=== PATIENT | female | born 1955 | race Two or more races ===

== ENCOUNTER 2019-06-19 13:48 | Emergency (ER) | payer OTHER ==
[~2019-06-19] VITALS: Ht 154.9 cm; Wt 68.0 kg
[2019-06-19 14:57] LABS: BASO % 1 % (0-3); EOS # 0.6 x10^3/uL (0.0-0.7); EOS % 11 % (0-3); HEMATOCRIT 42.6 % (36.0-47.0); HEMOGLOBIN 14.3 g/dL (12.0-15.5); LYMPH # 1.4 x10^3/uL (1.0-4.8); LYMPH % 26 % (24-48); MEAN CORPUSCULAR HEMOGLOBIN 29 pg (25-35); MEAN CORPUSCULAR HGB CONC 34 g/dL (31-37); MEAN CORPUSCULAR VOLUME 86 fL (79-100); MONO # 0.4 x10^3/uL (0.0-1.1); MONO % 8 % (0-9); NEUT % 55 % (31-73); PLATELET COUNT 146 x10^3/uL (140-400); RED BLOOD COUNT 4.96 x10^6/uL (3.50-5.40); WHITE BLOOD COUNT 5.4 x10^3/uL (4.0-11.0)
[2019-06-19] MEDS ORDERED: RIVA15TA PO (15:01)
--- NOTE | 2019-06-19 15:01 | PHYS DOC ---
Past Medical History Past Medical History: DVT, Hypertension, Hypothyroid Additional Past Medical Histor: UTERINE TUMOR, LAST CHEMO MAR 2019 Past Surgical History: Hysterectomy, Tubal ligation, Other Smoking Status: Never Smoker Alcohol Use: None Drug Use: None Adult General Chief Complaint Chief Complaint: LOWER EXT PAIN HPI HPI 64-year-old female presenting the emergency department today after being found to have bilateral distal calf DVTs that diagnostic imaging center. She's had some pain and swelling in her calves for months now and after these DVTs were found she was sent here for further treatment and evaluation. She has some throbbing pain in her calves with some swelling. ROS negative for headache. She denies chest pain or shortness of breath. She denies fevers or chills. All other review of systems is negative. ED course: 64-year-old female presenting with bilateral distal calf DVTs. We will start the patient on xerolto. Chemistry panel shows low potassium. Otherwise kidney function within normal limits. I spoke with Dr. Meier the patient's OB gynecology oncology physician. Patient's potassium was replaced in the emergency department orally. We will discharge home with xerolto. Follow up with PCP 1-2 days. EKG shows sinus rhythm with a regular rate. QRS is within normal limits. No changes of EKG related the patient's hypokalemia. Current Medications Current Medications Current Medications Medications (Trade) Dose Ordered Sig/Allison Start Time Stop Time Status Last Admin Dose Admin Potassium Chloride (Klor-Con) 40 meq 1X ONCE 06/19/19 15:30 06/19/19 15:31 DC Allergies Allergies Allergies Coded Allergies Type Severity Reaction Last Updated Verified I S O L A T I O N *CONTACT* Allergy Unknown 09/16/16 Yes Uncoded Allergies Type Severity Reaction Last Updated Verified complex b Allergy Mild 11/08/15 yodo Allergy Unknown 11/08/15 Physical Exam Physical Exam Constitutional: Well developed, well nourished, no acute distress, non-toxic appearance. HEENT: Normocephalic, atraumatic, bilateral external ears normal, oropharynx moist, no oral exudates, nose normal. [] Eyes: PERRLA, EOMI, conjunctiva normal, no discharge. [] Neck: Normal range of motion, no tenderness, supple, no stridor. [] Cardiovascular:Heart rate regular rhythm, no murmur [] Lungs & Thorax: Bilateral breath sounds clear to auscultation [] Abdomen: Bowel sounds normal, soft, no tenderness, no masses, no pulsatile masses. [] Skin: Warm, dry, no erythema, no rash. [] Back: No tenderness, no CVA tenderness. [] Extremities: Patient has bilateral pedal edema with swelling. No erythema. Palpable pulse with 2 sec cap refill. Neurologic: Alert and oriented X 3, normal motor function, normal sensory function, no focal deficits noted. [] Psychologic: Affect normal, judgement normal, mood normal. [] Current Patient Data Vital Signs Vital Signs Date Time Temp Pulse Resp B/P (MAP) Pulse Ox O2 Delivery O2 Flow Rate FiO2 06/19/19 14:15 98.4 79 18 133/64 (87) 94 Room Air 98.4 Lab Values Laboratory Tests Test 06/19/19 14:45 White Blood Count 5.4 x10^3/uL (4.0-11.0) Red Blood Count 4.96 x10^6/uL (3.50-5.40) Hemoglobin 14.3 g/dL (12.0-15.5) Hematocrit 42.6 % (36.0-47.0) Mean Corpuscular Volume 86 fL (79-100) Mean Corpuscular Hemoglobin 29 pg (25-35) Mean Corpuscular Hemoglobin Concent 34 g/dL (31-37) Red Cell Distribution Width 17.0 % (11.5-14.5) H Platelet Count 146 x10^3/uL (140-400) Neutrophils (%) (Auto) 55 % (31-73) Lymphocytes (%) (Auto) 26 % (24-48) Monocytes (%) (Auto) 8 % (0-9) Eosinophils (%) (Auto) 11 % (0-3) H Basophils (%) (Auto) 1 % (0-3) Neutrophils # (Auto) 3.0 x10^3/uL (1.8-7.7) Lymphocytes # (Auto) 1.4 x10^3/uL (1.0-4.8) Monocytes # (Auto) 0.4 x10^3/uL (0.0-1.1) Eosinophils # (Auto) 0.6 x10^3/uL (0.0-0.7) Basophils # (Auto) 0.0 x10^3/uL (0.0-0.2) Sodium Level 140 mmol/L (136-145) Potassium Level 2.9 mmol/L (3.5-5.1) *L Chloride Level 103 mmol/L (98-107) Carbon Dioxide Level 28 mmol/L (21-32) Anion Gap 9 (6-14) Blood Urea Nitrogen 13 mg/dL (7-20) Creatinine 0.5 mg/dL (0.6-1.0) L Estimated GFR (Cockcroft-Gault) 123.8 BUN/Creatinine Ratio 26 (6-20) H Glucose Level 105 mg/dL (70-99) H Calcium Level 9.2 mg/dL (8.5-10.1) Total Bilirubin 0.3 mg/dL (0.2-1.0) Aspartate Amino Transferase (AST) 22 U/L (15-37) Alanine Aminotransferase (ALT) 16 U/L (14-59) Alkaline Phosphatase 61 U/L (46-116) Total Protein 7.1 g/dL (6.4-8.2) Albumin 3.2 g/dL (3.4-5.0) L Albumin/Globulin Ratio 0.8 (1.0-1.7) L Laboratory Tests 06/19/19 14:45 Laboratory Tests 06/19/19 14:45 EKG EKG [] Radiology/Procedures Radiology/Procedures [] Course & Med Decision Making Course & Med Decision Making Pertinent Labs and Imaging studies reviewed. (See chart for details) [] Dragon Disclaimer Dragon Disclaimer This electronic medical record was generated, in whole or in part, using a voice recognition dictation system. Departure Departure Impression: Primary Impression: DVT (deep venous thrombosis) Additional Impressions: Deep venous thrombosis (DVT) of both peroneal veins Deep venous thrombosis (DVT) of left peroneal vein Deep venous thrombosis (DVT) of right peroneal vein Disposition: 01 HOME, SELF-CARE Condition: STABLE Referrals: SIDNEY STEELE APRN (PCP) Patient Instructions: Deep Vein Thrombosis Additional Instructions: Thank you for allowing us to participate in your care today. Return to the emergency department you have any new or worsening symptoms, or if you are concerned for any reason. Return to emergency department if you have any new or concerning symptoms including but not limited to fever, chills, nausea, vomiting, intractable pain, any new rashes, chest pain, shortness of air, uncontrolled bleeding, difficulty breathing, and/or vision loss. Follow up with your primary care physician within 1-2 days. Call your Primary Doctor tomorrow and inform them of your visit today. If you do not have a primary care provider we are happy to provide you with a list of our primary care providers contact information. This condition should be evaluated by your primary care physician and any recommended consulting services for continued management within 2 days after discharge. If at any time, you are having difficulty getting into your primary care doctor or a specialist, return to the emergency department. Scripts Potassium Chloride (POTASSIUM CHLORIDE ) 10 Meq Tab.sr.24h 10 MEQ PO DAILY for 5 Days, #5 TAB.SR Prov: LEOPOLDO RACHEL MD 06/19/19 Rivaroxaban (XARELTO) 15 Mg Tablet 1 TAB PO BID for 21 Days, #42 TAB 0 Refills Prov: LEOPOLDO RACHEL MD 06/19/19 Problem Qualifiers LEOPOLDO RACHEL MD Jun 19, 2019 15:01
[2019-06-19 15:14] LABS: ALBUMIN 3.2 g/dL (3.4-5.0); ALBUMIN/GLOBULIN RATIO 0.8 (1.0-1.7); CALCIUM 9.2 mg/dL (8.5-10.1); CREATININE 0.5 mg/dL (0.6-1.0); GFR 123.8; TOTAL BILIRUBIN 0.3 mg/dL (0.2-1.0); TOTAL PROTEIN 7.1 g/dL (6.4-8.2)
[2019-06-19 15:18] LABS: POTASSIUM 2.9 mmol/L (3.5-5.1)
[2019-06-19] MEDS ORDERED: POTASSIUM CHLORIDE 20 MEQ TABLET.ER. PO ONE (15:30)
[2019-06-19] MEDS ORDERED: POTA10TA12 PO (15:43)
--- NOTE | 2019-06-19 16:04 | EKG ---
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
[2019-06-19 16:05] VITALS: BP 126/60
== END 2019-06-19 16:30 | disposition home or self-care (01) ==
LOC: ER 13:48
DX: I82.453 Acute embolism and thrombosis of peroneal vein, bilateral (principal); I10 Essential (primary) hypertension; E03.9 Hypothyroidism, unspecified; Z90.710 Acquired absence of both cervix and uterus; Z98.51 Tubal ligation status; Z91.041 Radiographic dye allergy status; Z88.8 Allergy status to other drugs, medicaments and biological substances
CPT/HCPCS: 36415; 80053; 85025; 93005; 99284-25

== ENCOUNTER 2020-10-13 20:15 | Inpatient (IN) | payer OTHER ==
[~2020-10-13] VITALS: Ht 160 cm; Wt 65.2 kg
[~2020-10-13 20:15] MED LIST: POTA10TA12 PO; RIVA15TA PO
[2020-10-13] MEDS ORDERED: ASPIRIN 325 MG TABLET PO ONE (20:45)
[2020-10-13] MEDS ORDERED: LABETALOL 20 MG/4 ML DISP.SYRIN. IVP ONE (20:45)
[2020-10-13] MEDS ORDERED: ALPRAZolam 0.5 MG TABLET PO ONE (20:45)
--- NOTE | 2020-10-13 20:48 | EKG ---
[facility] [address] [place] [address] Test Date: 2020-10-13 Test Time: 20:30:00 Pat Name: MOON Mayenpartment: Room: Gender: F Purse Maker: : 1955 Requested By: EVI TALBERT Order Number: [id number] Reading MD: Measurements Intervals [place] Rate: 83 P: -65 NH: 152 QRS: -47 QRSD: 90 T: 57 QT: 334 QTc: 398 Interpretive Statements SINUS RHYTHM ABNORMAL LEFT AXIS DEVIATION LEFT ANTERIOR FASCICULAR BLOCK CONSIDER LEFT VENTRICULAR HYPERTROPHY QRS(T) CONTOUR ABNORMALITY CONSIDER ANTEROSEPTAL MYOCARDIAL DAMAGE ABNORMAL ECG RI6.02 No previous ECG available for comparison
[2020-10-13 21:23] LABS: BASO # 0.1 x10^3/uL (0.0-0.2); BASO % 1 % (0-3); EOS # 0.3 x10^3/uL (0.0-0.7); EOS % 4 % (0-3); HEMATOCRIT 34.2 % (36.0-47.0); HEMOGLOBIN 11.7 g/dL (12.0-15.5); LYMPH # 1.7 x10^3/uL (1.0-4.8); LYMPH % 21 % (24-48); MEAN CORPUSCULAR HEMOGLOBIN 31 pg (25-35); MEAN CORPUSCULAR HGB CONC 34 g/dL (31-37); MEAN CORPUSCULAR VOLUME 89 fL (79-100); MONO # 0.9 x10^3/uL (0.0-1.1); MONO % 12 % (0-9); NEUT # 4.9 x10^3/uL (1.8-7.7); NEUT % 62 % (31-73); PLATELET COUNT 151 x10^3/uL (140-400); RED BLOOD COUNT 3.85 x10^6/uL (3.50-5.40); RED CELL DISTRIBUTION WIDTH 14.8 % (11.5-14.5); WHITE BLOOD COUNT 7.8 x10^3/uL (4.0-11.0)
--- NOTE | 2020-10-13 21:31 | RAD ---
Exam: Chest one view INDICATION: High blood pressure TECHNIQUE: Frontal view of the chest Comparisons: None FINDINGS: The cardiomediastinal silhouette and pulmonary vessels are within normal limits. Lung and pleural spaces are clear. IMPRESSION: No acute cardiopulmonary process. Electronically signed by: Barb Benavidez MD (10/13/2020 9:28 PM) KATHRYN
[2020-10-13 21:32] LABS: CALCIUM 8.8 mg/dL (8.5-10.1); CREATININE 1.6 mg/dL (0.6-1.0); GFR 32.2; POTASSIUM 5.2 mmol/L (3.5-5.1)
[2020-10-13 21:37] LABS: ALBUMIN 3.5 g/dL (3.4-5.0); ALBUMIN/GLOBULIN RATIO 0.9 (1.0-1.7); TOTAL BILIRUBIN 0.3 mg/dL (0.2-1.0); TOTAL PROTEIN 7.3 g/dL (6.4-8.2)
[2020-10-13] MEDS ORDERED: SODIUM POLYSTYRENE SULFON/SORB 15 GM/60 ML ORAL.SUSP. PO ONE (22:00)
--- NOTE | 2020-10-13 22:26 | RAD ---
CT scan of the head without contrast 10/13/2020 Clinical History: Hypertension. Headaches. Technique: Unenhanced, contiguous, 5 mm axial sections were obtained through the head. One or more of the following individualized dose reduction techniques were utilized for this study: 1. Automated exposure control. 2. Adjustment of the mA and/or kV according to patient size. 3. Use of iterative reconstruction technique. Findings: There is mild generalized parenchymal atrophy. Areas of decreased attenuation are seen wit hin the periventricular and subcortical white matter of both cerebral hemispheres consistent with are as of small vessel ischemic disease. No acute parenchymal abnormality is seen. No extra-axial fluid c ollection is noted. No skull fracture is seen. Impression: No acute intracranial abnormality is seen. Electronically signed by: Darien Ceballos MD (10/13/2020 10:24 PM) [id number]
--- NOTE | 2020-10-13 23:45 | NUR ---
The patient, MOON ESTRADA, 65 y/o, F admitted by LAKIA CRISOSTOMO MD, was given written information regarding hospital policies, unit procedures and contact persons. used interperter line to communicate poc, assessment and meds and poc Valuables were checked and documented in the emar lcrn.
--- NOTE | 2020-10-13 23:56 | PHYS DOC ---
Past Medical History Past Medical History: Anxiety, Depression, DVT, Hypertension, Hypothyroid Additional Past Medical Histor: UTERINE TUMOR, LAST CHEMO MAR 2019 ([employer]I TALBERT [employer]) Past Surgical History: Hysterectomy, Tubal ligation, Other ([employer]I TALB[employer]) Smoking Status: Never Smoker Alcohol Use: None Drug Use: None (EVI TALBERT APRN) General Adult EDM: Chief Complaint: ANXIETY/PANIC ATTACK HPI: HPI: Patient is a 65 year old female with a history of hypertension, depression, anxiety, who presents to the ED today complaining of high blood pressure that has been going on for months. Patient states she followed up with her own PCP who referred her to a hub cutter. She states she was seen by the hub cutter who changed her medicines, she states her blood pressure is not coming down. Patient denies any chest pain or shortness of breath. Patient is [place]-speaking and interpretation is provided through the inter preter line. (EVI TALBERT [employer]) Review of Systems: Review of Systems: Constitutional: Denies fever or chills. [] Eyes: Denies change in visual acuity. [] HENT: Denies nasal congestion or sore throat. [] Respiratory: Denies cough or shortness of breath. [] Cardiovascular: Reports high blood pressure. Denies chest pain or edema. [] GI: Denies abdominal pain, nausea, vomiting, bloody stools or diarrhea. [] : Denies dysuria. [] Musculoskeletal: Denies back pain or joint pain. [] Integument: Denies rash. [] Neurologic: Denies headache, focal weakness or sensory changes. [] ] Psychiatric: Denies depression or anxiety. [] ([employer]I TALB[employer]) Heart Score: C/O Chest Pain: No Risk Factors: Risk Factors: DM, Current or recent (<one month) smoker, HTN, HLP, family history of CAD, obesity. Risk Scores: Score 0 - 3: 2.5% MACE over next 6 weeks - Discharge Home Score 4 - 6: 20.3% MACE over next 6 weeks - Admit for Clinical Observation Score 7 - 10: 72.7% MACE over next 6 weeks - Early Invasive Strategies (EVI TALBERT [employer]) Current Medications: Current Medications Medications (Trade) Dose Ordered Sig/Allison Start Time Stop Time Status Last Admin Dose Admin Alprazolam (Xanax) 0.5 mg 1X ONCE 10/13/20 20:45 10/13/20 20:47 DC 10/13/20 21:27 0.5 MG Aspirin (Ana Aspirin) 325 mg 1X ONCE 10/13/20 20:45 10/13/20 20:47 DC 10/13/20 21:27 325 MG Labetalol HCl (Normodyne Iv Push) 10 mg 1X ONCE 10/13/20 20:45 10/13/20 20:47 DC 10/13/20 21:27 10 MG ([employer]I T[employer]BERT [employer]) Allergies: Allergies: Allergies Coded Allergies Type Severity Reaction Last Updated Verified I S O L A T I O N *CONTACT* Allergy Unknown 09/16/16 Yes Uncoded Allergies Type Severity Reaction Last Updated Verified complex b Allergy Mild 11/08/15 ([employer]I TALBERT [employer]) Physical Exam: PE: Constitutional: Well developed, well nourished, no acute distress, non-toxic appearance. [] HENT: Normocephalic, atraumatic, bilateral external ears normal, oropharynx moist, no oral exudates, nose normal. [] Eyes: PERRLA, EOMI, conjunctiva normal, no discharge. [] Neck: Normal range of motion, no tenderness, supple, no stridor. [] Cardiovascular:Heart rate regular rhythm, no murmur [] Lungs & Thorax: Bilateral breath sounds clear to auscultation [] Abdomen: Bowel sounds normal, soft, no tenderness, no masses, no pulsatile masses. [] Skin: Warm, dry, no erythema, no rash. [] Back: No tenderness, no CVA tenderness. [] Extremities: No tenderness, no cyanosis, no clubbing, ROM intact, no edema. [] Neurologic: Alert and oriented X 3, normal motor function, normal sensory function, no focal deficits noted. [] Psychologic: Appears anxious. (EVI TALBERT [employer]) Current Patient Data: Labs: Laboratory Tests Test 10/13/20 21:10 White Blood Count 7.8 x10^3/uL (4.0-11.0) Red Blood Count 3.85 x10^6/uL (3.50-5.40) Hemoglobin 11.7 g/dL (12.0-15.5) L Hematocrit 34.2 % (36.0-47.0) L Mean Corpuscular Volume 89 fL (79-100) Mean Corpuscular Hemoglobin 31 pg (25-35) Mean Corpuscular Hemoglobin Concent 34 g/dL (31-37) Red Cell Distribution Width 14.8 % (11.5-14.5) H Platelet Count 151 x10^3/uL (140-400) Neutrophils (%) (Auto) 62 % (31-73) Lymphocytes (%) (Auto) 21 % (24-48) L Monocytes (%) (Auto) 12 % (0-9) H Eosinophils (%) (Auto) 4 % (0-3) H Basophils (%) (Auto) 1 % (0-3) Neutrophils # (Auto) 4.9 x10^3/uL (1.8-7.7) Lymphocytes # (Auto) 1.7 x10^3/uL (1.0-4.8) Monocytes # (Auto) 0.9 x10^3/uL (0.0-1.1) Eosinophils # (Auto) 0.3 x10^3/uL (0.0-0.7) Basophils # (Auto) 0.1 x10^3/uL (0.0-0.2) Sodium Level 134 mmol/L (136-145) L Potassium Level 5.2 mmol/L (3.5-5.1) H Chloride Level 101 mmol/L (98-107) Carbon Dioxide Level 23 mmol/L (21-32) Anion Gap 10 (6-14) Blood Urea Nitrogen 34 mg/dL (7-20) H Creatinine 1.6 mg/dL (0.6-1.0) H Estimated GFR (Cockcroft-Gault) 32.2 BUN/Creatinine Ratio 21 (6-20) H Glucose Level 86 mg/dL (70-99) Calcium Level 8.8 mg/dL (8.5-10.1) Total Bilirubin 0.3 mg/dL (0.2-1.0) Aspartate Amino Transferase (AST) 21 U/L (15-37) Alanine Aminotransferase (ALT) 13 U/L (14-59) L Alkaline Phosphatase 62 U/L (46-116) Troponin I Quantitative < 0.017 ng/mL (0.000-0.055) DD-Syt-O-Type Natriuretic Peptide 592 pg/mL (0-124) H Total Protein 7.3 g/dL (6.4-8.2) Albumin 3.5 g/dL (3.4-5.0) Albumin/Globulin Ratio 0.9 (1.0-1.7) L Laboratory Tests 10/13/20 21:10 Laboratory Tests 10/13/20 21:10 Vital Signs: Vital Signs Date Time Temp Pulse Resp B/P (MAP) Pulse Ox O2 Delivery O2 Flow Rate FiO2 10/13/20 23:25 78 19 160/67 (98) 96 Room Air 10/13/20 20:30 98.2 98.2 ([facility]I [employer]ERT [employer]) EKG: EK interpreted by Dr. Garcia sinus rhythm, inverted T waves in V2, no STEMI. [] (EVI TALBERT [employer]) Radiology/Procedures: Radiology/Procedures: []PROCEDURE: CT HEAD WO CONTRAST CT scan of the head without contrast 10/13/2020 Clinical History: Hypertension. Headaches. Technique: Unenhanced, contiguous, 5 mm axial sections were obtained through the head. One or more of the following individualized dose reduction techniques were utilized for this study: 1. Automated exposure control. 2. Adjustment of the mA and/or kV according to patient size. 3. Use of iterative reconstruction technique. Findings: There is mild generalized parenchymal atrophy. Areas of decreased attenuation are seen within the periventricular and subcortical white matter of both cerebral hemispheres consistent with areas of small vessel ischemic disease. No acute parenchymal abnormality is seen. No extra-axial fluid collection is noted. No skull fracture is seen. Impression: No acute intracranial abnormality is seen. Electronically signed by: Darien Ceballos MD (10/13/2020 10:24 PM) [id number] DICTATED and SIGNED BY: DARIEN CEBALLOS MD DATE: 10/13/20 [id number] PROCEDURE: PORTABLE CHEST 1V Exam: Chest one view INDICATION: High blood pressure TECHNIQUE: Frontal view of the chest Comparisons: None FINDINGS: The cardiomediastinal silhouette and pulmonary vessels are within normal limits. Lung and pleural spaces are clear. IMPRESSION: No acute cardiopulmonary process. Electronically signed by: Barb Waddell MD (10/13/2020 9:28 PM) [facility] DICTATED and SIGNED BY: BARB WADDELL MD DATE: 10/13/20 [id number] (EVI TALBERT APRN) Course & Med Decision Making: Course & Med Decision Making Pertinent Labs and Imaging studies reviewed. (See chart for details) This is a 65-year-old female patient presenting to the ED today complaining of high blood pressure that is chronic but states the new medicine she was put on is not helping. Blood pressure on arrival to the ED was 201/86 with a heart rate of 74. Labetalol was ordered. EKG with nothing really acute, troponin is normal, potassium 5.2-Kayexalate was given, creatinine 1.6 with BUN of 34, patient denies any history of renal failure. CBC with hemoglobin of 11.7 with hematocrit of 34.2. CT of the head is negative for any acute findings, chest x-ray is negative. Spoke with Dr. Armando who accepted patient for admission Routine consult placed for cardiology and nephrology (EVI TALBERT APRN) Course & Med Decision Making I oversaw on the above date of service of this patient. This patient was evaluated, examined, treated, and dispositioned from the emergency department by the mid-level practitioner. I reviewed note and agree to findings, plan of care, and disposition as stated. Critical Care Time This patient required critical care. Due to the fact that the patient required a significant amount of one on one physician - patient contact time, ordering and review of studies, arranging urgent treatment with development of a management plan, evaluation of patients response to treatment with frequent reassessments, and discussions with other providers this patient required 40 minutes of critical care time. Critical care time was indicated due to the inherent instability and/or potential for instability in this patient. The critical care time that is allocated to this patient is above and beyond any time spent on any other billable procedures performed on this patient. Electronically signed, Arnie Garcia DO (ARNIE GARCIA DO) Rico Disclaimer: Rico Disclaimer: This electronic medical record was generated, in whole or in part, using a voice recognition dictation system. (EVI TALBERT APRN) Departure Departure Impression: Primary Impression: Accelerated hypertension Additional Impressions: ARF (acute renal failure) Qualified Codes: N17.9 - Acute kidney failure, unspecified Hyperkalemia Disposition: ADMITTED INPATIENT Condition: STABLE Referrals: SIDNEY STEELE APRN (PCP) EVI TALBERT APRN Oct 13, 2020 23:56 ARNIE GARCIA DO Oct 19, 2020 15:12
[2020-10-14] VITALS (9 sets, daily range): BP systolic 130–172; BP diastolic 54–87
[2020-10-14] LABS: BILIRUBIN,URINE NEGATIVE (NEG); CLARITY,URINE CLEAR; COLOR,URINE YELLOW; NITRITE,URINE NEGATIVE (NEG); PROTEIN,URINE NEGATIVE (NEG-TRACE); UROBILINOGEN,URINE 0.2 mg/dL (0.2 mg/dL)
[2020-10-14] MEDS ORDERED: ONDANSETRON PF 4 MG/2 ML VIAL. IV PRN
[2020-10-14] MEDS ORDERED: MORPHINE SULFATE 2 MG/ML VIAL. IV PRN
[2020-10-14 00:10] LABS: BACTERIA,URINE MANY /HPF (0-FEW); RBC,URINE OCC /HPF (0-2)
[2020-10-14 04:12] LABS: BASO % 1 % (0-3); EOS # 0.3 x10^3/uL (0.0-0.7); EOS % 5 % (0-3); HEMATOCRIT 34.4 % (36.0-47.0); HEMOGLOBIN 11.6 g/dL (12.0-15.5); LYMPH # 1.6 x10^3/uL (1.0-4.8); LYMPH % 27 % (24-48); MEAN CORPUSCULAR HEMOGLOBIN 30 pg (25-35); MEAN CORPUSCULAR HGB CONC 34 g/dL (31-37); MEAN CORPUSCULAR VOLUME 90 fL (79-100); MONO # 0.7 x10^3/uL (0.0-1.1); MONO % 12 % (0-9); NEUT # 3.1 x10^3/uL (1.8-7.7); NEUT % 54 % (31-73); PLATELET COUNT 142 x10^3/uL (140-400); RED BLOOD COUNT 3.84 x10^6/uL (3.50-5.40); RED CELL DISTRIBUTION WIDTH 15.2 % (11.5-14.5); WHITE BLOOD COUNT 5.7 x10^3/uL (4.0-11.0)
[2020-10-14 04:26] LABS: ALBUMIN 3.3 g/dL (3.4-5.0); CALCIUM 8.9 mg/dL (8.5-10.1); CREATININE 1.5 mg/dL (0.6-1.0); GFR 34.7; POTASSIUM 4.5 mmol/L (3.5-5.1); TOTAL BILIRUBIN 0.3 mg/dL (0.2-1.0); TOTAL PROTEIN 6.6 g/dL (6.4-8.2)
--- NOTE | 2020-10-14 06:14 | NUR ---
IP: Pt's hx of MDRO was an ESBL in urine on 08/2016. No reoccurrence. Flag removed from EMR. No isolation needed at this time.
[2020-10-14] MEDS ORDERED: POTA10TA12 PO (06:33)
[2020-10-14] MEDS ORDERED: ALPR0.25 PO (06:37)
[2020-10-14] MEDS ORDERED: ASPI-886 PO (06:37)
[2020-10-14] MEDS ORDERED: MULT-250 PO (06:37)
[2020-10-14] MEDS ORDERED: LEVO88TA70 PO (06:37)
[2020-10-14] MEDS ORDERED: METO25TA4 PO (06:37)
--- NOTE | 2020-10-14 08:11 | PDOC1 ---
History and Physical Date of Service: DOS: DATE: 10/14/20 TIME: 08:07 Chief Complaint: Chief Complain: High blood pressure History of Present Illness: HPI: 65-year-old female with past medical history of hypertension, depression, anxiety who presents to the ED today due to high blood pressure that has been ongoing for months. 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 Denies any chest pain, shortness of breath, recent NSAIDs or [id number] occasions. She knows that she does have any more abnormal kidney function. Denies any recent UTIs or kidney stones. Her last UTI was more than 20 years ago. Does complain of occasional intermittent lower extremity edema especially when she drinks more water. Baseline Cr unknown to the family. She follows with Nurse practitioner ; Oncology and Cardiology . Past Medical/Surgical History: PMH/PSH: Past Medical History: Anxiety, Depression, DVT, Hypertension, Hypothyroid, UTERINE TUMOR, LAST CHEMO MAR 2019 Past Surgical History: Hysterectomy, Tubal ligation, Other Allergies: Allergies: Coded Allergies: folic acid (Verified Allergy, Mild, 10/14/20) "COMPLEX B" vitamin B complex and C (Verified Allergy, Mild, 10/14/20) "COMPLEX B" iodine (Verified Allergy, Unknown, 10/13/20) Family History: Family History: Reviewed with no relevant findings Social History: Social History: Smoking Status: Never Smoker Alcohol Use: None Drug Use: None Current Medications: Current Medications Current Medications Aspirin (Ana Aspirin) 325 mg 1X ONCE PO Last administered on 10/13/20at 21:27; Start 10/13/20 at 20:45; Stop 10/13/20 at 20:47; Status DC Labetalol HCl (Normodyne Iv Push) 10 mg 1X ONCE IVP Last administered on 10/13/20at 21:27; Start 10/13/20 at 20:45; Stop 10/13/20 at 20:47; Status DC Alprazolam (Xanax) 0.5 mg 1X ONCE PO Last administered on 10/13/20at 21:27; Start 10/13/20 at 20:45; Stop 10/13/20 at 20:47; Status DC Sodium Polystyrene Sulfonate (Kayexalate) 30 gm 1X ONCE PO Last administered on 10/13/20at 22:31; Start 10/13/20 at 22:00; Stop 10/13/20 at 22:01; Status DC Ondansetron HCl (Zofran) 4 mg PRN Q8HRS PRN IV NAUSEA/VOMITING; Start 10/14/20 at 00:00; Stop 10/14/20 at 23:59 Morphine Sulfate (Morphine Sulfate) 2 mg PRN Q2HR PRN IV PAIN; Start 10/14/20 at 00:00; Stop 10/14/20 at 23:59 Acetaminophen (Tylenol) 650 mg PRN Q4HRS PRN PO FEVER > 100.3'F; Start 10/14/20 at 00:00; Stop 10/14/20 at 23:59 Active Scripts Active Xarelto (Rivaroxaban) 15 Mg Tablet 1 Tab PO BID 21 Days Reported Aspirin Ec (Aspirin) 81 Mg Tablet.dr 81 Mg PO DAILY Synthroid (Levothyroxine Sodium) 88 Mcg Tablet 1 Tab PO DAILY Metoprolol Tartrate 25 Mg Tablet 25 Mg PO BID Sentry Senior Tablet (Multivits-Min/Fa/Lycopene/Lut) 1 Each Tablet 1 Each PO DAILY Xanax (Alprazolam) 0.25 Mg Tablet 0.25 Mg PO PRN Q6HRS PRN Klor-Con M10 (Potassium Chloride) 10 Meq Tab.er.prt 10 Meq PO BID ROS: Review of Systems Review of System REVIEW OF SYSTEMS: GENERAL: Denies weakness SKIN: No bruising, hair changes or rashes. EYES: No blurred, double or loss of vision. NOSE AND THROAT: No history of nosebleeds, hoarseness or sore throat. HEART: No history of palpitations, chest pain or shortness of breath on exertion. LUNGS: Denies cough, hemoptysis, wheezing or shortness of breath. GASTROINTESTINAL: Denies changes in appetite, nausea, vomiting, diarrhea or constipation. GENITOURINARY: No history of frequency, urgency, hesitancy or nocturia. NEUROLOGIC: Denies history of numbness, tingling, or tremor. PSYCHIATRIC: No history of panic, anxiety or depression. ENDOCRINE: No history of heat or cold intolerance, polyuria or polydipsia. EXTREMITIES: Denies joint pain, pain on walking or stiffness. Physical Exam: Vital Signs: Vital Signs Date Time Temp Pulse Resp B/P (MAP) Pulse Ox O2 Delivery O2 Flow Rate FiO2 10/14/20 07:18 97.7 76 19 156/64 (94) 96 Room Air 97.7 Physcial Exam: GEN: No apparent distress. Alert and oriented HEENT: Normal cephalic, atraumatic, external auditory canals are patent EYES: Extraocular muscles are intact, pupil are equally round and reactive to light and accommodation MUSCULOSKELETAL: Well developed , well nourished, good range of motion ENDOCRINE: No thyromegaly was palpated LYMPHATICS: No cervical chain or axillary nodes were noted HEMATOPOIETIC: No bruising NECK: Supple, no JVD, no thyromegaly was noted LUNGS: Clear to auscultation in all lung watson without rhonchi or wheezing HEART: RRR, S!, S2 present. Peripheral pulses intact, no obvious murmurs noted ABDOMEN: Soft, nontender. Positive bowel sounds, no organomegaly, normal bowel sounds EXTREMITIES: Without clubbing, cyanosis, or edema. Pedal pulses intact. Negative Homans sign NEUROLOGIC: Normal speech and tone. A&O x 3, moves all extremities, no obvious focal deficits PSYCHIATRIC: Normal affect, normal mood. Stable SKIN: No ulcerations or rashes, good skin turgor, no jaundice VASCULAR: Good capillary refill, neurovascular bundle appears to be intact Labs: Labs: Laboratory Tests Test 10/13/20 21:10 10/13/20 23:45 10/14/20 04:00 White Blood Count 7.8 x10^3/uL (4.0-11.0) 5.7 x10^3/uL (4.0-11.0) Red Blood Count 3.85 x10^6/uL (3.50-5.40) 3.84 x10^6/uL (3.50-5.40) Hemoglobin 11.7 g/dL (12.0-15.5) 11.6 g/dL (12.0-15.5) Hematocrit 34.2 % (36.0-47.0) 34.4 % (36.0-47.0) Mean Corpuscular Volume 89 fL (79-100) 90 fL (79-100) Mean Corpuscular Hemoglobin 31 pg (25-35) 30 pg (25-35) Mean Corpuscular Hemoglobin Concent 34 g/dL (31-37) 34 g/dL (31-37) Red Cell Distribution Width 14.8 % (11.5-14.5) 15.2 % (11.5-14.5) Platelet Count 151 x10^3/uL (140-400) 142 x10^3/uL (140-400) Neutrophils (%) (Auto) 62 % (31-73) 54 % (31-73) Lymphocytes (%) (Auto) 21 % (24-48) 27 % (24-48) Monocytes (%) (Auto) 12 % (0-9) 12 % (0-9) Eosinophils (%) (Auto) 4 % (0-3) 5 % (0-3) Basophils (%) (Auto) 1 % (0-3) 1 % (0-3) Neutrophils # (Auto) 4.9 x10^3/uL (1.8-7.7) 3.1 x10^3/uL (1.8-7.7) Lymphocytes # (Auto) 1.7 x10^3/uL (1.0-4.8) 1.6 x10^3/uL (1.0-4.8) Monocytes # (Auto) 0.9 x10^3/uL (0.0-1.1) 0.7 x10^3/uL (0.0-1.1) Eosinophils # (Auto) 0.3 x10^3/uL (0.0-0.7) 0.3 x10^3/uL (0.0-0.7) Basophils # (Auto) 0.1 x10^3/uL (0.0-0.2) 0.0 x10^3/uL (0.0-0.2) Sodium Level 134 mmol/L (136-145) 140 mmol/L (136-145) Potassium Level 5.2 mmol/L (3.5-5.1) 4.5 mmol/L (3.5-5.1) Chloride Level 101 mmol/L (98-107) 105 mmol/L (98-107) Carbon Dioxide Level 23 mmol/L (21-32) 24 mmol/L (21-32) Anion Gap 10 (6-14) 11 (6-14) Blood Urea Nitrogen 34 mg/dL (7-20) 36 mg/dL (7-20) Creatinine 1.6 mg/dL (0.6-1.0) 1.5 mg/dL (0.6-1.0) Estimated GFR (Cockcroft-Gault) 32.2 34.7 BUN/Creatinine Ratio 21 (6-20) 24 (6-20) Glucose Level 86 mg/dL (70-99) 97 mg/dL (70-99) Calcium Level 8.8 mg/dL (8.5-10.1) 8.9 mg/dL (8.5-10.1) Total Bilirubin 0.3 mg/dL (0.2-1.0) 0.3 mg/dL (0.2-1.0) Aspartate Amino Transf (AST/SGOT) 21 U/L (15-37) 19 U/L (15-37) Alanine Aminotransferase (ALT/SGPT) 13 U/L (14-59) 16 U/L (14-59) Alkaline Phosphatase 62 U/L (46-116) 60 U/L (46-116) Troponin I Quantitative < 0.017 ng/mL (0.000-0.055) < 0.017 ng/mL (0.000-0.055) KP-Wjz-C-Type Natriuretic Peptide 592 pg/mL (0-124) Total Protein 7.3 g/dL (6.4-8.2) 6.6 g/dL (6.4-8.2) Albumin 3.5 g/dL (3.4-5.0) 3.3 g/dL (3.4-5.0) Albumin/Globulin Ratio 0.9 (1.0-1.7) 1.0 (1.0-1.7) Urine Color Yellow Urine Clarity Clear Urine pH 6.0 (<5.0-8.0) Urine Specific [place] <=1.005 (1.000-1.030) Urine Protein Negative mg/dL (NEG-TRACE) Urine Glucose (UA) Negative mg/dL (NEG) Urine Ketones (Stick) Negative mg/dL (NEG) Urine Blood Trace (NEG) Urine Nitrite Negative (NEG) Urine Bilirubin Negative (NEG) Urine Urobilinogen Dipstick 0.2 mg/dL (0.2 mg/dL) Urine Leukocyte Esterase Trace (NEG) Urine RBC Occ /HPF (0-2) Urine WBC 1-4 /HPF (0-4) Urine Squamous Epithelial Cells Few /LPF Urine Bacteria Many /HPF (0-FEW) Laboratory Tests Test 10/13/20 21:10 10/13/20 23:45 10/14/20 04:00 White Blood Count 7.8 x10^3/uL (4.0-11.0) 5.7 x10^3/uL (4.0-11.0) Red Blood Count 3.85 x10^6/uL (3.50-5.40) 3.84 x10^6/uL (3.50-5.40) Hemoglobin 11.7 g/dL (12.0-15.5) 11.6 g/dL (12.0-15.5) Hematocrit 34.2 % (36.0-47.0) 34.4 % (36.0-47.0) Mean Corpuscular Volume 89 fL (79-100) 90 fL (79-100) Mean Corpuscular Hemoglobin 31 pg (25-35) 30 pg (25-35) Mean Corpuscular Hemoglobin Concent 34 g/dL (31-37) 34 g/dL (31-37) Red Cell Distribution Width 14.8 % (11.5-14.5) 15.2 % (11.5-14.5) Platelet Count 151 x10^3/uL (140-400) 142 x10^3/uL (140-400) Neutrophils (%) (Auto) 62 % (31-73) 54 % (31-73) Lymphocytes (%) (Auto) 21 % (24-48) 27 % (24-48) Monocytes (%) (Auto) 12 % (0-9) 12 % (0-9) Eosinophils (%) (Auto) 4 % (0-3) 5 % (0-3) Basophils (%) (Auto) 1 % (0-3) 1 % (0-3) Neutrophils # (Auto) 4.9 x10^3/uL (1.8-7.7) 3.1 x10^3/uL (1.8-7.7) Lymphocytes # (Auto) 1.7 x10^3/uL (1.0-4.8) 1.6 x10^3/uL (1.0-4.8) Monocytes # (Auto) 0.9 x10^3/uL (0.0-1.1) 0.7 x10^3/uL (0.0-1.1) Eosinophils # (Auto) 0.3 x10^3/uL (0.0-0.7) 0.3 x10^3/uL (0.0-0.7) Basophils # (Auto) 0.1 x10^3/uL (0.0-0.2) 0.0 x10^3/uL (0.0-0.2) Sodium Level 134 mmol/L (136-145) 140 mmol/L (136-145) Potassium Level 5.2 mmol/L (3.5-5.1) 4.5 mmol/L (3.5-5.1) Chloride Level 101 mmol/L (98-107) 105 mmol/L (98-107) Carbon Dioxide Level 23 mmol/L (21-32) 24 mmol/L (21-32) Anion Gap 10 (6-14) 11 (6-14) Blood Urea Nitrogen 34 mg/dL (7-20) 36 mg/dL (7-20) Creatinine 1.6 mg/dL (0.6-1.0) 1.5 mg/dL (0.6-1.0) Estimated GFR (Cockcroft-Gault) 32.2 34.7 BUN/Creatinine Ratio 21 (6-20) 24 (6-20) Glucose Level 86 mg/dL (70-99) 97 mg/dL (70-99) Calcium Level 8.8 mg/dL (8.5-10.1) 8.9 mg/dL (8.5-10.1) Total Bilirubin 0.3 mg/dL (0.2-1.0) 0.3 mg/dL (0.2-1.0) Aspartate Amino Transf (AST/SGOT) 21 U/L (15-37) 19 U/L (15-37) Alanine Aminotransferase (ALT/SGPT) 13 U/L (14-59) 16 U/L (14-59) Alkaline Phosphatase 62 U/L (46-116) 60 U/L (46-116) Troponin I Quantitative < 0.017 ng/mL (0.000-0.055) < 0.017 ng/mL (0.000-0.055) SE-Wpj-L-Type Natriuretic Peptide 592 pg/mL (0-124) Total Protein 7.3 g/dL (6.4-8.2) 6.6 g/dL (6.4-8.2) Albumin 3.5 g/dL (3.4-5.0) 3.3 g/dL (3.4-5.0) Albumin/Globulin Ratio 0.9 (1.0-1.7) 1.0 (1.0-1.7) Urine Color Yellow Urine Clarity Clear Urine pH 6.0 (<5.0-8.0) Urine Specific [place] <=1.005 (1.000-1.030) Urine Protein Negative mg/dL (NEG-TRACE) Urine Glucose (UA) Negative mg/dL (NEG) Urine Ketones (Stick) Negative mg/dL (NEG) Urine Blood Trace (NEG) Urine Nitrite Negative (NEG) Urine Bilirubin Negative (NEG) Urine Urobilinogen Dipstick 0.2 mg/dL (0.2 mg/dL) Urine Leukocyte Esterase Trace (NEG) Urine RBC Occ /HPF (0-2) Urine WBC 1-4 /HPF (0-4) Urine Squamous Epithelial Cells Few /LPF Urine Bacteria Many /HPF (0-FEW) Images: Images CXR Impression: 1. No acute cardiopulmonary process. CT headnegative for acute intracranial abnormalities Assessment/Plan Assessment/Plan Hypertensive urgency ELDA due to hypertensive nephropathy History of depression History of anxiety History of hypothyroidism History of uterine tumor status post hysterectomy and chemotherapy in 2018 Admit to medicine for further management Cardiology consult Nephrology consult Labetalol as needed to maintain systolic blood pressure between 1 40-1 70 while admitted Strict I's and O's Avoid nephrotoxic agents Resume home medications Ambulation for DVT prophylaxis Protonix GI prophylaxis ADA/renal diet Full code Discussed with RN and SW Disposition patient management as above Surrogate decision maker is son In addition to my E/M visit, advance care planning done with A total time of 20 minutes was spent from 1030 to 1050 face to face in discussion with the patient and family regarding their goals of care, Justifications for Admission Other Justification MCKENZIE NEGRON MD Oct 14, 2020 08:11
[2020-10-14] MEDS ORDERED: DEXTROSE 50% 25 GM / 50ML DISP.SYRIN. IV PRN (08:15)
[2020-10-14] MEDS ORDERED: DOCUSATE SODIUM 100 MG CAPSULE. PO PRN (08:15)
[2020-10-14] MEDS ORDERED: ACETAMINOPHEN 325 MG TABLET. PO PRN ×2 (08:15)
[2020-10-14] MEDS ORDERED: ONDANSETRON PF 4 MG/2 ML VIAL. IVP PRN (08:15)
[2020-10-14] MEDS ORDERED: SENNOSIDES 8.6 MG TABLET PO PRN (08:15)
--- NOTE | 2020-10-14 09:51 | NUR ---
SS following for discharge planning. SS reviewed pt chart and discussed with pt RN. Pt is from home with family and is currently on room air. Belarusian speaking only. SS will continue to follow for discharge planning.
--- NOTE | 2020-10-14 10:12 | PDOC2 ---
CONSULT Date of Consult Date of Consult DATE: 10/14/20 TIME: 09:55 Reason for Consult Reason for Consult: ELDA Source Source: Chart review, Patient History of Present Illness Reason for Visit: Patient is a 65 year old greek speaking female with a history of hypertension, depression, anxiety, who presents to the ED today complaining of high blood pressure that has been going on for months. Patient denies any chest pain or shortness of breath. No N/V/D. Reports some loose stools yesterday. Denies any abdominal pain. No urinary complaints- no dysuria, hematuria; reports urine is little darker today . Denies use of NSAID's or any other OTC meds . She reports she had abnormal kidney function when she was Dx with uterine tumor status post hysterectomy and chemotherapy in 2019 No Past Hx of Kidney stones. No Hx of UTI's in recent years (Kidney infections 20+ years ago ) . She has intermittent LE edema maite when she drinks more water . She has lost significant weight . She tries to keep hydrated and stays at home . Patient is Filipino-speaking and interpretation is provided by the RN Past Medical History Past Medical History Anxiety, Depression, DVT, Hypertension, Hypothyroid, UTERINE TUMOR, LAST CHEMO MAR 2019 Past Surgical History Past Surgical History Hysterectomy, Tubal ligation, Other Family History Family History Reviewed with no relevant findings Social History Social History Smoking Status: Never Smoker Alcohol Use: None Drug Use: None Current Problem List Problem List Problems Medical Problems: (1) Hyperkalemia Status: Acute Current Medications Current Medications Current Medications Aspirin (Ana Aspirin) 325 mg 1X ONCE PO Last administered on 10/13/20at 21:27; Start 10/13/20 at 20:45; Stop 10/13/20 at 20:47; Status DC Labetalol HCl (Normodyne Iv Push) 10 mg 1X ONCE IVP Last administered on 10/13/20at 21:27; Start 10/13/20 at 20:45; Stop 10/13/20 at 20:47; Status DC Alprazolam (Xanax) 0.5 mg 1X ONCE PO Last administered on 10/13/20at 21:27; Start 10/13/20 at 20:45; Stop 10/13/20 at 20:47; Status DC Sodium Polystyrene Sulfonate (Kayexalate) 30 gm 1X ONCE PO Last administered on 10/13/20at 22:31; Start 10/13/20 at 22:00; Stop 10/13/20 at 22:01; Status DC Ondansetron HCl (Zofran) 4 mg PRN Q8HRS PRN IV NAUSEA/VOMITING; Start 10/14/20 at 00:00; Stop 10/14/20 at 23:59 Morphine Sulfate (Morphine Sulfate) 2 mg PRN Q2HR PRN IV PAIN; Start 10/14/20 at 00:00; Stop 10/14/20 at 23:59 Acetaminophen (Tylenol) 650 mg PRN Q4HRS PRN PO FEVER > 100.3'F; Start 10/14/20 at 00:00; Stop 10/14/20 at 23:59 Sennosides (Senna) 17.2 mg PRN BID PRN PO CONSTIPATION; Start 10/14/20 at 08:15 Docusate Sodium (Colace) 100 mg PRN DAILY PRN PO HARD STOOLS; Start 10/14/20 at 08:15 Ondansetron HCl (Zofran) 4 mg PRN Q6HRS PRN IVP NAUSEA/VOMITING; Start 10/14/20 at 08:15 Dextrose (Dextrose 50%-Water Syringe) 12.5 gm PRN Q15MIN PRN IV SEE COMMENTS; Start 10/14/20 at 08:15 Acetaminophen (Tylenol) 650 mg PRN Q4HRS PRN PO TEMP OVER 100.4F OR MILD PAIN; Start 10/14/20 at 08:15 Active Scripts Active Xarelto (Rivaroxaban) 15 Mg Tablet 1 Tab PO BID 21 Days Reported Aspirin Ec (Aspirin) 81 Mg Tablet.dr 81 Mg PO DAILY Synthroid (Levothyroxine Sodium) 88 Mcg Tablet 1 Tab PO DAILY Metoprolol Tartrate 25 Mg Tablet 25 Mg PO BID Sentry Senior Tablet (Multivits-Min/Fa/Lycopene/Lut) 1 Each Tablet 1 Each PO DAILY Xanax (Alprazolam) 0.25 Mg Tablet 0.25 Mg PO PRN Q6HRS PRN Klor-Con M10 (Potassium Chloride) 10 Meq Tab.er.prt 10 Meq PO BID Allergies Allergies: Coded Allergies: folic acid (Verified Allergy, Mild, 10/14/20) "COMPLEX B" vitamin B complex and C (Verified Allergy, Mild, 10/14/20) "COMPLEX B" iodine (Verified Allergy, Unknown, 10/13/20) ROS Review of System As per HPI, rest of the ROS is negative Physical Exam Physical Exam General NAD HEEN OM mildly dry Neck Supple Lungs CTA CV S1S2 Abd Soft, NT, Ext No LE edmea. No cyanosis Neuro- Grossly Normal, No focal deficit Psych Hx of depression/Anxiety, currently mood stable No Maguire, no cva or SP tenderness Vital Signs Vital Signs Date Time Temp Pulse Resp B/P (MAP) Pulse Ox O2 Delivery O2 Flow Rate FiO2 10/14/20 07:18 97.7 76 19 156/64 (94) 96 Room Air 97.7 Assessment & Plan ELDA - Vasomotor; ; UA unremarkable; Recommend IVF , Supportive care, Strict I/O , avoid nephrotoxins Cr was normal in 2019 per [facility] records Obtain records Onc( including recent imaging) HypeKalemia- Mild at presentation, she is taking KCL at home. Recd Kayexalate as well ; K normal now HTN Urgency -Antihypertensives History of uterine tumor status post hysterectomy and chemotherapy in 2019 Labs Labs Laboratory Tests Test 10/13/20 21:10 10/13/20 23:45 10/14/20 04:00 White Blood Count 7.8 x10^3/uL (4.0-11.0) 5.7 x10^3/uL (4.0-11.0) Red Blood Count 3.85 x10^6/uL (3.50-5.40) 3.84 x10^6/uL (3.50-5.40) Hemoglobin 11.7 g/dL (12.0-15.5) 11.6 g/dL (12.0-15.5) Hematocrit 34.2 % (36.0-47.0) 34.4 % (36.0-47.0) Mean Corpuscular Volume 89 fL (79-100) 90 fL (79-100) Mean Corpuscular Hemoglobin 31 pg (25-35) 30 pg (25-35) Mean Corpuscular Hemoglobin Concent 34 g/dL (31-37) 34 g/dL (31-37) Red Cell Distribution Width 14.8 % (11.5-14.5) 15.2 % (11.5-14.5) Platelet Count 151 x10^3/uL (140-400) 142 x10^3/uL (140-400) Neutrophils (%) (Auto) 62 % (31-73) 54 % (31-73) Lymphocytes (%) (Auto) 21 % (24-48) 27 % (24-48) Monocytes (%) (Auto) 12 % (0-9) 12 % (0-9) Eosinophils (%) (Auto) 4 % (0-3) 5 % (0-3) Basophils (%) (Auto) 1 % (0-3) 1 % (0-3) Neutrophils # (Auto) 4.9 x10^3/uL (1.8-7.7) 3.1 x10^3/uL (1.8-7.7) Lymphocytes # (Auto) 1.7 x10^3/uL (1.0-4.8) 1.6 x10^3/uL (1.0-4.8) Monocytes # (Auto) 0.9 x10^3/uL (0.0-1.1) 0.7 x10^3/uL (0.0-1.1) Eosinophils # (Auto) 0.3 x10^3/uL (0.0-0.7) 0.3 x10^3/uL (0.0-0.7) Basophils # (Auto) 0.1 x10^3/uL (0.0-0.2) 0.0 x10^3/uL (0.0-0.2) Sodium Level 134 mmol/L (136-145) 140 mmol/L (136-145) Potassium Level 5.2 mmol/L (3.5-5.1) 4.5 mmol/L (3.5-5.1) Chloride Level 101 mmol/L (98-107) 105 mmol/L (98-107) Carbon Dioxide Level 23 mmol/L (21-32) 24 mmol/L (21-32) Anion Gap 10 (6-14) 11 (6-14) Blood Urea Nitrogen 34 mg/dL (7-20) 36 mg/dL (7-20) Creatinine 1.6 mg/dL (0.6-1.0) 1.5 mg/dL (0.6-1.0) Estimated GFR (Cockcroft-Gault) 32.2 34.7 BUN/Creatinine Ratio 21 (6-20) 24 (6-20) Glucose Level 86 mg/dL (70-99) 97 mg/dL (70-99) Calcium Level 8.8 mg/dL (8.5-10.1) 8.9 mg/dL (8.5-10.1) Total Bilirubin 0.3 mg/dL (0.2-1.0) 0.3 mg/dL (0.2-1.0) Aspartate Amino Transf (AST/SGOT) 21 U/L (15-37) 19 U/L (15-37) Alanine Aminotransferase (ALT/SGPT) 13 U/L (14-59) 16 U/L (14-59) Alkaline Phosphatase 62 U/L (46-116) 60 U/L (46-116) Troponin I Quantitative < 0.017 ng/mL (0.000-0.055) < 0.017 ng/mL (0.000-0.055) DY-Rpl-U-Type Natriuretic Peptide 592 pg/mL (0-124) Total Protein 7.3 g/dL (6.4-8.2) 6.6 g/dL (6.4-8.2) Albumin 3.5 g/dL (3.4-5.0) 3.3 g/dL (3.4-5.0) Albumin/Globulin Ratio 0.9 (1.0-1.7) 1.0 (1.0-1.7) Urine Color Yellow Urine Clarity Clear Urine pH 6.0 (<5.0-8.0) Urine Specific [place] <=1.005 (1.000-1.030) Urine Protein Negative mg/dL (NEG-TRACE) Urine Glucose (UA) Negative mg/dL (NEG) Urine Ketones (Stick) Negative mg/dL (NEG) Urine Blood Trace (NEG) Urine Nitrite Negative (NEG) Urine Bilirubin Negative (NEG) Urine Urobilinogen Dipstick 0.2 mg/dL (0.2 mg/dL) Urine Leukocyte Esterase Trace (NEG) Urine RBC Occ /HPF (0-2) Urine WBC 1-4 /HPF (0-4) Urine Squamous Epithelial Cells Few /LPF Urine Bacteria Many /HPF (0-FEW) Laboratory Tests Test 10/13/20 21:10 10/13/20 23:45 10/14/20 04:00 White Blood Count 7.8 x10^3/uL (4.0-11.0) 5.7 x10^3/uL (4.0-11.0) Red Blood Count 3.85 x10^6/uL (3.50-5.40) 3.84 x10^6/uL (3.50-5.40) Hemoglobin 11.7 g/dL (12.0-15.5) 11.6 g/dL (12.0-15.5) Hematocrit 34.2 % (36.0-47.0) 34.4 % (36.0-47.0) Mean Corpuscular Volume 89 fL (79-100) 90 fL (79-100) Mean Corpuscular Hemoglobin 31 pg (25-35) 30 pg (25-35) Mean Corpuscular Hemoglobin Concent 34 g/dL (31-37) 34 g/dL (31-37) Red Cell Distribution Width 14.8 % (11.5-14.5) 15.2 % (11.5-14.5) Platelet Count 151 x10^3/uL (140-400) 142 x10^3/uL (140-400) Neutrophils (%) (Auto) 62 % (31-73) 54 % (31-73) Lymphocytes (%) (Auto) 21 % (24-48) 27 % (24-48) Monocytes (%) (Auto) 12 % (0-9) 12 % (0-9) Eosinophils (%) (Auto) 4 % (0-3) 5 % (0-3) Basophils (%) (Auto) 1 % (0-3) 1 % (0-3) Neutrophils # (Auto) 4.9 x10^3/uL (1.8-7.7) 3.1 x10^3/uL (1.8-7.7) Lymphocytes # (Auto) 1.7 x10^3/uL (1.0-4.8) 1.6 x10^3/uL (1.0-4.8) Monocytes # (Auto) 0.9 x10^3/uL (0.0-1.1) 0.7 x10^3/uL (0.0-1.1) Eosinophils # (Auto) 0.3 x10^3/uL (0.0-0.7) 0.3 x10^3/uL (0.0-0.7) Basophils # (Auto) 0.1 x10^3/uL (0.0-0.2) 0.0 x10^3/uL (0.0-0.2) Sodium Level 134 mmol/L (136-145) 140 mmol/L (136-145) Potassium Level 5.2 mmol/L (3.5-5.1) 4.5 mmol/L (3.5-5.1) Chloride Level 101 mmol/L (98-107) 105 mmol/L (98-107) Carbon Dioxide Level 23 mmol/L (21-32) 24 mmol/L (21-32) Anion Gap 10 (6-14) 11 (6-14) Blood Urea Nitrogen 34 mg/dL (7-20) 36 mg/dL (7-20) Creatinine 1.6 mg/dL (0.6-1.0) 1.5 mg/dL (0.6-1.0) Estimated GFR (Cockcroft-Gault) 32.2 34.7 BUN/Creatinine Ratio 21 (6-20) 24 (6-20) Glucose Level 86 mg/dL (70-99) 97 mg/dL (70-99) Calcium Level 8.8 mg/dL (8.5-10.1) 8.9 mg/dL (8.5-10.1) Total Bilirubin 0.3 mg/dL (0.2-1.0) 0.3 mg/dL (0.2-1.0) Aspartate Amino Transf (AST/SGOT) 21 U/L (15-37) 19 U/L (15-37) Alanine Aminotransferase (ALT/SGPT) 13 U/L (14-59) 16 U/L (14-59) Alkaline Phosphatase 62 U/L (46-116) 60 U/L (46-116) Troponin I Quantitative < 0.017 ng/mL (0.000-0.055) < 0.017 ng/mL (0.000-0.055) NS-Pig-G-Type Natriuretic Peptide 592 pg/mL (0-124) Total Protein 7.3 g/dL (6.4-8.2) 6.6 g/dL (6.4-8.2) Albumin 3.5 g/dL (3.4-5.0) 3.3 g/dL (3.4-5.0) Albumin/Globulin Ratio 0.9 (1.0-1.7) 1.0 (1.0-1.7) Urine Color Yellow Urine Clarity Clear Urine pH 6.0 (<5.0-8.0) Urine Specific [place] <=1.005 (1.000-1.030) Urine Protein Negative mg/dL (NEG-TRACE) Urine Glucose (UA) Negative mg/dL (NEG) Urine Ketones (Stick) Negative mg/dL (NEG) Urine Blood Trace (NEG) Urine Nitrite Negative (NEG) Urine Bilirubin Negative (NEG) Urine Urobilinogen Dipstick 0.2 mg/dL (0.2 mg/dL) Urine Leukocyte Esterase Trace (NEG) Urine RBC Occ /HPF (0-2) Urine WBC 1-4 /HPF (0-4) Urine Squamous Epithelial Cells Few /LPF Urine Bacteria Many /HPF (0-FEW) Review All relevant outside records, renal labs, imaging studies, telemetry/EKG's were reviewed. Images Images cXr NDICATION: High blood pressure TECHNIQUE: Frontal view of the chest Comparisons: None FINDINGS: The cardiomediastinal silhouette and pulmonary vessels are within normal limits. Lung and pleural spaces are clear. IMPRESSION: No acute cardiopulmonary process. ESTELLA BRADY MD Oct 14, 2020 10:12
[2020-10-14] MEDS: IV NORMAL SALINE 1000ML BAG 1,000 ML IV SCH (10:46)
[2020-10-14] MEDS ORDERED: LABETALOL 20 MG/4 ML DISP.SYRIN. IVP PRN (11:45)
--- NOTE | 2020-10-14 11:55 | PDOC2 ---
ELVI SALCEDO REFINISH TECHNICIAN 10/14/20 1155: CARDIAC CONSULT DATE OF CONSULT Date of Consult DATE: 10/14/20 TIME: 11:28 REASON FOR CONSULT Reason for Consult: HTN REFERRING PHYSICIAN Referring Physician: Ok SOURCE Source: Chart review, Patient HISTORY OF PRESENT ILLNESS HISTORY OF PRESENT ILLNESS This is a pleasant 65 yo female admitted for complains of high BP. Reports that he has been having like fullness around his eys but no CHAMPION. Also has been feeling weak. She checked her BP and SBP was in the 180s. Sometimes she does feel palpitations. She has been taking vasotec at home and denies any NSAIDs use. She was suppose to start on labetolol in 07/2020 but did not get started and her vasotec was just increased recently. Denies any CAD, arrhythmia and does not take any xarelto anymore which she did for DVT which occurred after her surgery from uterine CA and also had chemo. PAST MEDICAL HISTORY Cardiovascular: HTN Pulmonary: No pertinent hx CENTRAL NERVOUS SYSTEM: Other (No pertinent history) Heme/Onc: Cancer (uterine), Other (DVT) Psych: Anxiety, Depression Musculoskeletal: Osteoarthritis ENT: No pertinent hx Renal/: Chronic renal insuff (?) Endocrine: Hypothyroidism Dermatology: No pertinent hx PAST SURGICAL HISTORY Past Surgical History: Tubal Ligation, Hysterectomy FAMILY HISTORY Family History noncontributory SOCIAL HISTORY Smoke: No ALCOHOL: none Drugs: None Lives: with Family CURRENT MEDICATIONS CURRENT MEDICATIONS Current Medications Medications (Trade) Dose Ordered Sig/Allison Route PRN Reason Start Time Stop Time Status Last Admin Dose Admin Aspirin (Ana Aspirin) 325 mg 1X ONCE PO 10/13/20 20:45 10/13/20 20:47 DC 10/13/20 21:27 Labetalol HCl (Normodyne Iv Push) 10 mg 1X ONCE IVP 10/13/20 20:45 10/13/20 20:47 DC 10/13/20 21:27 Alprazolam (Xanax) 0.5 mg 1X ONCE PO 10/13/20 20:45 10/13/20 20:47 DC 10/13/20 21:27 Sodium Polystyrene Sulfonate (Kayexalate) 30 gm 1X ONCE PO 10/13/20 22:00 10/13/20 22:01 DC 10/13/20 22:31 Sodium Chloride 1,000 ml @ 75 mls/hr [id number] IV 10/14/20 11:00 10/14/20 10:46 ALLERGIES ALLERGIES: Coded Allergies: folic acid (Verified Allergy, Mild, 10/14/20) "COMPLEX B" vitamin B complex and C (Verified Allergy, Mild, 10/14/20) "COMPLEX B" iodine (Verified Allergy, Unknown, 10/13/20) ROS Review of System 14 point ROS evaluated with pertinent positives noted per HPI+ PHYSICAL EXAM General: Alert, Oriented X3, Cooperative, No acute distress HEENT: Atraumatic, Mucous membr. moist/pink Lungs: Clear to auscultation, Normal air movement Heart: Regular rate, Normal S1, Normal S2, Other (apical murmur 2/6) Abdomen: Soft, No tenderness Extremities: No cyanosis, No edema Skin: No breakdown, No significant lesion Neuro: Normal speech, Sensation intact Psych/Mental Status: Mental status NL, Mood NL MUSCULOSKELETAL: Osteoarthritic changes both hands VITALS/I&O VITALS/I&O: Vital Signs Date Time Temp Pulse Resp B/P (MAP) Pulse Ox O2 Delivery O2 Flow Rate FiO2 10/14/20 10:57 85 150/77 (101) 10/14/20 10:56 20 Room Air 10/14/20 10:55 97.6 97 97.6 I & O 10/13/20 10/13/20 10/14/20 15:00 23:00 07:00 Intake Total 0 ml Output Total 825 ml Balance -825 ml LABS Lab: Laboratory Tests Test 10/13/20 21:10 10/13/20 23:45 10/14/20 04:00 White Blood Count 7.8 x10^3/uL (4.0-11.0) 5.7 x10^3/uL (4.0-11.0) Red Blood Count 3.85 x10^6/uL (3.50-5.40) 3.84 x10^6/uL (3.50-5.40) Hemoglobin 11.7 g/dL (12.0-15.5) L 11.6 g/dL (12.0-15.5) L Hematocrit 34.2 % (36.0-47.0) L 34.4 % (36.0-47.0) L Mean Corpuscular Volume 89 fL (79-100) 90 fL (79-100) Mean Corpuscular Hemoglobin 31 pg (25-35) 30 pg (25-35) Mean Corpuscular Hemoglobin Concent 34 g/dL (31-37) 34 g/dL (31-37) Red Cell Distribution Width 14.8 % (11.5-14.5) H 15.2 % (11.5-14.5) H Platelet Count 151 x10^3/uL (140-400) 142 x10^3/uL (140-400) Neutrophils (%) (Auto) 62 % (31-73) 54 % (31-73) Lymphocytes (%) (Auto) 21 % (24-48) L 27 % (24-48) Monocytes (%) (Auto) 12 % (0-9) H 12 % (0-9) H Eosinophils (%) (Auto) 4 % (0-3) H 5 % (0-3) H Basophils (%) (Auto) 1 % (0-3) 1 % (0-3) Neutrophils # (Auto) 4.9 x10^3/uL (1.8-7.7) 3.1 x10^3/uL (1.8-7.7) Lymphocytes # (Auto) 1.7 x10^3/uL (1.0-4.8) 1.6 x10^3/uL (1.0-4.8) Monocytes # (Auto) 0.9 x10^3/uL (0.0-1.1) 0.7 x10^3/uL (0.0-1.1) Eosinophils # (Auto) 0.3 x10^3/uL (0.0-0.7) 0.3 x10^3/uL (0.0-0.7) Basophils # (Auto) 0.1 x10^3/uL (0.0-0.2) 0.0 x10^3/uL (0.0-0.2) Sodium Level 134 mmol/L (136-145) L 140 mmol/L (136-145) Potassium Level 5.2 mmol/L (3.5-5.1) H 4.5 mmol/L (3.5-5.1) Chloride Level 101 mmol/L (98-107) 105 mmol/L (98-107) Carbon Dioxide Level 23 mmol/L (21-32) 24 mmol/L (21-32) Anion Gap 10 (6-14) 11 (6-14) Blood Urea Nitrogen 34 mg/dL (7-20) H 36 mg/dL (7-20) H Creatinine 1.6 mg/dL (0.6-1.0) H 1.5 mg/dL (0.6-1.0) H Estimated GFR (Cockcroft-Gault) 32.2 34.7 BUN/Creatinine Ratio 21 (6-20) H 24 (6-20) H Glucose Level 86 mg/dL (70-99) 97 mg/dL (70-99) Calcium Level 8.8 mg/dL (8.5-10.1) 8.9 mg/dL (8.5-10.1) Total Bilirubin 0.3 mg/dL (0.2-1.0) 0.3 mg/dL (0.2-1.0) Aspartate Amino Transferase (AST) 21 U/L (15-37) 19 U/L (15-37) Alanine Aminotransferase (ALT) 13 U/L (14-59) L 16 U/L (14-59) Alkaline Phosphatase 62 U/L (46-116) 60 U/L (46-116) Troponin I Quantitative < 0.017 ng/mL (0.000-0.055) < 0.017 ng/mL (0.000-0.055) RU-Ahl-X-Type Natriuretic Peptide 592 pg/mL (0-124) H Total Protein 7.3 g/dL (6.4-8.2) 6.6 g/dL (6.4-8.2) Albumin 3.5 g/dL (3.4-5.0) 3.3 g/dL (3.4-5.0) L Albumin/Globulin Ratio 0.9 (1.0-1.7) L 1.0 (1.0-1.7) Urine Color Yellow Urine Clarity Clear Urine pH 6.0 (<5.0-8.0) Urine Specific [place] <=1.005 (1.000-1.030) Urine Protein Negative mg/dL (NEG-TRACE) Urine Glucose (UA) Negative mg/dL (NEG) Urine Ketones (Stick) Negative mg/dL (NEG) Urine Blood Trace (NEG) Urine Nitrite Negative (NEG) Urine Bilirubin Negative (NEG) Urine Urobilinogen Dipstick 0.2 mg/dL (0.2 mg/dL) Urine Leukocyte Esterase Trace (NEG) Urine RBC Occ /HPF (0-2) Urine WBC 1-4 /HPF (0-4) Urine Squamous Epithelial Cells Few /LPF Urine Bacteria Many /HPF (0-FEW) Laboratory Tests 10/13/20 21:10 10/14/20 04:00 Laboratory Tests 10/13/20 21:10 10/14/20 04:00 ASSESSMENT/PLAN ASSESSMENT/PLAN 1. HTN urgency 2. ELDA vs CKD: nephrology following 3. Hypothyroidism: on replacement 4. Presyncope: possibly from arrhythmia Recommendations 1. TTE, TSH 2. Start norvasc. IVF ongoing 3. MCOT BREANNE CRABTREE MD 10/14/20 8288: CARDIAC CONSULT ASSESSMENT/PLAN ASSESSMENT/PLAN Patient seen and evaluated. I agree with our nurse practitioners assessment and plan. Hypertensive urgency. Norvasc has been started. We will continue to monitor. Echocardiogram pending. Acute kidney injury versus chronic kidney disease. Patient on IV fluids. The renal service is following. Hypothyroidism. On baseline replacement. Presyncope. Rhythm is now stable. Echocardiogram pending. Outpatient monitoring. ELVI SALCEDO APRN Oct 14, 2020 11:55 BREANNE CRABTREE MD Oct 14, 2020 15:58
[2020-10-14] MEDS: ASPIRIN ENTERIC COATED 81 MG TABLET.DR. PO SCH (12:25)
[2020-10-14] MEDS: LEVOTHYROXINE 88 MCG TABLET PO SCH (12:26)
--- NOTE | 2020-10-14 14:56 | CARD ---
MR#: [id number] Date of Study: 10/14/2020 Ordering Physician: ELVI SALCEDO, Referring Physician: ELVI SALCEDO, Tech: Cecilia Smith, [facility] APPROVED REPORT EXAM: Two-dimensional and M-mode echocardiogram with Doppler and color Doppler. Other Information Quality : AverageHR: 80bpm INDICATION Presyncope RISK FACTORS Hypertension 2D DIMENSIONS RVDd3.7 (2.9-3.5cm)Left Atrium(2D)3.4 (1.6-4.0cm) IVSd1.0 (0.7-1.1cm)Aortic Root(2D)2.8 (2.0-3.7cm) LVDd5.0 (3.9-5.9cm)LVOT Diameter2.0 (1.8-2.4cm) PWd1.0 (0.7-1.1cm)LVDs2.3 (2.5-4.0cm) FS (%) 53.4 %SV97.5 ml Aortic Valve AoV Peak Alfa.151.7cm/sAoV VTI26.8cm AO Peak GR.9.2mmHgLVOT Peak Alfa.119.2cm/s LVOT VTI 22.66cmAO Mean GR.5mmHg LEONILA (VMAX)1.55dd8USI (VTI)2.67cm2 Mitral Valve MV E Xjonufvi22.7cm/sMV DECEL PZUJ785rd MV A Coksispt484.7cm/sMV PCM54re E/A Ratio0.7MVA (PHT)4.54cm2 TDI E/Lateral E'10.4E/Medial E'12.4 Pulmonary Valve PV Peak Xrpdjgza773.7cm/sPV Peak Grad.4mmHg Tricuspid Valve TR P. Djxafsow500fs/sRAP LDJJZXFX0xgDo TR Peak Gr.49dqOzGVAW50hgOd Pulmonary Vein S1 Wcumpvgr34.5cm/sD2 Gtpkknzc53.1cm/s PVa lxgcjrua920mcpn LEFT VENTRICLE The left ventricle is normal size. There is borderline concentric left ventricular hypertrophy. The l eft ventricular systolic function is normal and the ejection fraction is within normal range. The Eje ction Fraction is 60-65%. There is normal LV segmental wall motion. Transmitral Doppler flow pattern is Grade I-abnormal relaxation pattern. RIGHT VENTRICLE The right ventricle is normal size. There is normal right ventricular wall thickness. The right ventr icular systolic function is normal. ATRIA The left atrium size is normal. The right atrium size is normal. The interatrial septum is intact wit h no evidence for an atrial septal defect or patent foramen ovale as noted on 2-D or Doppler imaging. AORTIC VALVE The aortic valve is normal in structure and function. Doppler and Color Flow revealed trace aortic re gurgitation. There is no significant aortic valvular stenosis. Calculated aortic valve area is 2.48 c m2 with maximum pressure gradient of 11 mmHg and mean pressure gradient of 5 mmHg. MITRAL VALVE The mitral valve is normal in structure and function. There is no evidence of mitral valve prolapse. There is no mitral valve stenosis. Doppler and Color Flow revealed no mitral valve regurgitation note d. TRICUSPID VALVE The tricuspid valve is normal in structure and function. Doppler and Color Flow revealed trace to mil d tricuspid regurgitation with an estimated PAP of 39 mmHg. There is no tricuspid valve stenosis. PULMONIC VALVE The pulmonic valve is not well visualized. Doppler and Color Flow revealed trace pulmonic valvular re gurgitation. GREAT VESSELS The aortic root is normal in size. The ascending aorta is normal in size. The IVC is normal in size a nd collapses >50% with inspiration. PERICARDIAL EFFUSION There is no evidence of significant pericardial effusion. Critical Notification Critical Value: No <Conclusion> The left ventricle is normal size. The left ventricular systolic function is normal and the ejection fraction is within normal range. The Ejection Fraction is 60-65%. There is borderline concentric left ventricular hypertrophy. Doppler and Color Flow revealed trace aortic regurgitation. There is no significant aortic valvular stenosis. Doppler and Color Flow revealed no mitral valve regurgitation noted. Doppler and Color Flow revealed trace to mild tricuspid regurgitation with an estimated PAP of 39 mmH g. Signed by : Chaz Salazar MD Electronically Approved : 10/14/2020 14:55:18
[2020-10-14] MEDS ORDERED: AMOX1TAB61 PO (19:04)
[2020-10-14] MEDS ORDERED: CHLO25TA2 PO (19:04)
[2020-10-14] MEDS ORDERED: ESCITALOPRAM OX10 MG PO (19:04)
[2020-10-14] MEDS ORDERED: LABE100T5 PO (19:04)
[2020-10-14] MEDS ORDERED: ENAL20TA10 PO (19:04)
[2020-10-14] MEDS ORDERED: SPIR25TA5 PO (19:04)
[2020-10-14] MEDS ORDERED: POTA20TA4 PO (19:04)
[2020-10-15] MEDS: IV NORMAL SALINE 1000ML BAG 1,000 ML IV SCH (00:24)
[2020-10-15 02:28] VITALS: BP 149/55
[2020-10-15] MEDS: LEVOTHYROXINE 88 MCG TABLET PO SCH (06:43)
[2020-10-15 07:00] VITALS: BP 176/77
[2020-10-15 07:52] LABS: BASO # 0.1 x10^3/uL (0.0-0.2); BASO % 1 % (0-3); EOS # 0.4 x10^3/uL (0.0-0.7); EOS % 6 % (0-3); HEMOGLOBIN 11.5 g/dL (12.0-15.5); LYMPH # 1.2 x10^3/uL (1.0-4.8); LYMPH % 20 % (24-48); MEAN CORPUSCULAR HEMOGLOBIN 31 pg (25-35); MEAN CORPUSCULAR HGB CONC 34 g/dL (31-37); MEAN CORPUSCULAR VOLUME 90 fL (79-100); MONO # 0.6 x10^3/uL (0.0-1.1); MONO % 10 % (0-9); NEUT # 3.7 x10^3/uL (1.8-7.7); NEUT % 63 % (31-73); PLATELET COUNT 140 x10^3/uL (140-400); RED BLOOD COUNT 3.78 x10^6/uL (3.50-5.40); RED CELL DISTRIBUTION WIDTH 15.3 % (11.5-14.5); WHITE BLOOD COUNT 5.9 x10^3/uL (4.0-11.0)
[2020-10-15] MEDS: ASPIRIN ENTERIC COATED 81 MG TABLET.DR. PO SCH (07:56)
[2020-10-15 08:19] LABS: CALCIUM 8.2 mg/dL (8.5-10.1); CREATININE 1.4 mg/dL (0.6-1.0); GFR 37.6; MAGNESIUM 1.8 mg/dL (1.8-2.4); PHOSPHORUS 3.8 mg/dL (2.6-4.7)
--- NOTE | 2020-10-15 09:39 | PDOC ---
DATE OF SERVICE DATE: 10/15/20 TIME: 09:38 SUBJECTIVE ROS No complaints, feeling better Good appetite, No N/V , No SOB OBJECTIVE Vital Signs Vital Signs Date Time Temp Pulse Resp B/P (MAP) Pulse Ox O2 Delivery O2 Flow Rate FiO2 10/15/20 08:00 Room Air 10/15/20 07:56 81 176/77 10/15/20 07:00 97.5 16 95 97.5 I & 0 Intake and Output 10/15/20 07:00 Intake Total 2430 ml Output Total 900 ml Balance 1530 ml Intake Oral 1530 ml IV Total 900 ml Output Urine Total 900 ml # Voids 3 # Bowel Movements 1 PHYSICAL EXAM Physical Exam General NAD HEEN OM mildly dry Neck Supple Lungs CTA CV S1S2 Abd Soft, NT, Ext No LE edmea. No cyanosis Neuro- Grossly Normal, No focal deficit Psych Hx of depression/Anxiety, currently mood stable No Maguire, no cva or SP tenderness Vital Signs DIAGNOSIS/ASSESSMENT Assessment & Plan ELDA - Vasomotor; ; UA unremarkable;Renal function stable , slow improvement, Supportive care, Renal US, maintain hydration Strict I/O , avoid nephro toxins Cr was normal in 2019 per [facility] records Records pending from [facility] HypeKalemia- Mild at presentation, she is taking KCL at home. Recd Kayexalate as well ; K normal now HTN Urgency -Antihypertensives History of uterine tumor status post hysterectomy and chemotherapy in 2019 COMMENT/RELEVANT DATA Meds Current Medications Medications (Trade) Dose Ordered Sig/Allison Start Time Stop Time Status Last Admin Dose Admin Acetaminophen (Tylenol) 650 mg PRN Q4HRS PRN 10/14/20 08:15 10/15/20 09:20 650 MG Alprazolam (Xanax) 0.5 mg 1X ONCE 10/13/20 20:45 10/13/20 20:47 DC 10/13/20 21:27 0.5 MG Amlodipine Besylate (Norvasc) 5 mg 1X ONCE 10/14/20 15:15 10/14/20 15:16 DC 10/14/20 15:39 5 MG Aspirin (Ana Aspirin) 325 mg 1X ONCE 10/13/20 20:45 10/13/20 20:47 DC 10/13/20 21:27 325 MG Aspirin (Ecotrin) 81 mg DAILY 10/14/20 12:30 10/15/20 07:56 81 MG Dextrose (Dextrose 50%-Water Syringe) 12.5 gm PRN Q15MIN PRN 10/14/20 08:15 Docusate Sodium (Colace) 100 mg PRN DAILY PRN 10/14/20 08:15 Labetalol HCl (Normodyne Iv Push) 20 mg PRN Q2HR PRN 10/14/20 11:45 Levothyroxine Sodium (Synthroid) 88 mcg DAILY07 10/14/20 12:30 10/15/20 06:43 88 MCG Morphine Sulfate (Morphine Sulfate) 2 mg PRN Q2HR PRN 10/14/20 00:00 10/14/20 23:59 DC Ondansetron HCl (Zofran) 4 mg PRN Q6HRS PRN 10/14/20 08:15 Sennosides (Senna) 17.2 mg PRN BID PRN 10/14/20 08:15 Sodium Polystyrene Sulfonate (Kayexalate) 30 gm 1X ONCE 10/13/20 22:00 10/13/20 22:01 DC 10/13/20 22:31 30 GM Sodium Chloride 1,000 ml @ 75 mls/hr [id number] 10/14/20 11:00 10/15/20 00:24 75 MLS/HR Lab Laboratory Tests Test 10/15/20 07:25 White Blood Count 5.9 x10^3/uL (4.0-11.0) Red Blood Count 3.78 x10^6/uL (3.50-5.40) Hemoglobin 11.5 g/dL (12.0-15.5) Hematocrit 34.0 % (36.0-47.0) Mean Corpuscular Volume 90 fL (79-100) Mean Corpuscular Hemoglobin 31 pg (25-35) Mean Corpuscular Hemoglobin Concent 34 g/dL (31-37) Red Cell Distribution Width 15.3 % (11.5-14.5) Platelet Count 140 x10^3/uL (140-400) Neutrophils (%) (Auto) 63 % (31-73) Lymphocytes (%) (Auto) 20 % (24-48) Monocytes (%) (Auto) 10 % (0-9) Eosinophils (%) (Auto) 6 % (0-3) Basophils (%) (Auto) 1 % (0-3) Neutrophils # (Auto) 3.7 x10^3/uL (1.8-7.7) Lymphocytes # (Auto) 1.2 x10^3/uL (1.0-4.8) Monocytes # (Auto) 0.6 x10^3/uL (0.0-1.1) Eosinophils # (Auto) 0.4 x10^3/uL (0.0-0.7) Basophils # (Auto) 0.1 x10^3/uL (0.0-0.2) Sodium Level 141 mmol/L (136-145) Potassium Level 4.0 mmol/L (3.5-5.1) Chloride Level 109 mmol/L (98-107) Carbon Dioxide Level 21 mmol/L (21-32) Anion Gap 11 (6-14) Blood Urea Nitrogen 32 mg/dL (7-20) Creatinine 1.4 mg/dL (0.6-1.0) Estimated GFR (Cockcroft-Gault) 37.6 Glucose Level 97 mg/dL (70-99) Calcium Level 8.2 mg/dL (8.5-10.1) Phosphorus Level 3.8 mg/dL (2.6-4.7) Magnesium Level 1.8 mg/dL (1.8-2.4) Results All relevant outside records, renal labs, imaging studies, telemetry/EKG's were reviewed. Justicifation of Admission Dx: Justifications for Admission: Justification of Admission Dx: N/A ESTELLA BRADY MD Oct 15, 2020 09:39
[2020-10-15] MEDS: LISINOPRIL 20 MG TABLET PO SCH (10:49)
[2020-10-15 11:00] VITALS: BP 157/76
--- NOTE | 2020-10-15 12:05 | PDOC ---
ELVI SALCEDO MACHINE PRECISION ENGRAVER 10/15/20 1205: CARDIO Progress Notes Date and Time Date of Service 10/15/2020 Time of Evaluation 1150 Subjective Subjective: No Chest Pain, No shortness of breath, No Palpitations Vitals Vitals Vital Signs Date Time Temp Pulse Resp B/P (MAP) Pulse Ox O2 Delivery O2 Flow Rate FiO2 10/15/20 10:49 81 176/77 10/15/20 08:00 Room Air 10/15/20 07:00 97.5 16 95 97.5 Weight Weight [ ] Input and Output Intake and Output Intake and Output 10/15/20 07:00 Intake Total 2430 ml Output Total 900 ml Balance 1530 ml Intake Oral 1530 ml IV Total 900 ml Output Urine Total 900 ml # Voids 3 # Bowel Movements 1 Laboratory Labs Laboratory Tests Test 10/15/20 07:25 White Blood Count 5.9 x10^3/uL (4.0-11.0) Red Blood Count 3.78 x10^6/uL (3.50-5.40) Hemoglobin 11.5 g/dL (12.0-15.5) Hematocrit 34.0 % (36.0-47.0) Mean Corpuscular Volume 90 fL (79-100) Mean Corpuscular Hemoglobin 31 pg (25-35) Mean Corpuscular Hemoglobin Concent 34 g/dL (31-37) Red Cell Distribution Width 15.3 % (11.5-14.5) Platelet Count 140 x10^3/uL (140-400) Neutrophils (%) (Auto) 63 % (31-73) Lymphocytes (%) (Auto) 20 % (24-48) Monocytes (%) (Auto) 10 % (0-9) Eosinophils (%) (Auto) 6 % (0-3) Basophils (%) (Auto) 1 % (0-3) Neutrophils # (Auto) 3.7 x10^3/uL (1.8-7.7) Lymphocytes # (Auto) 1.2 x10^3/uL (1.0-4.8) Monocytes # (Auto) 0.6 x10^3/uL (0.0-1.1) Eosinophils # (Auto) 0.4 x10^3/uL (0.0-0.7) Basophils # (Auto) 0.1 x10^3/uL (0.0-0.2) Sodium Level 141 mmol/L (136-145) Potassium Level 4.0 mmol/L (3.5-5.1) Chloride Level 109 mmol/L (98-107) Carbon Dioxide Level 21 mmol/L (21-32) Anion Gap 11 (6-14) Blood Urea Nitrogen 32 mg/dL (7-20) Creatinine 1.4 mg/dL (0.6-1.0) Estimated GFR (Cockcroft-Gault) 37.6 Glucose Level 97 mg/dL (70-99) Calcium Level 8.2 mg/dL (8.5-10.1) Phosphorus Level 3.8 mg/dL (2.6-4.7) Magnesium Level 1.8 mg/dL (1.8-2.4) Physical Exam HEENT: Neck Supple W Full Motion Chest: Symmetric LUNGS: Clear to Auscultation Heart: S1S2, RRR (SR, no ectopies) Abdomen: Soft N/T Extremities: No Calf Tenderness Neurology: alert, oriented, follow commands Assessment Assessment 1. HTN urgency; remains labile. EF and WM nml 2. ELDA vs CKD: nephrology following 3. Hypothyroidism: on replacement 4. Presyncope: possibly from arrhythmia Recommendations 1. Continue norvasc. Will add coreg. Lisinopril is in place awaiting testing per nephrology could uptitrate ACEi 2. Follow up n office. 3. MCOT Justicifation of Admission Dx: Justifications for Admission: Justification of Admission Dx: N/A BREANNE CRABTREE MD 10/15/20 1741: CARDIO Progress Notes Assessment Assessment Patient seen and examined I agree with our nurse practitioners assessment and plan. 1. HTN urgency; improved. Continuing Lasix with the addition of Coreg. 2. ELDA vs CKD: nephrology following 3. Hypothyroidism: on replacement 4. Presyncope: possibly from arrhythmia. Outpatient MCOT and office follow-up. ELVI SALCEDO APRN Oct 15, 2020 12:05 BREANNE CRABTREE MD Oct 15, 2020 17:41
[2020-10-15] MEDS: CARVEDILOL 6.25 MG TABLET. PO SCH ×2 (12:29→16:14)
[2020-10-15 12:55] LABS: CHOLESTEROL/HDL RATIO 4.6
--- NOTE | 2020-10-15 13:01 | RAD ---
US RENAL BILAT History: Reason: ELDA, Hx of Uterine cancer , HTN / Spl. Instructions: / History: Comparison: None. Procedure: Transabdominal ultrasound images are obtained of the kidneys and bladder. Findings: Right kidney: measures 10.8 x 4.8 x 4.1 cm. Normal cortical echotexture. Corticomedullary differenti ation is preserved. No hydronephrosis. Left kidney: measures 10.9 x 4.8 x 4.7 cm. Normal cortical echotexture. Corticomedullary differentia tion is preserved. No hydronephrosis. Urinary bladder: No urinary bladder wall thickening. The IVC is normal caliber. The visualized abdominal aorta is normal caliber. IMPRESSION: 1. Unremarkable renal ultrasound. Electronically signed by: Len Gutierrez DO (10/15/2020 12:59 PM) [id number]
[2020-10-15 15:00] VITALS: BP 144/68
--- NOTE | 2020-10-15 16:02 | NUR ---
SS following up with discharge planning. SS reviewed pt chart and discussed with pt RN. Pt is currently on room air. Cardiology and Nephrology following. PT/OT ordered. SS will continue to follow for discharge planning.
[2020-10-15 18:59] VITALS: BP 144/55
--- NOTE | 2020-10-15 19:40 | NUR ---
Pt in bed assessment completed vss poc explained call light in reach, will resume care.
[2020-10-15 22:23] VITALS: BP 138/63
[2020-10-16] VITALS (7 sets, daily range): BP systolic 117–167; BP diastolic 63–75
[2020-10-16] MEDS: LEVOTHYROXINE 88 MCG TABLET PO SCH (05:38)
[2020-10-16 07:37] LABS: CALCIUM 8.5 mg/dL (8.5-10.1); CREATININE 1.7 mg/dL (0.6-1.0); GFR 30.1; POTASSIUM 4.1 mmol/L (3.5-5.1)
[2020-10-16] MEDS: LISINOPRIL 20 MG TABLET PO SCH (10:10)
[2020-10-16] MEDS: CARVEDILOL 6.25 MG TABLET. PO SCH ×2 (10:12→17:30)
[2020-10-16] MEDS: ASPIRIN ENTERIC COATED 81 MG TABLET.DR. PO SCH (10:12)
--- NOTE | 2020-10-16 10:29 | PDOC ---
DATE OF SERVICE DATE: 10/16/20 TIME: 10:26 SUBJECTIVE ROS C/O some swelling in her thighs bilaterally , , No SOB Good appetite, No N/V . No urinary complaints OBJECTIVE Vital Signs Vital Signs Date Time Temp Pulse Resp B/P (MAP) Pulse Ox O2 Delivery O2 Flow Rate FiO2 10/16/20 10:12 81 148/71 10/16/20 07:00 98.0 14 96 Room Air 98.0 I & 0 Intake and Output 10/16/20 07:00 Intake Total 1810 ml Balance 1810 ml Intake Oral 1810 ml # Voids 3 PHYSICAL EXAM Physical Exam General NAD HEEN OM mildly dry Neck Supple Lungs CTA CV S1S2 Abd Soft, NT, Ext No LE edmea. No cyanosis Neuro- Grossly Normal, No focal deficit Psych Hx of depression/Anxiety, currently mood stable No Maguire, no cva or SP tenderness DIAGNOSIS/ASSESSMENT Assessment & Plan ELDA - ATN ; UA unremarkable;Renal function stable . Renal US unremarkable . Supportive care, maintain hydration Strict I/O , avoid nephrotoxins Cr was normal in 2019 per [facility] records Reviewed records from [facility] ; Cr 1.1 in July; Contrast CT's in june 2020 . Multiple meds recently started on (approx 1 mo) - Aldcatone, Chlorthalidone . Also on JOSEF-I Edema- per patient report . Clinically asymptomatic ,On Amlodipine 10 mg , Recommend daily standing weight . Lasix x 1 HypeKalemia- Mild at presentation, she is taking KCL at home. Recd Kayexalate as well ; Resolved HTN Urgency -Antihypertensives per cardiology History of uterine tumor status post hysterectomy and chemotherapy in 2018 COMMENT/RELEVANT DATA Meds Current Medications Medications (Trade) Dose Ordered Sig/Allison Start Time Stop Time Status Last Admin Dose Admin Acetaminophen (Tylenol) 650 mg PRN Q4HRS PRN 10/14/20 08:15 10/15/20 09:20 650 MG Alprazolam (Xanax) 0.5 mg 1X ONCE 10/13/20 20:45 10/13/20 20:47 DC 10/13/20 21:27 0.5 MG Amlodipine Besylate (Norvasc) 10 mg DAILY 10/16/20 09:00 10/16/20 10:09 10 MG Aspirin (Ana Aspirin) 325 mg 1X ONCE 10/13/20 20:45 10/13/20 20:47 DC 10/13/20 21:27 325 MG Aspirin (Ecotrin) 81 mg DAILY 10/14/20 12:30 10/16/20 10:12 81 MG Carvedilol (Coreg) 6.25 mg BIDWMEALS 10/15/20 12:30 10/16/20 10:12 6.25 MG Dextrose (Dextrose 50%-Water Syringe) 12.5 gm PRN Q15MIN PRN 10/14/20 08:15 Docusate Sodium (Colace) 100 mg PRN DAILY PRN 10/14/20 08:15 Labetalol HCl (Normodyne Iv Push) 20 mg PRN Q2HR PRN 10/14/20 11:45 Levothyroxine Sodium (Synthroid) 88 mcg DAILY07 10/14/20 12:30 10/16/20 05:38 88 MCG Lisinopril (Prinivil) 20 mg DAILY 10/15/20 11:00 10/16/20 10:10 20 MG Morphine Sulfate (Morphine Sulfate) 2 mg PRN Q2HR PRN 10/14/20 00:00 10/14/20 23:59 DC Ondansetron HCl (Zofran) 4 mg PRN Q6HRS PRN 10/14/20 08:15 Sennosides (Senna) 17.2 mg PRN BID PRN 10/14/20 08:15 Sodium Polystyrene Sulfonate (Kayexalate) 30 gm 1X ONCE 10/13/20 22:00 10/13/20 22:01 DC 10/13/20 22:31 30 GM Sodium Chloride 1,000 ml @ 75 mls/hr [id number] 10/14/20 11:00 10/15/20 09:54 DC 10/15/20 00:24 75 MLS/HR Lab Laboratory Tests Test 10/16/20 06:20 Sodium Level 140 mmol/L (136-145) Potassium Level 4.1 mmol/L (3.5-5.1) Chloride Level 108 mmol/L (98-107) Carbon Dioxide Level 22 mmol/L (21-32) Anion Gap 10 (6-14) Blood Urea Nitrogen 37 mg/dL (7-20) Creatinine 1.7 mg/dL (0.6-1.0) Estimated GFR (Cockcroft-Gault) 30.1 Glucose Level 89 mg/dL (70-99) Calcium Level 8.5 mg/dL (8.5-10.1) Results All relevant outside records, renal labs, imaging studies, telemetry/EKG's were reviewed. Justicifation of Admission Dx: Justifications for Admission: Justification of Admission Dx: N/A ESTELLA BRADY MD Oct 16, 2020 10:29
--- NOTE | 2020-10-16 10:33 | PDOC ---
[employer] PROGRESS NOTE Date of Service DOS: DATE: 10/16/20 TIME: 10:31 Chief Complaint Chief Complaint Hypertensive emergency ELDA due to vasomotor nephropathy History of depression History of anxiety History of hypothyroidism History of uterine tumor status post hysterectomy and chemotherapy in 2019 Admit to medicine for further management Cardiology consult Nephrology consult Labetalol as needed to maintain systolic blood pressure between 1 40-1 70 while admitted Strict I's and O's Avoid nephrotoxic agents Resume home medications Ambulation for DVT prophylaxis Protonix GI prophylaxis ADA/renal diet Full code Discussed with RN and SW Disposition patient management as above Surrogate decision maker is son History of Present Illness History of Present Illness 10/16/2020 No acute events overnight. Patient seen and examined bedside. Patient does complain of lower extremity swelling bilaterally. Creatinine increased from 1.4-1.7. We will continue to monitor renal function. Will consider Lasix for possible diuresis and will defer this to nephrology. Blood pressure is better controlled with current BP treatment. Patient's chart, labs, images were reviewed and discussed with RN 65-year-old female with past medical history of hypertension, depression, anxiety who presents to the ED today due to high blood pressure that has been ongoing for months. 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 Denies any chest pain, shortness of breath, recent NSAIDs or [id number] occasions. She knows that she does have any more abnormal kidney function. Denies any recent UTIs or kidney stones. Her last UTI was more than 20 years ago. Does complain of occasional intermittent lower extremity edema especially when she drinks more water. Baseline Cr unknown to the family. She follows with Nurse practitioner ; Oncology and Cardiology . Vitals/I&O Vitals/I&O: Vital Signs Date Time Temp Pulse Resp B/P (MAP) Pulse Ox O2 Delivery O2 Flow Rate FiO2 10/16/20 10:12 81 148/71 10/16/20 07:00 98.0 14 96 Room Air 98.0 I & O 10/15/20 10/15/20 10/16/20 15:00 23:00 07:00 Intake Total 600 ml 510 ml 700 ml Balance 600 ml 510 ml 700 ml Physical Exam General: Alert, Oriented X3, Cooperative, No acute distress Heart: Regular rate, Normal S1, Normal S2, Other (apical murmur 2/6) Abdomen: Soft, No tenderness Extremities: No cyanosis, No edema Skin: No breakdown, No significant lesion Labs Labs: Laboratory Tests Test 10/16/20 06:20 Sodium Level 140 mmol/L (136-145) Potassium Level 4.1 mmol/L (3.5-5.1) Chloride Level 108 mmol/L (98-107) Carbon Dioxide Level 22 mmol/L (21-32) Anion Gap 10 (6-14) Blood Urea Nitrogen 37 mg/dL (7-20) Creatinine 1.7 mg/dL (0.6-1.0) Estimated GFR (Cockcroft-Gault) 30.1 Glucose Level 89 mg/dL (70-99) Calcium Level 8.5 mg/dL (8.5-10.1) Assessment and Plan Assessmemt and Plan Problems Medical Problems: (1) Hyperkalemia Status: Acute Comment Review of Relevant I have reviewed the following items rosie (where applicable) has been applied. Medications: Current Medications Medications (Trade) Dose Ordered Sig/Allison Route PRN Reason Start Time Stop Time Status Last Admin Dose Admin Amlodipine Besylate (Norvasc) 10 mg DAILY PO 10/16/20 09:00 10/16/20 10:09 Lisinopril (Prinivil) 20 mg DAILY PO 10/15/20 11:00 10/16/20 10:10 Carvedilol (Coreg) 6.25 mg BIDWMEALS PO 10/15/20 12:30 10/16/20 10:12 Justifications for Admission Other Justification Hypertensive urgency MCKENZIE NEGRON MD Oct 16, 2020 10:33
[2020-10-16] MEDS ORDERED: FUROSEMIDE 20 MG/2 ML VIAL. IVP ONE (12:00)
[2020-10-16] MEDS ORDERED: FUROSEMIDE 40 MG/4 ML VIAL. IVP ONE (12:00)
--- NOTE | 2020-10-16 12:54 | NUR ---
SS following up with discharge planning. SS reviewed pt chart and discussed with pt RN. Pt is currently on room air. PT/OT ordered. OT recommended prison unit. Pt has [place] [employer] and has no benefits for prison unit. Pt's family requesting to take pt home at discharge. Pt being diuresed today. SS will continue to follow for discharge planning.
[2020-10-16] MEDS: CEFDINIR 300 MG CAPSULE PO SCH ×2 (13:36→20:46)
[2020-10-16] MEDS: LACTOBACILLUS RHAMNOSUS GG 1 CAPSULE. PO SCH (20:46)
[2020-10-17 04:10] VITALS: BP 145/66
[2020-10-17] MEDS: LEVOTHYROXINE 88 MCG TABLET PO SCH (06:09)
[2020-10-17 07:00] VITALS: BP 148/74
[2020-10-17 07:51] LABS: ALBUMIN 3.1 g/dL (3.4-5.0); CALCIUM 8.7 mg/dL (8.5-10.1); CREATININE 1.6 mg/dL (0.6-1.0); GFR 32.2; PHOSPHORUS 3.6 mg/dL (2.6-4.7); POTASSIUM 3.9 mmol/L (3.5-5.1)
[2020-10-17] MEDS: CEFDINIR 300 MG CAPSULE PO SCH ×2 (08:42→20:58)
[2020-10-17] MEDS: ASPIRIN ENTERIC COATED 81 MG TABLET.DR. PO SCH (08:42)
[2020-10-17] MEDS: LACTOBACILLUS RHAMNOSUS GG 1 CAPSULE. PO SCH ×2 (08:42→20:58)
[2020-10-17] MEDS: CARVEDILOL 6.25 MG TABLET. PO SCH ×2 (08:43→18:10)
[2020-10-17] MEDS: LISINOPRIL 20 MG TABLET PO SCH (08:45)
[2020-10-17 11:00] VITALS: BP 143/74
--- NOTE | 2020-10-17 11:31 | PDOC ---
DATE OF SERVICE DATE: 10/17/20 TIME: 11:30 SUBJECTIVE ROS Stable , No concerns overnight per nursing OBJECTIVE Vital Signs Vital Signs Date Time Temp Pulse Resp B/P (MAP) Pulse Ox O2 Delivery O2 Flow Rate FiO2 10/17/20 08:45 86 148/74 10/17/20 08:00 Room Air 10/17/20 07:00 97.4 20 96 97.4 I & 0 Intake and Output 10/17/20 07:00 Intake Total 800 ml Balance 800 ml Intake Oral 800 ml # Voids 7 # Bowel Movements 2 PHYSICAL EXAM Physical Exam General NAD HEEN OM mildly dry Neck Supple Lungs CTA CV S1S2 Abd Soft, NT, Ext No LE edmea. No cyanosis Neuro- Grossly Normal, No focal deficit Psych Hx of depression/Anxiety, currently mood stable No Maguire, no cva or SP tenderness DIAGNOSIS/ASSESSMENT Assessment & Plan ELDA - ATN ; UA unremarkable;Renal function stable . Renal US unremarkable . Supportive care, maintain hydration Strict I/O , avoid nephrotoxins Cr was normal in 2019 per [facility] records Reviewed records from [facility] ; Cr 1.1 in July; Contrast CT's in june 2020 . Multiple meds recently started on (approx 1 mo) - Aldcatone, Chlorthalidone . Also on JOSEF-I Edema- per patient report . Clinically asymptomatic ,On Amlodipine 10 mg , Lasix given x1, Weight stable HypeKalemia- Mild at presentation, she was on KCL at home. Recd Kayexalate as well ; Resolved HTN Urgency -Antihypertensives per cardiology History of uterine tumor status post hysterectomy and chemotherapy in 2019 DC per primary, Recommend fu labs with PCP next week , Follow with NEPHROLOGY as OP (in 4-6 weeks ) . Reza Forrest and RN COMMENT/RELEVANT DATA Meds Current Medications Medications (Trade) Dose Ordered Sig/Allison Start Time Stop Time Status Last Admin Dose Admin Acetaminophen (Tylenol) 650 mg PRN Q4HRS PRN 10/14/20 08:15 10/15/20 09:20 650 MG Alprazolam (Xanax) 0.5 mg 1X ONCE 10/13/20 20:45 10/13/20 20:47 DC 10/13/20 21:27 0.5 MG Amlodipine Besylate (Norvasc) 10 mg DAILY 10/16/20 09:00 10/17/20 08:42 10 MG Aspirin (Ana Aspirin) 325 mg 1X ONCE 10/13/20 20:45 10/13/20 20:47 DC 10/13/20 21:27 325 MG Aspirin (Ecotrin) 81 mg DAILY 10/14/20 12:30 10/17/20 08:42 81 MG Carvedilol (Coreg) 6.25 mg BIDWMEALS 10/15/20 12:30 10/17/20 08:43 6.25 MG Cefdinir (Omnicef) 300 mg BID 10/16/20 12:30 10/17/20 08:42 300 MG Dextrose (Dextrose 50%-Water Syringe) 12.5 gm PRN Q15MIN PRN 10/14/20 08:15 Docusate Sodium (Colace) 100 mg PRN DAILY PRN 10/14/20 08:15 Furosemide (Lasix) 20 mg 1X ONCE 10/16/20 12:00 10/16/20 12:01 UNV Labetalol HCl (Normodyne Iv Push) 20 mg PRN Q2HR PRN 10/14/20 11:45 Lactobacillus Rhamnosus (Culturelle) 1 cap BID 10/16/20 21:00 10/17/20 08:42 1 CAP Levothyroxine Sodium (Synthroid) 88 mcg DAILY07 10/14/20 12:30 10/17/20 06:09 88 MCG Lisinopril (Prinivil) 20 mg DAILY 10/15/20 11:00 10/17/20 08:45 20 MG Morphine Sulfate (Morphine Sulfate) 2 mg PRN Q2HR PRN 10/14/20 00:00 10/14/20 23:59 DC Ondansetron HCl (Zofran) 4 mg PRN Q6HRS PRN 10/14/20 08:15 Sennosides (Senna) 17.2 mg PRN BID PRN 10/14/20 08:15 Sodium Polystyrene Sulfonate (Kayexalate) 30 gm 1X ONCE 10/13/20 22:00 10/13/20 22:01 DC 10/13/20 22:31 30 GM Sodium Chloride 1,000 ml @ 75 mls/hr [id number] 10/14/20 11:00 10/15/20 09:54 DC 10/15/20 00:24 75 MLS/HR Lab Laboratory Tests Test 10/17/20 06:00 Sodium Level 141 mmol/L (136-145) Potassium Level 3.9 mmol/L (3.5-5.1) Chloride Level 107 mmol/L (98-107) Carbon Dioxide Level 23 mmol/L (21-32) Anion Gap 11 (6-14) Blood Urea Nitrogen 38 mg/dL (7-20) Creatinine 1.6 mg/dL (0.6-1.0) Estimated GFR (Cockcroft-Gault) 32.2 Glucose Level 93 mg/dL (70-99) Calcium Level 8.7 mg/dL (8.5-10.1) Phosphorus Level 3.6 mg/dL (2.6-4.7) Albumin 3.1 g/dL (3.4-5.0) Results All relevant outside records, renal labs, imaging studies, telemetry/EKG's were reviewed. Justicifation of Admission Dx: Justifications for Admission: Justification of Admission Dx: N/A ESTELLA BRADY MD Oct 17, 2020 11:31
[2020-10-17 15:00] VITALS: BP 149/74
[2020-10-17 19:10] VITALS: BP 154/63
--- NOTE | 2020-10-17 19:41 | PDOC ---
[employer] PROGRESS NOTE Date of Service DOS: DATE: 10/17/20 TIME: 19:40 Chief Complaint Chief Complaint Hypertensive emergency ELDA due to vasomotor nephropathy History of depression History of anxiety History of hypothyroidism History of uterine tumor status post hysterectomy and chemotherapy in 2019 Admit to medicine for further management Cardiology consult Nephrology consult Labetalol as needed to maintain systolic blood pressure between 1 40-1 70 while admitted Strict I's and O's Avoid nephrotoxic agents Resume home medications Ambulation for DVT prophylaxis Protonix GI prophylaxis ADA/renal diet Full code Discussed with RN and SW Disposition patient management as above Surrogate decision maker is son History of Present Illness History of Present Illness 10/17/2020 No acute events overnight. Patient's blood pressure has been better controlled. Patient is able to participate with PT and is able to walk about 50 feet on walker. Pending discharge once home health has been arranged and walker has been provided. Will await from nursing game farm supervisor or social work to provide this before she goes. Patient will also need patient's chart, labs, images were reviewed and discussed with RN closely with PCP, nephrology and cardiology. 10/16/2020 No acute events overnight. Patient seen and examined bedside. Patient does complain of lower extremity swelling bilaterally. Creatinine increased from 1.4-1.7. We will continue to monitor renal function. Will consider Lasix for possible diuresis and will defer this to nephrology. Blood pressure is better controlled with current BP treatment. Patient's chart, labs, images were reviewed and discussed with RN 65-year-old female with past medical history of hypertension, depression, anxiety who presents to the ED today due to high blood pressure that has been ongoing for months. 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 Denies any chest pain, shortness of breath, recent NSAIDs or tjfc-btf-[id number] occasions. She knows that she does have any more abnormal kidney function. Denies any recent UTIs or kidney stones. Her last UTI was more than 20 years ago. Does complain of occasional intermittent lower extremity edema especially when she drinks more water. Baseline Cr unknown to the family. She follows with Nurse practitioner ; O ncology and Cardiology . Vitals/I&O Vitals/I&O: Vital Signs Date Time Temp Pulse Resp B/P (MAP) Pulse Ox O2 Delivery O2 Flow Rate FiO2 10/17/20 18:10 80 149/74 10/17/20 15:00 97.8 20 97 Room Air 97.8 I & O 10/16/20 10/16/20 10/17/20 15:00 23:00 07:00 Intake Total 800 ml Balance 800 ml Physical Exam General: Alert, Oriented X3, Cooperative, No acute distress Heart: Regular rate, Normal S1, Normal S2, Other (apical murmur 2/6) Abdomen: Soft, No tenderness Extremities: No cyanosis, No edema Skin: No breakdown, No significant lesion Labs Labs: Laboratory Tests Test 10/17/20 06:00 Sodium Level 141 mmol/L (136-145) Potassium Level 3.9 mmol/L (3.5-5.1) Chloride Level 107 mmol/L (98-107) Carbon Dioxide Level 23 mmol/L (21-32) Anion Gap 11 (6-14) Blood Urea Nitrogen 38 mg/dL (7-20) Creatinine 1.6 mg/dL (0.6-1.0) Estimated GFR (Cockcroft-Gault) 32.2 Glucose Level 93 mg/dL (70-99) Calcium Level 8.7 mg/dL (8.5-10.1) Phosphorus Level 3.6 mg/dL (2.6-4.7) Albumin 3.1 g/dL (3.4-5.0) Assessment and Plan Assessmemt and Plan Problems Medical Problems: (1) Hyperkalemia Status: Acute Comment Review of Relevant I have reviewed the following items rosie (where applicable) has been applied. Medications: Current Medications Medications (Trade) Dose Ordered Sig/Allison Route PRN Reason Start Time Stop Time Status Last Admin Dose Admin Lactobacillus Rhamnosus (Culturelle) 1 cap BID PO 10/16/20 21:00 10/17/20 08:42 Justifications for Admission Other Justification Hypertensive urgency MCKENZIE NEGRON MD Oct 17, 2020 19:41
[2020-10-17 23:04] VITALS: BP 147/66
[2020-10-18] VITALS (7 sets, daily range): BP systolic 127–145; BP diastolic 58–76
[2020-10-18 05:17] LABS: CALCIUM 8.8 mg/dL (8.5-10.1); CREATININE 1.5 mg/dL (0.6-1.0); GFR 34.7
[2020-10-18] MEDS: LEVOTHYROXINE 88 MCG TABLET PO SCH (06:34)
[2020-10-18] MEDS ORDERED: FUROSEMIDE 20 MG/2 ML VIAL. IVP ONE (07:00)
[2020-10-18] MEDS: LACTOBACILLUS RHAMNOSUS GG 1 CAPSULE. PO SCH ×2 (08:52→20:50)
[2020-10-18] MEDS: CARVEDILOL 6.25 MG TABLET. PO SCH ×2 (08:53→16:54)
[2020-10-18] MEDS: CEFDINIR 300 MG CAPSULE PO SCH ×2 (08:53→20:50)
[2020-10-18] MEDS: ASPIRIN ENTERIC COATED 81 MG TABLET.DR. PO SCH (08:53)
[2020-10-18] MEDS: LISINOPRIL 20 MG TABLET PO SCH (08:53)
--- NOTE | 2020-10-18 11:09 | PDOC ---
[employer] PROGRESS NOTE Date of Service DOS: DATE: 10/18/20 TIME: 11:05 Chief Complaint Chief Complaint Hypertensive emergency ELDA due to vasomotor nephropathy Acute cystitisunable to complete p.o. antibiotic course from previous admission. Cefdinir started during this hospitalization. Can probably DC upon discharge History of depression History of anxiety History of hypothyroidism History of uterine tumor status post hysterectomy and chemotherapy in 2019 Admit to medicine for further management Cardiology consult Nephrology consult Labetalol as needed to maintain systolic blood pressure between 1 40-1 70 while admitted Strict I's and O's Avoid nephrotoxic agents Resume home medications Ambulation for DVT prophylaxis Protonix GI prophylaxis ADA/renal diet Full code Discussed with RN and SW Disposition patient management as above Surrogate decision maker is son History of Present Illness History of Present Illness 10/18/2020 No acute events overnight. Patient given IV Lasix 20 mg this morning with adequate urine output. Clinically patient feels better after diuresis and is ambulating much better. Minimal assistance with walker needed. Can anticipate discharge within the next 24 to 48 hours. Home health pending insurance authorization. Patient will need a walker before she goes home. Will attempt IV Lasix tomorrow morning again before discharge. Patient's chart, labs, images were reviewed and discussed with RN 10/17/2020 No acute events overnight. Patient's blood pressure has been better controlled. Patient is able to participate with PT and is able to walk about 50 feet on walker. Pending discharge once home health has been arranged and walker has been provided. Will await from nursing first line production supervisor or social work to provide this before she goes. Patient will also need patient's chart, labs, images were reviewed and discussed with RN closely with PCP, nephrology and cardiology. 10/16/2020 No acute events overnight. Patient seen and examined bedside. Patient does complain of lower extremity swelling bilaterally. Creatinine increased from 1.4-1.7. We will continue to monitor renal function. Will consider Lasix for possible diuresis and will defer this to nephrology. Blood pressure is better controlled with current BP treatment. Patient's chart, labs, images were reviewed and discussed with RN 65-year-old female with past medical history of hypertension, depression, anxiety who presents to the ED today due to high blood pressure that has been ongoing for months. 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 Denies any chest pain, shortness of breath, recent NSAIDs or scvi-qih-xcqmglx occasions. She knows that she does have any more abnormal kidney function. Denies any recent UTIs or kidney stones. Her last UTI was more than 20 years ago. Does complain of occasional intermittent lower extremity edema especially when she drinks more water. Baseline Cr unknown to the family. She follows with Nurse practitioner ; Oncology and Cardiology . Vitals/I&O Vitals/I&O: Vital Signs Date Time Temp Pulse Resp B/P (MAP) Pulse Ox O2 Delivery O2 Flow Rate FiO2 10/18/20 08:53 76 145/76 10/18/20 07:37 Room Air 10/18/20 07:00 97.6 18 96 97.6 I & O 10/17/20 10/17/20 10/18/20 15:00 23:00 07:00 Intake Total 550 ml 800 ml Output Total 1 ml 1 ml 0 ml Balance 549 ml 799 ml 0 ml Physical Exam General: Alert, Oriented X3, Cooperative, No acute distress Heart: Regular rate, Normal S1, Normal S2, Other (apical murmur 2/6) Abdomen: Soft, No tenderness Extremities: No cyanosis, No edema Skin: No breakdown, No significant lesion Labs Labs: Laboratory Tests Test 10/18/20 04:45 Sodium Level 138 mmol/L (136-145) Potassium Level 4.0 mmol/L (3.5-5.1) Chloride Level 105 mmol/L (98-107) Carbon Dioxide Level 22 mmol/L (21-32) Anion Gap 11 (6-14) Blood Urea Nitrogen 38 mg/dL (7-20) Creatinine 1.5 mg/dL (0.6-1.0) Estimated GFR (Cockcroft-Gault) 34.7 Glucose Level 105 mg/dL (70-99) Calcium Level 8.8 mg/dL (8.5-10.1) Assessment and Plan Assessmemt and Plan Problems Medical Problems: (1) Hyperkalemia Status: Acute Comment Review of Relevant I have reviewed the following items rosie (where applicable) has been applied. Medications: Current Medications Medications (Trade) Dose Ordered Sig/Allison Route PRN Reason Start Time Stop Time Status Last Admin Dose Admin Furosemide (Lasix) 20 mg 1X ONCE IVP 6/20/21 07:00 10/18/20 07:01 DC 10/18/20 06:35 Justifications for Admission Other Justification Hypertensive urgency MCKENZIE NEGRON MD Oct 18, 2020 11:09
--- NOTE | 2020-10-18 13:49 | PDOC ---
DATE OF SERVICE DATE: 10/18/20 TIME: 13:48 SUBJECTIVE ROS Stable , No concerns overnight per nursing OBJECTIVE Vital Signs Vital Signs Date Time Temp Pulse Resp B/P (MAP) Pulse Ox O2 Delivery O2 Flow Rate FiO2 10/18/20 11:00 97.6 72 18 136/65 (88) 92 Room Air 97.6 I & 0 Intake and Output 10/18/20 07:00 Intake Total 1350 ml Output Total 2 ml Balance 1348 ml Intake Oral 1350 ml Output Urine Total 2 ml # Voids 1 PHYSICAL EXAM Physical Exam General NAD HEEN OM mildly dry Neck Supple Lungs CTA CV S1S2 Abd Soft, NT, Ext No LE edmea. No cyanosis Neuro- Grossly Normal, No focal deficit Psych Hx of depression/Anxiety, currently mood stable No Maguire, no cva or SP tenderness DIAGNOSIS/ASSESSMENT Assessment & Plan ELDA - ATN ; UA unremarkable;Renal function stable . Renal US unremarkable . Supportive care, avoid nephrotoxins Edema- Clinically asymptomatic ,On Amlodipine 10 mg , IV Lasix prn; probably will need to be on diuretic at discharge with monitoring of renal function HypeKalemia- Mild at presentation, she was on KCL at home. Recd Kayexalate as well ; Resolved HTN Urgency -Antihypertensives per cardiology History of uterine tumor status post hysterectomy and chemotherapy in 2019 COMMENT/RELEVANT DATA Meds Current Medications Medications (Trade) Dose Ordered Sig/Allison Start Time Stop Time Status Last Admin Dose Admin Acetaminophen (Tylenol) 650 mg PRN Q4HRS PRN 10/14/20 08:15 10/15/20 09:20 650 MG Alprazolam (Xanax) 0.5 mg 1X ONCE 10/13/20 20:45 10/13/20 20:47 DC 10/13/20 21:27 0.5 MG Amlodipine Besylate (Norvasc) 10 mg DAILY 10/16/20 09:00 10/18/20 08:53 10 MG Aspirin (Ana Aspirin) 325 mg 1X ONCE 10/13/20 20:45 10/13/20 20:47 DC 10/13/20 21:27 325 MG Aspirin (Ecotrin) 81 mg DAILY 10/14/20 12:30 10/18/20 08:53 81 MG Carvedilol (Coreg) 6.25 mg BIDWMEALS 10/15/20 12:30 10/18/20 08:53 6.25 MG Cefdinir (Omnicef) 300 mg BID 10/16/20 12:30 10/18/20 08:53 300 MG Dextrose (Dextrose 50%-Water Syringe) 12.5 gm PRN Q15MIN PRN 10/14/20 08:15 Docusate Sodium (Colace) 100 mg PRN DAILY PRN 10/14/20 08:15 10/17/20 21:13 100 MG Furosemide (Lasix) 20 mg 1X ONCE 10/19/20 06:30 10/19/20 06:31 Labetalol HCl (Normodyne Iv Push) 20 mg PRN Q2HR PRN 10/14/20 11:45 Lactobacillus Rhamnosus (Culturelle) 1 cap BID 10/16/20 21:00 10/18/20 08:52 1 CAP Levothyroxine Sodium (Synthroid) 88 mcg DAILY07 10/14/20 12:30 10/18/20 06:34 88 MCG Lisinopril (Prinivil) 20 mg DAILY 10/15/20 11:00 10/18/20 08:53 20 MG Morphine Sulfate (Morphine Sulfate) 2 mg PRN Q2HR PRN 10/14/20 00:00 10/14/20 23:59 DC Ondansetron HCl (Zofran) 4 mg PRN Q6HRS PRN 10/14/20 08:15 Sennosides (Senna) 17.2 mg PRN BID PRN 10/14/20 08:15 Sodium Polystyrene Sulfonate (Kayexalate) 30 gm 1X ONCE 10/13/20 22:00 10/13/20 22:01 DC 10/13/20 22:31 30 GM Sodium Chloride 1,000 ml @ 75 mls/hr [id number] 10/14/20 11:00 10/15/20 09:54 DC 10/15/20 00:24 75 MLS/HR Lab Laboratory Tests Test 10/18/20 04:45 Sodium Level 138 mmol/L (136-145) Potassium Level 4.0 mmol/L (3.5-5.1) Chloride Level 105 mmol/L (98-107) Carbon Dioxide Level 22 mmol/L (21-32) Anion Gap 11 (6-14) Blood Urea Nitrogen 38 mg/dL (7-20) Creatinine 1.5 mg/dL (0.6-1.0) Estimated GFR (Cockcroft-Gault) 34.7 Glucose Level 105 mg/dL (70-99) Calcium Level 8.8 mg/dL (8.5-10.1) Results All relevant outside records, renal labs, imaging studies, telemetry/EKG's were reviewed. Justicifation of Admission Dx: Justifications for Admission: Justification of Admission Dx: N/A ESTELLA BRADY MD Oct 18, 2020 13:49
[2020-10-19 03:50] VITALS: BP 128/65
[2020-10-19] MEDS: LEVOTHYROXINE 88 MCG TABLET PO SCH (06:02)
[2020-10-19] MEDS ORDERED: FUROSEMIDE 20 MG/2 ML VIAL. IVP ONE (06:30)
[2020-10-19 07:34] LABS: CALCIUM 8.7 mg/dL (8.5-10.1); CREATININE 1.6 mg/dL (0.6-1.0); GFR 32.2; PHOSPHORUS 4.2 mg/dL (2.6-4.7)
[2020-10-19 07:35] VITALS: BP 133/64
--- NOTE | 2020-10-19 09:10 | PDOC ---
[employer] PROGRESS NOTE Date of Service DOS: DATE: 10/19/20 TIME: 09:10 Chief Complaint Chief Complaint A/P: Hypertensive emergency ELDA due to vasomotor nephropathy Acute cystitisunable to complete p.o. antibiotic course from previous admission. Cefdinir started during this hospitalization. Can probably DC upon discharge History of depression History of anxiety History of hypothyroidism History of uterine tumor status post hysterectomy and chemotherapy in 2019 Admit to medicine for further management Cardiology consult Nephrology consult Labetalol as needed to maintain systolic blood pressure between 1 40-1 70 while admitted Strict I's and O's Avoid nephrotoxic agents Resume home medications Ambulation for DVT prophylaxis Protonix GI prophylaxis ADA/renal diet Full code Discussed with RN and SW Disposition patient management as above Surrogate decision maker is son History of Present Illness History of Present Illness Ms Chirinos is a 65-year-old female with past medical history of hypertension, depression, anxiety, DVT, uterine CA who presents to the ED today due to high blood pressure that has been ongoing for months. 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 Denies any chest pain, shortness of breath, recent NSAIDs or ddww-[id number] occasions. She knows that she does have any more abnormal kidney function. Denies any recent UTIs or kidney stones. Her last UTI was more than 20 years ago. Does complain of occasional intermittent lower extremity edema especially when she drinks more water. Baseline Cr unknown to the family. She follows with Nurse practitioner ; Oncology and Cardiology . Consults; Cardiology, Nephrology Echo 10/14/2020: The left ventricle is normal size. The left ventricular systolic function is normal and the ejection fraction is within normal range. The Ejection Fraction is 60-65%. There is borderline concentric left ventricular hypertrophy. Doppler and Color Flow revealed trace aortic regurgitation. There is no significant aortic valvular stenosis. Doppler and Color Flow revealed no mitral valve regurgitation noted. Doppler and Color Flow revealed trace to mild tricuspid regurgitation with an estimated PAP of 39 mmHg. 10/16: No acute events overnight. Patient seen and examined bedside. Patient does complain of lower extremity swelling bilaterally. Creatinine increased from 1.4-1.7. We will continue to monitor renal function. Will consider Lasix for possible diuresis and will defer this to nephrology. 10/17: No acute events overnight. Patient's blood pressure has been better controlled. Patient is able to participate with PT and is able to walk about 50 feet on walker. Pending discharge once home health has been arranged and walker has been provided. 10/18: No acute events overnight. Patient given IV Lasix 20 mg this morning with adequate urine output. Clinically patient feels better after diuresis and is ambulating much better. Minimal assistance with walker needed. Can anticipate discharge within the next 24 to 48 hours. BP better controlled on amlodipine and carvedilol. As she was on chlorthalidone and transition to spironolactone but was admitted with hyperkalemia be safe to hold diuretics and follow-up with nephrology with possible future need for addition of furosemide as needed. Vitals/I&O Vitals/I&O: Vital Signs Date Time Temp Pulse Resp B/P (MAP) Pulse Ox O2 Delivery O2 Flow Rate FiO2 10/19/20 07:35 98.6 75 14 133/64 (87) 96 Room Air 98.6 I & O 10/18/20 10/18/20 10/19/20 15:00 23:00 07:00 Intake Total 680 ml 100 ml 300 ml Balance 680 ml 100 ml 300 ml Physical Exam General: Alert, Oriented X3, Cooperative, No acute distress Heart: Regular rate, Normal S1, Normal S2, Other (apical murmur 2/6) Abdomen: Soft, No tenderness Extremities: No cyanosis, No edema Skin: No breakdown, No significant lesion Labs Labs: Laboratory Tests Test 10/19/20 06:35 Sodium Level 138 mmol/L (136-145) Potassium Level 4.0 mmol/L (3.5-5.1) Chloride Level 104 mmol/L (98-107) Carbon Dioxide Level 23 mmol/L (21-32) Anion Gap 11 (6-14) Blood Urea Nitrogen 36 mg/dL (7-20) Creatinine 1.6 mg/dL (0.6-1.0) Estimated GFR (Cockcroft-Gault) 32.2 Glucose Level 98 mg/dL (70-99) Calcium Level 8.7 mg/dL (8.5-10.1) Phosphorus Level 4.2 mg/dL (2.6-4.7) Magnesium Level 2.0 mg/dL (1.8-2.4) Assessment and Plan Assessmemt and Plan Problems Medical Problems: (1) Hyperkalemia Status: Acute Comment Review of Relevant I have reviewed the following items rosie (where applicable) has been applied. Medications: Current Medications Medications (Trade) Dose Ordered Sig/Allison Route PRN Reason Start Time Stop Time Status Last Admin Dose Admin Furosemide (Lasix) 20 mg 1X ONCE IVP 10/19/20 06:30 10/19/20 06:31 DC 10/19/20 06:05 Justifications for Admission Other Justification Hypertensive urgency NAFISA SCHULZ MD Oct 19, 2020 09:10
[2020-10-19] MEDS ORDERED: AMOXICILLIN/K CLAV 500/125MG TABLET. PO SCH (10:00)
[2020-10-19] MEDS: ASPIRIN ENTERIC COATED 81 MG TABLET.DR. PO SCH (10:05)
[2020-10-19] MEDS: LACTOBACILLUS RHAMNOSUS GG 1 CAPSULE. PO SCH (10:05)
[2020-10-19] MEDS: LISINOPRIL 20 MG TABLET PO SCH (10:06)
[2020-10-19] MEDS: CARVEDILOL 6.25 MG TABLET. PO SCH ×2 (10:07→18:03)
--- NOTE | 2020-10-19 10:55 | PDOC ---
Renal-Progress Notes Subjective Notes Notes NONE History of Present Illness Hx of present illness STABLE Vitals Vitals Vital Signs Date Time Temp Pulse Resp B/P (MAP) Pulse Ox O2 Delivery O2 Flow Rate FiO2 10/19/20 10:07 75 133/64 10/19/20 08:00 Room Air 10/19/20 07:35 98.6 14 96 98.6 Weight Weight [ ] I.O. Intake and Output Intake and Output 10/19/20 07:00 Intake Total 1080 ml Balance 1080 ml Intake Oral 1080 ml # Voids 2 Labs Labs Laboratory Tests Test 10/19/20 06:35 Sodium Level 138 mmol/L (136-145) Potassium Level 4.0 mmol/L (3.5-5.1) Chloride Level 104 mmol/L (98-107) Carbon Dioxide Level 23 mmol/L (21-32) Anion Gap 11 (6-14) Blood Urea Nitrogen 36 mg/dL (7-20) Creatinine 1.6 mg/dL (0.6-1.0) Estimated GFR (Cockcroft-Gault) 32.2 Glucose Level 98 mg/dL (70-99) Calcium Level 8.7 mg/dL (8.5-10.1) Phosphorus Level 4.2 mg/dL (2.6-4.7) Magnesium Level 2.0 mg/dL (1.8-2.4) Micro Micro Microbiology 10/14/20 Urine Culture - Final, Complete 10/14/20 Antimicrobic Susceptibility - Final, Complete Review of Systems Constitutional: yes: weakness, alert Ears/Nose/Throat: Yes: no symptom reported Eyes: Yes: no symptom reported Pulmonary: Yes no symptom reported Cardiovascular: Yes no symptom reported Gastrointestional: Yes: no symptom reported Genitourinary: Yes: no symptom reported Musculoskeletal: Yes: no symptom reported Skin: Yes no symptom reported Psychiatric/Neurological: Yes: no symptom reported Physical Exam General Appearance: no apparent distress Skin: warm Respiratory: bilateral CTA Heart: S1S2 Abdomen: soft Genitourinary: bladder flat Neurology: alert, oriented, follow commands Assessment Assessment IMP HTN URGENCY-IMPROVED NON COMPLIANCE CYSTITIS ELDA-CR OF 1.6 POSSIBLE CK PLAN CR WNL IN 2019 PROB CKD NOW CONT CURRENT MEDS ENC COMPLIANCE WILL FOLLOW MARIA A SUAREZ MD Oct 19, 2020 10:55
[2020-10-19 11:11] VITALS: BP 148/70
--- NOTE | 2020-10-19 11:50 | NUR ---
SS following up with discharge planning. SS reviewed pt chart and discussed with pt RN. Pt is currently on room air. PT/OT recommending home with home healthcare. SS received notification that pt is accepted on services with [facility], ; fax [phone], and insurance gave approval for home healthcare over the weekend. SS contacted [facility] and verified information. SS currently awaiting discharge orders for home healthcare at this time. SS will continue to follow for discharge planning.
[2020-10-19 15:32] VITALS: BP 141/67
[2020-10-19] MEDS ORDERED: CARV6.2511 PO (16:36)
[2020-10-19] MEDS ORDERED: AMOX1TAB10 PO (16:36)
[2020-10-19] MEDS ORDERED: AMLO-187 PO (16:36)
--- NOTE | 2020-10-19 16:45 | SNU/HH DC ---
DISCHARGE WITH HOME HEALTH DISCHARGE INFORMATION: Discharge Date: Oct 19, 2020 Final Diagnosis: Problems Medical Problems: (1) Hyperkalemia Status: Acute Condition on Discharge: Stable CODE STATUS: Code Status: Full HOME HEALTH: Face to Face: I certify this patient is under my care and that I, or a nurse practitioner or physician's support assistant working with me, had a face to face encounter that meets the physician face to face encounter requirements with this patient on 10/19/2020. Medical Complications: HTN Fci For: Assess & Educate Safety, Medication Management RN For Eval/Treatment: Yes Physical Therapy For: Evalulation/Treatment Occupational Therapy For: Evaluation/Treatment Pt Meets Homebound Status: Fatigue w/ amb. POST DISCHARGE ORDERS: Activity Instructions for Disc: Resume previous activity Weight Bearing Status after Di: Full weight bearing DIET AFTER DISCHARGE: Cardiac CHECKS AFTER DISCHARGE: Checks after discharge: Check blood press - daily FOLLOW-UP: Additional Instructions: Nephrology follow-up: Dr Jacobo or Lisa Call to schedule: CERTIFICATION STATEMENT: Certification Statement: Certification Statement: Based on the above finding, I certify that this patient is confined to the home and needs intermittent fdc care, physical therapy and/or speech therapy, or continues to need occupational therapy.~ This patient is under my care, and I have initiated the establishment of the plan of care.~ This patient will be followed by myself or a community physician who will periodically review the plan of care. Home Meds Active Scripts Amlodipine Besylate (AMLODIPINE BESYLATE) 10 Mg Tablet, 10 MG PO DAILY for HTN for 30 Days, #30 TAB 5 Refills Prov:NAFISA SCHULZ MD 10/19/20 Carvedilol (CARVEDILOL ) 6.25 Mg Tablet, 6.25 MG PO BIDWMEALS for HTN for 30 Days, #60 TAB 5 Refills Prov:NAFISA SCHULZ MD 10/19/20 Amoxicillin/Potassium Clav (AMOX TR-K CLV 500-125 MG TAB) 1 Each Tablet, 1 TAB PO BID for UTI for 2 Days, #4 TAB Prov:NAFISA SCHULZ MD 10/19/20 Reported Medications Escitalopram Oxalate (ESCITALOPRAM OXALATE) 10 Mg Tablet, 0.5 TAB PO DAILY for anxiety, #30 TAB 3 Refills 10/14/20 Aspirin (ASPIRIN EC) 81 Mg Tablet.dr, 81 MG PO DAILY for THINNER OF BLOOD, TAB.SR 10/14/20 Levothyroxine Sodium (SYNTHROID) 88 Mcg Tablet, 1 TAB PO DAILY for SUPPLEMENT, #30 TAB 5 Refills 10/14/20 Discontinued Reported Medications Enalapril Maleate (ENALAPRIL MALEATE) 20 Mg Tablet, 1 TAB PO BID for HTN, #180 TAB 1 Refill 10/14/20 Spironolactone (SPIRONOLACTONE) 25 Mg Tablet, 1 TAB PO DAILY for Diuretic, #90 TAB 1 Refill 10/14/20 Potassium Chloride (KLOR-CON M20) 20 Meq Tab.er.prt, 1 TAB PO DAILY for supplement for 30 Days, #30 TAB 0 Refills 10/14/20 Metoprolol Tartrate (METOPROLOL TARTRATE) 25 Mg Tablet, 25 MG PO BID for FOR HYPERTENSION, #60 TAB 0 Refills 10/14/20 Alprazolam (XANAX) 0.25 Mg Tablet, 0.25 MG PO PRN Q6HRS PRN for ANXIETY / AGITA TION, TAB 0 Refills 10/14/20 Potassium Chloride (KLOR-CON M10) 10 Meq Tab.er.prt, 10 MEQ PO BID for SUPPLEM ENTS, TAB.SR 10/14/20 NAFISA SCHULZ MD Oct 19, 2020 16:45
--- NOTE | 2020-10-19 16:52 | PDOC3 ---
Discharge Summary Visit Information Date of Admission: Oct 13, 2020 Date of Discharge: Oct 19, 2020 Admitting Diagnosis: HTN emergency Final Diagnosis Problems Medical Problems: (1) Hyperkalemia Status: Acute Brief Hospital Course Allergies Allergies Coded Allergies Type Severity Reaction Last Updated Verified iodine Allergy Severe 10/15/20 Yes folic acid Allergy Mild 10/14/20 Yes vitamin B complex and C Allergy Mild 10/14/20 Yes Vital Signs Vital Signs Date Time Temp Pulse Resp B/P (MAP) Pulse Ox O2 Delivery O2 Flow Rate FiO2 10/19/20 15:32 98.1 72 12 141/67 (91) 98 Room Air 98.1 Lab Results Laboratory Tests Test 10/18/20 04:45 10/19/20 06:35 Sodium Level 138 mmol/L (136-145) 138 mmol/L (136-145) Potassium Level 4.0 mmol/L (3.5-5.1) 4.0 mmol/L (3.5-5.1) Chloride Level 105 mmol/L (98-107) 104 mmol/L (98-107) Carbon Dioxide Level 22 mmol/L (21-32) 23 mmol/L (21-32) Anion Gap 11 (6-14) 11 (6-14) Blood Urea Nitrogen 38 mg/dL (7-20) 36 mg/dL (7-20) Creatinine 1.5 mg/dL (0.6-1.0) 1.6 mg/dL (0.6-1.0) Estimated GFR (Cockcroft-Gault) 34.7 32.2 Glucose Level 105 mg/dL (70-99) 98 mg/dL (70-99) Calcium Level 8.8 mg/dL (8.5-10.1) 8.7 mg/dL (8.5-10.1) Phosphorus Level 4.2 mg/dL (2.6-4.7) Magnesium Level 2.0 mg/dL (1.8-2.4) Laboratory Tests Test 10/19/20 06:35 Sodium Level 138 mmol/L (136-145) Potassium Level 4.0 mmol/L (3.5-5.1) Chloride Level 104 mmol/L (98-107) Carbon Dioxide Level 23 mmol/L (21-32) Anion Gap 11 (6-14) Blood Urea Nitrogen 36 mg/dL (7-20) Creatinine 1.6 mg/dL (0.6-1.0) Estimated GFR (Cockcroft-Gault) 32.2 Glucose Level 98 mg/dL (70-99) Calcium Level 8.7 mg/dL (8.5-10.1) Phosphorus Level 4.2 mg/dL (2.6-4.7) Magnesium Level 2.0 mg/dL (1.8-2.4) Brief Hospital Course Ms Chirinos is a 65-year-old female with past medical history of hypertension, depression, anxiety, DVT, uterine CA who presents to the ED today due to high blood pressure that has been ongoing for months. 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 Denies any chest pain, shortness of breath, recent NSAIDs or mynw-[id number]-[id number] occasions. She knows that she does have any more abnormal kidney function. Denies any recent UTIs or kidney stones. Her last UTI was more than 20 years ago. Does complain of occasional intermittent lower extremity edema especially when she drinks more water. Baseline Cr unknown to the family. She follows with Nurse practitioner ; On cology and Cardiology . Consults; Cardiology, Nephrology Echo 10/14/2020: The left ventricle is normal size. The left ventricular systolic function is normal and the ejection fraction is within normal range. The Ejection Fraction is 60-65%. There is borderline concentric left ventricular hypertrophy. Doppler and Color Flow revealed trace aortic regurgitation. There is no significant aortic valvular stenosis. Doppler and Color Flow revealed no mitral valve regurgitation noted. Doppler and Color Flow revealed trace to mild tricuspid regurgitation with an estimated PAP of 39 mmHg. 10/16: No acute events overnight. Patient seen and examined bedside. Patient does complain of lower extremity swelling bilaterally. Creatinine increased from 1.4-1.7. We will continue to monitor renal function. Will consider Lasix for possible diuresis and will defer this to nephrology. 10/17: No acute events overnight. Patient's blood pressure has been better controlled. Patient is able to participate with PT and is able to walk about 50 feet on walker. Pending discharge once home health has been arranged and walker has been provided. 10/18: No acute events overnight. Patient given IV Lasix 20 mg this morning with adequate urine output. Clinically patient feels better after diuresis and is ambulating much better. Minimal assistance with walker needed. BP better controlled on amlodipine and carvedilol. As she was on chlorthalidone and transition to spironolactone but was admitted with hyperkalemia be safe to hold diuretics and follow-up with nephrology with possible future need for addition of furosemide as needed. Problem list: Hypertensive emergency ELDA due to vasomotor nephropathy Acute cystitisunable to complete p.o. antibiotic course from previous admission. Cefdinir started during this hospitalization. Can transition to 2 days augmentin on d/c History of depression History of anxiety History of hypothyroidism History of uterine tumor status post hysterectomy and chemotherapy in 2019 Greater than 30 minutes spent on d/c home with home health Discharge Information Condition at Discharge: Improved Follow Up: Weeks (2) Disposition/Orders: D/C to Home w/ HH Scheduled Amlodipine Besylate (Amlodipine Besylate) 10 Mg Tablet, 10 MG PO DAILY for HTN for 30 Days, #30 Ref 5 Prescribed by: NAFISA SCHULZ MD on 10/19/20 1636 Amoxicillin/Potassium Clav (Amox Tr-K Clv 500-125 Mg Tab) 1 Each Tablet, 1 TAB PO BID for UTI for 2 Days, #4 Prescribed by: NAFISA SCHULZ MD on 10/19/20 1636 Aspirin (Aspirin Ec) 81 Mg Tablet.dr, 81 MG PO DAILY for THINNER OF BLOOD, (Reported) Entered as Reported by: Leonor Briseno on 10/14/20 0637 Last Action: Reviewed on 10/19/20 1632 by LI ESCALANTE Carvedilol (Carvedilol ) 6.25 Mg Tablet, 6.25 MG PO BIDWMEALS for HTN for 30 Days, #60 Ref 5 Prescribed by: NAFISA SCHULZ MD on 10/19/20 1636 Escitalopram Oxalate (Escitalopram Oxalate) 10 Mg Tablet, 0.5 TAB PO DAILY for anxiety, #30 Ref 3 (Reported) Entered as Reported by: BILLY BRISCOE on 10/14/20 1904 Last Taken: Unknown Dose on Unknown Date & Time Last Action: Reviewed on 10/19/20 1632 by LI ESCALANTE Levothyroxine Sodium (Synthroid) 88 Mcg Tablet, 1 TAB PO DAILY for SUPPLEMENT, #30 Ref 5 (Reported) Entered as Reported by: Leonor Briseno on 10/14/20636 Last Action: Reviewed on 10/19/201631 by LI ESCALANTE Discontinued Medications Alprazolam (Xanax) 0.25 Mg Tablet, 0.25 MG PO PRN Q6HRS PRN for ANXIETY / AGITATION, Ref 0 (Reported) Entered as Reported by: Leonor Briseno on 10/14/20636 Last Action: Discontinued on 10/14/201903 by BILLY BRISCOE Enalapril Maleate (Enalapril Maleate) 20 Mg Tablet, 1 TAB PO BID for HTN, #180 Ref 1 (Reported) Entered as Reported by: BILLY BRISCOE on 10/14/201903 Last Taken: Unknown Dose on Unknown Date & Time Last Action: Reviewed on 10/19/201631 by LI ESCALANTE Metoprolol Tartrate (Metoprolol Tartrate) 25 Mg Tablet, 25 MG PO BID for FOR HYPERTENSION, #60 Ref 0 (Reported) Entered as Reported by: Leonor Briseno on 10/14/20636 Last Action: Discontinued on 10/14/201903 by BILLY BRISCOE Potassium Chloride (Klor-Con M10) 10 Meq Tab.er.prt, 10 MEQ PO BID for SUPPLEM ENTS, (Reported) Entered as Reported by: Leonor Briseno on 10/14/20632 Last Action: Discontinued on 10/14/201903 by BILLY BRISCOE Potassium Chloride (Klor-Con M20) 20 Meq Tab.er.prt, 1 TAB PO DAILY for supplement for 30 Days, #30 Ref 0 (Reported) Entered as Reported by: BILLY BRISCOE on 10/14/201903 Last Taken: Unknown Dose on Unknown Date & Time Last Action: Reviewed on 10/19/201631 by LI ESCALANTE Spironolactone (Spironolactone) 25 Mg Tablet, 1 TAB PO DAILY for Diuretic, #90 Ref 1 (Reported) Entered as Reported by: BILLY BRISCOE on 10/14/201903 Last Taken: Unknown Dose on Unknown Date & Time Last Action: Reviewed on 10/19/201631 by LI ESCALANTE Justicifation of Admission Dx: Justifications for Admission: Justification of Admission Dx: N/A NAFISA SCHULZ MD Oct 19, 2020 16:52
[2020-10-19 18:03] VITALS: BP 141/67
--- NOTE | 2020-10-19 18:58 | NUR ---
Discharge Note: CHAYA ESTRADA Discharge instructions and discharge home medications reviewed with Patient and a copy given. All questions have been answered and understanding verbalized. Prescriptions sent to pharmacy via physician. Interperter phone utilized. Daughter and at bedside. All new medications and discontinued medicaitons reviewed. Phyisican follow ups reviewed. All questions answered. Pt DC'd via wheelchair in stable condition.
== END 2020-10-19 19:04 | disposition home health service (06) | DRG 304 ==
LOC: ER 20:15 → 2 NORTH 21:14
PROVIDERS: ADMIT Family Medicine; ATTEND Family Medicine
DX: I16.1 Hypertensive emergency (principal); N17.0 Acute kidney failure with tubular necrosis; N30.00 Acute cystitis without hematuria; E03.9 Hypothyroidism, unspecified; E87.5 Hyperkalemia; F41.0 Panic disorder [episodic paroxysmal anxiety]; I12.9 Hypertensive chronic kidney disease with stage 1 through stage 4 chronic kidney disease, or unspecified chronic kidney disease; N18.9 Chronic kidney disease, unspecified; Z85.42 Personal history of malignant neoplasm of other parts of uterus; Z90.710 Acquired absence of both cervix and uterus; Z91.19 Patient's noncompliance with other medical treatment and regimen; Z92.21 Personal history of antineoplastic chemotherapy; F32.9 Major depressive disorder, single episode, unspecified; M19.90 Unspecified osteoarthritis, unspecified site; Z88.8 Allergy status to other drugs, medicaments and biological substances; Z79.899 Other long term (current) drug therapy; Z86.718 Personal history of other venous thrombosis and embolism; Z79.01 Long term (current) use of anticoagulants; Z98.51 Tubal ligation status; I08.2 Rheumatic disorders of both aortic and tricuspid valves
CPT/HCPCS: 36415; 70450; 71045; 76770; 80048; 80053; 80061; 80069; 81001; 83735; 83880; 84100; 84443; 84484; 85025; 87077; 87086; 87186; 93005; 93306; 96374; J1940; J3490; J7030; 97116-GP; 97535-GO; 99285-25; G0378

== ENCOUNTER 2020-10-29 21:47 | Inpatient (IN) | payer OTHER ==
[~2020-10-29] VITALS: Ht 160 cm; Wt 71.4 kg
[~2020-10-29 21:47] MED LIST changes: +ALPR0.25 PO; +AMLO-187 PO; +AMOX1TAB10 PO; +AMOX1TAB61 PO; +ASPI-886 PO; +CARV6.2511 PO; +CHLO25TA2 PO; +ENAL20TA10 PO; +ESCITALOPRAM OX10 MG PO; +LABE100T5 PO; +LEVO88TA70 PO; +METO25TA4 PO; +MULT-250 PO; +POTA-116 PO; +POTA-121 PO; +SPIR25TA5 PO
[2020-10-29 22:46] LABS: BASO # 0.1 x10^3/uL (0.0-0.2); BASO % 1 % (0-3); EOS # 0.3 x10^3/uL (0.0-0.7); EOS % 4 % (0-3); HEMATOCRIT 22.7 % (36.0-47.0); HEMOGLOBIN 7.9 g/dL (12.0-15.5); LYMPH # 1.4 x10^3/uL (1.0-4.8); LYMPH % 16 % (24-48); MEAN CORPUSCULAR HEMOGLOBIN 31 pg (25-35); MEAN CORPUSCULAR HGB CONC 35 g/dL (31-37); MEAN CORPUSCULAR VOLUME 90 fL (79-100); MONO # 0.8 x10^3/uL (0.0-1.1); MONO % 10 % (0-9); NEUT # 5.9 x10^3/uL (1.8-7.7); NEUT % 70 % (31-73); PLATELET COUNT 149 x10^3/uL (140-400); RED BLOOD COUNT 2.53 x10^6/uL (3.50-5.40); RED CELL DISTRIBUTION WIDTH 16.6 % (11.5-14.5); WHITE BLOOD COUNT 8.5 x10^3/uL (4.0-11.0)
[2020-10-29 22:55] LABS: CALCIUM 8.2 mg/dL (8.5-10.1); CREATININE 1.7 mg/dL (0.6-1.0); GFR 30.1; POTASSIUM 4.3 mmol/L (3.5-5.1)
--- NOTE | 2020-10-29 22:56 | RAD ---
Exam: Chest one view INDICATION: Short of air TECHNIQUE: Frontal view of the chest Comparisons: 10/13/2020 FINDINGS: The cardiomediastinal silhouette and pulmonary vessels are within normal limits. Patchy airspace disease at the lung bases bilaterally. No pleural effusion. IMPRESSION: Patchy bibasilar airspace disease greater on the right favored to be infectious or inflammatory in et iology. Electronically signed by: Barb Benavidez MD (10/29/2020 10:53 PM) JULIEN
[2020-10-29 23:01] LABS: ALBUMIN 3.1 g/dL (3.4-5.0); ALBUMIN/GLOBULIN RATIO 1.1 (1.0-1.7); MAGNESIUM 1.9 mg/dL (1.8-2.4); TOTAL BILIRUBIN 0.3 mg/dL (0.2-1.0)
--- NOTE | 2020-10-29 23:51 | PHYS DOC ---
Past Medical History Past Medical History: Anxiety, Depression, DVT, Hypertension, Hypothyroid Additional Past Medical Histor: UTERINE TUMOR, LAST CHEMO MAR 2019 Past Surgical History: Hysterectomy, Tubal ligation, Other Smoking Status: Never Smoker Alcohol Use: None Drug Use: None General Adult EDM: Chief Complaint: LOWER EXTREMITY SWELLING HPI: HPI: Patient is a 65 year old female who was brought here by her family for evaluation of bilateral lower extremity swelling, not feeling well for several days. Patient was admitted here recently for the same problem, she was discharged home with some new medication. Patient complained of some dry cough, having trouble breathing when she exerted herself. Patient denies any chest pain, no abdominal pain, no nausea vomiting. Patient states she is just not feeling well. Review of Systems: Review of Systems: Constitutional: Denies fever or chills. [] Eyes: Denies change in visual acuity. [] HENT: Denies nasal congestion or sore throat. [] Respiratory: Positive cough and trouble breathing. Cardiovascular: Denies chest pain or edema. [] GI: Denies abdominal pain, nausea, vomiting, bloody stools or diarrhea. [] : Denies dysuria. [] Musculoskeletal: Denies back pain , positive for lower extremity pain and swelling. Integument: Denies rash. [] Neurologic: Denies headache, focal weakness or sensory changes. [] Endocrine: Denies polyuria or polydipsia. [] Lymphatic: Denies swollen glands. [] Psychiatric: Denies depression or anxiety. [] Heart Score: C/O Chest Pain: N/A Risk Factors: Risk Factors: DM, Current or recent (<one month) smoker, HTN, HLP, family history of CAD, obesity. Risk Scores: Score 0 - 3: 2.5% MACE over next 6 weeks - Discharge Home Score 4 - 6: 20.3% MACE over next 6 weeks - Admit for Clinical Observation Score 7 - 10: 72.7% MACE over next 6 weeks - Early Invasive Strategies Current Medications: Current Medications Medications (Trade) Dose Ordered Sig/Allison Start Time Stop Time Status Last Admin Dose Admin Levofloxacin/ Dextrose 150 ml @ 100 mls/hr 1X ONCE 10/30/20 00:00 10/30/20 01:29 UNV Piperacillin Sod/ Tazobactam Sod 3.375 gm/Sodium Chloride 50 ml @ 100 mls/hr 1X ONCE 10/30/20 00:00 10/30/20 00:29 UNV Allergies: Allergies: Allergies Coded Allergies Type Severity Reaction Last Updated Verified iodine Allergy Severe 10/15/20 Yes folic acid Allergy Mild 10/14/20 Yes vitamin B complex and C Allergy Mild 10/14/20 Yes Physical Exam: PE: Constitutional: Well developed, well nourished, no acute distress, non-toxic appearance. [] HENT: Normocephalic, atraumatic, bilateral external ears normal, oropharynx moist, no oral exudates, nose normal. [] Eyes: PERRLA, EOMI, conjunctiva normal, no discharge. [] Neck: Normal range of motion, no tenderness, supple, no stridor. [] Cardiovascular:Heart rate regular rhythm, no murmur [] Lungs & Thorax: Bilateral breath sounds clear to auscultation [] Abdomen: Bowel sounds normal, soft, no tenderness, no masses, no pulsatile masses. [] Skin: Warm, dry, no erythema, no rash. [] Back: No tenderness, no CVA tenderness. [] Extremities: No tenderness, no cyanosis, no clubbing, ROM intact, bilateral lower extremity pitting edema 2+ Neurologic: Alert and oriented X 3, normal motor function, normal sensory function, no focal deficits noted. [] Psychologic: Affect normal, judgement normal, mood normal. [] Current Patient Data: Labs: Laboratory Tests Test 10/29/20 22:35 White Blood Count 8.5 x10^3/uL Red Blood Count 2.53 x10^6/uL Hemoglobin 7.9 g/dL Hematocrit 22.7 % Mean Corpuscular Volume 90 fL Mean Corpuscular Hemoglobin 31 pg Mean Corpuscular Hemoglobin Concent 35 g/dL Red Cell Distribution Width 16.6 % Platelet Count 149 x10^3/uL Neutrophils (%) (Auto) 70 % Lymphocytes (%) (Auto) 16 % Monocytes (%) (Auto) 10 % Eosinophils (%) (Auto) 4 % Basophils (%) (Auto) 1 % Neutrophils # (Auto) 5.9 x10^3/uL Lymphocytes # (Auto) 1.4 x10^3/uL Monocytes # (Auto) 0.8 x10^3/uL Eosinophils # (Auto) 0.3 x10^3/uL Basophils # (Auto) 0.1 x10^3/uL Sodium Level 126 mmol/L Potassium Level 4.3 mmol/L Chloride Level 97 mmol/L Carbon Dioxide Level 21 mmol/L Anion Gap 8 Blood Urea Nitrogen 33 mg/dL Creatinine 1.7 mg/dL Estimated GFR (Cockcroft-Gault) 30.1 BUN/Creatinine Ratio 19 Glucose Level 106 mg/dL Calcium Level 8.2 mg/dL Magnesium Level 1.9 mg/dL Total Bilirubin 0.3 mg/dL Aspartate Amino Transf (AST/SGOT) 24 U/L Alanine Aminotransferase (ALT/SGPT) 34 U/L Alkaline Phosphatase 58 U/L Troponin I Quantitative 0.020 ng/mL XT-Iyh-D-Type Natriuretic Peptide 1122 pg/mL Total Protein 6.0 g/dL Albumin 3.1 g/dL Albumin/Globulin Ratio 1.1 Current Medications Medications (Trade) Dose Ordered Sig/Allison Route PRN Reason Start Time Stop Time Status Last Admin Dose Admin Levofloxacin/ Dextrose 150 ml @ 100 mls/hr 1X ONCE IV 10/30/20 00:00 10/30/20 01:29 UNV Piperacillin Sod/ Tazobactam Sod 3.375 gm/Sodium Chloride 50 ml @ 100 mls/hr 1X ONCE IV 10/30/20 00:00 10/30/20 00:29 UNV Laboratory Tests Test 10/29/20 22:35 White Blood Count 8.5 x10^3/uL (4.0-11.0) Red Blood Count 2.53 x10^6/uL (3.50-5.40) L Hemoglobin 7.9 g/dL (12.0-15.5) L Hematocrit 22.7 % (36.0-47.0) L Mean Corpuscular Volume 90 fL (79-100) Mean Corpuscular Hemoglobin 31 pg (25-35) Mean Corpuscular Hemoglobin Concent 35 g/dL (31-37) Red Cell Distribution Width 16.6 % (11.5-14.5) H Platelet Count 149 x10^3/uL (140-400) Neutrophils (%) (Auto) 70 % (31-73) Lymphocytes (%) (Auto) 16 % (24-48) L Monocytes (%) (Auto) 10 % (0-9) H Eosinophils (%) (Auto) 4 % (0-3) H Basophils (%) (Auto) 1 % (0-3) Neutrophils # (Auto) 5.9 x10^3/uL (1.8-7.7) Lymphocytes # (Auto) 1.4 x10^3/uL (1.0-4.8) Monocytes # (Auto) 0.8 x10^3/uL (0.0-1.1) Eosinophils # (Auto) 0.3 x10^3/uL (0.0-0.7) Basophils # (Auto) 0.1 x10^3/uL (0.0-0.2) Sodium Level 126 mmol/L (136-145) L Potassium Level 4.3 mmol/L (3.5-5.1) Chloride Level 97 mmol/L (98-107) L Carbon Dioxide Level 21 mmol/L (21-32) Anion Gap 8 (6-14) Blood Urea Nitrogen 33 mg/dL (7-20) H Creatinine 1.7 mg/dL (0.6-1.0) H Estimated GFR (Cockcroft-Gault) 30.1 BUN/Creatinine Ratio 19 (6-20) Glucose Level 106 mg/dL (70-99) H Calcium Level 8.2 mg/dL (8.5-10.1) L Magnesium Level 1.9 mg/dL (1.8-2.4) Total Bilirubin 0.3 mg/dL (0.2-1.0) Aspartate Amino Transferase (AST) 24 U/L (15-37) Alanine Aminotransferase (ALT) 34 U/L (14-59) Alkaline Phosphatase 58 U/L (46-116) Troponin I Quantitative 0.020 ng/mL (0.000-0.055) HE-Cvm-Y-Type Natriuretic Peptide 1122 pg/mL (0-124) H Total Protein 6.0 g/dL (6.4-8.2) L Albumin 3.1 g/dL (3.4-5.0) L Albumin/Globulin Ratio 1.1 (1.0-1.7) Laboratory Tests 10/29/20 22:35 Laboratory Tests 10/29/20 22:35 Vital Signs: Vital Signs Date Time Temp Pulse Resp B/P (MAP) Pulse Ox O2 Delivery O2 Flow Rate FiO2 10/29/20 23:24 74 19 161/74 (103) 94 Room Air 10/29/20 22:08 97.7 97.7 EKG: EKG: KG was done at 2226, heart rate 75 bpm, sinus rhythm, no ST segment elevation. Radiology/Procedures: Radiology/Procedures: [facility] [address] [place] [address] IMAGING REPORT Signed PATIENT: SANTANA ESTRADAOACCOUNT: [id number] : 1955 LOCATION: ER AGE: 65 SEX: F EXAM STATUS: REG ER ORD. PHYSICIAN: ANGELA BEATTY DO REASON: soa PROCEDURE: CHEST AP ONLY Exam: Chest one view INDICATION: Short of air TECHNIQUE: Frontal view of the chest Comparisons: 10/13/2020 FINDINGS: The cardiomediastinal silhouette and pulmonary vessels are within normal limits. Patchy airspace disease at the lung bases bilaterally. No pleural effusion. IMPRESSION: Patchy bibasilar airspace disease greater on the right favored to be infectious or inflammatory in etiology. Electronically signed by: Barb Waddell MD (10/29/2020 10:53 PM) [facility] DICTATED and SIGNED BY: BARB WADDELL MD DATE: 10/29/20 [id number] Course & Med Decision Making: Course & Med Decision Making Pertinent Labs and Imaging studies reviewed. (See chart for details) Patient is a 65-year-old female who present to ER due to bilateral lower extremity swelling, not feeling well. Patient had pitting edema in her lower ex tremity bilaterally, no redness, no clinical evidence of DVT. Patient sodium level was low, her chest x-ray showed patchy infiltration. We will admit her to the hospital for further treatment of healthcare associated pneumonia. Dragon Disclaimer: Dragon Disclaimer: This electronic medical record was generated, in whole or in part, using a voice recognition dictation system. Departure Departure Impression: Primary Impression: Pneumonia Additional Impressions: Hyponatremia Localized swelling of both lower legs Disposition: ADMITTED INPATIENT Admitting Physician: PIYUSH (Dr. Armando) Condition: STABLE Referrals: SIDNEY STEELE APRN (PCP) ANGELA BEATTY DO Oct 29, 2020 23:51
[2020-10-30] MEDS ORDERED: ONDANSETRON PF 4 MG/2 ML VIAL. IV PRN (00:15)
[2020-10-30] MEDS ORDERED: PIPERACILLIN/TAZOBACTAM 3.375 GM in IV NORMAL SALINE 50ML 50 ML IV ONE (00:30)
[2020-10-30 03:00] VITALS: BP 151/78
--- NOTE | 2020-10-30 03:02 | EKG ---
[facility] [address] [place] [address] Test Date: 2020-10-29 Test Time: 22:26:19 Pat Name: MOON [place]: Room: [facility] Gender: F [employer]: : 1955 Requested By: ANGELA BEATTY Order Number: [id number] Reading MD: Javier Cabrera Measurements Intervals [place] Rate: 75 P: 51 [place]: 202 QRS: -36 QRSD: 92 T: 56 QT: 378 QTc: 425 Interpretive Statements SINUS RHYTHM ABNORMAL LEFT AXIS DEVIATION LEFT ANTERIOR FASCICULAR BLOCK ABNORMAL ECG Electronically Signed On 11-04-2020 12:44:11 CDT by Javier Cabrera
[2020-10-30 07:00] VITALS: BP 162/77
[2020-10-30] MEDS ORDERED: FUROSEMIDE 20 MG/2 ML VIAL. IVP ONE (07:00)
[2020-10-30 10:38] VITALS: BP 156/77
--- NOTE | 2020-10-30 12:11 | PDOC2 ---
CONSULT Date of Consult Date of Consult DATE: 10/30/20 TIME: 12:03 Reason for Consult Reason for Consult: RENAL FAILURE AND EDEMA Referring Physician Referring Physician: MIGDALIA Identification/Chief Complaint Chief Complaint TIRED AND LE SWELLING Source Source: Chart review, Patient History of Present Illness Reason for Visit: THIS IS A 65 YR OLD WITH SOME SOB. NOT FEELING WELL IN GENERAL. IMAGING NOTABLE FOR ? R SIDED PNA. ON EXAM SHE DOES HAVE SIGNIFICANT EDEMA OF HER LE. BP HIGH. SHE HAS HAD PROBLEMS WITH BP IN THE PAST AND HAS PRESENTED HERE WITH HTN URGENCY IN THE PAST. CR OF 1.7 AND NA OF 126 TODAY. HAS HYPOTHYROID HX WELL. NO HX OF ANY DM. NO HX OF ANY NEPHROTOXINS NOTED. NO HX OF ANY KIDNEY OR BLADDER SURGERIES, STONES, DYSURIA OR FREQUENCY NOTED. CR OF 1.7 IS UNCHANGED FROM HER BASELINE CR C/W STAGE 3B CKD Past Medical History Cardiovascular: HTN Pulmonary: No pertinent hx CENTRAL NERVOUS SYSTEM: Other Heme/Onc: Cancer, Other Psych: Anxiety, Depression Renal/: Chronic renal insuff Endocrine: Hypothyroidism Past Surgical History Past Surgical History: Tubal Ligation, Hysterectomy Social History ALCOHOL: none Drugs: None Lives: with Family Current Problem List Problem List Problems Medical Problems: (1) Hyponatremia Status: Acute (2) Localized swelling of both lower legs Status: Acute (3) Pneumonia Status: Acute Current Medications Current Medications Current Medications Levofloxacin/ Dextrose 150 ml @ 100 mls/hr 1X ONCE IV Last administered on 10/30/20at 00:47; Start 10/30/20 at 00:15; Stop 10/30/20 at 01:44; Status DC Piperacillin Sod/ Tazobactam Sod 3.375 gm/Sodium Chloride 50 ml @ 100 mls/hr 1X ONCE IV Last administered on 10/30/20at 00:13; Start 10/30/20 at 00:30; Stop 10/30/20 at 00:59; Status DC Ondansetron HCl (Zofran) 4 mg PRN Q8HRS PRN IV NAUSEA/VOMITING 1ST CHOICE; Start 10/30/20 at 00:15; Stop 10/31/20 at 00:14 Furosemide (Lasix) 20 mg 1X ONCE IVP Last administered on 10/30/20at 08:57; Start 10/30/20 at 07:00; Stop 10/30/20 at 07:01; Status DC Active Scripts Active Amlodipine Besylate 10 Mg Tablet 10 Mg PO DAILY 30 Days Carvedilol (Carvedilol) 6.25 Mg Tablet 6.25 Mg PO BIDWMEALS 30 Days Amox Tr-K Clv 500-125 Mg Tab (Amoxicillin/Potassium Clav) 1 Each Tablet 1 Tab PO BID 2 Days Reported Escitalopram Oxalate 10 Mg Tablet 0.5 Tab PO DAILY Aspirin Ec (Aspirin) 81 Mg Tablet.dr 81 Mg PO DAILY Synthroid (Levothyroxine Sodium) 88 Mcg Tablet 1 Tab PO DAILY Allergies Allergies: Coded Allergies: iodine (Verified Allergy, Severe, 10/15/20) folic acid (Verified Allergy, Mild, 10/14/20) "COMPLEX B" vitamin B complex and C (Verified Allergy, Mild, 10/14/20) "COMPLEX B" ROS General: YES: Fatigue PSYCHOLOGICAL ROS: YES: Depression Eyes: Yes Decreased vision HEENT: YES: Merlin ALLERGY AND IMMUNOLOGY: YES: Seasonal Allergies Respiratory: YES: Cough, Shortness of breath Cardiovascular: yes Edema Gastrointestinal: Yes Constipation Genitourinary: YES Frequency Musculoskeletal: Yes Muscular Weakness Neurological: Yes Weakness Skin: Yes Dry Skin Physical Exam General: Alert, Oriented X3, Cooperative, No acute distress HEENT: Atraumatic Lungs: Clear to auscultation Heart: Regular rate, Normal S2 Abdomen: Soft Extremities: Other (2-3+ EDEMA) Skin: No breakdown Neuro: Sensation intact Psych/Mental Status: Mental status NL, Mood NL MUSCULOSKELETAL: No joint tenderness, No deformity, No swelling Vitals VITALS Vital Signs Date Time Temp Pulse Resp B/P (MAP) Pulse Ox O2 Delivery O2 Flow Rate FiO2 10/30/20 10:38 98.2 72 18 156/77 (103) 98 98.2 10/30/20 02:24 Room Air Labs Labs Laboratory Tests Test 10/29/20 22:35 10/29/20 23:55 White Blood Count 8.5 x10^3/uL (4.0-11.0) Red Blood Count 2.53 x10^6/uL (3.50-5.40) Hemoglobin 7.9 g/dL (12.0-15.5) Hematocrit 22.7 % (36.0-47.0) Mean Corpuscular Volume 90 fL (79-100) Mean Corpuscular Hemoglobin 31 pg (25-35) Mean Corpuscular Hemoglobin Concent 35 g/dL (31-37) Red Cell Distribution Width 16.6 % (11.5-14.5) Platelet Count 149 x10^3/uL (140-400) Neutrophils (%) (Auto) 70 % (31-73) Lymphocytes (%) (Auto) 16 % (24-48) Monocytes (%) (Auto) 10 % (0-9) Eosinophils (%) (Auto) 4 % (0-3) Basophils (%) (Auto) 1 % (0-3) Neutrophils # (Auto) 5.9 x10^3/uL (1.8-7.7) Lymphocytes # (Auto) 1.4 x10^3/uL (1.0-4.8) Monocytes # (Auto) 0.8 x10^3/uL (0.0-1.1) Eosinophils # (Auto) 0.3 x10^3/uL (0.0-0.7) Basophils # (Auto) 0.1 x10^3/uL (0.0-0.2) Sodium Level 126 mmol/L (136-145) Potassium Level 4.3 mmol/L (3.5-5.1) Chloride Level 97 mmol/L (98-107) Carbon Dioxide Level 21 mmol/L (21-32) Anion Gap 8 (6-14) Blood Urea Nitrogen 33 mg/dL (7-20) Creatinine 1.7 mg/dL (0.6-1.0) Estimated GFR (Cockcroft-Gault) 30.1 BUN/Creatinine Ratio 19 (6-20) Glucose Level 106 mg/dL (70-99) Calcium Level 8.2 mg/dL (8.5-10.1) Magnesium Level 1.9 mg/dL (1.8-2.4) Total Bilirubin 0.3 mg/dL (0.2-1.0) Aspartate Amino Transf (AST/SGOT) 24 U/L (15-37) Alanine Aminotransferase (ALT/SGPT) 34 U/L (14-59) Alkaline Phosphatase 58 U/L (46-116) Troponin I Quantitative 0.020 ng/mL (0.000-0.055) OK-Ywg-R-Type Natriuretic Peptide 1122 pg/mL (0-124) Total Protein 6.0 g/dL (6.4-8.2) Albumin 3.1 g/dL (3.4-5.0) Albumin/Globulin Ratio 1.1 (1.0-1.7) Lactic Acid Level 0.3 mmol/L (0.4-2.0) Laboratory Tests Test 10/29/20 22:35 10/29/20 23:55 White Blood Count 8.5 x10^3/uL (4.0-11.0) Red Blood Count 2.53 x10^6/uL (3.50-5.40) Hemoglobin 7.9 g/dL (12.0-15.5) Hematocrit 22.7 % (36.0-47.0) Mean Corpuscular Volume 90 fL (79-100) Mean Corpuscular Hemoglobin 31 pg (25-35) Mean Corpuscular Hemoglobin Concent 35 g/dL (31-37) Red Cell Distribution Width 16.6 % (11.5-14.5) Platelet Count 149 x10^3/uL (140-400) Neutrophils (%) (Auto) 70 % (31-73) Lymphocytes (%) (Auto) 16 % (24-48) Monocytes (%) (Auto) 10 % (0-9) Eosinophils (%) (Auto) 4 % (0-3) Basophils (%) (Auto) 1 % (0-3) Neutrophils # (Auto) 5.9 x10^3/uL (1.8-7.7) Lymphocytes # (Auto) 1.4 x10^3/uL (1.0-4.8) Monocytes # (Auto) 0.8 x10^3/uL (0.0-1.1) Eosinophils # (Auto) 0.3 x10^3/uL (0.0-0.7) Basophils # (Auto) 0.1 x10^3/uL (0.0-0.2) Sodium Level 126 mmol/L (136-145) Potassium Level 4.3 mmol/L (3.5-5.1) Chloride Level 97 mmol/L (98-107) Carbon Dioxide Level 21 mmol/L (21-32) Anion Gap 8 (6-14) Blood Urea Nitrogen 33 mg/dL (7-20) Creatinine 1.7 mg/dL (0.6-1.0) Estimated GFR (Cockcroft-Gault) 30.1 BUN/Creatinine Ratio 19 (6-20) Glucose Level 106 mg/dL (70-99) Calcium Level 8.2 mg/dL (8.5-10.1) Magnesium Level 1.9 mg/dL (1.8-2.4) Total Bilirubin 0.3 mg/dL (0.2-1.0) Aspartate Amino Transf (AST/SGOT) 24 U/L (15-37) Alanine Aminotransferase (ALT/SGPT) 34 U/L (14-59) Alkaline Phosphatase 58 U/L (46-116) Troponin I Quantitative 0.020 ng/mL (0.000-0.055) OE-Huz-L-Type Natriuretic Peptide 1122 pg/mL (0-124) Total Protein 6.0 g/dL (6.4-8.2) Albumin 3.1 g/dL (3.4-5.0) Albumin/Globulin Ratio 1.1 (1.0-1.7) Lactic Acid Level 0.3 mmol/L (0.4-2.0) Images Images US RENAL BILAT History: Reason: ELDA, Hx of Uterine cancer , HTN / Spl. Instructions: / History: Comparison: None. Procedure: Transabdominal ultrasound images are obtained of the kidneys and bladder. Findings: Right kidney: measures 10.8 x 4.8 x 4.1 cm. Normal cortical echotexture. Corticomedullary differentiation is preserved. No hydronephrosis. Left kidney: measures 10.9 x 4.8 x 4.7 cm. Normal cortical echotexture. Corticomedullary differentiation is preserved. No hydronephrosis. Urinary bladder: No urinary bladder wall thickening. The IVC is normal caliber. The visualized abdominal aorta is normal caliber. IMPRESSION: 1. Unremarkable renal ultrasound. Electronically signed by: Len Gutierrez DO (10/15/2020 12:59 PM) [id number] Exam: Chest one view INDICATION: Short of air TECHNIQUE: Frontal view of the chest Comparisons: 10/13/2020 FINDINGS: The cardiomediastinal silhouette and pulmonary vessels are within normal limits. Patchy airspace disease at the lung bases bilaterally. No pleural effusion. IMPRESSION: Patchy bibasilar airspace disease greater on the right favored to be infectious or inflammatory in etiology. Electronically signed by: Barb Benavidez MD (10/29/2020 10:53 PM) [facility] Assessment/Plan Assessment/Plan IMP DYSPNEA LE EDEMA CKD STAGE 3B HTN POORLY CONTROLLED POSS PNEUMONIA NON COMPLIANCE PLAN RESUME HOME MEDS DIURESE 24 HR FOR PROTEIN AND CLEARANCE IF NEPHROTIC MAY NEED RENAL BX ENC COMPLIANCE D/W ATTENDING UPDATED PT AND WILL FOLLOW MARIA A SUAREZ MD Oct 30, 2020 12:11
[2020-10-30] MEDS ORDERED: FUROSEMIDE 40 MG/4 ML VIAL. IVP ONE (12:30)
--- NOTE | 2020-10-30 12:30 | NUR ---
SW following. Discussed with RN, pt from home with , room air. Nephrology following. Dr. Forrest advised pt will be staying through the weekend. Pt needs to call her insurance to determine which PCP is in network to try and find a physician to see before her next appt in November if possible. SW will continue to follow.
[2020-10-30 15:00] VITALS: BP 172/73
[2020-10-30] MEDS ORDERED: DEXTROSE 50% 25 GM / 50ML DISP.SYRIN. IV PRN (15:15)
[2020-10-30] MEDS ORDERED: DOCUSATE SODIUM 100 MG CAPSULE. PO PRN ×2 (15:15→16:00)
[2020-10-30] MEDS ORDERED: SENNOSIDES 8.6 MG TABLET PO PRN (15:15)
[2020-10-30] MEDS ORDERED: ACETAMINOPHEN 325 MG TABLET. PO PRN ×2 (15:15→16:00)
[2020-10-30] MEDS ORDERED: ONDANSETRON PF 4 MG/2 ML VIAL. IVP PRN (15:15)
--- NOTE | 2020-10-30 15:23 | PDOC1 ---
History and Physical Date of Service: DOS: DATE: 10/30/20 TIME: 15:07 Chief Complaint: Chief Complain: Generalized weakness History of Present Illness: HPI: History obtained from patient and . 65-year-old female with past medical history of uterine tumor status post resection and chemotherapy in remission since 2019, depression, anxiety, CKD, hypertension who comes to generalized weakness and bilateral lower extremity swelling for the past several days. Patient states that when she was last discharged a couple weeks ago she says that progressively she has been worsening and has not gotten better. She was admitted the beginning of September mainly due to uncontrolled hypertension and amlodipine, and Coreg was initiated. Patient also states that in the past she has been treated with Lasix and this was after her chemotherapy. Patient does endorse some shortness of breath during exertion. Denies chest pain, palpitations, nausea vomiting, fevers, diarrhea or bloody stools. Past Medical/Surgical History: PMH/PSH: Past Medical History: Anxiety, Depression, DVT, Hypertension, Hypothyroid, UTERINE TUMOR, LAST CHEMO MAR 2019 Past Surgical History: Hysterectomy, Tubal ligation, Other Allergies: Allergies: Coded Allergies: iodine (Verified Allergy, Severe, 10/15/20) folic acid (Verified Allergy, Mild, 10/14/20) "COMPLEX B" vitamin B complex and C (Verified Allergy, Mild, 10/14/20) "COMPLEX B" Family History: Family History: Reviewed with no relevant findings Social History: Social History: Smoking Status: Never Smoker Alcohol Use: None Drug Use: None Current Medications: Current Medications Current Medications Levofloxacin/ Dextrose 150 ml @ 100 mls/hr 1X ONCE IV Last administered on 10/30/20at 00:47; Start 10/30/20 at 00:15; Stop 10/30/20 at 01:44; Status DC Piperacillin Sod/ Tazobactam Sod 3.375 gm/Sodium Chloride 50 ml @ 100 mls/hr 1X ONCE IV Last administered on 10/30/20at 00:13; Start 10/30/20 at 00:30; Stop 10/30/20 at 00:59; Status DC Ondansetron HCl (Zofran) 4 mg PRN Q8HRS PRN IV NAUSEA/VOMITING 1ST CHOICE; Start 10/30/20 at 00:15; Stop 10/31/20 at 00:14 Furosemide (Lasix) 20 mg 1X ONCE IVP Last administered on 10/30/20at 08:57; Start 10/30/20 at 07:00; Stop 10/30/20 at 07:01; Status DC Furosemide (Lasix) 40 mg 1X ONCE IVP Last administered on 10/30/20at 14:47; Start 10/30/20 at 12:30; Stop 10/30/20 at 12:31; Status DC Active Scripts Active Amlodipine Besylate 10 Mg Tablet 10 Mg PO DAILY 30 Days Carvedilol (Carvedilol) 6.25 Mg Tablet 6.25 Mg PO BIDWMEALS 30 Days Amox Tr-K Clv 500-125 Mg Tab (Amoxicillin/Potassium Clav) 1 Each Tablet 1 Tab PO BID 2 Days Reported Escitalopram Oxalate 10 Mg Tablet 0.5 Tab PO DAILY Aspirin Ec (Aspirin) 81 Mg Tablet.dr 81 Mg PO DAILY Synthroid (Levothyroxine Sodium) 88 Mcg Tablet 1 Tab PO DAILY ROS: Review of Systems Review of System REVIEW OF SYSTEMS: GENERAL: Denies weakness SKIN: No bruising, hair changes or rashes. EYES: No blurred, double or loss of vision. NOSE AND THROAT: No history of nosebleeds, hoarseness or sore throat. HEART: No history of palpitations, chest pain or shortness of breath on exertion. LUNGS: Denies cough, hemoptysis, wheezing or shortness of breath. GASTROINTESTINAL: Denies changes in appetite, nausea, vomiting, diarrhea or constipation. GENITOURINARY: No history of frequency, urgency, hesitancy or nocturia. NEUROLOGIC: Denies history of numbness, tingling, or tremor. PSYCHIATRIC: No history of panic, anxiety or depression. ENDOCRINE: No history of heat or cold intolerance, polyuria or polydipsia. EXTREMITIES: Denies joint pain, pain on walking or stiffness. Physical Exam: Vital Signs: Vital Signs Date Time Temp Pulse Resp B/P (MAP) Pulse Ox O2 Delivery O2 Flow Rate FiO2 10/30/20 10:38 98.2 72 18 156/77 (103) 98 98.2 10/30/20 02:24 Room Air Physcial Exam: GEN: No apparent distress. Alert and oriented HEENT: Normal cephalic, atraumatic, external auditory canals are patent EYES: Extraocular muscles are intact, pupil are equally round and reactive to light and accommodation MUSCULOSKELETAL: Well developed , well nourished, good range of motion ENDOCRINE: No thyromegaly was palpated LYMPHATICS: No cervical chain or axillary nodes were noted HEMATOPOIETIC: No bruising NECK: Supple, no JVD, no thyromegaly was noted LUNGS: Clear to auscultation in all lung watson without rhonchi or wheezing HEART: RRR, S!, S2 present. Peripheral pulses intact, no obvious murmurs noted ABDOMEN: Soft, nontender. Positive bowel sounds, no organomegaly, normal bowel sounds EXTREMITIES: Without clubbing, cyanosis, or edema. Pedal pulses intact. Negative Homans sign NEUROLOGIC: Normal speech and tone. A&O x 3, moves all extremities, no obvious focal deficits PSYCHIATRIC: Normal affect, normal mood. Stable SKIN: No ulcerations or rashes, good skin turgor, no jaundice VASCULAR: Good capillary refill, neurovascular bundle appears to be intact Labs: Labs: Laboratory Tests Test 10/29/20 22:35 10/29/20 23:55 White Blood Count 8.5 x10^3/uL (4.0-11.0) Red Blood Count 2.53 x10^6/uL (3.50-5.40) Hemoglobin 7.9 g/dL (12.0-15.5) Hematocrit 22.7 % (36.0-47.0) Mean Corpuscular Volume 90 fL (79-100) Mean Corpuscular Hemoglobin 31 pg (25-35) Mean Corpuscular Hemoglobin Concent 35 g/dL (31-37) Red Cell Distribution Width 16.6 % (11.5-14.5) Platelet Count 149 x10^3/uL (140-400) Neutrophils (%) (Auto) 70 % (31-73) Lymphocytes (%) (Auto) 16 % (24-48) Monocytes (%) (Auto) 10 % (0-9) Eosinophils (%) (Auto) 4 % (0-3) Basophils (%) (Auto) 1 % (0-3) Neutrophils # (Auto) 5.9 x10^3/uL (1.8-7.7) Lymphocytes # (Auto) 1.4 x10^3/uL (1.0-4.8) Monocytes # (Auto) 0.8 x10^3/uL (0.0-1.1) Eosinophils # (Auto) 0.3 x10^3/uL (0.0-0.7) Basophils # (Auto) 0.1 x10^3/uL (0.0-0.2) Sodium Level 126 mmol/L (136-145) Potassium Level 4.3 mmol/L (3.5-5.1) Chloride Level 97 mmol/L (98-107) Carbon Dioxide Level 21 mmol/L (21-32) Anion Gap 8 (6-14) Blood Urea Nitrogen 33 mg/dL (7-20) Creatinine 1.7 mg/dL (0.6-1.0) Estimated GFR (Cockcroft-Gault) 30.1 BUN/Creatinine Ratio 19 (6-20) Glucose Level 106 mg/dL (70-99) Calcium Level 8.2 mg/dL (8.5-10.1) Magnesium Level 1.9 mg/dL (1.8-2.4) Total Bilirubin 0.3 mg/dL (0.2-1.0) Aspartate Amino Transf (AST/SGOT) 24 U/L (15-37) Alanine Aminotransferase (ALT/SGPT) 34 U/L (14-59) Alkaline Phosphatase 58 U/L (46-116) Troponin I Quantitative 0.020 ng/mL (0.000-0.055) ML-Umh-I-Type Natriuretic Peptide 1122 pg/mL (0-124) Total Protein 6.0 g/dL (6.4-8.2) Albumin 3.1 g/dL (3.4-5.0) Albumin/Globulin Ratio 1.1 (1.0-1.7) Lactic Acid Level 0.3 mmol/L (0.4-2.0) Laboratory Tests Test 10/29/20 22:35 10/29/20 23:55 White Blood Count 8.5 x10^3/uL (4.0-11.0) Red Blood Count 2.53 x10^6/uL (3.50-5.40) Hemoglobin 7.9 g/dL (12.0-15.5) Hematocrit 22.7 % (36.0-47.0) Mean Corpuscular Volume 90 fL (79-100) Mean Corpuscular Hemoglobin 31 pg (25-35) Mean Corpuscular Hemoglobin Concent 35 g/dL (31-37) Red Cell Distribution Width 16.6 % (11.5-14.5) Platelet Count 149 x10^3/uL (140-400) Neutrophils (%) (Auto) 70 % (31-73) Lymphocytes (%) (Auto) 16 % (24-48) Monocytes (%) (Auto) 10 % (0-9) Eosinophils (%) (Auto) 4 % (0-3) Basophils (%) (Auto) 1 % (0-3) Neutrophils # (Auto) 5.9 x10^3/uL (1.8-7.7) Lymphocytes # (Auto) 1.4 x10^3/uL (1.0-4.8) Monocytes # (Auto) 0.8 x10^3/uL (0.0-1.1) Eosinophils # (Auto) 0.3 x10^3/uL (0.0-0.7) Basophils # (Auto) 0.1 x10^3/uL (0.0-0.2) Sodium Level 126 mmol/L (136-145) Potassium Level 4.3 mmol/L (3.5-5.1) Chloride Level 97 mmol/L (98-107) Carbon Dioxide Level 21 mmol/L (21-32) Anion Gap 8 (6-14) Blood Urea Nitrogen 33 mg/dL (7-20) Creatinine 1.7 mg/dL (0.6-1.0) Estimated GFR (Cockcroft-Gault) 30.1 BUN/Creatinine Ratio 19 (6-20) Glucose Level 106 mg/dL (70-99) Calcium Level 8.2 mg/dL (8.5-10.1) Magnesium Level 1.9 mg/dL (1.8-2.4) Total Bilirubin 0.3 mg/dL (0.2-1.0) Aspartate Amino Transf (AST/SGOT) 24 U/L (15-37) Alanine Aminotransferase (ALT/SGPT) 34 U/L (14-59) Alkaline Phosphatase 58 U/L (46-116) Troponin I Quantitative 0.020 ng/mL (0.000-0.055) PD-Pwm-Q-Type Natriuretic Peptide 1122 pg/mL (0-124) Total Protein 6.0 g/dL (6.4-8.2) Albumin 3.1 g/dL (3.4-5.0) Albumin/Globulin Ratio 1.1 (1.0-1.7) Lactic Acid Level 0.3 mmol/L (0.4-2.0) Images: Images CXR IMPRESSION: Patchy bibasilar airspace disease greater on the right favored to be infectious or inflammatory in etiology. Assessment/Plan Assessment/Plan Generalized weakness Acute volume overload Acute on chronic kidney disease, stage III Acute electrolyte derangementhyponatremia, hypochloremia suggestive of volume depletion Moderate protein malnutrition Anemia of chronic kidney disease History of hypertension History of uterine cancer status post resection and chemotherapy Admit to medicine for further management Nephrology consult for evaluation of kidney disease Strict I's and O's Avoid nephrotoxic agents Pending 24-hour urine protein, sodium, creatinine, BUN Ambulation for DVT prophylaxis Protonix GI prophylaxis ADA diet Full code Discussed with RN and SW Disposition inpatient management as above Surrogate decision maker is Justifications for Admission Other Justification Hypertensive urgency MCKENZIE NEGRON MD Oct 30, 2020 15:23
[2020-10-30] MEDS ORDERED: MORPHINE SULFATE 2 MG/ML INJ. IV PRN (16:00)
[2020-10-30] MEDS ORDERED: MORPHINE SULFATE 2 MG/ML INJ. IVP PRN (16:00)
[2020-10-30] MEDS ORDERED: oxyCODONE/APAP 5/325 1 TAB TABLET PO PRN ×2 (16:00)
[2020-10-30 18:27] LABS: BILIRUBIN,URINE NEGATIVE (NEG); CLARITY,URINE CLEAR; COLOR,URINE YELLOW; NITRITE,URINE NEGATIVE (NEG); PH,URINE 5.5 (<5.0-8.0); PROTEIN,URINE NEGATIVE (NEG-TRACE); UROBILINOGEN,URINE 0.2 mg/dL (0.2 mg/dL)
[2020-10-30] MEDS: CARVEDILOL 6.25 MG TABLET. PO SCH (18:34)
[2020-10-30 18:43] LABS: BACTERIA,URINE 0 /HPF (0-FEW)
[2020-10-30 19:00] VITALS: BP 168/79
[2020-10-30] MEDS ORDERED: LISINOPRIL 20 MG TABLET PO SCH (20:00)
[2020-10-30] MEDS: HEPARIN for SUB-Q USE 5,000 UNIT/ML VIAL. SQ SCH (21:34)
[2020-10-30 23:01] VITALS: BP 146/72
[2020-10-31] VITALS (10 sets, daily range): BP systolic 142–172; BP diastolic 65–78
[2020-10-31 03:52] LABS: BASO % 1 % (0-3); EOS # 0.1 x10^3/uL (0.0-0.7); EOS % 2 % (0-3); LYMPH # 1.2 x10^3/uL (1.0-4.8); LYMPH % 18 % (24-48); MEAN CORPUSCULAR HEMOGLOBIN 31 pg (25-35); MEAN CORPUSCULAR HGB CONC 35 g/dL (31-37); MEAN CORPUSCULAR VOLUME 90 fL (79-100); MONO # 0.6 x10^3/uL (0.0-1.1); MONO % 9 % (0-9); NEUT # 4.8 x10^3/uL (1.8-7.7); NEUT % 71 % (31-73); PLATELET COUNT 142 x10^3/uL (140-400); RED BLOOD COUNT 2.21 x10^6/uL (3.50-5.40); RED CELL DISTRIBUTION WIDTH 16.6 % (11.5-14.5); WHITE BLOOD COUNT 6.8 x10^3/uL (4.0-11.0)
[2020-10-31 04:03] LABS: CALCIUM 8.2 mg/dL (8.5-10.1); CREATININE 1.8 mg/dL (0.6-1.0); GFR 28.2; POTASSIUM 3.4 mmol/L (3.5-5.1)
[2020-10-31 04:13] LABS: HEMATOCRIT 19.9 % (36.0-47.0); HEMOGLOBIN 6.9 g/dL (12.0-15.5)
[2020-10-31] MEDS ORDERED: LEVOTHYROXINE 88 MCG TABLET PO SCH (06:00)
[2020-10-31 07:59] LABS: MAGNESIUM 2.1 mg/dL (1.8-2.4); PHOSPHORUS 4.2 mg/dL (2.6-4.7)
[2020-10-31] MEDS: CARVEDILOL 6.25 MG TABLET. PO SCH ×2 (08:39→15:50)
[2020-10-31] MEDS: HEPARIN for SUB-Q USE 5,000 UNIT/ML VIAL. SQ SCH (08:47)
[2020-10-31] MEDS ORDERED: CITALOPRAM 10 MG TABLET. PO SCH (09:00)
[2020-10-31] MEDS ORDERED: ASPIRIN ENTERIC COATED 81 MG TABLET.DR. PO SCH (09:00)
--- NOTE | 2020-10-31 10:59 | PDOC ---
GENERAL General: Patient examined chart reviewed seen with at bedside. We utilized the inspector dials phone as they both speak Latvian only. We also communicated in my limited Latvian. Today is hospital day 3 for this patient admitted with anasarca, acute renal failure, hyponatremia. She was here several weeks ago with malignant hypertension. Hemoglobin on that admission was 11.5, on admission this time it was 7.9 and now today is 6.9. Patient denies any bleeding. She feels tired but denies chest pain, palpitations, or shortness of breath. She has not had a bowel movement in 3 days. She is tolerating her diet. Kidney function is stable at 1.8. There was a questionable pneumonia on her chest x-ray on admission she has not been covered with antibiotics. She denies any respiratory symptoms. She has not been up and about when she does she does have activity limiting shortness of breath. Fevers or chills or obvious change in urinary habits. Appreciate nephrology support. We will transfuse 1 unit of packed red blood cells today. I have asked for a noncontrast CT chest, abdomen, and pelvis to further assess. Patient does have a history of uterine cancer per the record unsure of her treatments and we did not explore that on evaluation today. We will hold heparin and aspirin for now and reassess blood count in the morning. Time spent today is 30 minutes with greater than 50% in counseling and coordination of care most of which in discussion with patient. Problems: (1) Anemia (2) ARF (acute renal failure) (3) Hyponatremia VITAL SIGNS Vital Signs/I&O: Vital Signs Date Time Temp Pulse Resp B/P (MAP) Pulse Ox O2 Delivery O2 Flow Rate FiO2 10/31/20 08:39 93 156/65 10/31/20 07:00 98.9 16 98 98.9 10/31/20 03:04 Room Air I & O 10/30/20 10/30/20 10/31/20 15:00 23:00 07:00 Output Total 400 ml 400 ml Balance -400 ml -400 ml In general the patient is pleasant alert and oriented x3 no acute distress HEENT exam is unremarkable Chest is clear to auscultation Heart S1-S2 normal regular rate and rhythm no murmurs or gallops are noted Abdomen normal active bowel sounds soft nontender nondistended no masses organomegaly noted Extremity exam is notable for 2+ edema of both legs up to her groin ALLERGIES Allergies: Allergies Coded Allergies Type Severity Reaction Last Updated Verified iodine Allergy Severe 10/15/20 Yes folic acid Allergy Mild 10/14/20 Yes vitamin B complex and C Allergy Mild 10/14/20 Yes MEDS Medications: Current Medications Medications (Trade) Dose Ordered Sig/Allison Route PRN Reason Start Time Stop Time Status Last Admin Dose Admin Furosemide (Lasix) 40 mg 1X ONCE IVP 10/30/20 12:30 10/30/20 12:31 DC 10/30/20 14:47 Docusate Sodium (Colace) 100 mg PRN DAILY PRN PO HARD STOOLS 10/30/20 15:15 10/31/20 06:38 Heparin Sodium (Porcine) (Heparin Sodium) 5,000 unit Q12HR SQ 10/30/20 21:00 10/31/20 10:51 DC 10/31/20 08:47 Aspirin (Ecotrin) 81 mg DAILY PO 10/31/20 09:00 10/31/20 10:51 DC 10/31/20 08:37 Carvedilol (Coreg) 6.25 mg BIDWMEALS PO 10/30/20 17:00 10/31/20 08:39 Levothyroxine Sodium (Synthroid) 88 mcg DAILY06 PO 10/31/20 06:00 10/31/20 10:51 DC 10/31/20 06:38 Citalopram Hydrobromide (CeleXA) 10 mg DAILY PO 10/31/20 09:00 10/31/20 10:51 DC 10/31/20 08:37 Lisinopril (Prinivil) 20 mg Q24H PO 10/30/20 20:00 10/30/20 21:24 Oxycodone/ Acetaminophen (Percocet 5/325) 1 tab PRN Q4HRS PRN PO MODERATE PAIN 10/30/20 16:00 10/30/20 21:23 LAB Lab: Laboratory Tests Test 10/30/20 16:47 10/31/20 03:30 Urine Collection Type Unknown Urine Color Yellow Urine Clarity Clear Urine pH 5.5 (<5.0-8.0) Urine Specific [place] <=1.005 (1.000-1.030) Urine Protein Negative mg/dL (NEG-TRACE) Urine Glucose (UA) Negative mg/dL (NEG) Urine Ketones (Stick) Negative mg/dL (NEG) Urine Blood Trace (NEG) Urine Nitrite Negative (NEG) Urine Bilirubin Negative (NEG) Urine Urobilinogen Dipstick 0.2 mg/dL (0.2 mg/dL) Urine Leukocyte Esterase Negative (NEG) Urine RBC 1-2 /HPF (0-2) Urine WBC 1-4 /HPF (0-4) Urine Squamous Epithelial Cells Few /LPF Urine Renal Epithelial Cells Occ /LPF Urine Bacteria 0 /HPF (0-FEW) Urine Mucus Slight /LPF White Blood Count 6.8 x10^3/uL (4.0-11.0) Red Blood Count 2.21 x10^6/uL (3.50-5.40) L Hemoglobin 6.9 g/dL (12.0-15.5) *L Hematocrit 19.9 % (36.0-47.0) *L Mean Corpuscular Volume 90 fL (79-100) Mean Corpuscular Hemoglobin 31 pg (25-35) Mean Corpuscular Hemoglobin Concent 35 g/dL (31-37) Red Cell Distribution Width 16.6 % (11.5-14.5) H Platelet Count 142 x10^3/uL (140-400) Neutrophils (%) (Auto) 71 % (31-73) Lymphocytes (%) (Auto) 18 % (24-48) L Monocytes (%) (Auto) 9 % (0-9) Eosinophils (%) (Auto) 2 % (0-3) Basophils (%) (Auto) 1 % (0-3) Neutrophils # (Auto) 4.8 x10^3/uL (1.8-7.7) Lymphocytes # (Auto) 1.2 x10^3/uL (1.0-4.8) Monocytes # (Auto) 0.6 x10^3/uL (0.0-1.1) Eosinophils # (Auto) 0.1 x10^3/uL (0.0-0.7) Basophils # (Auto) 0.0 x10^3/uL (0.0-0.2) Sodium Level 127 mmol/L (136-145) L Potassium Level 3.4 mmol/L (3.5-5.1) L Chloride Level 95 mmol/L (98-107) L Carbon Dioxide Level 24 mmol/L (21-32) Anion Gap 8 (6-14) Blood Urea Nitrogen 30 mg/dL (7-20) H Creatinine 1.8 mg/dL (0.6-1.0) H Estimated GFR (Cockcroft-Gault) 28.2 Glucose Level 104 mg/dL (70-99) H Calcium Level 8.2 mg/dL (8.5-10.1) L Phosphorus Level 4.2 mg/dL (2.6-4.7) Magnesium Level 2.1 mg/dL (1.8-2.4) Thyroid Stimulating Hormone (TSH) 8.503 uIU/mL (0.358-3.74) H Laboratory Tests 10/31/20 03:30 Laboratory Tests 10/31/20 03:30 ASSESSMENT & PLAN A&P Plan as noted above This note was created using [employer] and may have omissions and/or errors due to the 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 Justifications for Admission Other Justification KENNY FUENTES MD Oct 31, 2020 10:59
--- NOTE | 2020-10-31 14:23 | PDOC ---
DATE OF SERVICE: DOS: DATE: 10/31/20 TIME: 14:21 SUBJECTIVE ROS Follow-up for hyponatremia and renal insufficiency Denies any new complaints OBJECTIVE Vital Signs Vital Signs Date Time Temp Pulse Resp B/P (MAP) Pulse Ox O2 Delivery O2 Flow Rate FiO2 10/31/20 11:00 98.1 77 18 150/68 (95) 95 98.1 10/31/20 08:00 Room Air I & 0 Intake and Output 10/31/20 07:00 Output Total 800 ml Balance -800 ml Output Urine Total 800 ml # Voids 4 PHYSICAL EXAM Physical Exam GEN: Awake, Oriented x 3, In no distress EYES: Vision Unchanged, Conjunctiva Normal EN: No EN Drainage, Mucous Membranes moist NECK: no JVD, no JVP, Supple, no Thyromegaly CVS: S1S2, no Murmur, No Gallop, No Rub,no Edema RESP: no Rales, no Rhonchi,no Acc. Muscle Use GI: BS + ve, NO Bruit, Non Tender, Non Distended : no CVA tenderness, no Suprapubic Tenderness DIAGNOSIS/ASSESSMENT Assessment & Plan Chronic kidney disease stage III/IV: Etiology unclear. Since no SPEP UPEP's were done this will be ordered. Previous CMP does not show significant paraproteinemia. No emergent indication for dialysis Hyponatremia with elevated TSH: Serum/urine osmolality not available yet. Patient has been on SSRI. This may need to be discontinued. Water intoxication cannot be ruled out. Water restriction will be ordered ANEMIA; consider hematology oncology evaluation. Iron will be checked HTN: Current blood pressures noted. Discussed Plan of Care with family at bedside COMMENT/RELEVANT DATA Meds Current Medications Medications (Trade) Dose Ordered Sig/Allison Start Time Stop Time Status Last Admin Dose Admin Acetaminophen (Tylenol) 650 mg PRN Q4HRS PRN 10/30/20 16:00 UNV Aspirin (Ecotrin) 81 mg DAILY 10/31/20 09:00 10/31/20 10:51 DC 10/31/20 08:37 81 MG Carvedilol (Coreg) 6.25 mg BIDWMEALS 10/30/20 17:00 10/31/20 08:39 6.25 MG Citalopram Hydrobromide (CeleXA) 10 mg DAILY 10/31/20 09:00 10/31/20 10:51 DC 10/31/20 08:37 10 MG Dextrose (Dextrose 50%-Water Syringe) 12.5 gm PRN Q15MIN PRN 10/30/20 15:15 Docusate Sodium (Colace) 100 mg PRN BID PRN 10/30/20 16:00 Furosemide (Lasix) 40 mg 1X ONCE 10/30/20 12:30 10/30/20 12:31 DC 10/30/20 14:47 40 MG Heparin Sodium (Porcine) (Heparin Sodium) 5,000 unit Q12HR 10/30/20 21:00 10/31/20 10:51 DC 10/31/20 08:47 5,000 UNIT Levofloxacin/ Dextrose 150 ml @ 100 mls/hr 1X ONCE 10/30/20 00:15 10/30/20 01:44 DC 10/30/20 00:47 100 MLS/HR Levothyroxine Sodium (Synthroid) 100 mcg DAILY06 11/01/20 06:00 Lisinopril (Prinivil) 20 mg Q24H 10/30/20 20:00 10/30/20 21:24 20 MG Morphine Sulfate (Morphine Sulfate) 2 mg PRN Q2HR PRN 10/30/20 16:00 10/31/20 15:59 Ondansetron HCl (Zofran) 4 mg PRN Q6HRS PRN 10/30/20 15:15 Oxycodone/ Acetaminophen (Percocet 5/325) 2 tab PRN Q4HRS PRN 10/30/20 16:00 Piperacillin Sod/ Tazobactam Sod 3.375 gm/Sodium Chloride 50 ml @ 100 mls/hr 1X ONCE 10/30/20 00:30 10/30/20 00:59 DC 10/30/20 00:13 100 MLS/HR Sennosides (Senna) 17.2 mg PRN BID PRN 10/30/20 15:15 Lab Laboratory Tests Test 10/30/20 16:47 10/31/20 03:30 10/31/20 10:50 Urine Collection Type Unknown Urine Color Yellow Urine Clarity Clear Urine pH 5.5 (<5.0-8.0) Urine Specific [place] <=1.005 (1.000-1.030) Urine Protein Negative mg/dL (NEG-TRACE) Urine Glucose (UA) Negative mg/dL (NEG) Urine Ketones (Stick) Negative mg/dL (NEG) Urine Blood Trace (NEG) Urine Nitrite Negative (NEG) Urine Bilirubin Negative (NEG) Urine Urobilinogen Dipstick 0.2 mg/dL (0.2 mg/dL) Urine Leukocyte Esterase Negative (NEG) Urine RBC 1-2 /HPF (0-2) Urine WBC 1-4 /HPF (0-4) Urine Squamous Epithelial Cells Few /LPF Urine Renal Epithelial Cells Occ /LPF Urine Bacteria 0 /HPF (0-FEW) Urine Mucus Slight /LPF White Blood Count 6.8 x10^3/uL (4.0-11.0) Red Blood Count 2.21 x10^6/uL (3.50-5.40) Hemoglobin 6.9 g/dL (12.0-15.5) Hematocrit 19.9 % (36.0-47.0) Mean Corpuscular Volume 90 fL (79-100) Mean Corpuscular Hemoglobin 31 pg (25-35) Mean Corpuscular Hemoglobin Concent 35 g/dL (31-37) Red Cell Distribution Width 16.6 % (11.5-14.5) Platelet Count 142 x10^3/uL (140-400) Neutrophils (%) (Auto) 71 % (31-73) Lymphocytes (%) (Auto) 18 % (24-48) Monocytes (%) (Auto) 9 % (0-9) Eosinophils (%) (Auto) 2 % (0-3) Basophils (%) (Auto) 1 % (0-3) Neutrophils # (Auto) 4.8 x10^3/uL (1.8-7.7) Lymphocytes # (Auto) 1.2 x10^3/uL (1.0-4.8) Monocytes # (Auto) 0.6 x10^3/uL (0.0-1.1) Eosinophils # (Auto) 0.1 x10^3/uL (0.0-0.7) Basophils # (Auto) 0.0 x10^3/uL (0.0-0.2) Sodium Level 127 mmol/L (136-145) Potassium Level 3.4 mmol/L (3.5-5.1) Chloride Level 95 mmol/L (98-107) Carbon Dioxide Level 24 mmol/L (21-32) Anion Gap 8 (6-14) Blood Urea Nitrogen 30 mg/dL (7-20) Creatinine 1.8 mg/dL (0.6-1.0) Estimated GFR (Cockcroft-Gault) 28.2 Glucose Level 104 mg/dL (70-99) Calcium Level 8.2 mg/dL (8.5-10.1) Phosphorus Level 4.2 mg/dL (2.6-4.7) Magnesium Level 2.1 mg/dL (1.8-2.4) Thyroid Stimulating Hormone (TSH) 8.503 uIU/mL (0.358-3.74) Ferritin 63 ng/mL (8-252) Results All relevant outside records, renal labs, imaging studies, telemetry/EKG's were reviewed. Other Findings: Right kidney: measures 10.8 x 4.8 x 4.1 cm. Normal cortical echotexture. Corticomedullary differentiation is preserved. No hydronephrosis. Left kidney: measures 10.9 x 4.8 x 4.7 cm. Normal cortical echotexture. Corticomedullary differentiation is preserved. No hydronephrosis. Urinary bladder: No urinary bladder wall thickening. The IVC is normal caliber. The visualized abdominal aorta is normal caliber. IMPRESSION: 1. Unremarkable renal ultrasound. Electronically signed by: Len Gutierrez DO ( Justicifation of Admission Dx: Justifications for Admission: Justification of Admission Dx: N/A BRINA KITCHEN MD Oct 31, 2020 14:22
[2020-10-31] MEDS ORDERED: POTASSIUM CHLORIDE 20 MEQ TABLET.ER. PO ONE (14:30)
[2020-10-31] MEDS ORDERED: MAGNESIUM SULFATE 2GM 50 ML IV PRN (14:30)
--- NOTE | 2020-10-31 15:54 | NUR ---
transfusion began at 1526. however, the begin button on the transfusion screen was dithered out, even after blood was verified with another nurse by scanning patient and clicking off appropriate information.
--- NOTE | 2020-10-31 18:10 | NUR ---
transfusion ended at 1805 but end button was dithered out in [facility] transfusion screen. VS documented
[2020-11-01] VITALS (7 sets, daily range): BP systolic 134–156; BP diastolic 60–75
[2020-11-01 00:07] LABS: UR POTASSIUM 24.2 mmol/L (Not Estab.)
[2020-11-01 03:45] LABS: BASO # 0.1 x10^3/uL (0.0-0.2); BASO % 1 % (0-3); EOS # 0.3 x10^3/uL (0.0-0.7); EOS % 4 % (0-3); HEMATOCRIT 24.5 % (36.0-47.0); HEMOGLOBIN 8.4 g/dL (12.0-15.5); LYMPH # 1.4 x10^3/uL (1.0-4.8); LYMPH % 21 % (24-48); MEAN CORPUSCULAR HEMOGLOBIN 31 pg (25-35); MEAN CORPUSCULAR HGB CONC 34 g/dL (31-37); MEAN CORPUSCULAR VOLUME 90 fL (79-100); MONO # 0.8 x10^3/uL (0.0-1.1); MONO % 12 % (0-9); NEUT # 3.9 x10^3/uL (1.8-7.7); NEUT % 61 % (31-73); PLATELET COUNT 136 x10^3/uL (140-400); RED BLOOD COUNT 2.71 x10^6/uL (3.50-5.40); RED CELL DISTRIBUTION WIDTH 16.6 % (11.5-14.5); WHITE BLOOD COUNT 6.3 x10^3/uL (4.0-11.0)
[2020-11-01 04:05] LABS: CALCIUM 8.4 mg/dL (8.5-10.1); CREATININE 1.8 mg/dL (0.6-1.0); GFR 28.2; POTASSIUM 3.8 mmol/L (3.5-5.1); TOTAL BILIRUBIN 0.8 mg/dL (0.2-1.0)
[2020-11-01] MEDS: LEVOTHYROXINE 88 MCG TABLET PO SCH (07:43)
[2020-11-01] MEDS: LISINOPRIL 20 MG TABLET PO SCH (08:25)
[2020-11-01] MEDS: CARVEDILOL 6.25 MG TABLET. PO SCH ×2 (08:27→18:10)
--- NOTE | 2020-11-01 08:39 | RAD ---
EXAM: CT CHEST, ABDOMEN, AND PELVIS WITHOUT CONTRAST INDICATION: Severe hyponatremia, renal failure, history of uterine cancer COMPARISON: None TECHNIQUE: Helical CT imaging performed of the chest, abdomen and pelvis without the use of intraveno us contrast. Sagittal and coronal reformats were obtained. One or more of the following individualized dose reduction techniques were utilized for this examinat ion: 1. Automated exposure control 2. Adjustment of the mA and/or kV according to patient size 3. Use of iterative reconstruction technique. FINDINGS: CHEST: Thyroid gland and thoracic inlet: Normal. Heart and great vessels: The heart is normal in size. There is a small pericardial effusion. Thoracic aorta is normal in caliber. Mediastinum and aurelio: There are small mediastinal lymph nodes, nonspecific. There is a 1.2 cm short a xis right paratracheal lymph node. 1.2 cm short axis precarinal lymph node. Lungs and pleura: There are small pleural effusions and adjacent confluent opacities, likely atelecta sis. Mild interlobular septal thickening in the lung bases. Chest wall and axillae: There is a tubular hyperdense structure in the subcutaneous soft tissue just deep to the skin in the upper medial right chest wall measuring approximately 7 cm in length (image [id number], series 2). A rectangular electronic device projects over the left chest wall. Bones: No acute osseous abnormality in the chest. ABDOMEN AND PELVIS: Liver: Liver is mildly enlarged measuring 19.6 cm craniocaudally. Limited evaluation for liver lesion s on noncontrast exam. Gallbladder/Biliary Tree: Cholelithiasis. There is possible gallbladder wall thickening. The gallblad riya is nondistended. Bile ducts are unremarkable. Pancreas: Normal. Spleen: Normal. Adrenal Glands: Normal. Kidneys/Ureters/Bladder: Kidneys are normal in size and symmetrically. No hydronephrosis or nephrolit hiasis. Ureters and bladder are unremarkable. Reproductive Organs: Uterus is surgically absent. No adnexal mass. Stomach, small bowel, and colon: Stomach is normal. No small bowel obstruction. The appendix is sterling l. There is sigmoid diverticulosis. No acute diverticulitis. Vasculature: No aortic aneurysm. Mild calcified aortoiliac atherosclerosis. Lymph Nodes: No lymphadenopathy. Peritoneum and retroperitoneum: Trace ascites in the pelvis and paracolic gutters. No free air. Bones: No acute osseous abnormality. There is severe osteoarthrosis of the right hip. Other: Mild subcutaneous edema in the pelvis. IMPRESSION: 1. Small pleural effusions and mild bibasilar opacities with interlobular septal thickening, likely reflecting pulmonary edema. Pneumonia less likely. 2. Small pericardial effusion. 3. Cholelithiasis with possible gallbladder wall, nonspecific. Recommend quadrant ultrasound could b e obtained to further evaluate if indicated. 4. Mild hepatomegaly. 5. Sigmoid diverticulosis. 6. Trace ascites. Mild body wall edema. 7. Tubular hyperdense structure in the subcutaneous medial upper right chest wall just deep to the s kin, indeterminate. Correlate for retained foreign body. Electronically signed by: Keisha Sharma MD (11/01/2020 8:37 AM) [id number]
--- NOTE | 2020-11-01 09:57 | PDOC ---
GENERAL General: Patient examined chart reviewed seen with at bedside rounded with the clinical specialist medical device on the phone. She is feeling stronger today up and moving about the room and tolerating her diet. She did have a small stool this morning after 4 days of constipation she was happy about that. Fecal occult test is pending. Hemoglobin is stable at 8.4 after 1 unit transfusion yesterday. We will reassess labs in the morning. We appreciate nephrology support. She may be able to discharge as early as tomorrow depending on her progress. She does h ave good outpatient follow-up. I have started iron and she may need a more vigorous constipation regimen. Her blood pressure does stay up in the 150s we will increase her carvedilol to 12.5 twice a day. Time spent today is 30 minutes with greater than 50% in counseling and coordination of care most of which in discussion with patient. Problems: (1) ARF (acute renal failure) (2) Accelerated hypertension (3) Anemia (4) Hyponatremia (5) Localized swelling of both lower legs VITAL SIGNS Vital Signs/I&O: Vital Signs Date Time Temp Pulse Resp B/P (MAP) Pulse Ox O2 Delivery O2 Flow Rate FiO2 11/01/20 08:27 78 156/75 11/01/20 07:00 98.4 16 99 Room Air 98.4 I & O 10/31/20 10/31/20 11/01/20 15:00 23:00 07:00 Intake Total 450 ml 450 ml Output Total 150 ml 600 ml Balance 300 ml -150 ml Patient is comfortable sitting up in her chair in no acute distress HEENT exam is unremarkable Chest is clear to auscultation Heart S1-S2 normal regular rate and rhythm no murmurs or gallops are noted Abdomen soft nontender nondistended no masses organomegaly noted Extremity exam is unremarkable for acute change. 2+ bipedal edema noted ALLERGIES Allergies: Allergies Coded Allergies Type Severity Reaction Last Updated Verified iodine Allergy Severe 10/15/20 Yes folic acid Allergy Mild 10/14/20 Yes vitamin B complex and C Allergy Mild 10/14/20 Yes MEDS Medications: Current Medications Medications (Trade) Dose Ordered Sig/Allison Start Time Stop Time Status Last Admin Dose Admin Acetaminophen (Tylenol) 650 mg PRN Q4HRS PRN 10/30/20 16:00 UNV Aspirin (Ecotrin) 81 mg DAILY 10/31/20 09:00 10/31/20 10:51 DC 10/31/20 08:37 Carvedilol (Coreg) 6.25 mg BIDWMEALS 10/30/20 17:00 11/01/20 08:27 Citalopram Hydrobromide (CeleXA) 10 mg DAILY 10/31/20 09:00 10/31/20 10:51 DC 10/31/20 08:37 Dextrose (Dextrose 50%-Water Syringe) 12.5 gm PRN Q15MIN PRN 10/30/20 15:15 Docusate Sodium (Colace) 100 mg PRN BID PRN 10/30/20 16:00 11/01/20 08:32 Furosemide (Lasix) 40 mg 1X ONCE 10/30/20 12:30 10/30/20 12:31 DC 10/30/20 14:47 Heparin Sodium (Porcine) (Heparin Sodium) 5,000 unit Q12HR 10/30/20 21:00 10/31/20 10:51 DC 10/31/20 08:47 Levofloxacin/ Dextrose 150 ml @ 100 mls/hr 1X ONCE 10/30/20 00:15 10/30/20 01:44 DC 10/30/20 00:47 Levothyroxine Sodium (Synthroid) 100 mcg DAILY06 11/01/20 06:00 11/01/20 07:43 Lisinopril (Prinivil) 40 mg DAILY 11/01/20 09:00 11/01/20 08:25 Magnesium Sulfate 50 ml @ 25 mls/hr PRN DAILY PRN 10/31/20 14:30 Morphine Sulfate (Morphine Sulfate) 2 mg PRN Q2HR PRN 10/30/20 16:00 10/31/20 15:59 DC Ondansetron HCl (Zofran) 4 mg PRN Q6HRS PRN 10/30/20 15:15 Oxycodone/ Acetaminophen (Percocet 5/325) 2 tab PRN Q4HRS PRN 10/30/20 16:00 Piperacillin Sod/ Tazobactam Sod 3.375 gm/Sodium Chloride 50 ml @ 100 mls/hr 1X ONCE 10/30/20 00:30 10/30/20 00:59 DC 10/30/20 00:13 Potassium Chloride (Klor-Con) 40 meq 1X ONCE 10/31/20 14:30 10/31/20 14:31 DC 10/31/20 15:42 Sennosides (Senna) 17.2 mg PRN BID PRN 10/30/20 15:15 10/31/20 22:35 Current Medications Medications (Trade) Dose Ordered Sig/Allison Route PRN Reason Start Time Stop Time Status Last Admin Dose Admin Levothyroxine Sodium (Synthroid) 100 mcg DAILY06 PO 11/01/20 06:00 11/01/20 07:43 Lisinopril (Prinivil) 40 mg DAILY PO 11/01/20 09:00 11/01/20 08:25 Potassium Chloride (Klor-Con) 40 meq 1X ONCE PO 10/31/20 14:30 10/31/20 14:31 DC 10/31/20 15:42 LAB Lab: Laboratory Tests Test 10/31/20 10:50 11/01/20 03:35 Ferritin 63 ng/mL (8-252) White Blood Count 6.3 x10^3/uL (4.0-11.0) Red Blood Count 2.71 x10^6/uL (3.50-5.40) L Hemoglobin 8.4 g/dL (12.0-15.5) L Hematocrit 24.5 % (36.0-47.0) L Mean Corpuscular Volume 90 fL (79-100) Mean Corpuscular Hemoglobin 31 pg (25-35) Mean Corpuscular Hemoglobin Concent 34 g/dL (31-37) Red Cell Distribution Width 16.6 % (11.5-14.5) H Platelet Count 136 x10^3/uL (140-400) L Neutrophils (%) (Auto) 61 % (31-73) Lymphocytes (%) (Auto) 21 % (24-48) L Monocytes (%) (Auto) 12 % (0-9) H Eosinophils (%) (Auto) 4 % (0-3) H Basophils (%) (Auto) 1 % (0-3) Neutrophils # (Auto) 3.9 x10^3/uL (1.8-7.7) Lymphocytes # (Auto) 1.4 x10^3/uL (1.0-4.8) Monocytes # (Auto) 0.8 x10^3/uL (0.0-1.1) Eosinophils # (Auto) 0.3 x10^3/uL (0.0-0.7) Basophils # (Auto) 0.1 x10^3/uL (0.0-0.2) Sodium Level 128 mmol/L (136-145) L Potassium Level 3.8 mmol/L (3.5-5.1) Chloride Level 96 mmol/L (98-107) L Carbon Dioxide Level 25 mmol/L (21-32) Anion Gap 7 (6-14) Blood Urea Nitrogen 35 mg/dL (7-20) H Creatinine 1.8 mg/dL (0.6-1.0) H Estimated GFR (Cockcroft-Gault) 28.2 BUN/Creatinine Ratio 19 (6-20) Glucose Level 98 mg/dL (70-99) Calcium Level 8.4 mg/dL (8.5-10.1) L Magnesium Level 2.2 mg/dL (1.8-2.4) Total Bilirubin 0.8 mg/dL (0.2-1.0) Aspartate Amino Transferase (AST) 23 U/L (15-37) Alanine Aminotransferase (ALT) 24 U/L (14-59) Alkaline Phosphatase 55 U/L (46-116) Total Protein 6.0 g/dL (6.4-8.2) L Albumin 3.0 g/dL (3.4-5.0) L Albumin/Globulin Ratio 1.0 (1.0-1.7) Laboratory Tests 11/01/20 03:35 Laboratory Tests 11/01/20 03:35 ASSESSMENT & PLAN A&P Plan as noted above This note was created using [employer] and may have omissions and/or errors due to the nature of real-time voice manager laundry. Justifications for Admission Other Justification ELDA KENNY GARCIA MD Nov 01, 2020 09:57
[2020-11-01 12:06] LABS: FECAL OB PT NEGATIVE (NEG)
[2020-11-01] MEDS: FERROUS SULFATE ORAL 300 MG/5 ML SOLUTION. PO SCH (18:11)
[2020-11-02 02:11] LABS: CREATININE, UR 40.4 mg/dL (Not Estab.); SODIUM, URINE 31 mmol/L (Not Estab.); UR PROTEIN 18.2 mg/dL (Not Estab.)
[2020-11-02 03:07] VITALS: BP 149/68
[2020-11-02 04:20] LABS: BASO % 1 % (0-3); EOS # 0.3 x10^3/uL (0.0-0.7); EOS % 5 % (0-3); HEMATOCRIT 23.8 % (36.0-47.0); HEMOGLOBIN 8.2 g/dL (12.0-15.5); LYMPH # 1.2 x10^3/uL (1.0-4.8); LYMPH % 19 % (24-48); MEAN CORPUSCULAR HEMOGLOBIN 31 pg (25-35); MEAN CORPUSCULAR HGB CONC 34 g/dL (31-37); MEAN CORPUSCULAR VOLUME 91 fL (79-100); MONO # 0.7 x10^3/uL (0.0-1.1); MONO % 12 % (0-9); NEUT # 3.9 x10^3/uL (1.8-7.7); NEUT % 63 % (31-73); PLATELET COUNT 148 x10^3/uL (140-400); RED BLOOD COUNT 2.61 x10^6/uL (3.50-5.40); WHITE BLOOD COUNT 6.2 x10^3/uL (4.0-11.0)
[2020-11-02 04:43] LABS: ALBUMIN 2.9 g/dL (3.4-5.0); CALCIUM 8.1 mg/dL (8.5-10.1); CREATININE 1.6 mg/dL (0.6-1.0); GFR 32.2; POTASSIUM 3.5 mmol/L (3.5-5.1); TOTAL BILIRUBIN 0.3 mg/dL (0.2-1.0); TOTAL PROTEIN 5.9 g/dL (6.4-8.2)
--- NOTE | 2020-11-02 06:53 | PDOC ---
[employer] PROGRESS NOTE Date of Service DOS: DATE: 11/02/20 TIME: 06:50 Chief Complaint Chief Complaint Generalized weakness Acute volume overload Acute on chronic kidney disease, stage III Acute electrolyte derangementhyponatremia, hypochloremia suggestive of volume depletion Moderate protein malnutrition Anemia of chronic kidney disease History of hypertension History of depression History of anxiety History of hypothyroidism History of uterine tumor status post hysterectomy and chemotherapy in 2019 History of Present Illness History of Present Illness Ms Chirinos is a 65-year-old female with past medical history of hypertension, depression, anxiety, DVT, uterine CA who presents to the ED c/o worsening swelling and edema at home since a recent hospital discharge for hypertensive emergency. Baseline Cr unknown to the family. She follows with Nurse practitioner ; Oncology and Cardiology as well as Nephrology Echo 10/14/2020: The left ventricle is normal size. The left ventricular systolic function is normal and the ejection fraction is within normal range. The Ejection Fraction is 60-65%. There is borderline concentric left ventricular hypertrophy. Doppler and Color Flow revealed trace aortic regurgitation. There is no significant aortic valvular stenosis. Doppler and Color Flow revealed no mitral valve regurgitation noted. Doppler and Color Flow revealed trace to mild tricuspid regurgitation with an estimated PAP of 39 mmHg. On discharge previously her BP better controlled on amlodipine and carvedilol. As she was on chlorthalidone and transition to spironolactone but was admitted with hyperkalemia be safe to hold diuretics and follow-up with nephrology with possible future need for addition of furosemide as needed. 10/31: BP improved 11/01: 24 urine protein 437 mg, started on lisinopril BP better controlled. She is feeling little better. Despite instruction to discontinue chlorthalidone on previous hospitalization and she had restarted it because she was swollen. 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 Emphasized compliance with carvedilol as well as new medication lisinopril and as needed furosemide. Vitals/I&O Vitals/I&O: Vital Signs Date Time Temp Pulse Resp B/P (MAP) Pulse Ox O2 Delivery O2 Flow Rate FiO2 11/02/20 03:07 98.3 73 18 149/68 (95) 97 Room Air 98.3 I & O 11/01/20 11/01/20 11/02/20 15:00 23:00 07:00 Intake Total 200 ml 100 ml 30 ml Output Total 0 ml Balance 200 ml 100 ml 30 ml Physical Exam General: Alert, Oriented X3, Cooperative, No acute distress Heart: Regular rate, Normal S2 Abdomen: Soft Extremities: Other (2-3+ EDEMA) Skin: No breakdown Labs Labs: Laboratory Tests Test 11/01/20 10:30 11/02/20 03:20 Stool Occult Blood Negative (NEG) White Blood Count 6.2 x10^3/uL (4.0-11.0) Red Blood Count 2.61 x10^6/uL (3.50-5.40) Hemoglobin 8.2 g/dL (12.0-15.5) Hematocrit 23.8 % (36.0-47.0) Mean Corpuscular Volume 91 fL (79-100) Mean Corpuscular Hemoglobin 31 pg (25-35) Mean Corpuscular Hemoglobin Concent 34 g/dL (31-37) Red Cell Distribution Width 17.0 % (11.5-14.5) Platelet Count 148 x10^3/uL (140-400) Neutrophils (%) (Auto) 63 % (31-73) Lymphocytes (%) (Auto) 19 % (24-48) Monocytes (%) (Auto) 12 % (0-9) Eosinophils (%) (Auto) 5 % (0-3) Basophils (%) (Auto) 1 % (0-3) Neutrophils # (Auto) 3.9 x10^3/uL (1.8-7.7) Lymphocytes # (Auto) 1.2 x10^3/uL (1.0-4.8) Monocytes # (Auto) 0.7 x10^3/uL (0.0-1.1) Eosinophils # (Auto) 0.3 x10^3/uL (0.0-0.7) Basophils # (Auto) 0.0 x10^3/uL (0.0-0.2) Sodium Level 135 mmol/L (136-145) Potassium Level 3.5 mmol/L (3.5-5.1) Chloride Level 102 mmol/L (98-107) Carbon Dioxide Level 24 mmol/L (21-32) Anion Gap 9 (6-14) Blood Urea Nitrogen 32 mg/dL (7-20) Creatinine 1.6 mg/dL (0.6-1.0) Estimated GFR (Cockcroft-Gault) 32.2 BUN/Creatinine Ratio 20 (6-20) Glucose Level 86 mg/dL (70-99) Calcium Level 8.1 mg/dL (8.5-10.1) Magnesium Level 2.5 mg/dL (1.8-2.4) Total Bilirubin 0.3 mg/dL (0.2-1.0) Aspartate Amino Transf (AST/SGOT) 22 U/L (15-37) Alanine Aminotransferase (ALT/SGPT) 24 U/L (14-59) Alkaline Phosphatase 48 U/L (46-116) Total Protein 5.9 g/dL (6.4-8.2) Albumin 2.9 g/dL (3.4-5.0) Albumin/Globulin Ratio 1.0 (1.0-1.7) Assessment and Plan Assessmemt and Plan Problems Medical Problems: (1) Hyponatremia Status: Acute (2) Localized swelling of both lower legs Status: Acute (3) Pneumonia Status: Acute Comment Review of Relevant I have reviewed the following items rosie (where applicable) has been applied. Medications: Current Medications Medications (Trade) Dose Ordered Sig/Allison Route PRN Reason Start Time Stop Time Status Last Admin Dose Admin Lisinopril (Prinivil) 40 mg DAILY PO 11/01/20 09:00 11/01/20 08:25 Ferrous Sulfate (Iron Oral Solution) 300 mg BIDWMEALS PO 11/01/20 17:00 11/01/20 18:11 Carvedilol (Coreg) 12.5 mg BIDWMEALS PO 11/01/20 17:00 11/01/20 18:10 Justifications for Admission Other Justification ELDA NAFISA SCHULZ MD Nov 02, 2020 06:53
[2020-11-02 07:00] VITALS: BP 153/69
[2020-11-02] MEDS: LEVOTHYROXINE 88 MCG TABLET PO SCH (07:06)
[2020-11-02] MEDS: CARVEDILOL 6.25 MG TABLET. PO SCH ×2 (08:54→17:40)
[2020-11-02] MEDS: LISINOPRIL 20 MG TABLET PO SCH (08:54)
[2020-11-02] MEDS: FERROUS SULFATE ORAL 300 MG/5 ML SOLUTION. PO SCH ×2 (08:54→17:39)
[2020-11-02 11:00] VITALS: BP 139/59
[2020-11-02 15:00] VITALS: BP 145/61
[2020-11-02 19:00] VITALS: BP 141/63
[2020-11-02 23:00] VITALS: BP 136/66
[2020-11-03 03:00] VITALS: BP 131/61
[2020-11-03] MEDS: LEVOTHYROXINE 100 MCG TABLET PO SCH (05:45)
[2020-11-03 06:24] LABS: CALCIUM 8.2 mg/dL (8.5-10.1); CREATININE 1.5 mg/dL (0.6-1.0); GFR 34.7
[2020-11-03 07:30] VITALS: BP 144/68
[2020-11-03] MEDS: LISINOPRIL 20 MG TABLET PO SCH (08:12)
[2020-11-03] MEDS: CARVEDILOL 6.25 MG TABLET. PO SCH ×2 (08:12→16:50)
[2020-11-03] MEDS: FERROUS SULFATE ORAL 300 MG/5 ML SOLUTION. PO SCH ×2 (08:12→11:00)
--- NOTE | 2020-11-03 08:54 | PDOC ---
[employer] PROGRESS NOTE Date of Service DOS: DATE: 11/03/20 TIME: 08:53 Chief Complaint Chief Complaint A/P: Generalized weakness Acute volume overload Acute on chronic kidney disease, stage III Acute electrolyte derangementhyponatremia, hypochloremia suggestive of volume depletion Moderate protein malnutrition Anemia of chronic kidney disease History of hypertension History of depression History of anxiety History of hypothyroidism History of uterine tumor status post hysterectomy and chemotherapy in 2019 FEN - Renal diet PPX - heparin TID FULL CODE Dispo - inpatient History of Present Illness History of Present Illness Ms Chirinos is a 65-year-old female with past medical history of hypertension, depression, anxiety, DVT, uterine CA who presents to the ED c/o worsening swelling and edema at home since a recent hospital discharge for hypertensive emergency. Baseline Cr unknown to the family. She follows with Nurse practitioner ; Oncology and Cardiology as well as Nephrology Echo 10/14/2020: The left ventricle is normal size. The left ventricular systolic function is normal and the ejection fraction is within normal range. The Ejection Fraction is 60-65%. There is borderline concentric left ventricular hypertrophy. Doppler and Color Flow revealed trace aortic regurgitation. There is no significant aortic valvular stenosis. Doppler and Color Flow revealed no mitral valve regurgitation noted. Doppler and Color Flow revealed trace to mild tricuspid regurgitation with an estimated PAP of 39 mmHg. On discharge previously her BP better controlled on amlodipine and carvedilol. As she was on chlorthalidone and transition to spironolactone but was admitted with hyperkalemia be safe to hold diuretics and follow-up with nephrology with possible future need for addition of furosemide as needed. 10/31: BP improved 11/01: 24 urine protein 437 mg, started on lisinopril 11/02: BP better controlled. She is feeling little better. Despite instruction to discontinue chlorthalidone on previous hospitalization and she had restarted it because she was swollen. 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 Emphasized compliance with carvedilol as well as new medication lisinopril and as needed furosemide. Systolic blood pressure 144 this morning. Creatinine 1.5. Her flank pain is improved. Has a little bit of abdominal cramping no chest pain or shortness of breath. Feels her swelling is stable she is very insistent that she be prescribed a diuretic. Vitals/I&O Vitals/I&O: Vital Signs Date Time Temp Pulse Resp B/P (MAP) Pulse Ox O2 Delivery O2 Flow Rate FiO2 11/03/20 08:21 Room Air 11/03/20 08:12 65 144/68 11/03/20 07:30 98.1 18 96 98.1 I & O 11/02/20 11/02/20 11/03/20 15:00 23:00 07:00 Intake Total 660 ml 700 ml Output Total 0 ml Balance 660 ml 700 ml 0 ml Physical Exam General: Alert, Oriented X3, Cooperative, No acute distress Heart: Regular rate, Normal S2 Abdomen: Soft Extremities: Other (2-3+ EDEMA) Skin: No breakdown Labs Labs: Laboratory Tests Test 11/03/20 04:56 Sodium Level 138 mmol/L (136-145) Potassium Level 4.0 mmol/L (3.5-5.1) Chloride Level 104 mmol/L (98-107) Carbon Dioxide Level 24 mmol/L (21-32) Anion Gap 10 (6-14) Blood Urea Nitrogen 27 mg/dL (7-20) Creatinine 1.5 mg/dL (0.6-1.0) Estimated GFR (Cockcroft-Gault) 34.7 Glucose Level 91 mg/dL (70-99) Calcium Level 8.2 mg/dL (8.5-10.1) Magnesium Level 2.6 mg/dL (1.8-2.4) Assessment and Plan Assessmemt and Plan Problems Medical Problems: (1) Hyponatremia Status: Acute (2) Localized swelling of both lower legs Status: Acute (3) Pneumonia Status: Acute Comment Review of Relevant I have reviewed the following items rosie (where applicable) has been applied. Medications: Current Medications Medications (Trade) Dose Ordered Sig/Allison Route PRN Reason Start Time Stop Time Status Last Admin Dose Admin Levothyroxine Sodium (Synthroid) 100 mcg DAILY06 PO 11/03/20 06:00 11/03/20 05:45 Justifications for Admission Other Justification ELDA NAFISA SCHULZ MD Nov 03, 2020 08:54
--- NOTE | 2020-11-03 09:31 | PDOC ---
DATE OF SERVICE DATE: 11/03/20 TIME: 09:31 SUBJECTIVE ROS Propped up in bed, eating Lunch OBJECTIVE Vital Signs Vital Signs Date Time Temp Pulse Resp B/P (MAP) Pulse Ox O2 Delivery O2 Flow Rate FiO2 11/03/20 08:21 Room Air 11/03/20 08:12 65 144/68 11/03/20 07:30 98.1 18 96 98.1 I & 0 Intake and Output 11/03/20 07:00 Intake Total 1360 ml Output Total 0 ml Balance 1360 ml Intake Oral 1360 ml Output Urine Total 0 ml # Voids 1 PHYSICAL EXAM Physical Exam General NAD HEEN OM moist Neck Supple Lungs CTA CV S1S2 Abd Soft, NT, Ext No LE edmea. No cyanosis Neuro- Grossly Normal, No focal deficit Psych Hx of depression/Anxiety, currently mood stable No Maguire, no cva or SP tenderness DIAGNOSIS/ASSESSMENT Assessment & Plan CKD stage 3 B - stable renal function , Cr ranging 1.6-1.8 now UA and Renal US unremarkable during recent hospitalization . Low grade Proteinuria, Pr/Cr <500 mg Supportive care, avoid nephrotoxins ELDA - during recent hospitalization, Hx of Contrast, Diuretic use, Uncontrolled HTN . At her last hospitalizations- I had reviewed records from [facility]- creat was normal /eGFR >60 . Noted elevated Cr since July 2020 Edema- history with intermittent Edema , recommend daily weight, BP log . Adjust diuretics accordingly HTN Urgency -Antihypertensives , card was consulted at [facility]. Had extensive park at [facility] as well by cardiology Anemia- Acute drop in Hgb - new this hospitalization . Kand L mildly elevated, Ratio is normal, SPEP pending . Tsats low-defer to primary History of uterine tumor status post hysterectomy and chemotherapy in 2019 COMMENT/RELEVANT DATA Meds Current Medications Medications (Trade) Dose Ordered Sig/Allison Start Time Stop Time Status Last Admin Dose Admin Acetaminophen (Tylenol) 650 mg PRN Q4HRS PRN 10/30/20 16:00 UNV Aspirin (Ecotrin) 81 mg DAILY 10/31/20 09:00 10/31/20 10:51 DC 10/31/20 08:37 81 MG Carvedilol (Coreg) 12.5 mg BIDWMEALS 11/01/20 17:00 11/03/20 08:12 12.5 MG Citalopram Hydrobromide (CeleXA) 10 mg DAILY 10/31/20 09:00 10/31/20 10:51 DC 10/31/20 08:37 10 MG Dextrose (Dextrose 50%-Water Syringe) 12.5 gm PRN Q15MIN PRN 10/30/20 15:15 Docusate Sodium (Colace) 100 mg PRN BID PRN 10/30/20 16:00 11/01/20 08:32 100 MG Ferrous Sulfate (Iron Oral Solution) 300 mg BIDWMEALS 11/01/20 17:00 11/03/20 08:12 300 MG Furosemide (Lasix) 40 mg 1X ONCE 10/30/20 12:30 10/30/20 12:31 DC 10/30/20 14:47 40 MG Heparin Sodium (Porcine) (Heparin Sodium) 5,000 unit Q12HR 10/30/20 21:00 10/31/20 10:51 DC 10/31/20 08:47 5,000 UNIT Levofloxacin/ Dextrose 150 ml @ 100 mls/hr 1X ONCE 10/30/20 00:15 10/30/20 01:44 DC 10/30/20 00:47 100 MLS/HR Levothyroxine Sodium (Synthroid) 100 mcg DAILY06 11/03/20 06:00 11/03/20 05:45 100 MCG Lisinopril (Prinivil) 40 mg DAILY 11/01/20 09:00 11/03/20 08:12 40 MG Magnesium Sulfate 50 ml @ 25 mls/hr PRN DAILY PRN 10/31/20 14:30 Morphine Sulfate (Morphine Sulfate) 2 mg PRN Q2HR PRN 10/30/20 16:00 10/31/20 15:59 DC Ondansetron HCl (Zofran) 4 mg PRN Q6HRS PRN 10/30/20 15:15 Oxycodone/ Acetaminophen (Percocet 5/325) 2 tab PRN Q4HRS PRN 10/30/20 16:00 Piperacillin Sod/ Tazobactam Sod 3.375 gm/Sodium Chloride 50 ml @ 100 mls/hr 1X ONCE 10/30/20 00:30 10/30/20 00:59 DC 10/30/20 00:13 100 MLS/HR Potassium Chloride (Klor-Con) 40 meq 1X ONCE 10/31/20 14:30 10/31/20 14:31 DC 10/31/20 15:42 40 MEQ Sennosides (Senna) 17.2 mg PRN BID PRN 10/30/20 15:15 10/31/20 22:35 17.2 MG Lab Laboratory Tests Test 11/03/20 04:56 Sodium Level 138 mmol/L (136-145) Potassium Level 4.0 mmol/L (3.5-5.1) Chloride Level 104 mmol/L (98-107) Carbon Dioxide Level 24 mmol/L (21-32) Anion Gap 10 (6-14) Blood Urea Nitrogen 27 mg/dL (7-20) Creatinine 1.5 mg/dL (0.6-1.0) Estimated GFR (Cockcroft-Gault) 34.7 Glucose Level 91 mg/dL (70-99) Calcium Level 8.2 mg/dL (8.5-10.1) Magnesium Level 2.6 mg/dL (1.8-2.4) Results All relevant outside records, renal labs, imaging studies, telemetry/EKG's were reviewed. Justicifation of Admission Dx: Justifications for Admission: Justification of Admission Dx: N/A ESTELLA BRADY MD Nov 03, 2020 09:31
--- NOTE | 2020-11-03 11:03 | NUR ---
Oral iron nonadministered by this RN. Already administered this am. Refer to EMAR for additional details.
[2020-11-03 11:04] LABS: KAPPA FREE 77.2 mg/L (3.3-19.4); KAPPA LAMBDA RATIO 1.43 (0.26-1.65); LAMBDA FREE 53.8 mg/L (5.7-26.3)
[2020-11-03 11:11] VITALS: BP 145/65
[2020-11-03] MEDS: ASCORBIC ACID 500 MG TABLET PO SCH (11:15)
--- NOTE | 2020-11-03 12:03 | NUR ---
SW following. Discussed with RN, pt from home with , room air, regular diet. Therapy recommending home. RN advised no SW needs at this time. RN anticipates possible discharge home today. SEVERINO will continue to follow. Addendum: 11/04/20 at 1457 by LORIE HAQ Discharge orders faxed to [facility]. RN notified.
[2020-11-03 15:16] LABS: IMMUNOGLOBULIN A 198 mg/dL (87-352); IMMUNOGLOBULIN G 1121 mg/dL (586-1602); IMMUNOGLOBULIN M 56 mg/dL (26-217)
[2020-11-03 15:44] VITALS: BP 149/62
[2020-11-03 17:36] LABS: ALBUM 2.9 g/dL (2.9-4.4); ALPHA 1 0.3 g/dL (0.0-0.4); ALPHA 2 0.6 g/dL (0.4-1.0); BETA 0.7 g/dL (0.7-1.3); GAMMA 1.1 g/dL (0.4-1.8); PROTEIN TOTAL 5.6 g/dL (6.0-8.5); SPEP AG RATIO 1.1 (0.7-1.7)
[2020-11-03 17:36] LABS: ALBUMIN UR 59.1 % (.); ALPHA 2 UR 8.3 % (.); BETA UR 17.4 % (.); GAMMA UR 12.2 % (.); PROTEIN 24 UR 430 mg/24 hr (30-150); PROTEIN UR 17.9 mg/dL (Not Estab.)
[2020-11-03 19:00] VITALS: BP 150/69
[2020-11-03 23:00] VITALS: BP 149/70
[2020-11-04] VITALS (7 sets, daily range): BP systolic 140–168; BP diastolic 64–75
[2020-11-04] MEDS: LEVOTHYROXINE 100 MCG TABLET PO SCH (05:45)
[2020-11-04 06:50] LABS: CALCIUM 8.3 mg/dL (8.5-10.1); CREATININE 1.7 mg/dL (0.6-1.0); GFR 30.1; POTASSIUM 4.1 mmol/L (3.5-5.1)
[2020-11-04] MEDS ORDERED: LISI-130 PO (08:16)
[2020-11-04] MEDS ORDERED: FURO40TA4 PO (08:16)
[2020-11-04] MEDS ORDERED: CARV12.511 PO (08:16)
[2020-11-04] MEDS ORDERED: FERR300L PO (08:17)
--- NOTE | 2020-11-04 08:20 | SNU/HH DC ---
DISCHARGE WITH HOME HEALTH DISCHARGE INFORMATION: Discharge Date: Nov 05, 2020 Final Diagnosis: Problems Medical Problems: (1) Hyponatremia Status: Acute (2) Localized swelling of both lower legs Status: Acute (3) Pneumonia Status: Acute Condition on Discharge: Stable CODE STATUS: Code Status: Full HOME HEALTH: Face to Face: I certify this patient is under my care and that I, or a nurse practitioner or physician's financial sales assistant working with me, had a face to face encounter that meets the physician face to face encounter requirements with this patient on 11/04/2020. Medical Complications: HTN, Other (CKD, Anemia) Long Term For: Medication Management RN For Eval/Treatment: Yes Physical Therapy For: Evalulation/Treatment Occupational Therapy For: Evaluation/Treatment Pt Meets Homebound Status: Extreme weakness w/ amb. POST DISCHARGE ORDERS: Activity Instructions for Disc: Resume previous activity, Activity as tolerated Weight Bearing Status after Di: Full weight bearing DIET AFTER DISCHARGE: Cardiac CHECKS AFTER DISCHARGE: Checks after discharge: Check blood press - daily FOLLOW-UP: PCP to follow Home Health: Dr. Lio Carlson (november 2020), Dr. Alexx Schulz Additional Instructions: [facility] Doctors: Kerry [address] [place] [address], [address] [place] [address] Oncology Follow up - [facility] Cardiology Follow up - [facility] TREATMENT/EQUIPMENT ORDERS: Adaptive Equipment Issued: Franky CERTIFICATION STATEMENT: Certification Statement: Certification Statement: Based on the above finding, I certify that this patient is confined to the home and needs intermittent [facility] care, physical therapy and/or speech therapy, or continues to need occupational therapy.~ This patient is under my care, and I have initiated the establishment of the plan of care.~ This patient will be followed by myself or a community physician who will periodically review the plan of care. Home Meds Active Scripts Amlodipine Besylate (AMLODIPINE BESYLATE) 10 Mg Tablet, 5 MG PO DAILY for HTN for 30 Days, #15 TAB 5 Refills Prov:ALEXX SCHULZ MD 11/05/20 Ferrous Sulfate (FERROUS SULFATE) 300 Mg/5 Ml Liquid, 300 MG PO DAILYWBKFT for CATARINA for 30 Days, #30 LIQUID 0 Refills Prov:ALEXX SCHULZ MD 11/04/20 Furosemide (FUROSEMIDE) 40 Mg Tablet, 1 TAB PO PRN DAILY PRN for Weight gain 3# for 30 Days, #30 TAB 0 Refills Prov:ALEXX SCHULZ MD 11/04/20 Lisinopril (LISINOPRIL) 40 Mg Tablet, 40 MG PO DAILY for HTN for 30 Days, #30 TAB 2 Refills Prov:ALEXX SCHULZ MD 11/04/20 Carvedilol (CARVEDILOL ) 12.5 Mg Tablet, 12.5 MG PO BIDWMEALS for CARDIAC for 30 Days, #60 TAB 2 Refills Prov:ALEXX SCHULZ MD 11/04/20 Reported Medications Escitalopram Oxalate (ESCITALOPRAM OXALATE) 10 Mg Tablet, 0.5 TAB PO DAILY for anxiety, #30 TAB 3 Refills 10/14/20 Aspirin (ASPIRIN EC) 81 Mg Tablet.dr, 81 MG PO DAILY for THINNER OF BLOOD, TAB.SR 10/14/20 Levothyroxine Sodium (SYNTHROID) 88 Mcg Tablet, 1 TAB PO DAILY for SUPPLEMENT, #30 TAB 5 Refills 10/14/20 Discontinued Scripts Carvedilol (CARVEDILOL ) 6.25 Mg Tablet, 6.25 MG PO BIDWMEALS for HTN for 30 Days, #60 TAB 5 Refills Prov:ALEXX SCHULZ MD 10/19/20 Amoxicillin/Potassium Clav (AMOX TR-K CLV 500-125 MG TAB) 1 Each Tablet, 1 TAB PO BID for UTI for 2 Days, #4 TAB Prov:ALEXX SCHULZ MD 10/19/20 ALEXX SCHULZ MD Nov 04, 2020 08:20
--- NOTE | 2020-11-04 08:36 | PDOC ---
[facility] [facility] PROGRESS NOTE Date of Service DOS: DATE: 11/04/20 TIME: 08:23 Chief Complaint Chief Complaint A/P: Generalized weakness Acute volume overload Acute on chronic kidney disease, stage III Acute electrolyte derangementhyponatremia, hypochloremia suggestive of volume depletion Moderate protein malnutrition Acute anemia - required blood transfusion History of hypertension History of depression History of anxiety History of hypothyroidism History of uterine tumor status post hysterectomy and chemotherapy in 2019 FEN - Renal diet PPX - heparin TID FULL CODE Dispo - inpatient History of Present Illness History of Present Illness Ms Chirinos is a 65-year-old female with past medical history of hypertension, depression, anxiety, DVT, uterine CA, and recently diagnosed CKD who presents to the ED c/o worsening swelling and edema at home since a recent hospital discharge for hypertensive emergency and ELDA now CKD. Baseline Cr unknown to the family, but has been elevated tween 1.5-1.7 since July 2020. Prior to that had a creatinine between 1 and 1.1 as Nephrology has reviewed [facility] records and notes from prior. She follows with Nurse practitioner; Oncology and Cardiology as well as Nephrology Echo 10/14/2020: The left ventricle is normal size. The left ventricular systolic function is normal and the ejection fraction is within normal range. The Ejection Fraction is 60-65%. There is borderline concentric left ventricular hypertrophy. Doppler and Color Flow revealed trace aortic regurgitation. There is no significant aortic valvular stenosis. Doppler and Color Flow revealed no mitral valve regurgitation noted. Doppler and Color Flow revealed trace to mild tricuspid regurgitation with an estimated PAP of 39 mmHg. On discharge previously her BP was better controlled on amlodipine and carvedilol. As she was on chlorthalidone and transition to spironolactone but was admitted with hyperkalemia recommended to hold those diuretics and follow-up with nephrology with addition of furosemide as needed for weight gain. She did continue to take chlorthalidone at home, though, admitted for hyponatremia and shortness of breath, abdominal discomfort. 10/30: IV lasix given with improvement in swelling, shortness of breath and creatinine 10/31: BP improved. Transfused 1u PRBC 11/01: 24 urine protein 437 mg, started on lisinopril. Initial fecal occult negative. 11/02: BP better controlled. She is feeling little better. Despite instruction to discontinue chlorthalidone on previous hospitalization and she had restarted it because she was swollen. Using tank wagon operator it is clear that she and her feel like this is partially due to the language barrier. Emphasized compliance with carvedilol as well as new medication lisinopril and as needed furosemide. 11/03: Systolic blood pressure 144 this morning. Creatinine 1.5. Her flank pain is improved. Has a little bit of abdominal cramping no chest pain or shortness of breath. Feels her swelling is stable she is very insistent that she be prescribed a diuretic. Cr 1.7, Hb 8.2, still dropping despite iron supplementation. D/w Nephrology patient had large . Abdominal pain worse today. Vitals/I&O Vitals/I&O: Vital Signs Date Time Temp Pulse Resp B/P (MAP) Pulse Ox O2 Delivery O2 Flow Rate FiO2 11/04/20 07:30 98.0 69 18 159/73 (101) 97 Room Air 98.0 I & O 11/03/20 11/03/20 11/04/20 15:00 23:00 07:00 Intake Total 320 ml 300 ml Balance 320 ml 300 ml Physical Exam General: Alert, Oriented X3, Cooperative, No acute distress Heart: Regular rate, Normal S2 Abdomen: Soft Extremities: Other (2-3+ EDEMA) Skin: No breakdown Labs Labs: Laboratory Tests Test 11/04/20 05:50 Sodium Level 139 mmol/L (136-145) Potassium Level 4.1 mmol/L (3.5-5.1) Chloride Level 106 mmol/L (98-107) Carbon Dioxide Level 25 mmol/L (21-32) Anion Gap 8 (6-14) Blood Urea Nitrogen 28 mg/dL (7-20) Creatinine 1.7 mg/dL (0.6-1.0) Estimated GFR (Cockcroft-Gault) 30.1 Glucose Level 94 mg/dL (70-99) Calcium Level 8.3 mg/dL (8.5-10.1) Magnesium Level 2.6 mg/dL (1.8-2.4) Assessment and Plan Assessmemt and Plan Problems Medical Problems: (1) Hyponatremia Status: Acute (2) Localized swelling of both lower legs Status: Acute (3) Pneumonia Status: Acute Comment Review of Relevant I have reviewed the following items rosie (where applicable) has been applied. Medications: Current Medications Medications (Trade) Dose Ordered Sig/Allison Route PRN Reason Start Time Stop Time Status Last Admin Dose Admin Ascorbic Acid (Vitamin C) 500 mg DAILYWBKFT PO 11/03/20 11:00 11/03/20 11:15 Justifications for Admission Other Justification ELDA NAFISA SCHULZ MD Nov 04, 2020 08:36
[2020-11-04] MEDS: CARVEDILOL 6.25 MG TABLET. PO SCH ×2 (09:02→16:59)
[2020-11-04] MEDS: ASCORBIC ACID 500 MG TABLET PO SCH (09:03)
[2020-11-04] MEDS: FERROUS SULFATE ORAL 300 MG/5 ML SOLUTION. PO SCH (09:03)
[2020-11-04] MEDS: LISINOPRIL 20 MG TABLET PO SCH (09:03)
--- NOTE | 2020-11-04 10:02 | PDOC ---
DATE OF SERVICE DATE: 11/04/20 TIME: 10:01 SUBJECTIVE ROS stable OBJECTIVE Vital Signs Vital Signs Date Time Temp Pulse Resp B/P (MAP) Pulse Ox O2 Delivery O2 Flow Rate FiO2 11/04/20 09:03 69 159/73 11/04/20 07:30 98.0 18 97 Room Air 98.0 I & 0 Intake and Output 11/04/20 07:00 Intake Total 620 ml Balance 620 ml Intake Oral 620 ml # Voids 2 PHYSICAL EXAM Physical Exam General NAD HEEN OM moist Neck Supple Lungs CTA CV S1S2 Abd Soft, NT, Ext No LE edmea. No cyanosis Neuro- Grossly Normal, No focal deficit Psych Hx of depression/Anxiety, currently mood stable No Maguire, no cva or SP tenderness DIAGNOSIS/ASSESSMENT Assessment & Plan CKD stage 3 B - stable renal function , Cr ranging 1.6-1.8 now UA and Renal US unremarkable during recent hospitalization . Low grade Proteinuria, Pr/Cr <500 mg Supportive care, avoid nephrotoxins ELDA - during recent hospitalization, Hx of Contrast, Diuretic use, Uncontrolled HTN . At her last hospitalizations- I had reviewed records from [facility]- creat was normal /eGFR >60 . Noted elevated Cr since July 2020 Edema- history with intermittent Edema , recommend daily weight, BP log . Adjust diuretics accordingly HTN Urgency -Antihypertensives , card was consulted at [facility]. Had extensive park at [facility] as well by cardiology Anemia- Acute drop in Hgb - new this hospitalization . Kand L mildly elevated, Ratio is normal, SPEP pending . Tsats low-defer to primary History of uterine tumor status post hysterectomy and chemotherapy in 2019 COMMENT/RELEVANT DATA Meds Current Medications Medications (Trade) Dose Ordered Sig/Allison Start Time Stop Time Status Last Admin Dose Admin Acetaminophen (Tylenol) 650 mg PRN Q4HRS PRN 10/30/20 16:00 UNV Ascorbic Acid (Vitamin C) 500 mg DAILYWBKFT 11/03/20 11:00 11/04/20 09:03 500 MG Aspirin (Ecotrin) 81 mg DAILY 10/31/20 09:00 10/31/20 10:51 DC 10/31/20 08:37 81 MG Carvedilol (Coreg) 12.5 mg BIDWMEALS 11/01/20 17:00 11/04/20 09:02 12.5 MG Citalopram Hydrobromide (CeleXA) 10 mg DAILY 10/31/20 09:00 10/31/20 10:51 DC 10/31/20 08:37 10 MG Dextrose (Dextrose 50%-Water Syringe) 12.5 gm PRN Q15MIN PRN 10/30/20 15:15 Docusate Sodium (Colace) 100 mg PRN BID PRN 10/30/20 16:00 11/01/20 08:32 100 MG Ferrous Sulfate (Iron Oral Solution) 300 mg DAILYWBKFT 11/03/20 11:00 11/04/20 09:03 300 MG Furosemide (Lasix) 40 mg 1X ONCE 10/30/20 12:30 10/30/20 12:31 DC 10/30/20 14:47 40 MG Heparin Sodium (Porcine) (Heparin Sodium) 5,000 unit Q12HR 10/30/20 21:00 10/31/20 10:51 DC 10/31/20 08:47 5,000 UNIT Levofloxacin/ Dextrose 150 ml @ 100 mls/hr 1X ONCE 10/30/20 00:15 10/30/20 01:44 DC 10/30/20 00:47 100 MLS/HR Levothyroxine Sodium (Synthroid) 100 mcg DAILY06 11/03/20 06:00 11/04/20 05:45 100 MCG Lisinopril (Prinivil) 40 mg DAILY 11/01/20 09:00 11/04/20 09:03 40 MG Magnesium Sulfate 50 ml @ 25 mls/hr PRN DAILY PRN 10/31/20 14:30 Morphine Sulfate (Morphine Sulfate) 2 mg PRN Q2HR PRN 10/30/20 16:00 10/31/20 15:59 DC Ondansetron HCl (Zofran) 4 mg PRN Q6HRS PRN 10/30/20 15:15 Oxycodone/ Acetaminophen (Percocet 5/325) 2 tab PRN Q4HRS PRN 10/30/20 16:00 Piperacillin Sod/ Tazobactam Sod 3.375 gm/Sodium Chloride 50 ml @ 100 mls/hr 1X ONCE 10/30/20 00:30 10/30/20 00:59 DC 10/30/20 00:13 100 MLS/HR Potassium Chloride (Klor-Con) 40 meq 1X ONCE 10/31/20 14:30 10/31/20 14:31 DC 10/31/20 15:42 40 MEQ Sennosides (Senna) 17.2 mg PRN BID PRN 10/30/20 15:15 10/31/20 22:35 17.2 MG Lab Laboratory Tests Test 11/04/20 05:50 Sodium Level 139 mmol/L (136-145) Potassium Level 4.1 mmol/L (3.5-5.1) Chloride Level 106 mmol/L (98-107) Carbon Dioxide Level 25 mmol/L (21-32) Anion Gap 8 (6-14) Blood Urea Nitrogen 28 mg/dL (7-20) Creatinine 1.7 mg/dL (0.6-1.0) Estimated GFR (Cockcroft-Gault) 30.1 Glucose Level 94 mg/dL (70-99) Calcium Level 8.3 mg/dL (8.5-10.1) Magnesium Level 2.6 mg/dL (1.8-2.4) Results All relevant outside records, renal labs, imaging studies, telemetry/EKG's were reviewed. Justicifation of Admission Dx: Justifications for Admission: Justification of Admission Dx: N/A ESTELLA BRADY MD Nov 04, 2020 10:02
[2020-11-04] MEDS ORDERED: hydrALAZINE 20 MG/ML VIAL. IVP PRN (12:00)
[2020-11-04] MEDS ORDERED: LORazepam 0.5 MG TABLET PO PRN (12:15)
--- NOTE | 2020-11-04 12:28 | PDOC2 ---
GI CONSULT Date of Service: DATE: 11/04/20 TIME: 12:21 Reason For Consult: acute Hgb drop HPI: HPI: 65 y/o female evaluated in ER on 10/29/20 for LE swelling and fatigue, admitted. We are asked to see today re: anemia. Hgb was normal in 2017, 2018, and 2019. Hgb in 11 range when admitted 09/2020. This time, 7.9 on 10/29 and then drift to 6.6 on 10/31. After 1 unit pRBCs, Hgb improved to 8.4. Last check on 11/02 was 8.2. Iron studies from 10/31 c/w ACD and Hemoccult was negative. She was started on PO iron on 11/03. No obvious bleeding per staff. [place]-speaking - attempted use of budget specialist phone, but higher than normal call volume/wait time, so translation help from Dayan (nurse). Sometimes has acid reflux - untreated. No dysphagia, n/v, abd pain, diarrhea, constipation (though before admission didn't stool for 5 days which is unusual for her), hematochezia, melena, change in appetite, or early satiety. Estimates 40 pound weight loss since cancer treatment a couple years ago and since "getting the fluid off." H/o anemia years ago related to vaginal bleeding. No previous use of iron. No previous EGD or colonoscopy. No GB, liver, pancreas, or PUD history. CT noted cholelithiasis, mild hepatomegaly, and sigmoid diverticulosis. H/o uterine cancer s/p hysterectomy and chemo (as mentioned above), additional h/o CKD (BUN 28, Cr 1.7 - stable throughout this admission), and TSH was 8 on 10/31. On ASA 81mg - says has taken this for at last 2 years. PMH: PMH: uterine cancer, HTN, CKD, depression/anxiety, DVT, hypothyroidism tubal ligation, chemo, hysterectomy FH: Family History: No pertinent hx (no GI cancers) Social History: ALCOHOL: none Drugs: None ROS: GEN: Denies fevers, chills, sweats HEENT: Denies blurred vision, sore throat CV: Denies chest pain RESP: +SOA (better) GI: Per HPI : Denies hematuria, dysuria ENDO: +weight loss NEURO: Denies confusion, dizziness MSK: +LE swelling SKIN: Denies jaundice, pruritus Vitals: Vitals: Vital Signs Date Time Temp Pulse Resp B/P (MAP) Pulse Ox O2 Delivery O2 Flow Rate FiO2 11/04/20 11:30 98.1 70 18 168/70 (102) 97 Room Air 98.1 Labs: Labs: Laboratory Tests Test 11/04/20 05:50 Sodium Level 139 mmol/L (136-145) Potassium Level 4.1 mmol/L (3.5-5.1) Chloride Level 106 mmol/L (98-107) Carbon Dioxide Level 25 mmol/L (21-32) Anion Gap 8 (6-14) Blood Urea Nitrogen 28 mg/dL (7-20) Creatinine 1.7 mg/dL (0.6-1.0) Estimated GFR (Cockcroft-Gault) 30.1 Glucose Level 94 mg/dL (70-99) Calcium Level 8.3 mg/dL (8.5-10.1) Magnesium Level 2.6 mg/dL (1.8-2.4) BLOOD CULTURE Final NO GROWTH AFTER 5 DAYS Allergies: Coded Allergies: iodine (Verified Allergy, Severe, 10/15/20) folic acid (Verified Allergy, Mild, 10/14/20) "COMPLEX B" vitamin B complex and C (Verified Allergy, Mild, 10/14/20) "COMPLEX B" Medications: per EMR Imaging: Imaging: CXR IMPRESSION: Patchy bibasilar airspace disease greater on the right favored to be infectious or inflammatory in etiology. C/A/P CT IMPRESSION: 1. Small pleural effusions and mild bibasilar opacities with interlobular septal thickening, likely reflecting pulmonary edema. Pneumonia less likely. 2. Small pericardial effusion. 3. Cholelithiasis with possible gallbladder wall, nonspecific. Recommend quadra nt ultrasound could be obtained to further evaluate if indicated. 4. Mild hepatomegaly. 5. Sigmoid diverticulosis. 6. Trace ascites. Mild body wall edema. 7. Tubular hyperdense structure in the subcutaneous medial upper right chest wall just deep to the skin, indeterminate. Correlate for retained foreign body. PE: GEN: NAD - HEENT: Atraumatic, PERRL LUNGS: CTAB HEART: RRR ABD: NABS, S/ND/NT, does have some left flank tenderness under ribs EXTREMITY: BLE edema SKIN: No rashes, no jaundice NEURO/PSYCH: A & O 3 A/P: A/P: BLE edema, HTN, CKD ACD - worse/required transfusion this admission, no obvious bleeding, negative Hemoccult Occasional reflux - untreated CRC screen - none Diverticulosis Mild hepatomegaly Cholelithiasis Hypothyroidism, h/o uterine cancer ASA use -- Anemia not clearly related to GI issue. She'd like to pursue outpt EGD and colonoscopy - our office can arrange. Consider acid-lap cutter truer operator of some kind. DENILSON OATES Nov 04, 2020 12:28
[2020-11-04 17:22] LABS: UREA NITROGEN UR 333 mg/dL (Not Estab.)
[2020-11-05 03:20] VITALS: BP 147/71
[2020-11-05] MEDS: LEVOTHYROXINE 100 MCG TABLET PO SCH (06:01)
--- NOTE | 2020-11-05 07:14 | PDOC ---
[employer] [facility] PROGRESS NOTE Date of Service DOS: DATE: 11/05/20 TIME: 07:13 Chief Complaint Chief Complaint A/P: Generalized weakness Acute volume overload Acute on chronic kidney disease, stage III Acute electrolyte derangementhyponatremia, hypochloremia suggestive of volume depletion Moderate protein malnutrition Acute anemia - required blood transfusion History of hypertension History of depression History of anxiety History of hypothyroidism History of uterine tumor status post hysterectomy and chemotherapy in 2019 FEN - Renal diet PPX - heparin TID FULL CODE Dispo - inpatient History of Present Illness History of Present Illness Ms Chirinos is a 65-year-old female with past medical history of hypertension, depression, anxiety, DVT, uterine CA, and recently diagnosed CKD who presents to the ED c/o worsening swelling and edema at home since a recent hospital discharge for hypertensive emergency and ELDA now CKD. Baseline Cr unknown to the family, but has been elevated tween 1.5-1.7 since July 2020. Prior to that had a creatinine between 1 and 1.1 as Nephrology has reviewed [facility] records and notes from prior. She follows with Nurse practitioner; Oncology and Cardiology as well as Nephrology Echo 10/14/2020: The left ventricle is normal size. The left ventricular systolic function is normal and the ejection fraction is within normal range. The Ejection Fraction is 60-65%. There is borderline concentric left ventricular hypertrophy. Doppler and Color Flow revealed trace aortic regurgitation. There is no significant aortic valvular stenosis. Doppler and Color Flow revealed no mitral valve regurgitation noted. Doppler and Color Flow revealed trace to mild tricuspid regurgitation with an estimated PAP of 39 mmHg. On discharge previously her BP was better controlled on amlodipine and carvedilol. As she was on chlorthalidone and transition to spironolactone but was admitted with hyperkalemia recommended to hold those diuretics and follow-up with nephrology with addition of furosemide as needed for weight gain. She did continue to take chlorthalidone at home, though, admitted for hyponatremia and shortness of breath, abdominal discomfort. 10/30: IV lasix given with improvement in swelling, shortness of breath and creatinine 10/31: BP improved. Transfused 1u PRBC 11/01: 24 urine protein 437 mg, started on lisinopril. Initial fecal occult negative. 11/02: BP better controlled. She is feeling little better. Despite instruction to discontinue chlorthalidone on previous hospitalization and she had restarted it because she was swollen. Using capacitor inspector it is clear that she and her feel like this is partially due to the language barrier. Emphasized compliance with carvedilol as well as new medication lisinopril and as needed furosemide. 11/03: Systolic blood pressure 144 this morning. Creatinine 1.5. Her flank pain is improved. Has a little bit of abdominal cramping no chest pain or shortness of breath. Feels her swelling is stable she is very insistent that she be prescribed a diuretic. 11/04: Cr 1.7, Hb 8.2, still dropping despite iron supplementation. D/w Nephrology patient had large Hb drop since last hospital stay, needs GI eval. Abdominal pain worse today. Cr 1.4. Seen by GI, will f/u for outpatient endoscopy. Pain and constipation improved. Counseled on fluid restriction 2 L/day and as needed furosemide gained more than 1 pound or has increased shortness of breath. Levothyroxine and carvedilol adjusted new prescription sent to pharmacy for lisinopril for nephrotic range proteinuria. Will have outpatient follow-up with nephrology Vitals/I&O Vitals/I&O: Vital Signs Date Time Temp Pulse Resp B/P (MAP) Pulse Ox O2 Delivery O2 Flow Rate FiO2 11/05/20 03:20 98.1 78 18 147/71 (96) 95 Room Air 98.1 I & O 11/04/20 11/04/20 11/05/20 15:00 23:00 07:00 Intake Total 400 ml 320 ml Balance 400 ml 320 ml Physical Exam General: Alert, Oriented X3, Cooperative, No acute distress Heart: Regular rate, Normal S2 Abdomen: Soft Extremities: Other (2-3+ EDEMA) Skin: No breakdown Labs Labs: Laboratory Tests Test 11/05/20 05:55 Magnesium Level 2.6 mg/dL (1.8-2.4) Assessment and Plan Assessmemt and Plan Problems Medical Problems: (1) Hyponatremia Status: Acute (2) Localized swelling of both lower legs Status: Acute (3) Pneumonia Status: Acute Comment Review of Relevant I have reviewed the following items rosie (where applicable) has been applied. Medications: Current Medications Medications (Trade) Dose Ordered Sig/Allison Route PRN Reason Start Time Stop Time Status Last Admin Dose Admin Hydralazine HCl (Apresoline Inj) 10 mg PRN Q4HRS PRN IVP ELEVATED BP, SEE COMMENTS 11/04/20 12:00 11/04/20 12:24 Lorazepam (Ativan) 0.5 mg PRN Q8HRS PRN PO ANXIETY / AGITATION 11/04/20 12:15 11/04/20 12:24 Justifications for Admission Other Justification ELDA NAFISA SCHULZ MD Nov 05, 2020 07:14
[2020-11-05 07:31] LABS: CALCIUM 8.1 mg/dL (8.5-10.1); CREATININE 1.4 mg/dL (0.6-1.0); GFR 37.6; POTASSIUM 4.3 mmol/L (3.5-5.1)
[2020-11-05 07:38] VITALS: BP 151/72
[2020-11-05] MEDS ORDERED: AMLO-187 PO (08:01)
[2020-11-05 08:06] LABS: FECAL OB PT NEGATIVE (NEG)
[2020-11-05] MEDS ORDERED: LEVO100T5 PO (08:25)
--- NOTE | 2020-11-05 08:28 | PDOC3 ---
Discharge Summary Visit Information Date of Admission: Oct 29, 2020 Date of Discharge: Nov 05, 2020 Admitting Diagnosis: Hyponatremia Final Diagnosis Problems Medical Problems: (1) Hyponatremia Status: Acute (2) Localized swelling of both lower legs Status: Acute (3) Pneumonia Status: Acute Brief Hospital Course Allergies Allergies Coded Allergies Type Severity Reaction Last Updated Verified iodine Allergy Severe 10/15/20 Yes folic acid Allergy Mild 10/14/20 Yes vitamin B complex and C Allergy Mild 10/14/20 Yes Vital Signs Vital Signs Date Time Temp Pulse Resp B/P (MAP) Pulse Ox O2 Delivery O2 Flow Rate FiO2 11/05/20 07:38 98.3 69 18 151/72 (98) 95 Room Air 98.3 Lab Results Laboratory Tests Test 11/04/20 05:50 11/05/20 05:55 11/05/20 06:30 Sodium Level 139 mmol/L (136-145) 142 mmol/L (136-145) Potassium Level 4.1 mmol/L (3.5-5.1) 4.3 mmol/L (3.5-5.1) Chloride Level 106 mmol/L (98-107) 107 mmol/L (98-107) Carbon Dioxide Level 25 mmol/L (21-32) 25 mmol/L (21-32) Anion Gap 8 (6-14) 10 (6-14) Blood Urea Nitrogen 28 mg/dL (7-20) 26 mg/dL (7-20) Creatinine 1.7 mg/dL (0.6-1.0) 1.4 mg/dL (0.6-1.0) Estimated GFR (Cockcroft-Gault) 30.1 37.6 Glucose Level 94 mg/dL (70-99) 89 mg/dL (70-99) Calcium Level 8.3 mg/dL (8.5-10.1) 8.1 mg/dL (8.5-10.1) Magnesium Level 2.6 mg/dL (1.8-2.4) 2.6 mg/dL (1.8-2.4) Stool Occult Blood Negative (NEG) Laboratory Tests Test 11/05/20 05:55 11/05/20 06:30 Sodium Level 142 mmol/L (136-145) Potassium Level 4.3 mmol/L (3.5-5.1) Chloride Level 107 mmol/L (98-107) Carbon Dioxide Level 25 mmol/L (21-32) Anion Gap 10 (6-14) Blood Urea Nitrogen 26 mg/dL (7-20) Creatinine 1.4 mg/dL (0.6-1.0) Estimated GFR (Cockcroft-Gault) 37.6 Glucose Level 89 mg/dL (70-99) Calcium Level 8.1 mg/dL (8.5-10.1) Magnesium Level 2.6 mg/dL (1.8-2.4) Stool Occult Blood Negative (NEG) Brief Hospital Course Ms Chirinos is a 65-year-old female with past medical history of hypertension, depression, anxiety, DVT, uterine CA, and recently diagnosed CKD who presents to the ED c/o worsening swelling and edema at home since a recent hospital discharge for hypertensive emergency and ELDA now CKD. Baseline Cr unknown to the family, but has been elevated tween 1.5-1.7 since July 2020. Prior to that had a creatinine between 1 and 1.1 as Nephrology has reviewed [facility] records and notes from prior. She follows with Nurse practitioner; Oncology and Cardiology as well as Nephrology Echo 10/14/2020: The left ventricle is normal size. The left ventricular systolic function is normal and the ejection fraction is within normal range. The Ejection Fraction is 60-65%. There is borderline concentric left ventricular hypertrophy. Doppler and Color Flow revealed trace aortic regurgitation. There is no significant aortic valvular stenosis. Doppler and Color Flow revealed no mitral valve regurgitation noted. Doppler and Color Flow revealed trace to mild tricuspid regurgitation with an estimated PAP of 39 mmHg. On discharge previously her BP was better controlled on amlodipine and carvedilol. As she was on chlorthalidone and transition to spironolactone but was admitted with hyperkalemia recommended to hold those diuretics and follow-up with nephrology with addition of furosemide as needed for weight gain. She did continue to take chlorthalidone at home, though, admitted for hyponatremia and shortness of breath, abdominal discomfort. 10/30: IV lasix given with improvement in swelling, shortness of breath and creatinine 10/31: BP improved. Transfused 1u PRBC 11/01: 24 urine protein 437 mg, started on lisinopril. Initial fecal occult negative. 11/02: BP better controlled. She is feeling little better. Despite instruction to discontinue chlorthalidone on previous hospitalization and she had restarted it because she was swollen. Using bracer it is clear that she and her feel like this is partially due to the language barrier. Emphasized compliance with carvedilol as well as new medication lisinopril and as needed furosemide. 11/03: Systolic blood pressure 144 this morning. Creatinine 1.5. Her flank pain is improved. Has a little bit of abdominal cramping no chest pain or shortness of breath. Feels her swelling is stable she is very insistent that she be prescribed a diuretic. 11/04: Cr 1.7, Hb 8.2, still dropping despite iron supplementation. D/w Nephrology patient had large Hb drop since last hospital stay, needs GI eval. Abdominal pain worse today. Cr 1.4. Seen by GI, will f/u for outpatient endoscopy. Pain and constipation improved. Counseled on fluid restriction 2 L/day and as needed furosemide gained more than 1 pound or has increased shortness of breath. Levothyroxine and carvedilol adjusted new prescription sent to pharmacy for lisinopril for nephrotic range proteinuria. Will have outpatient follow-up with nephrology Problem list: Generalized weakness Acute volume overload Acute on chronic kidney disease, stage III Acute electrolyte derangementhyponatremia, hypochloremia suggestive of volume depletion Moderate protein malnutrition Acute anemia - required blood transfusion History of hypertension History of depression History of anxiety History of hypothyroidism History of uterine tumor status post hysterectomy and chemotherapy in 2019 Greater than 30 minutes spent on d/c home with home health Discharge Information Condition at Discharge: Improved Follow Up: Weeks (1) Disposition/Orders: D/C to Home w/ HH Scheduled Amlodipine Besylate (Amlodipine Besylate) 10 Mg Tablet, 5 MG PO DAILY for HTN for 30 Days, #15 Ref 5 Prescribed by: NAFISA SCHULZ MD on 11/05/20 0801 Aspirin (Aspirin Ec) 81 Mg Tablet.dr, 81 MG PO DAILY for THINNER OF BLOOD, (Reported) Entered as Reported by: Leonor Briseno on 10/14/20 0637 Last Action: Continued on 10/30/20 1520 by MCKENZIE NEGRON MD Carvedilol (Carvedilol ) 12.5 Mg Tablet, 12.5 MG PO BIDWMEALS for CARDIAC for 30 Days, #60 Ref 2 Prescribed by: NAFISA SCHULZ MD on 11/04/20 0816 Escitalopram Oxalate (Escitalopram Oxalate) 10 Mg Tablet, 0.5 TAB PO DAILY for anxiety, #30 Ref 3 (Reported) Entered as Reported by: BILLY BRISCOE on 10/14/201903 Last Action: Converted on 10/30/201519 by MCKENZIE NEGRON MD Ferrous Sulfate (Ferrous Sulfate) 300 Mg/5 Ml Liquid, 300 MG PO DAILYWBKFT for CATARINA for 30 Days, #30 Ref 0 Prescribed by: NAFISA SCHULZ MD on 11/04/20 0817 Levothyroxine Sodium (Levothyroxine Sodium) 100 Mcg Tablet, 1 TAB PO DAILY for Hypothyroidism for 30 Days, #30 Ref 2 Prescribed by: NAFISA SCHULZ MD on 11/05/20 0825 Lisinopril (Lisinopril) 40 Mg Tablet, 40 MG PO DAILY for HTN for 30 Days, #30 Ref 2 Prescribed by: NAFISA SCHULZ MD on 11/04/20 0816 Scheduled PRN Furosemide (Furosemide) 40 Mg Tablet, 1 TAB PO PRN DAILY PRN for Weight gain 3# for 30 Days, #30 Ref 0 Prescribed by: NAFISA SCHULZ MD on 11/04/20 08 Discontinued Medications Amoxicillin/Potassium Clav (Amox Tr-K Clv 500-125 Mg Tab) 1 Each Tablet, 1 TAB PO BID for UTI for 2 Days, #4 Prescribed by: NAFISA SCHULZ MD on 10/19/20 163 Last Action: HELD on 10/30/201519 by MCKENZIE NEGRON MD Carvedilol (Carvedilol ) 6.25 Mg Tablet, 6.25 MG PO BIDWMEALS for HTN for 30 Days, #60 Ref 5 Discontinued Reason: Prescription changed Prescribed by: NAFISA SCHULZ MD on 10/19/201635 Last Action: Continued on 10/30/201519 by MCKENZIE NEGRON MD Levothyroxine Sodium (Synthroid) 88 Mcg Tablet, 1 TAB PO DAILY for SUPPLEMENT, #30 Ref 5 (Reported) Discontinued Reason: Prescription changed Entered as Reported by: Leonor Briseno on 10/14/20 0637 Last Action: Continued on 10/30/201519 by MCKENZIE NEGRON MD Justicifation of Admission Dx: Justifications for Admission: Justification of Admission Dx: N/A NAFISA SCHULZ MD Nov 05, 2020 08:28
[2020-11-05] MEDS: LISINOPRIL 20 MG TABLET PO SCH (09:08)
[2020-11-05] MEDS: ASCORBIC ACID 500 MG TABLET PO SCH (09:08)
[2020-11-05] MEDS: FERROUS SULFATE ORAL 300 MG/5 ML SOLUTION. PO SCH (09:09)
[2020-11-05] MEDS: CARVEDILOL 6.25 MG TABLET. PO SCH (09:09)
--- NOTE | 2020-11-05 10:26 | PDOC ---
DATE OF SERVICE DATE: 11/05/20 TIME: 10:24 SUBJECTIVE ROS stable OBJECTIVE Vital Signs Vital Signs Date Time Temp Pulse Resp B/P (MAP) Pulse Ox O2 Delivery O2 Flow Rate FiO2 11/05/20 09:09 69 151/72 11/05/20 07:38 98.3 18 95 Room Air 98.3 I & 0 Intake and Output 11/05/20 07:00 Intake Total 720 ml Balance 720 ml Intake Oral 720 ml # Voids 1 # Bowel Movements 1 PHYSICAL EXAM Physical Exam General NAD HEEN OM moist Neck Supple Lungs CTA CV S1S2 Abd Soft, NT, Ext No LE edmea. No cyanosis Neuro- Grossly Normal, No focal deficit Psych Hx of depression/Anxiety, currently mood stable No Maguire, no cva or SP tenderness DIAGNOSIS/ASSESSMENT Assessment & Plan CKD stage 3 B - stable renal function , Cr ranging 1.6-1.8 now UA and Renal US unremarkable during recent hospitalization . Low grade Proteinuria, Pr/Cr <500 mg Supportive care, avoid nephrotoxins ELDA - during recent hospitalization, Hx of Contrast, Diuretic use, Uncontrolled HTN . At her last hospitalizations- I had reviewed records from [facility]- creat was normal /eGFR >60 . Noted elevated Cr since July 2020 Edema- history with intermittent Edema , recommend daily weight, BP log . Adjust diuretics accordingly HTN Urgency -Antihypertensives , card was consulted at [facility]. Had extensive park at [facility] as well by cardiology Anemia- Acute drop in Hgb - new this hospitalization . Kand L mildly elevated, Ratio is normal, SPEP no m spike . Tsats low , GI consulted as recommended - will f/u for outpatient endoscopy. History of uterine tumor status post hysterectomy and chemotherapy in 2019 COMMENT/RELEVANT DATA Meds Current Medications Medications (Trade) Dose Ordered Sig/Allison Start Time Stop Time Status Last Admin Dose Admin Acetaminophen (Tylenol) 650 mg PRN Q4HRS PRN 10/30/20 16:00 UNV Ascorbic Acid (Vitamin C) 500 mg DAILYWBKFT 11/03/20 11:00 11/05/20 09:08 500 MG Aspirin (Ecotrin) 81 mg DAILY 10/31/20 09:00 10/31/20 10:51 DC 10/31/20 08:37 81 MG Carvedilol (Coreg) 12.5 mg BIDWMEALS 11/01/20 17:00 11/05/20 09:09 12.5 MG Citalopram Hydrobromide (CeleXA) 10 mg DAILY 10/31/20 09:00 10/31/20 10:51 DC 10/31/20 08:37 10 MG Dextrose (Dextrose 50%-Water Syringe) 12.5 gm PRN Q15MIN PRN 10/30/20 15:15 Docusate Sodium (Colace) 100 mg PRN BID PRN 10/30/20 16:00 11/01/20 08:32 100 MG Ferrous Sulfate (Iron Oral Solution) 300 mg DAILYWBKFT 11/03/20 11:00 11/05/20 09:09 300 MG Furosemide (Lasix) 40 mg 1X ONCE 10/30/20 12:30 10/30/20 12:31 DC 10/30/20 14:47 40 MG Heparin Sodium (Porcine) (Heparin Sodium) 5,000 unit Q12HR 10/30/20 21:00 10/31/20 10:51 DC 10/31/20 08:47 5,000 UNIT Hydralazine HCl (Apresoline Inj) 10 mg PRN Q4HRS PRN 11/04/20 12:00 11/04/20 12:24 10 MG Levofloxacin/ Dextrose 150 ml @ 100 mls/hr 1X ONCE 10/30/20 00:15 10/30/20 01:44 DC 10/30/20 00:47 100 MLS/HR Levothyroxine Sodium (Synthroid) 100 mcg DAILY06 11/03/20 06:00 11/05/20 06:01 100 MCG Lisinopril (Prinivil) 40 mg DAILY 11/01/20 09:00 11/05/20 09:08 40 MG Lorazepam (Ativan) 0.5 mg PRN Q8HRS PRN 11/04/20 12:15 11/04/20 12:24 0.5 MG Magnesium Sulfate 50 ml @ 25 mls/hr PRN DAILY PRN 10/31/20 14:30 Morphine Sulfate (Morphine Sulfate) 2 mg PRN Q2HR PRN 10/30/20 16:00 10/31/20 15:59 DC Ondansetron HCl (Zofran) 4 mg PRN Q6HRS PRN 10/30/20 15:15 Oxycodone/ Acetaminophen (Percocet 5/325) 2 tab PRN Q4HRS PRN 10/30/20 16:00 Piperacillin Sod/ Tazobactam Sod 3.375 gm/Sodium Chloride 50 ml @ 100 mls/hr 1X ONCE 10/30/20 00:30 10/30/20 00:59 DC 10/30/20 00:13 100 MLS/HR Potassium Chloride (Klor-Con) 40 meq 1X ONCE 10/31/20 14:30 10/31/20 14:31 DC 10/31/20 15:42 40 MEQ Sennosides (Senna) 17.2 mg PRN BID PRN 10/30/20 15:15 10/31/20 22:35 17.2 MG Lab Laboratory Tests Test 11/05/20 05:55 11/05/20 06:30 Sodium Level 142 mmol/L (136-145) Potassium Level 4.3 mmol/L (3.5-5.1) Chloride Level 107 mmol/L (98-107) Carbon Dioxide Level 25 mmol/L (21-32) Anion Gap 10 (6-14) Blood Urea Nitrogen 26 mg/dL (7-20) Creatinine 1.4 mg/dL (0.6-1.0) Estimated GFR (Cockcroft-Gault) 37.6 Glucose Level 89 mg/dL (70-99) Calcium Level 8.1 mg/dL (8.5-10.1) Magnesium Level 2.6 mg/dL (1.8-2.4) Stool Occult Blood Negative (NEG) Results All relevant outside records, renal labs, imaging studies, telemetry/EKG's were reviewed. Justicifation of Admission Dx: Justifications for Admission: Justification of Admission Dx: N/A ESTELLA BRADY MD Nov 05, 2020 10:26
[2020-11-05 11:02] VITALS: BP 150/62
--- NOTE | 2020-11-05 12:14 | PDOC ---
Date of Service: DATE: 11/05/20 TIME: 12:11 Subjective: Subjective: Denies pain and bleeding, indicates tolerating diet. present. Objective: Vital Signs: Vital Signs Date Time Temp Pulse Resp B/P (MAP) Pulse Ox O2 Delivery O2 Flow Rate FiO2 11/05/20 11:02 98.1 69 18 150/62 (91) 98 Room Air 98.1 Labs: Laboratory Tests Test 11/05/20 05:55 11/05/20 06:30 Sodium Level 142 mmol/L Potassium Level 4.3 mmol/L Chloride Level 107 mmol/L Carbon Dioxide Level 25 mmol/L Anion Gap 10 Blood Urea Nitrogen 26 mg/dL Creatinine 1.4 mg/dL Estimated GFR (Cockcroft-Gault) 37.6 Glucose Level 89 mg/dL Calcium Level 8.1 mg/dL Magnesium Level 2.6 mg/dL Stool Occult Blood Negative PE: GEN: NAD LUNGS: CTAB HEART: RRR ABD: NABS, S/ND/NT NEURO/PSYCH: A & O 3 A/P: ACD, Hemoccult negative x 2 Hypothyroidism, h/o uterine cancer -- DC per primary. Follow-up for outpt EGD and colonoscopy - our office will call to arrange. Justicifation of Admission Dx: Justifications for Admission: Justification of Admission Dx: N/A DENILSON OATES Nov 05, 2020 12:14
--- NOTE | 2020-11-05 13:48 | NUR ---
Discharge Note: CHRISTIN ESTRADA [facility] Discharge instructions and discharge home medications reviewed with Patient and a copy given. All questions have been answered and understanding verbalized. The following instructions and handouts were given: (BREA Ware interpreting in luxembourgish) follow up instructions, medication education. Discontinued lines and drains: 20 guage right FA, tip intact. patient tolerated well. Patient discharged to home with home health via family.
== END 2020-11-05 13:56 | disposition home health service (06) | DRG 177 ==
LOC: ER 21:47 → ED HOLD 23:54 → 6 SOUTH 10-30 02:48
PROVIDERS: ADMIT Family Medicine; ATTEND Family Medicine
PROC: 30233N1 Transfusion of Nonautologous Red Blood Cells into Peripheral Vein, Percutaneous Approach (ICD-10-PCS; principal; 2020-10-31)
DX: J15.6 Pneumonia due to other Gram-negative bacteria (principal); N17.0 Acute kidney failure with tubular necrosis; E87.1 Hypo-osmolality and hyponatremia; E44.0 Moderate protein-calorie malnutrition; J81.1 Chronic pulmonary edema; E86.9 Volume depletion, unspecified; C55 Malignant neoplasm of uterus, part unspecified; D63.1 Anemia in chronic kidney disease; E03.9 Hypothyroidism, unspecified; E87.5 Hyperkalemia; E87.70 Fluid overload, unspecified; E87.8 Other disorders of electrolyte and fluid balance, not elsewhere classified; F32.9 Major depressive disorder, single episode, unspecified; F41.9 Anxiety disorder, unspecified; I12.9 Hypertensive chronic kidney disease with stage 1 through stage 4 chronic kidney disease, or unspecified chronic kidney disease; I16.0 Hypertensive urgency; K21.9 Gastro-esophageal reflux disease without esophagitis; K57.30 Diverticulosis of large intestine without perforation or abscess without bleeding; K59.00 Constipation, unspecified; K80.20 Calculus of gallbladder without cholecystitis without obstruction; N18.32 Chronic kidney disease, stage 3b; Z85.42 Personal history of malignant neoplasm of other parts of uterus; Z90.710 Acquired absence of both cervix and uterus; Z91.19 Patient's noncompliance with other medical treatment and regimen; Z92.21 Personal history of antineoplastic chemotherapy; Z86.718 Personal history of other venous thrombosis and embolism; Z79.01 Long term (current) use of anticoagulants; Z90.49 Acquired absence of other specified parts of digestive tract; Z98.51 Tubal ligation status; I07.1 Rheumatic tricuspid insufficiency
CPT/HCPCS: 36415; 36430; 71045; 71250; 74176; 80048; 80053; 81001; 82274; 82436; 82570; 82728; 82784; 83520; 83540; 83550; 83605; 83735; 83880; 83930; 83935; 84100; 84133; 84156; 84165; 84166; 84300; 84443; 84484; 84540; 85025; 86334; 86335; 86850; 86870; 86900; 86901; 86922; 87040; 93005; 96365; 96367; J0360; J1644; J1940; J1956; J2543; P9016; 97110-GP; 97116-GP; 97530-GO; 99285-25; G0378

== ENCOUNTER 2020-11-08 22:26 | Inpatient (IN) | payer OTHER ==
[~2020-11-08] VITALS: Ht 154.9 cm; Wt 69.6 kg
[~2020-11-08 22:26] MED LIST changes: +CARV12.511 PO; +FERR300L PO; +FURO40TA4 PO; +LEVO100T5 PO; +LISI-130 PO; -POTA-116 PO; -POTA-121 PO; +POTA20TA4 PO
--- NOTE | 2020-11-08 23:03 | ED.ADGEN ---
Past Medical History Past Medical History: Anxiety, Depression, DVT, Hypertension, Hypothyroid Additional Past Medical Histor: UTERINE TUMOR, LAST CHEMO MAR 2019 Past Surgical History: Hysterectomy, Tubal ligation, Other Smoking Status: Never Smoker Alcohol Use: None Drug Use: None General Adult EDM: Chief Complaint: CHEST PAIN HPI: HPI: Patient is a 65 year old female coming in for chest pain or shortness of breath. Patient was just discharged from the hospital for pneumonia 3 days ago. Patient has her baseline lower extremity edema. On arrival patient is satting in the mid 80s on room air. Patient states she does not use home oxygen. Only takes aspirin at home. Review of Systems: Review of Systems: All other systems within normal limits except for as noted in the HPI Current Medications: Current Medications Medications (Trade) Dose Ordered Sig/Allison Start Time Stop Time Status Last Admin Dose Admin Nitroglycerin (Nitrostat) 0.4 mg PRN Q5MIN PRN 11/08/20 23:15 11/09/20 02:04 0.4 MG Allergies: Allergies: Allergies Coded Allergies Type Severity Reaction Last Updated Verified iodine Allergy Severe 10/15/20 Yes folic acid Allergy Mild 10/14/20 Yes vitamin B complex and C Allergy Mild 10/14/20 Yes Physical Exam: PE: Constitutional: Well developed, well nourished, no acute distress, non-toxic appearance. [] HENT: Normocephalic, atraumatic, bilateral external ears normal, nose normal. [] Eyes: PERRLA, conjunctiva normal, no discharge. [] Neck: No rigidity, supple, no stridor. [] Cardiovascular: Regular rate and rhythm, brisk cap refill [] Lungs & Thorax: Non labored symmetric respirations, no tachypnea or respiratory distress. Bilateral basilar crackles Abdomen: Soft, nondistended. Skin: Warm, dry, no erythema, no rash. [] Back: Unremarkable Extremities: No deformities, range of motion grossly intact, trace bilateral lower extremity edema [] Neurologic: Alert and oriented X 3, no focal deficits noted. [] Psychologic: Affect normal, judgement normal, mood normal. [] Current Patient Data: Labs: Laboratory Tests Test 11/08/20 22:40 White Blood Count 8.1 x10^3/uL (4.0-11.0) Red Blood Count 3.17 x10^6/uL (3.50-5.40) L Hemoglobin 10.0 g/dL (12.0-15.5) L Hematocrit 30.2 % (36.0-47.0) L Mean Corpuscular Volume 95 fL (79-100) Mean Corpuscular Hemoglobin 31 pg (25-35) Mean Corpuscular Hemoglobin Concent 33 g/dL (31-37) Red Cell Distribution Width 17.8 % (11.5-14.5) H Platelet Count 183 x10^3/uL (140-400) Neutrophils (%) (Auto) 69 % (31-73) Lymphocytes (%) (Auto) 17 % (24-48) L Monocytes (%) (Auto) 9 % (0-9) Eosinophils (%) (Auto) 5 % (0-3) H Basophils (%) (Auto) 1 % (0-3) Neutrophils # (Auto) 5.6 x10^3/uL (1.8-7.7) Lymphocytes # (Auto) 1.4 x10^3/uL (1.0-4.8) Monocytes # (Auto) 0.7 x10^3/uL (0.0-1.1) Eosinophils # (Auto) 0.4 x10^3/uL (0.0-0.7) Basophils # (Auto) 0.1 x10^3/uL (0.0-0.2) Sodium Level 141 mmol/L (136-145) Potassium Level 4.9 mmol/L (3.5-5.1) Chloride Level 106 mmol/L (98-107) Carbon Dioxide Level 23 mmol/L (21-32) Anion Gap 12 (6-14) Blood Urea Nitrogen 30 mg/dL (7-20) H Creatinine 1.6 mg/dL (0.6-1.0) H Estimated GFR (Cockcroft-Gault) 32.2 BUN/Creatinine Ratio 19 (6-20) Glucose Level 114 mg/dL (70-99) H Lactic Acid Level 1.6 mmol/L (0.4-2.0) Calcium Level 8.7 mg/dL (8.5-10.1) Phosphorus Level 4.4 mg/dL (2.6-4.7) Magnesium Level 2.3 mg/dL (1.8-2.4) Total Bilirubin 0.4 mg/dL (0.2-1.0) Aspartate Amino Transferase (AST) 51 U/L (15-37) H Alanine Aminotransferase (ALT) 53 U/L (14-59) Alkaline Phosphatase 69 U/L (46-116) Troponin I Quantitative < 0.017 ng/mL (0.000-0.055) UY-Ytl-L-Type Natriuretic Peptide 2297 pg/mL (0-124) H Total Protein 6.9 g/dL (6.4-8.2) Albumin 3.2 g/dL (3.4-5.0) L Albumin/Globulin Ratio 0.9 (1.0-1.7) L Laboratory Tests 11/08/20 22:40 Laboratory Tests 11/08/20 22:40 Vital Signs: Vital Signs Date Time Temp Pulse Resp B/P (MAP) Pulse Ox O2 Delivery O2 Flow Rate FiO2 11/09/20 00:26 68 20 164/79 (107) 100 NonRebreather Mask 10.0 11/08/20 22:50 98.2 98.2 EKG: EKG: Sinus rhythm, heart rate 84 bpm, left axis deviation no ST elevation or depression, no significant change when compared to 10-29-20 [] Heart Score: C/O Chest Pain: Yes HEART Score for Chest Pain: HEART Score for Chest Pain Response (Comments) Value History Moderately Suspicious 1 ECG Nonspecific Repolarizatio 1 Age >45 - < 65 1 Risk Factors 1 or 2 Risk Factors 1 Troponin < Normal Limit 0 Total 4 Risk Factors: Risk Factors: DM, Current or recent (<one month) smoker, HTN, HLP, family history of CAD, obesity. Risk Scores: Score 0 - 3: 2.5% MACE over next 6 weeks - Discharge Home Score 4 - 6: 20.3% MACE over next 6 weeks - Admit for Clinical Observation Score 7 - 10: 72.7% MACE over next 6 weeks - Early Invasive Strategies Radiology/Procedures: Radiology/Procedures: [facility] [address] [place] [address] IMAGING REPORT Signed PATIENT: GUILLERMINA ESTRADACOUNT: [id number] : 1955 LOCATION: ER AGE: 65 SEX: F EXAM STATUS: REG ER ORD. PHYSICIAN: JESSIE PINON MD REASON: hypoxic PROCEDURE: CHEST AP ONLY INDICATION: Reason: hypoxic / Spl. Instructions: / History: COMPARISON: October 29, 2020 FINDINGS: Single view of chest obtained. Enlarged cardiomediastinal silhouette. Device projecting of the left upper chest. Multifocal opacities throughout bilateral lungs increased. IMPRESSION: * Focal opacities bilaterally appears increased from prior could be from pulmonary edema or infiltrate. Electronically signed by: Ronny Shin MD (11/08/2020 11:27 PM) DESKTOP- [id number] DICTATED and SIGNED BY: RONNY SHIN MD DATE: 11/08/20 [id number] [] Course & Med Decision Making: Course & Med Decision Making Pertinent Labs and Imaging studies reviewed. (See chart for details) [] Dragon Disclaimer: Dragon Disclaimer: This electronic medical record was generated, in whole or in part, using a voice recognition dictation system. Departure Departure Impression: Primary Impression: CHF (congestive heart failure) Additional Impression: Hypoxia Disposition: ADMITTED INPATIENT Admitting Physician: PIYUSH Condition: STABLE Referrals: SIDNEY STEELE APRN (PCP) Problem Qualifiers JESSIE PINON MD Nov 08, 2020 23:03
[2020-11-08 23:15] LABS: BASO # 0.1 x10^3/uL (0.0-0.2); BASO % 1 % (0-3); EOS # 0.4 x10^3/uL (0.0-0.7); EOS % 5 % (0-3); HEMATOCRIT 30.2 % (36.0-47.0); LYMPH # 1.4 x10^3/uL (1.0-4.8); LYMPH % 17 % (24-48); MEAN CORPUSCULAR HEMOGLOBIN 31 pg (25-35); MEAN CORPUSCULAR HGB CONC 33 g/dL (31-37); MEAN CORPUSCULAR VOLUME 95 fL (79-100); MONO # 0.7 x10^3/uL (0.0-1.1); MONO % 9 % (0-9); NEUT # 5.6 x10^3/uL (1.8-7.7); NEUT % 69 % (31-73); PLATELET COUNT 183 x10^3/uL (140-400); RED BLOOD COUNT 3.17 x10^6/uL (3.50-5.40); RED CELL DISTRIBUTION WIDTH 17.8 % (11.5-14.5); WHITE BLOOD COUNT 8.1 x10^3/uL (4.0-11.0)
[2020-11-08] MEDS: NITROGLYCERIN SUBLINGUAL 0.4 MG BOTTLE OF 25. SL PRN (23:22)
[2020-11-08 23:24] LABS: CALCIUM 8.7 mg/dL (8.5-10.1); CREATININE 1.6 mg/dL (0.6-1.0); GFR 32.2; POTASSIUM 4.9 mmol/L (3.5-5.1)
[2020-11-08 23:30] LABS: ALBUMIN 3.2 g/dL (3.4-5.0); ALBUMIN/GLOBULIN RATIO 0.9 (1.0-1.7); MAGNESIUM 2.3 mg/dL (1.8-2.4); PHOSPHORUS 4.4 mg/dL (2.6-4.7); TOTAL BILIRUBIN 0.4 mg/dL (0.2-1.0); TOTAL PROTEIN 6.9 g/dL (6.4-8.2)
--- NOTE | 2020-11-08 23:30 | RAD ---
INDICATION: Reason: hypoxic / Spl. Instructions: / History: COMPARISON: October 29, 2020 FINDINGS: Single view of chest obtained. Enlarged cardiomediastinal silhouette. Device projecting of the left upper chest. Multifocal opacitie s throughout bilateral lungs increased. IMPRESSION: * Focal opacities bilaterally appears increased from prior could be from pulmonary edema or infiltra te. Electronically signed by: Bernabe Hunt MD (11/08/2020 11:27 PM) DESKTOP-[id number]
[2020-11-09] MEDS ORDERED: ONDANSETRON PF 4 MG/2 ML VIAL. IV PRN ×2 (01:00→11:45)
[2020-11-09] MEDS ORDERED: FUROSEMIDE 40 MG TABLET. PO ONE (01:00)
[2020-11-09] MEDS ORDERED: ACETAMINOPHEN 325 MG TABLET. PO PRN ×2 (01:00→11:45)
[2020-11-09] MEDS ORDERED: NITROGLYCERIN SUBLINGUAL 0.4 MG BOTTLE OF 25. SL PRN (01:00)
[2020-11-09] MEDS ORDERED: fentaNYL PF VIAL 100 MCG/2 ML VIAL IV PRN (01:00)
[2020-11-09] MEDS ORDERED: hydrALAZINE 20 MG/ML VIAL. IVP PRN ×2 (02:00→12:00)
[2020-11-09] MEDS: NITROGLYCERIN SUBLINGUAL 0.4 MG BOTTLE OF 25. SL PRN (02:04)
[2020-11-09] MEDS ORDERED: FUROSEMIDE 40 MG/4 ML VIAL. IVP ONE ×2 (02:15→12:30)
[2020-11-09 02:25] VITALS: BP 174/83
[2020-11-09 06:25] VITALS: BP 175/80
[2020-11-09] MEDS: IPRATRPIUM/ALBUTEROL 0.5/2.5MG 3 ML NEBU. NEB SCH ×4 (07:52→20:27)
--- NOTE | 2020-11-09 08:33 | PDOC1 ---
History and Physical Date of Admission Date of Admission DATE: 11/09/20 TIME: 08:32 Identification/Chief Complaint Chief Complaint SHORTNESS OF BREATH, CHEST PAIN seen with blue councilman phone History of Present Illness History of Present Illness Ms Chirinos is a 65-year-old female with past medical history of hypertension, depression, anxiety, DVT, uterine CA, and recently diagnosed CKD who presented to the ED with soa 65 year old female seen in ER for chest pain or shortness of breath. Patient was just discharged from the hospital for pneumonia 3 days ago. / baseline lower extremity edema. Baseline Cr unknown to the family, but has been elevated tween 1.5-1.7 since July 2020. had a creatinine between 1 and 1.1 as Nephrology [facility] and notes from prior Emphasized compliance with carvedilol as well as new medication lisinopril and as needed furosemide. Iron studies c/w ACD; no way to know if truly iron-deficient w/o bone marrow. needs lea-endoscopy; outpatient setting. Inadequate thyroid supplementation may contribute. Acute respiratory failure in setting of CHF /Acute diastolic CHF; Echo 10/19 with preserved LV systolic function. Most probably secondary to uncontrolled HTN //HTN urgency Past Medical History Past Medical History Past Medical History Past Medical History Past Medical History: Anxiety, Depression, DVT, Hypertension, Hypothyroid Additional Past Medical Histor: UTERINE TUMOR, LAST CHEMO MAR 2019 Past Surgical History: Hysterectomy, Tubal ligation, Other Smoking Status: Never Smoker Alcohol Use: None Drug Use: None Echo 10/14/2020: The left ventricle is normal size. The left ventricular systolic function is normal and the ejection fraction is within normal range. The Ejection Fraction is 60-65%. There is borderline concentric left ventricular hypertrophy. Doppler and Color Flow revealed trace aortic regurgitation. There is no significant aortic valvular stenosis. Doppler and Color Flow revealed no mitral valve regurgitation noted. Doppler and Color Flow revealed trace to mild tricuspid regurgitation with an estimated PAP of 39 mmHg. On discharge previously her BP was better controlled on amlodipine and carvedilol. As she was on chlorthalidone and transition to spironolactone but was admitted with hyperkalemia recommended to hold those diuretics and follow-up with nephrology with addition of furosemide as needed for weight gain. She did continue to take chlorthalidone at home, though, admitted for hyponatremia and shortness of breath, abdominal discomfort. 10/30: IV lasix given with improvement in swelling, shortness of breath and creatinine 10/31: BP improved. Transfused 1u PRBC 11/01: 24 urine protein 437 mg, started on lisinopril. Initial fecal occult negative. 11/02: BP better controlled. She is feeling little better. Despite instruction to discontinue chlorthalidone on previous hospitalization and she had restarted it because she was swollen. Using councilman it is clear that she and her feel like this is partially due to the language barrier. Emphasized compliance with carvedilol as well as new medication lisinopril and as needed furosemide. 11/03: Systolic blood pressure 144 this morning. Creatinine 1.5. Her flank pain is improved. Has a little bit of abdominal cramping no chest pain or shortness of breath. Feels her swelling is stable she is very insistent that she be prescribed a diuretic. 11/04: Cr 1.7, Hb 8.2, still dropping despite iron supplementation. D/w Nephrology patient had large Hb drop since last hospital stay, needs GI eval. Abdominal pain worse today. FHX HTN Cardiovascular: HTN Pulmonary: No pertinent hx CENTRAL NERVOUS SYSTEM: Other Heme/Onc: Cancer, Other Psych: Anxiety, Depression Renal/: Chronic renal insuff Endocrine: Hypothyroidism Past Surgical History Past Surgical History: Tubal Ligation, Hysterectomy Family History Family History: Hypertension Social History Smoke: No ALCOHOL: none Drugs: None Current Medications Current Medications Current Medications Nitroglycerin (Nitrostat) 0.4 mg PRN Q5MIN PRN SL CHEST PAIN Last administered on 11/09/20at 02:04; Start 11/08/20 at 23:15 Furosemide (Lasix) 40 mg 1X ONCE PO ; Start 11/09/20 at 01:00; Stop 11/09/20 at 01:01; Status Cancel Ondansetron HCl (Zofran) 4 mg PRN Q8HRS PRN IV NAUSEA/VOMITING; Start 11/09/20 at 01:00; Stop 11/10/20 at 00:59 Fentanyl Citrate (Fentanyl 2ml Vial) 50 mcg PRN Q1HR PRN IV PAIN; Start 11/09/20 at 01:00; Stop 11/10/20 at 00:59 Acetaminophen (Tylenol) 650 mg PRN Q4HRS PRN PO FEVER > 100.3'F; Start 11/09/20 at 01:00; Stop 11/10/20 at 00:59 Nitroglycerin (Nitrostat) 0.4 mg PRN Q5MIN PRN SL CHEST PAIN; Start 11/09/20 at 01:00; Stop 11/10/20 at 00:59 Albuterol/ Ipratropium (Duoneb) 3 ml RTQID NEB Last administered on 11/09/20at 07:52; Start 11/09/20 at 08:00; Stop 11/10/20 at 07:59 Hydralazine HCl (Apresoline Inj) 5 mg PRN Q6HRS PRN IVP ELEVATED BP, SEE COMMENTS; Start 11/09/20 at 02:00 Furosemide (Lasix) 40 mg 1X ONCE IVP Last administered on 11/09/20at 02:19; Start 11/09/20 at 02:15; Stop 11/09/20 at 02:16; Status DC Active Scripts Active Levothyroxine Sodium 100 Mcg Tablet 1 Tab PO DAILY 30 Days Amlodipine Besylate 10 Mg Tablet 5 Mg PO DAILY 30 Days Ferrous Sulfate 300 Mg/5 Ml Liquid 300 Mg PO [id number] 30 Days Furosemide 40 Mg Tablet 1 Tab PO PRN DAILY PRN 30 Days Lisinopril 40 Mg Tablet 40 Mg PO DAILY 30 Days Carvedilol (Carvedilol) 12.5 Mg Tablet 12.5 Mg PO BIDWMEALS 30 Days Reported Escitalopram Oxalate 10 Mg Tablet 0.5 Tab PO DAILY Aspirin Ec (Aspirin) 81 Mg Tablet.dr 81 Mg PO DAILY Allergies Allergies: Coded Allergies: iodine (Verified Allergy, Severe, 10/15/20) folic acid (Verified Allergy, Mild, 10/14/20) "COMPLEX B" vitamin B complex and C (Verified Allergy, Mild, 10/14/20) "COMPLEX B" ROS General: YES: Fatigue PSYCHOLOGICAL ROS: YES: Anxiety; No: Behavioral Disorder, Concentration difficultie, Decreased libido, Depression, Disorientation, Hallucinations, Hostility, Irritablity, Memory difficulties, Mood Swings, Obsessive thoughts, Physical abuse, Sexual abuse, Sleep disturbances, Suicidal ideation, Other Eyes: No Blurry vision, No Decreased vision, No Double vision, No Dry eyes, No Excessive tearing, No Eye Pain, No Itchy Eyes, No Loss of vision, No Photophobia, No Scotomata, No Uses contacts, No Uses glasses, No Other HEENT: No: Heacaches, Visual Changes, Hearing change, Nasal congestion, Nasal discharge, Oral lesions, Sinus pain, Sore Throat, Epistaxis, Sneezing, Snoring, Tinnitus, Vertigo, Vocal changes, Other ALLERGY AND IMMUNOLOGY: YES: Hives Hematological and Lymphatic: No: Bleeding Problems, Blood Clots, Blood Transfusions, Brusing, Night Sweats, Pallor, Swollen Lymph Nodes, Other ENDOCRINE: No: Breast Changes, Galactorrhea, Hair Pattern Changes, Hot Flashes, Malaise/lethargy, Mood Swings, Palpitations, Polydipsia/polyuria, Skin Changes, Temperature Intolerance, Unexpected Weight Changes, Other Breast: No New/Changing Breast Lumps, No Nipple changes, No Nipple discharge, No Other Respiratory: YES: Shortness of breath Cardiovascular: yes Chest Pain; No Palpitations, No Orthopnea, No Paroxysmal Noc. Dyspnea, No Edema, No Lt Headedness, No Other Gastrointestinal: No Nausea, No Vomiting, No Abdominal Pain, No Diarrhea, No Constipation, No Melena, No Hematochezia, No Other Genitourinary: No Dysuria, No Frequency, No Incontinence, No Hematuria, No Retention, No Discharge, No Urgency, No Pain, No Flank Pain, No Other, No , No , No , No , No , No , No Musculoskeletal: Yes Joint Stiffness; No Gait Disturbance, No Joint Pain, No Joint Swelling, No Muscle Pain, No Muscular Weakness, No Pain In:, No Swelling In:, No Other Neurological: No Behavorial Changes, No Bowel/Bladder ControlChng, No Confusion, No Dizziness, No Gait Disturbance, No Headaches, No Impaired Coord/balance, No Memory Loss, No Numbness/Tingling, No Seizures, No Speech Problems, No Tremors, No Visual Changes, No Weakness, No Other Skin: Yes Dry Skin; No Eczema, No Hair Changes, No Lumps, No Mole Changes, No Mottling, No Nail Changes, No Pruritus, No Rash, No Skin Lesion Changes, No Other, No Acne Physical Exam General: Alert, Oriented X3, Cooperative, No acute distress HEENT: PERRLA, EOMI, Mucous membr. moist/pink Lungs: Normal air movement, Other (few crackles) Heart: RRR Breasts: Not examined Abdomen: Normal bowel sounds, Soft Rectal Exam: not examined PELVIC: Examination not indicated Extremities: No cyanosis Neuro: Normal speech, Cranial nerves 3-12 NL Psych/Mental Status: Mental status NL, Mood NL Vitals Vitals Vital Signs Date Time Temp Pulse Resp B/P (MAP) Pulse Ox O2 Delivery O2 Flow Rate FiO2 11/09/20 07:54 100 NonRebreather Mask 15.0 11/09/20 06:25 97.9 66 18 175/80 (111) 97.9 Labs Labs Laboratory Tests Test 11/08/20 22:40 11/09/20 03:40 White Blood Count 8.1 x10^3/uL (4.0-11.0) Red Blood Count 3.17 x10^6/uL (3.50-5.40) Hemoglobin 10.0 g/dL (12.0-15.5) Hematocrit 30.2 % (36.0-47.0) Mean Corpuscular Volume 95 fL (79-100) Mean Corpuscular Hemoglobin 31 pg (25-35) Mean Corpuscular Hemoglobin Concent 33 g/dL (31-37) Red Cell Distribution Width 17.8 % (11.5-14.5) Platelet Count 183 x10^3/uL (140-400) Neutrophils (%) (Auto) 69 % (31-73) Lymphocytes (%) (Auto) 17 % (24-48) Monocytes (%) (Auto) 9 % (0-9) Eosinophils (%) (Auto) 5 % (0-3) Basophils (%) (Auto) 1 % (0-3) Neutrophils # (Auto) 5.6 x10^3/uL (1.8-7.7) Lymphocytes # (Auto) 1.4 x10^3/uL (1.0-4.8) Monocytes # (Auto) 0.7 x10^3/uL (0.0-1.1) Eosinophils # (Auto) 0.4 x10^3/uL (0.0-0.7) Basophils # (Auto) 0.1 x10^3/uL (0.0-0.2) Sodium Level 141 mmol/L (136-145) Potassium Level 4.9 mmol/L (3.5-5.1) Chloride Level 106 mmol/L (98-107) Carbon Dioxide Level 23 mmol/L (21-32) Anion Gap 12 (6-14) Blood Urea Nitrogen 30 mg/dL (7-20) Creatinine 1.6 mg/dL (0.6-1.0) Estimated GFR (Cockcroft-Gault) 32.2 BUN/Creatinine Ratio 19 (6-20) Glucose Level 114 mg/dL (70-99) Lactic Acid Level 1.6 mmol/L (0.4-2.0) Calcium Level 8.7 mg/dL (8.5-10.1) Phosphorus Level 4.4 mg/dL (2.6-4.7) Magnesium Level 2.3 mg/dL (1.8-2.4) Total Bilirubin 0.4 mg/dL (0.2-1.0) Aspartate Amino Transf (AST/SGOT) 51 U/L (15-37) Alanine Aminotransferase (ALT/SGPT) 53 U/L (14-59) Alkaline Phosphatase 69 U/L (46-116) Troponin I Quantitative < 0.017 ng/mL (0.000-0.055) < 0.017 ng/mL (0.000-0.055) ON-Ukp-F-Type Natriuretic Peptide 2297 pg/mL (0-124) Total Protein 6.9 g/dL (6.4-8.2) Albumin 3.2 g/dL (3.4-5.0) Albumin/Globulin Ratio 0.9 (1.0-1.7) Laboratory Tests Test 11/08/20 22:40 11/09/20 03:40 White Blood Count 8.1 x10^3/uL (4.0-11.0) Red Blood Count 3.17 x10^6/uL (3.50-5.40) Hemoglobin 10.0 g/dL (12.0-15.5) Hematocrit 30.2 % (36.0-47.0) Mean Corpuscular Volume 95 fL (79-100) Mean Corpuscular Hemoglobin 31 pg (25-35) Mean Corpuscular Hemoglobin Concent 33 g/dL (31-37) Red Cell Distribution Width 17.8 % (11.5-14.5) Platelet Count 183 x10^3/uL (140-400) Neutrophils (%) (Auto) 69 % (31-73) Lymphocytes (%) (Auto) 17 % (24-48) Monocytes (%) (Auto) 9 % (0-9) Eosinophils (%) (Auto) 5 % (0-3) Basophils (%) (Auto) 1 % (0-3) Neutrophils # (Auto) 5.6 x10^3/uL (1.8-7.7) Lymphocytes # (Auto) 1.4 x10^3/uL (1.0-4.8) Monocytes # (Auto) 0.7 x10^3/uL (0.0-1.1) Eosinophils # (Auto) 0.4 x10^3/uL (0.0-0.7) Basophils # (Auto) 0.1 x10^3/uL (0.0-0.2) Sodium Level 141 mmol/L (136-145) Potassium Level 4.9 mmol/L (3.5-5.1) Chloride Level 106 mmol/L (98-107) Carbon Dioxide Level 23 mmol/L (21-32) Anion Gap 12 (6-14) Blood Urea Nitrogen 30 mg/dL (7-20) Creatinine 1.6 mg/dL (0.6-1.0) Estimated GFR (Cockcroft-Gault) 32.2 BUN/Creatinine Ratio 19 (6-20) Glucose Level 114 mg/dL (70-99) Lactic Acid Level 1.6 mmol/L (0.4-2.0) Calcium Level 8.7 mg/dL (8.5-10.1) Phosphorus Level 4.4 mg/dL (2.6-4.7) Magnesium Level 2.3 mg/dL (1.8-2.4) Total Bilirubin 0.4 mg/dL (0.2-1.0) Aspartate Amino Transf (AST/SGOT) 51 U/L (15-37) Alanine Aminotransferase (ALT/SGPT) 53 U/L (14-59) Alkaline Phosphatase 69 U/L (46-116) Troponin I Quantitative < 0.017 ng/mL (0.000-0.055) < 0.017 ng/mL (0.000-0.055) FG-Red-L-Type Natriuretic Peptide 2297 pg/mL (0-124) Total Protein 6.9 g/dL (6.4-8.2) Albumin 3.2 g/dL (3.4-5.0) Albumin/Globulin Ratio 0.9 (1.0-1.7) Images Images CHEST: Thyroid gland and thoracic inlet: Normal. Heart and great vessels: The heart is normal in size. There is a small pericardial effusion. Thoracic aorta is normal in caliber. Mediastinum and aurelio: There are small mediastinal lymph nodes, nonspecific. There is a 1.2 cm short axis right paratracheal lymph node. 1.2 cm short axis precarinal lymph node. Lungs and pleura: There are small pleural effusions and adjacent confluent opacities, likely atelectasis. Mild interlobular septal thickening in the lung bases. Chest wall and axillae: There is a tubular hyperdense structure in the subcutaneous soft tissue just deep to the skin in the upper medial right chest wall measuring approximately 7 cm in length (image 2-13, series 2). A rectangular electronic device projects over the left chest wall. Bones: No acute osseous abnormality in the chest. ABDOMEN AND PELVIS: Liver: Liver is mildly enlarged measuring 19.6 cm craniocaudally. Limited evaluation for liver lesions on noncontrast exam. Gallbladder/Biliary Tree: Cholelithiasis. There is possible gallbladder wall thickening. The gallbladder is nondistended. Bile ducts are unremarkable. Pancreas: Normal. Spleen: Normal. Adrenal Glands: Normal. Kidneys/Ureters/Bladder: Kidneys are normal in size and symmetrically. No hydronephrosis or nephrolithiasis. Ureters and bladder are unremarkable. Reproductive Organs: Uterus is surgically absent. No adnexal mass. Stomach, small bowel, and colon: Stomach is normal. No small bowel obstruction. The appendix is normal. There is sigmoid diverticulosis. No acute diverticulitis. Vasculature: No aortic aneurysm. Mild calcified aortoiliac atherosclerosis. Lymph Nodes: No lymphadenopathy. Peritoneum and retroperitoneum: Trace ascites in the pelvis and paracolic gutters. No free air. Bones: No acute osseous abnormality. There is severe osteoarthrosis of the right hip. Other: Mild subcutaneous edema in the pelvis. IMPRESSION: 1. Small pleural effusions and mild bibasilar opacities with interlobular septal thickening, likely reflecting pulmonary edema. Pneumonia less likely. 2. Small pericardial effusion. 3. Cholelithiasis with possible gallbladder wall, nonspecific. Recommend quadrant ultrasound could be obtained to further evaluate if indicated. 4. Mild hepatomegaly. 5. Sigmoid diverticulosis. 6. Trace ascites. Mild body wall edema. 7. Tubular hyperdense structure in the subcutaneous medial upper right chest wall just deep to the skin, indeterminate. Correlate for retained foreign body. Electronically signed by: Keisha Sharma MD (11/01/2020 8:37 AM) [id number] INDICATION: Reason: hypoxic / Spl. Instructions: / History: COMPARISON: October 29, 2020 FINDINGS: Single view of chest obtained. Enlarged cardiomediastinal silhouette. Device projecting of the left upper chest. Multifocal opacities throughout bilateral lungs increased. IMPRESSION: * Focal opacities bilaterally appears increased from prior could be from pulmonary edema or infiltrate. Electronically signed by: Ronny Shin MD (11/08/2020 11:27 PM) DESKTOP- [id number] DICTATED and SIGNED BY: RONNY SHIN MD DATE: 11/08/20 [id number] VTE Prophylaxis Ordered VTE Prophylaxis Devices: No VTE Pharmacological Prophylaxi: Yes Assessment/Plan Assessment/Plan impression Chest pain Dyspnea Generalized weakness Acute volume overload Acute respiratory failure in setting of CHF Acute diastolic CHF; Echo 10/19 with preserved LV systolic function. Most probably secondary to uncontrolled HTN HTN urgency Acute on chronic kidney disease, stage III Moderate protein malnutrition Acute anemia - required recent blood transfusion History of hypertension depression anxiety hypothyroidism History of uterine tumor status post hysterectomy and chemotherapy in 2018 plan admit CVC BED Consult cardiology trend troponin i careful diuresis d/c norvasc or lower dose to 5 mg dvt prophylaxis 74 min pt exam, chart review, > 50% of time spent with exam, chart review, pt care coordination Justifications for Admission Other Justification LAKIA ABEL MD Nov 09, 2020 08:33
[2020-11-09] MEDS ORDERED: FUROSEMIDE 40 MG TABLET. PO PRN (10:15)
[2020-11-09] MEDS: ASPIRIN ENTERIC COATED 81 MG TABLET.DR. PO SCH (11:06)
[2020-11-09] MEDS: LEVOTHYROXINE 100 MCG TABLET PO SCH (11:06)
[2020-11-09] MEDS: CARVEDILOL 12.5 MG TABLET. PO SCH ×2 (11:08→18:12)
[2020-11-09] MEDS: CITALOPRAM 10 MG TABLET. PO SCH (11:08)
[2020-11-09] MEDS: LISINOPRIL 20 MG TABLET PO SCH (11:13)
--- NOTE | 2020-11-09 11:22 | PDOC2 ---
LI DANGELO SLIPCOVER CUTTER 11/09/20 1122: CARDIAC CONSULT DATE OF CONSULT Date of Consult DATE: 11/09/20 TIME: 11:11 REASON FOR CONSULT Reason for Consult: CHF REFERRING PHYSICIAN Referring Physician: Dr. Flores SOURCE Source: Chart review, Patient HISTORY OF PRESENT ILLNESS HISTORY OF PRESENT ILLNESS This is a 65 yo female who presented secondary to shortness of breath. Patient reports she has been short of breath for the last week or so. Associated with LE edema. No chest pain, palpitations, dizziness, diaphoresis, or SOA. Blood pressure significantly elevated upon arrival. Reports compliance with medicati ons. PAST MEDICAL HISTORY Past Medical History Cardiovascular: HTN, CHF Pulmonary: No pertinent hx CENTRAL NERVOUS SYSTEM: Other (No pertinent history) Heme/Onc: Cancer (uterine), Other (DVT) Psych: Anxiety, Depression Musculoskeletal: Osteoarthritis ENT: No pertinent hx Renal/: Chronic renal insuff (?) Endocrine: Hypothyroidism Dermatology: No pertinent hx PAST SURGICAL HISTORY Past Surgical History Tubal Ligation, Hysterectomy FAMILY HISTORY Family History noncontributory SOCIAL HISTORY Social History Smoke: No ALCOHOL: none Drugs: None Lives: with Family CURRENT MEDICATIONS CURRENT MEDICATIONS Current Medications Medications (Trade) Dose Ordered Sig/Allison Route PRN Reason Start Time Stop Time Status Last Admin Dose Admin Nitroglycerin (Nitrostat) 0.4 mg PRN Q5MIN PRN SL CHEST PAIN 11/08/20 23:15 11/09/20 02:04 Albuterol/ Ipratropium (Duoneb) 3 ml RTQID NEB 11/09/20 08:00 11/10/20 07:59 11/09/20 07:52 Furosemide (Lasix) 40 mg 1X ONCE IVP 11/09/20 02:15 11/09/20 02:16 DC 11/09/20 02:19 ALLERGIES ALLERGIES: Coded Allergies: iodine (Verified Allergy, Severe, 10/15/20) folic acid (Verified Allergy, Mild, 10/14/20) "COMPLEX B" vitamin B complex and C (Verified Allergy, Mild, 10/14/20) "COMPLEX B" ROS Review of System 14 point ROS conducted with pertinent positives noted above in HPI PHYSICAL EXAM PHYSICAL EXAM General: Alert, Oriented X3, Cooperative, No acute distress HEENT: Atraumatic, Mucous membr. moist/pink Lungs: crackles Heart: Regular rate, Normal S1, Normal S2 Abdomen: Soft, No tenderness Extremities: No cyanosis, 1-2+ bilateral LE edema Skin: No breakdown, No significant lesion Neuro: Normal speech, Sensation intact Psych/Mental Status: Mental status NL, Mood NL MUSCULOSKELETAL: Osteoarthritic changes both hands VITALS/I&O VITALS/I&O: Vital Signs Date Time Temp Pulse Resp B/P (MAP) Pulse Ox O2 Delivery O2 Flow Rate FiO2 11/09/20 08:00 Nasal Cannula 3.0 11/09/20 07:54 100 11/09/20 06:25 97.9 66 18 175/80 (111) 97.9 I & O 11/08/20 11/08/20 11/09/20 15:00 23:00 07:00 Intake Total 0 ml Output Total 1600 ml Balance -1600 ml LABS Lab: Laboratory Tests Test 11/08/20 22:40 11/09/20 03:40 White Blood Count 8.1 x10^3/uL (4.0-11.0) Red Blood Count 3.17 x10^6/uL (3.50-5.40) L Hemoglobin 10.0 g/dL (12.0-15.5) L Hematocrit 30.2 % (36.0-47.0) L Mean Corpuscular Volume 95 fL (79-100) Mean Corpuscular Hemoglobin 31 pg (25-35) Mean Corpuscular Hemoglobin Concent 33 g/dL (31-37) Red Cell Distribution Width 17.8 % (11.5-14.5) H Platelet Count 183 x10^3/uL (140-400) Neutrophils (%) (Auto) 69 % (31-73) Lymphocytes (%) (Auto) 17 % (24-48) L Monocytes (%) (Auto) 9 % (0-9) Eosinophils (%) (Auto) 5 % (0-3) H Basophils (%) (Auto) 1 % (0-3) Neutrophils # (Auto) 5.6 x10^3/uL (1.8-7.7) Lymphocytes # (Auto) 1.4 x10^3/uL (1.0-4.8) Monocytes # (Auto) 0.7 x10^3/uL (0.0-1.1) Eosinophils # (Auto) 0.4 x10^3/uL (0.0-0.7) Basophils # (Auto) 0.1 x10^3/uL (0.0-0.2) Sodium Level 141 mmol/L (136-145) Potassium Level 4.9 mmol/L (3.5-5.1) Chloride Level 106 mmol/L (98-107) Carbon Dioxide Level 23 mmol/L (21-32) Anion Gap 12 (6-14) Blood Urea Nitrogen 30 mg/dL (7-20) H Creatinine 1.6 mg/dL (0.6-1.0) H Estimated GFR (Cockcroft-Gault) 32.2 BUN/Creatinine Ratio 19 (6-20) Glucose Level 114 mg/dL (70-99) H Lactic Acid Level 1.6 mmol/L (0.4-2.0) Calcium Level 8.7 mg/dL (8.5-10.1) Phosphorus Level 4.4 mg/dL (2.6-4.7) Magnesium Level 2.3 mg/dL (1.8-2.4) Total Bilirubin 0.4 mg/dL (0.2-1.0) Aspartate Amino Transferase (AST) 51 U/L (15-37) H Alanine Aminotransferase (ALT) 53 U/L (14-59) Alkaline Phosphatase 69 U/L (46-116) Troponin I Quantitative < 0.017 ng/mL (0.000-0.055) < 0.017 ng/mL (0.000-0.055) MB-Osa-K-Type Natriuretic Peptide 2297 pg/mL (0-124) H Total Protein 6.9 g/dL (6.4-8.2) Albumin 3.2 g/dL (3.4-5.0) L Albumin/Globulin Ratio 0.9 (1.0-1.7) L Laboratory Tests 11/08/20 22:40 Laboratory Tests 11/08/20 22:40 ECHOCARDIOGRAM ECHOCARDIOGRAM <Conclusion> The left ventricle is normal size. The left ventricular systolic function is normal and the ejection fraction is within normal range. The Ejection Fraction is 60-65%. There is borderline concentric left ventricular hypertrophy. Doppler and Color Flow revealed trace aortic regurgitation. There is no significant aortic valvular stenosis. Doppler and Color Flow revealed no mitral valve regurgitation noted. Doppler and Color Flow revealed trace to mild tricuspid regurgitation with an estimated PAP of 39 mmHg. DATE: 10/14/20 [id number] ASSESSMENT/PLAN ASSESSMENT/PLAN 1. Acute respiratory failure in setting of acute CHF 2. Acute diastolic CHF; Echo 10/19 with preserved LV systolic function. Most probably secondary to uncontrolled HTN 3. HTN urgency; remains labile 4. CKD 5. Hypothyroidism: on replacement Recommendations Diuresis with monitoring of renal function Home antiHTN therapy resumed. Amlodipine added Monitor trends and adjust therapy as warranted Hydralazine IV PRN Consider renal duplex to r/o MICHELLE Outpatient ischemic evaluation Supportive care BREANNE CRABTREE MD 11/09/20 1745: CARDIAC CONSULT ASSESSMENT/PLAN ASSESSMENT/PLAN Patient seen and evaluated. I agree with our nurse practitioners assessment and plan. Acute respiratory failure in setting of acute CHF. Continuing diuresis and monitoring renal function. Acute diastolic CHF; Echo 10/19 with preserved LV systolic function. Most probably secondary to uncontrolled HTN HTN urgency; home medications resumed. Norvasc added. CKD. Monitoring lab. Hypothyroidism: on replacement LI DANGELO APRN Nov 09, 2020 11:22 BREANNE CRABTREE MD Nov 09, 2020 17:45
[2020-11-09 11:24] VITALS: BP 187/75
[2020-11-09] MEDS ORDERED: guaiFENesin ORAL 200 MG/10 ML LIQUID. PO PRN (11:45)
[2020-11-09] MEDS ORDERED: SODIUM PHOSPHATES 19/7GM 133 ML ENEMA. PR PRN (11:45)
[2020-11-09] MEDS ORDERED: ALBUTEROL SULFATE 2.5 MG/3 ML NEBU. NEB PRN (11:45)
[2020-11-09] MEDS ORDERED: 0.9 % SODIUM CHLORIDE 10 ML DISP.SYRIN. IV PRN (11:45)
[2020-11-09] MEDS ORDERED: DOCUSATE SODIUM 100 MG CAPSULE. PO PRN (11:45)
[2020-11-09] MEDS: FERROUS SULFATE ORAL 300 MG/5 ML SOLUTION. PO SCH (12:35)
[2020-11-09] MEDS ORDERED: ENOXAPARIN 40 MG/0.4 ML SYRINGE. SQ SCH (13:00)
--- NOTE | 2020-11-09 14:11 | NUR ---
SS following for discharge planning. SS reviewed pt chart and discussed with pt RN. Pt is from home and is currently requiring oxygen via nasal canula. PT/OT ordered. Pt was current on services with [facility], ; fax [phone]. SS will continue to follow for discharge planning.
[2020-11-09 14:49] VITALS: BP 165/71
[2020-11-09 19:28] VITALS: BP 126/72
[2020-11-09 22:51] VITALS: BP 139/66
[2020-11-10 03:00] VITALS: BP 140/66
[2020-11-10] MEDS: LEVOTHYROXINE 100 MCG TABLET PO SCH (06:00)
[2020-11-10 06:56] VITALS: BP 137/67
[2020-11-10] MEDS ORDERED: ALBUTEROL SULFATE 2.5 MG/3 ML NEBU. NEB PRN (07:15)
[2020-11-10 07:27] LABS: BASO % 1 % (0-3); EOS # 0.3 x10^3/uL (0.0-0.7); EOS % 5 % (0-3); HEMATOCRIT 26.1 % (36.0-47.0); HEMOGLOBIN 8.7 g/dL (12.0-15.5); LYMPH # 1.1 x10^3/uL (1.0-4.8); LYMPH % 19 % (24-48); MEAN CORPUSCULAR HEMOGLOBIN 32 pg (25-35); MEAN CORPUSCULAR HGB CONC 33 g/dL (31-37); MEAN CORPUSCULAR VOLUME 95 fL (79-100); MONO # 0.6 x10^3/uL (0.0-1.1); MONO % 10 % (0-9); NEUT % 66 % (31-73); PLATELET COUNT 150 x10^3/uL (140-400); RED BLOOD COUNT 2.75 x10^6/uL (3.50-5.40); RED CELL DISTRIBUTION WIDTH 17.2 % (11.5-14.5)
[2020-11-10] MEDS: IPRATRPIUM/ALBUTEROL 0.5/2.5MG 3 ML NEBU. NEB SCH (07:29)
[2020-11-10 08:06] LABS: CALCIUM 8.6 mg/dL (8.5-10.1); CREATININE 1.8 mg/dL (0.6-1.0); GFR 28.2; POTASSIUM 3.9 mmol/L (3.5-5.1)
[2020-11-10] MEDS: ASPIRIN ENTERIC COATED 81 MG TABLET.DR. PO SCH (09:00)
--- NOTE | 2020-11-10 09:05 | PDOC ---
CARDIO Progress Notes Date and Time Date of Service 11/10/20 Time of Evaluation 1300 Subjective Subjective: No Chest Pain, No shortness of breath, No Palpitations Vitals Vitals Vital Signs Date Time Temp Pulse Resp B/P (MAP) Pulse Ox O2 Delivery O2 Flow Rate FiO2 11/10/20 08:00 Nasal Cannula 2.0 11/10/20 07:32 96 11/10/20 06:56 98.2 70 18 137/67 (90) 98.2 Weight Weight [ ] Input and Output Intake and Output Intake and Output 11/10/20 07:00 Intake Total 990 ml Output Total 2650 ml Balance -1660 ml Intake Oral 990 ml Output Urine Total 2650 ml Laboratory Labs Laboratory Tests Test 11/10/20 06:10 Sodium Level 139 mmol/L (136-145) Potassium Level 3.9 mmol/L (3.5-5.1) Chloride Level 104 mmol/L (98-107) Carbon Dioxide Level 27 mmol/L (21-32) Anion Gap 8 (6-14) Blood Urea Nitrogen 33 mg/dL (7-20) Creatinine 1.8 mg/dL (0.6-1.0) Estimated GFR (Cockcroft-Gault) 28.2 Glucose Level 80 mg/dL (70-99) Calcium Level 8.6 mg/dL (8.5-10.1) Physical Exam HEENT: Neck Supple W Full Motion Chest: Symmetric LUNGS: Clear to Auscultation Heart: RRR Abdomen: Soft N/T Extremities: Other (2+ bilateral LE edema ) Neurology: alert, oriented, follow commands Assessment Assessment 1. Acute respiratory failure in setting of acute CHF 2. Acute diastolic CHF; Echo 10/19 with preserved LV systolic function. Most probably secondary to uncontrolled HTN 3. HTN urgency; now controlled 4. CKD 5. Hypothyroidism: on replacement Recommendations Mild diuresis with monitoring of renal function Continue current antiHTN therapy Plan outpatient ischemic evaluation Supportive care Justicifation of Admission Dx: Justifications for Admission: Justification of Admission Dx: N/A LI DANGELO APRN Nov 10, 2020 09:05
[2020-11-10] MEDS: FERROUS SULFATE ORAL 300 MG/5 ML SOLUTION. PO SCH (09:25)
--- NOTE | 2020-11-10 09:25 | PDOC ---
PROGRESS NOTES Date of Service: DATE: 11/10/20 TIME: 09:25 Chief Complaint Chief Complaint VTE Prophylaxis Ordered VTE Prophylaxis Devices: No VTE Pharmacological Prophylaxi: Yes Assessment/Plan Assessment/Plan impression Chest pain Dyspnea Generalized weakness Acute volume overload Acute respiratory failure in setting of CHF on cxr, Focal opacities bilaterally appears increased from prior could be from pulmonary edema or infiltrate. Acute diastolic CHF; Echo 10/19 with preserved LV systolic function. Most probably secondary to uncontrolled HTN HTN urgency Acute on chronic kidney disease, stage III Moderate protein malnutrition Acute anemia - required recent blood transfusion History of hypertension depression anxiety hypothyroidism History of uterine tumor status post hysterectomy and chemotherapy in 2018 plan admit CVC BED Consult cardiology trend troponin i careful diuresis d/c norvasc or lower dose to 5 mg dvt prophylaxis 37 min pt exam, chart review, > 50% of time spent with exam, chart review, pt care coordination Justifications for Admission Justifications for Admission Other Justification LAKIA ABEL MD Nov 09, 2020 08:33 History of Present Illness History of Present Illness Identification/Chief Complaint Chief Complaint SHORTNESS OF BREATH, CHEST PAIN seen with blue hvac design mechanical engineer phone History of Present Illness History of Present Illness Ms Chirinos is a 65-year-old female with past medical history of hypertension, depression, anxiety, DVT, uterine CA, and recently diagnosed CKD who presented to the ED with soa 65 year old female seen in ER for chest pain or shortness of breath. Patient was just discharged from the hospital for pneumonia 3 days ago. / baseline lower extremity edema. Baseline Cr unknown to the family, but has been elevated tween 1.5-1.7 since July 2020. had a creatinine between 1 and 1.1 as Nephrology has reviewed [facility] records and notes from prior Emphasized compliance with carvedilol as well as new medication lisinopril and as needed furosemide. Iron studies c/w ACD; no way to know if truly iron-deficient w/o bone marrow. needs lea-endoscopy; outpatient setting. Inadequate thyroid supplementation may contribute. Acute respiratory failure in setting of CHF /Acute diastolic CHF; Echo 10/19 with preserved LV systolic function. Most probably secondary to uncontrolled HTN //HTN urgency Past Medical History Past Medical History Past Medical History Past Medical History Past Medical History: Anxiety, Depression, DVT, Hypertension, Hypothyroid Additional Past Medical Histor: UTERINE TUMOR, LAST CHEMO MAR 2019 Past Surgical History: Hysterectomy, Tubal ligation, Other Smoking Status: Never Smoker Alcohol Use: None Drug Use: None Echo 10/14/2020: The left ventricle is normal size. The left ventricular systolic function is normal and the ejection fraction is within normal range. The Ejection Fraction is 60-65%. There is borderline concentric left ventricular hypertrophy. Doppler and Color Flow revealed trace aortic regurgitation. There is no significant aortic valvular stenosis. Doppler and Color Flow revealed no mitral valve regurgitation noted. Doppler and Color Flow revealed trace to mild tricuspid regurgitation with an estimated PAP of 39 mmHg. On discharge previously her BP was better controlled on amlodipine and carvedilol. As she was on chlorthalidone and transition to spironolactone but was admitted with hyperkalemia recommended to hold those diuretics and follow-up with nephrology with addition of furosemide as needed for weight gain. She did continue to take chlorthalidone at home, though, admitted for hyponatremia and shortness of breath, abdominal discomfort. 10/30: IV lasix given with improvement in swelling, shortness of breath and creatinine 10/31: BP improved. Transfused 1u PRBC 11/01: 24 urine protein 437 mg, started on lisinopril. Initial fecal occult negative. 11/02: BP better controlled. She is feeling little better. Despite instruction to discontinue chlorthalidone on previous hospitalization and she had restarted it because she was swollen. Using hvac design mechanical engineer it is clear that she and her feel like this is partially due to the language barrier. Emphasized compliance with carvedilol as well as new medication lisinopril and as needed furosemide. 11/03: Systolic blood pressure 144 this morning. Creatinine 1.5. Her flank pain is improved. Has a little bit of abdominal cramping no chest pain or shortness of breath. Feels her swelling is stable she is very insistent that she be prescribed a diuretic. 11/04: Cr 1.7, Hb 8.2, still dropping despite iron supplementation. D/w Nephrology patient had large Hb drop since last hospital stay, needs GI eval. Abdominal pain worse today. FHX HTN Cardiovascular: HTN Pulmonary: No pertinent hx CENTRAL NERVOUS SYSTEM: Other Heme/Onc: Cancer, Other Psych: Anxiety, Depression Renal/: Chronic renal insuff Endocrine: Hypothyroidism Past Surgical History Past Surgical History: Tubal Ligation, Hysterectomy Family History Family History: Hypertension Social History Smoke: No ALCOHOL: none Drugs: None Current Medications Current Medications Current Medications Nitroglycerin (Nitrostat) 0.4 mg PRN Q5MIN PRN SL CHEST PAIN Last administered on 11/09/20at 02:04; Start 11/08/20 at 23:15 Furosemide (Lasix) 40 mg 1X ONCE PO ; Start 11/09/20 at 01:00; Stop 11/09/20 at 01:01; Status Cancel Ondansetron HCl (Zofran) 4 mg PRN Q8HRS PRN IV NAUSEA/VOMITING; Start 11/09/20 at 01:00; Stop 11/10/20 at 00:59 Fentanyl Citrate (Fentanyl 2ml Vial) 50 mcg PRN Q1HR PRN IV PAIN; Start 11/09/20 at 01:00; Stop 11/10/20 at 00:59 Acetaminophen (Tylenol) 650 mg PRN Q4HRS PRN PO FEVER > 100.3'F; Start 11/09/20 at 01:00; Stop 11/10/20 at 00:59 Nitroglycerin (Nitrostat) 0.4 mg PRN Q5MIN PRN SL CHEST PAIN; Start 11/09/20 at 01:00; Stop 11/10/20 at 00:59 Albuterol/ Ipratropium (Duoneb) 3 ml RTQID NEB Last administered on 11/09/20at 07:52; Start 11/09/20 at 08:00; Stop 11/10/20 at 07:59 Hydralazine HCl (Apresoline Inj) 5 mg PRN Q6HRS PRN IVP ELEVATED BP, SEE COMMENTS; Start 11/09/20 at 02:00 Furosemide (Lasix) 40 mg 1X ONCE IVP Last administered on 11/09/20at 02:19; Start 11/09/20 at 02:15; Stop 11/09/20 at 02:16; Status DC Active Scripts Active Levothyroxine Sodium 100 Mcg Tablet 1 Tab PO DAILY 30 Days Amlodipine Besylate 10 Mg Tablet 5 Mg PO DAILY 30 Days Ferrous Sulfate 300 Mg/5 Ml Liquid 300 Mg PO DAILYWBKFT 30 Days Furosemide 40 Mg Tablet 1 Tab PO PRN DAILY PRN 30 Days Lisinopril 40 Mg Tablet 40 Mg PO DAILY 30 Days Carvedilol (Carvedilol) 12.5 Mg Tablet 12.5 Mg PO BIDWMEALS 30 Days Reported Escitalopram Oxalate 10 Mg Tablet 0.5 Tab PO DAILY Aspirin Ec (Aspirin) 81 Mg Tablet.dr 81 Mg PO DAILY Allergies Allergies: Coded Allergies: iodine (Verified Allergy, Severe, 10/15/20) folic acid (Verified Allergy, Mild, 10/14/20) "COMPLEX B" vitamin B complex and C (Verified Allergy, Mild, 10/14/20) "COMPLEX B" ROS General: YES: Fatigue PSYCHOLOGICAL ROS: YES: Anxiety; No: Behavioral Disorder, Concentration difficultie, Decreased libido, Depression, Disorientation, Hallucinations, Hostility, Irritablity, Memory difficulties, Mood Swings, Obsessive thoughts, Physical abuse, Sexual abuse, Sleep disturbances, Suicidal ideation, Other Eyes: No Blurry vision, No Decreased vision, No Double vision, No Dry eyes, No Excessive tearing, No Eye Pain, No Itchy Eyes, No Loss of vision, No Photophobia, No Scotomata, No Uses contacts, No Uses glasses, No Other HEENT: No: Heacaches, Visual Changes, Hearing change, Nasal congestion, Nasal discharge, Oral lesions, Sinus pain, Sore Throat, Epistaxis, Sneezing, Snoring, Tinnitus, Vertigo, Vocal changes, Other ALLERGY AND IMMUNOLOGY: YES: Hives Hematological and Lymphatic: No: Bleeding Problems, Blood Clots, Blood Transfusions, Brusing, Night Sweats, Pallor, Swollen Lymph Nodes, Other ENDOCRINE: No: Breast Changes, Galactorrhea, Hair Pattern Changes, Hot Flashes, Malaise/lethargy, Mood Swings, Palpitations, Polydipsia/polyuria, Skin Changes, Temperature Intolerance, Unexpected Weight Changes, Other Breast: No New/Changing Breast Lumps, No Nipple changes, No Nipple discharge, No Other Respiratory: YES: Shortness of breath Cardiovascular: yes Chest Pain; No Palpitations, No Orthopnea, No Paroxysmal Noc. Dyspnea, No Edema, No Lt Headedness, No Other Gastrointestinal: No Nausea, No Vomiting, No Abdominal Pain, No Diarrhea, No Constipation, No Melena, No Hematochezia, No Other Genitourinary: No Dysuria, No Frequency, No Incontinence, No Hematuria, No Retention, No Discharge, No Urgency, No Pain, No Flank Pain, No Other, No , No , No , No , No , No , No Musculoskeletal: Yes Joint Stiffness; No Gait Disturbance, No Joint Pain, No Joint Swelling, No Muscle Pain, No Muscular Weakness, No Pain In:, No Swelling In:, No Other Neurological: No Behavorial Changes, No Bowel/Bladder ControlChng, No Confusion, No Dizziness, No Gait Disturbance, No Headaches, No Impaired Coord/balance, No Memory Loss, No Numbness/Tingling, No Seizures, No Speech Problems, No Tremors, No Visual Changes, No Weakness, No Other Skin: Yes Dry Skin; No Eczema, No Hair Changes, No Lumps, No Mole Changes, No Mottling, No Nail Changes, No Pruritus, No Rash, No Skin Lesion Changes, No Other, No Acne Physical Exam Vitals Vitals Vital Signs Date Time Temp Pulse Resp B/P (MAP) Pulse Ox O2 Delivery O2 Flow Rate FiO2 11/10/20 08:00 Nasal Cannula 2.0 11/10/20 07:32 96 11/10/20 06:56 98.2 70 18 137/67 (90) 98.2 Physical Exam Physical Exam General: Alert, Oriented X3, Cooperative, No acute distress HEENT: PERRLA, EOMI, Mucous membr. moist/pink Lungs: Normal air movement, Other (few crackles) Heart: RRR Breasts: Not examined Abdomen: Normal bowel sounds, Soft Rectal Exam: not examined PELVIC: Examination not indicated Extremities: No cyanosis Neuro: Normal speech, Cranial nerves 3-12 NL Psych/Mental Status: Mental status NL, Mood NL General: Alert, Oriented X3, Cooperative, No acute distress Abdomen: Normal bowel sounds, Soft Extremities: No cyanosis Labs LABS Thyroid gland and thoracic inlet: Normal. Heart and great vessels: The heart is normal in size. There is a small pericardial effusion. Thoracic aorta is normal in caliber. Mediastinum and aurelio: There are small mediastinal lymph nodes, nonspecific. There is a 1.2 cm short axis right paratracheal lymph node. 1.2 cm short axis precarinal lymph node. Lungs and pleura: There are small pleural effusions and adjacent confluent opacities, likely atelectasis. Mild interlobular septal thickening in the lung bases. Chest wall and axillae: There is a tubular hyperdense structure in the subcutaneous soft tissue just deep to the skin in the upper medial right chest wall measuring approximately 7 cm in length (image 2-13, series 2). A rectangular electronic device projects over the left chest wall. Bones: No acute osseous abnormality in the chest. ABDOMEN AND PELVIS: Liver: Liver is mildly enlarged measuring 19.6 cm craniocaudally. Limited evaluation for liver lesions on noncontrast exam. Gallbladder/Biliary Tree: Cholelithiasis. There is possible gallbladder wall thickening. The gallbladder is nondistended. Bile ducts are unremarkable. Pancreas: Normal. Spleen: Normal. Adrenal Glands: Normal. Kidneys/Ureters/Bladder: Kidneys are normal in size and symmetrically. No hydronephrosis or nephrolithiasis. Ureters and bladder are unremarkable. Reproductive Organs: Uterus is surgically absent. No adnexal mass. Stomach, small bowel, and colon: Stomach is normal. No small bowel obstruction. The appendix is normal. There is sigmoid diverticulosis. No acute diverticulitis. Vasculature: No aortic aneurysm. Mild calcified aortoiliac atherosclerosis. Lymph Nodes: No lymphadenopathy. Peritoneum and retroperitoneum: Trace ascites in the pelvis and paracolic gutters. No free air. Bones: No acute osseous abnormality. There is severe osteoarthrosis of the right hip. Other: Mild subcutaneous edema in the pelvis. IMPRESSION: 1. Small pleural effusions and mild bibasilar opacities with interlobular septal thickening, likely reflecting pulmonary edema. Pneumonia less likely. 2. Small pericardial effusion. 3. Cholelithiasis with possible gallbladder wall, nonspecific. Recommend quadrant ultrasound could be obtained to further evaluate if indicated. 4. Mild hepatomegaly. 5. Sigmoid diverticulosis. 6. Trace ascites. Mild body wall edema. 7. Tubular hyperdense structure in the subcutaneous medial upper right chest wall just deep to the skin, indeterminate. Correlate for retained foreign body. Electronically signed by: Keisha Sharma MD (11/01/2020 8:37 AM) [id number] DICTATED and SIGNED BY: KEISHA SHARMA MD DATE: 11/01/20 [id number] PATIENT: ROMAN ESTRADAORROACCOUNT: [id number] : 1955 LOCATION: ER AGE: 65 SEX: F EXAM STATUS: REG ER ORD. PHYSICIAN: KEISHA PINON MD REASON: hypoxic PROCEDURE: CHEST AP ONLY INDICATION: Reason: hypoxic / Spl. Instructions: / History: COMPARISON: October 29, 2020 FINDINGS: Single view of chest obtained. Enlarged cardiomediastinal silhouette. Device projecting of the left upper chest. Multifocal opacities throughout bilateral lungs increased. IMPRESSION: * Focal opacities bilaterally appears increased from prior could be from pulmonary edema or infiltrate. Electronically signed by: Ronny Shin MD (11/08/2020 11:27 PM) [id number] DICTATED and SIGNED BY: RONNY SHIN MD DATE: 11/08/20 [id number] Laboratory Tests Test 11/10/20 06:10 White Blood Count 6.0 x10^3/uL (4.0-11.0) Red Blood Count 2.75 x10^6/uL (3.50-5.40) Hemoglobin 8.7 g/dL (12.0-15.5) Hematocrit 26.1 % (36.0-47.0) Mean Corpuscular Volume 95 fL (79-100) Mean Corpuscular Hemoglobin 32 pg (25-35) Mean Corpuscular Hemoglobin Concent 33 g/dL (31-37) Red Cell Distribution Width 17.2 % (11.5-14.5) Platelet Count 150 x10^3/uL (140-400) Neutrophils (%) (Auto) 66 % (31-73) Lymphocytes (%) (Auto) 19 % (24-48) Monocytes (%) (Auto) 10 % (0-9) Eosinophils (%) (Auto) 5 % (0-3) Basophils (%) (Auto) 1 % (0-3) Neutrophils # (Auto) 4.0 x10^3/uL (1.8-7.7) Lymphocytes # (Auto) 1.1 x10^3/uL (1.0-4.8) Monocytes # (Auto) 0.6 x10^3/uL (0.0-1.1) Eosinophils # (Auto) 0.3 x10^3/uL (0.0-0.7) Basophils # (Auto) 0.0 x10^3/uL (0.0-0.2) Sodium Level 139 mmol/L (136-145) Potassium Level 3.9 mmol/L (3.5-5.1) Chloride Level 104 mmol/L (98-107) Carbon Dioxide Level 27 mmol/L (21-32) Anion Gap 8 (6-14) Blood Urea Nitrogen 33 mg/dL (7-20) Creatinine 1.8 mg/dL (0.6-1.0) Estimated GFR (Cockcroft-Gault) 28.2 Glucose Level 80 mg/dL (70-99) Calcium Level 8.6 mg/dL (8.5-10.1) Comment Review of Relevant I have reviewed the following items rosie (where applicable) has been applied. Labs Laboratory Tests Test 11/08/20 22:40 11/09/20 03:40 11/10/20 06:10 White Blood Count 8.1 x10^3/uL (4.0-11.0) 6.0 x10^3/uL (4.0-11.0) Red Blood Count 3.17 x10^6/uL (3.50-5.40) 2.75 x10^6/uL (3.50-5.40) Hemoglobin 10.0 g/dL (12.0-15.5) 8.7 g/dL (12.0-15.5) Hematocrit 30.2 % (36.0-47.0) 26.1 % (36.0-47.0) Mean Corpuscular Volume 95 fL (79-100) 95 fL (79-100) Mean Corpuscular Hemoglobin 31 pg (25-35) 32 pg (25-35) Mean Corpuscular Hemoglobin Concent 33 g/dL (31-37) 33 g/dL (31-37) Red Cell Distribution Width 17.8 % (11.5-14.5) 17.2 % (11.5-14.5) Platelet Count 183 x10^3/uL (140-400) 150 x10^3/uL (140-400) Neutrophils (%) (Auto) 69 % (31-73) 66 % (31-73) Lymphocytes (%) (Auto) 17 % (24-48) 19 % (24-48) Monocytes (%) (Auto) 9 % (0-9) 10 % (0-9) Eosinophils (%) (Auto) 5 % (0-3) 5 % (0-3) Basophils (%) (Auto) 1 % (0-3) 1 % (0-3) Neutrophils # (Auto) 5.6 x10^3/uL (1.8-7.7) 4.0 x10^3/uL (1.8-7.7) Lymphocytes # (Auto) 1.4 x10^3/uL (1.0-4.8) 1.1 x10^3/uL (1.0-4.8) Monocytes # (Auto) 0.7 x10^3/uL (0.0-1.1) 0.6 x10^3/uL (0.0-1.1) Eosinophils # (Auto) 0.4 x10^3/uL (0.0-0.7) 0.3 x10^3/uL (0.0-0.7) Basophils # (Auto) 0.1 x10^3/uL (0.0-0.2) 0.0 x10^3/uL (0.0-0.2) Sodium Level 141 mmol/L (136-145) 139 mmol/L (136-145) Potassium Level 4.9 mmol/L (3.5-5.1) 3.9 mmol/L (3.5-5.1) Chloride Level 106 mmol/L (98-107) 104 mmol/L (98-107) Carbon Dioxide Level 23 mmol/L (21-32) 27 mmol/L (21-32) Anion Gap 12 (6-14) 8 (6-14) Blood Urea Nitrogen 30 mg/dL (7-20) 33 mg/dL (7-20) Creatinine 1.6 mg/dL (0.6-1.0) 1.8 mg/dL (0.6-1.0) Estimated GFR (Cockcroft-Gault) 32.2 28.2 BUN/Creatinine Ratio 19 (6-20) Glucose Level 114 mg/dL (70-99) 80 mg/dL (70-99) Lactic Acid Level 1.6 mmol/L (0.4-2.0) Calcium Level 8.7 mg/dL (8.5-10.1) 8.6 mg/dL (8.5-10.1) Phosphorus Level 4.4 mg/dL (2.6-4.7) Magnesium Level 2.3 mg/dL (1.8-2.4) Total Bilirubin 0.4 mg/dL (0.2-1.0) Aspartate Amino Transf (AST/SGOT) 51 U/L (15-37) Alanine Aminotransferase (ALT/SGPT) 53 U/L (14-59) Alkaline Phosphatase 69 U/L (46-116) Troponin I Quantitative < 0.017 ng/mL (0.000-0.055) < 0.017 ng/mL (0.000-0.055) BC-Kvn-V-Type Natriuretic Peptide 2297 pg/mL (0-124) Total Protein 6.9 g/dL (6.4-8.2) Albumin 3.2 g/dL (3.4-5.0) Albumin/Globulin Ratio 0.9 (1.0-1.7) Laboratory Tests Test 11/10/20 06:10 White Blood Count 6.0 x10^3/uL (4.0-11.0) Red Blood Count 2.75 x10^6/uL (3.50-5.40) Hemoglobin 8.7 g/dL (12.0-15.5) Hematocrit 26.1 % (36.0-47.0) Mean Corpuscular Volume 95 fL (79-100) Mean Corpuscular Hemoglobin 32 pg (25-35) Mean Corpuscular Hemoglobin Concent 33 g/dL (31-37) Red Cell Distribution Width 17.2 % (11.5-14.5) Platelet Count 150 x10^3/uL (140-400) Neutrophils (%) (Auto) 66 % (31-73) Lymphocytes (%) (Auto) 19 % (24-48) Monocytes (%) (Auto) 10 % (0-9) Eosinophils (%) (Auto) 5 % (0-3) Basophils (%) (Auto) 1 % (0-3) Neutrophils # (Auto) 4.0 x10^3/uL (1.8-7.7) Lymphocytes # (Auto) 1.1 x10^3/uL (1.0-4.8) Monocytes # (Auto) 0.6 x10^3/uL (0.0-1.1) Eosinophils # (Auto) 0.3 x10^3/uL (0.0-0.7) Basophils # (Auto) 0.0 x10^3/uL (0.0-0.2) Sodium Level 139 mmol/L (136-145) Potassium Level 3.9 mmol/L (3.5-5.1) Chloride Level 104 mmol/L (98-107) Carbon Dioxide Level 27 mmol/L (21-32) Anion Gap 8 (6-14) Blood Urea Nitrogen 33 mg/dL (7-20) Creatinine 1.8 mg/dL (0.6-1.0) Estimated GFR (Cockcroft-Gault) 28.2 Glucose Level 80 mg/dL (70-99) Calcium Level 8.6 mg/dL (8.5-10.1) Medications Current Medications Nitroglycerin (Nitrostat) 0.4 mg PRN Q5MIN PRN SL CHEST PAIN Last administered on 11/09/20at 02:04; Start 11/08/20 at 23:15 Furosemide (Lasix) 40 mg 1X ONCE PO ; Start 11/09/20 at 01:00; Stop 11/09/20 at 01:01; Status Cancel Ondansetron HCl (Zofran) 4 mg PRN Q8HRS PRN IV NAUSEA/VOMITING; Start 11/09/20 at 01:00; Stop 11/09/20 at 11:48; Status DC Fentanyl Citrate (Fentanyl 2ml Vial) 50 mcg PRN Q1HR PRN IV PAIN; Start 11/09/20 at 01:00; Stop 11/10/20 at 00:59; Status DC Acetaminophen (Tylenol) 650 mg PRN Q4HRS PRN PO FEVER > 100.3'F; Start 11/09/20 at 01:00; Stop 11/09/20 at 11:49; Status DC Nitroglycerin (Nitrostat) 0.4 mg PRN Q5MIN PRN SL CHEST PAIN; Start 11/09/20 at 01:00; Stop 11/10/20 at 00:59; Status DC Albuterol/ Ipratropium (Duoneb) 3 ml RTQID NEB Last administered on 11/10/20at 07:29; Start 11/09/20 at 08:00; Stop 11/10/20 at 07:59; Status DC Hydralazine HCl (Apresoline Inj) 5 mg PRN Q6HRS PRN IVP ELEVATED BP, SEE COMMENTS; Start 11/09/20 at 02:00; Stop 11/09/20 at 11:54; Status DC Furosemide (Lasix) 40 mg 1X ONCE IVP Last administered on 11/09/20at 02:19; Start 11/09/20 at 02:15; Stop 11/09/20 at 02:16; Status DC Amlodipine Besylate (Norvasc) 5 mg DAILY PO Last administered on 11/09/20at 11:07; Start 11/09/20 at 11:00 Aspirin (Ecotrin) 81 mg DAILY PO Last administered on 11/09/20at 11:06; Start 11/09/20 at 11:00 Carvedilol (Coreg) 12.5 mg BIDWMEALS PO Last administered on 11/09/20at 18:12; Start 11/09/20 at 12:00 Ferrous Sulfate (Iron Oral Solution) 300 mg DAILYWBKFT PO Last administered on 11/09/20at 12:35; Start 11/09/20 at 12:00 Furosemide (Lasix) 40 mg PRN DAILY PRN PO Weight gain 3# Last administered on 11/09/20at 12:37; Start 11/09/20 at 10:15 Levothyroxine Sodium (Synthroid) 100 mcg DAILY06 PO Last administered on 11/10/20at 06:00; Start 11/09/20 at 11:00 Lisinopril (Prinivil) 40 mg DAILY PO Last administered on 11/09/20at 11:13; Start 11/09/20 at 11:00 Citalopram Hydrobromide (CeleXA) 10 mg DAILY PO Last administered on 11/09/20at 11:08; Start 11/09/20 at 11:00 Sodium Chloride (Normal Saline Flush) 3 ml QSHIFT PRN IV AFTER MEDS AND BLOOD DRAWS; Start 11/09/20 at 11:45 Ondansetron HCl (Zofran) 4 mg PRN Q4HRS PRN IV NAUSEA/VOMITING; Start 11/09/20 at 11:45 Acetaminophen (Tylenol) 650 mg PRN Q4HRS PRN PO TEMP OVER 100.4F OR MILD PAIN; Start 11/09/20 at 11:45 Sodium Monofluorophosphate (Fleet Adult) 133 ml PRN DAILY PRN ND CONSTIPATION; Start 11/09/20 at 11:45 Docusate Sodium (Colace) 100 mg PRN BID PRN PO HARD STOOLS; Start 11/09/20 at 11:45 Albuterol Sulfate (Ventolin Neb Soln) 2.5 mg PRN Q4HRS PRN NEB SHORTNESS OF BREATH; Start 11/09/20 at 11:45 Guaifenesin (Robitussin) 200 mg PRN Q4HRS PRN PO COUGH; Start 11/09/20 at 11:45 Enoxaparin Sodium (Lovenox 40mg Syringe) 40 mg Q24H SQ Last administered on 11/09/20at 12:38; Start 11/09/20 at 13:00 Hydralazine HCl (Apresoline Inj) 10 mg PRN Q4HRS PRN IVP ELEVATED BP, SEE COMMENTS Last administered on 11/09/20at 12:42; Start 11/09/20 at 12:00 Furosemide (Lasix) 40 mg 1X ONCE IVP Last administered on 11/09/20at 12:51; Start 11/09/20 at 12:30; Stop 11/09/20 at 12:31; Status DC Albuterol Sulfate (Ventolin Neb Soln) 2.5 mg PRN Q4HRS PRN NEB SHORTNESS OF BREATH; Start 11/10/20 at 07:15 Active Scripts Active Levothyroxine Sodium 100 Mcg Tablet 1 Tab PO DAILY 30 Days Ferrous Sulfate 300 Mg/5 Ml Liquid 300 Mg PO DAILYWBKFT 30 Days Furosemide 40 Mg Tablet 1 Tab PO PRN DAILY PRN 30 Days Lisinopril 40 Mg Tablet 40 Mg PO DAILY 30 Days Carvedilol (Carvedilol) 12.5 Mg Tablet 12.5 Mg PO BIDWMEALS 30 Days Reported Escitalopram Oxalate 10 Mg Tablet 0.5 Tab PO DAILY Aspirin Ec (Aspirin) 81 Mg Tablet.dr 81 Mg PO DAILY Vitals/I & O Vital Sign - Last 24 Hours 11/09/20 11/09/20 11/09/20 11/09/20 11:07 11:08 11:13 11:24 Temp 98.0 98.0 Pulse 69 69 69 69 Resp 18 B/P (MAP) 187/75 187/75 187/75 187/75 (112) Pulse Ox 93 O2 Delivery NonRebreather Mask O2 Flow Rate 10.0 11/09/20 11/09/20 11/09/20 11/09/20 11:49 12:42 14:49 15:57 Temp 98.2 98.2 Pulse 75 74 Resp 20 B/P (MAP) 200/85 165/71 (102) Pulse Ox 100 95 100 O2 Delivery Nasal Cannula Nasal Cannula Nasal Cannula O2 Flow Rate 3.0 3.0 2.5 11/09/20 11/09/20 11/09/20 11/09/20 18:12 19:28 20:00 20:29 Temp 98.8 98.8 Pulse 77 77 Resp 16 B/P (MAP) 157/71 126/72 (90) Pulse Ox 96 96 O2 Delivery NonRebreather Mask Nasal Cannula Nasal Cannula O2 Flow Rate 10.0 2.0 2.0 11/09/20 11/10/20 11/10/20 11/10/20 22:51 03:00 06:56 07:32 Temp 98.5 98.7 98.2 98.5 98.7 98.2 Pulse 76 78 70 Resp 18 16 18 B/P (MAP) 139/66 (90) 140/66 (90) 137/67 (90) Pulse Ox 99 100 98 96 O2 Delivery NonRebreather Mask NonRebreather Mask NonRebreather Mask Nasal Cannula O2 Flow Rate 10.0 10.0 10.0 2.0 11/10/20 08:00 O2 Delivery Nasal Cannula O2 Flow Rate 2.0 Intake and Output 11/09/20 11/09/20 11/10/20 15:00 23:00 07:00 Intake Total 250 ml 540 ml 200 ml Output Total 750 ml 1900 ml Balance -500 ml -1360 ml 200 ml Justicifation of Admission Dx: Justifications for Admission: Justification of Admission Dx: N/A LAKIA CRISOSTOMO MD Nov 10, 2020 09:25
[2020-11-10] MEDS: CARVEDILOL 12.5 MG TABLET. PO SCH ×2 (09:26→18:03)
[2020-11-10] MEDS: CITALOPRAM 10 MG TABLET. PO SCH (09:26)
[2020-11-10] MEDS: LISINOPRIL 20 MG TABLET PO SCH (09:26)
[2020-11-10 11:00] VITALS: BP 155/68
--- NOTE | 2020-11-10 11:19 | NUR ---
SS following up with discharge planning. SS reviewed pt chart and discussed with pt RN. Pt is currently requiring oxygen at two liters nasal canula. Pulmonology consulted. Cardiology following. PT/OT ordered. OT recommended senior care unit. Pt has [facility] Medicaid and has no benefits for senior care unit. Pt was current on services with [facility], ; fax [phone]. SS will continue to follow for discharge planning.
--- NOTE | 2020-11-10 13:58 | NUR ---
0900 ASA held per DAVID Borges due to patient coughing up blood.
[2020-11-10] MEDS: ENOXAPARIN 30 MG/0.3 ML SYRINGE. SQ SCH (14:07)
--- NOTE | 2020-11-10 14:44 | PDOC ---
PULMONARY PROGRESS NOTES DATE: 11/10/20 TIME: 14:43 Vitals Vital Signs Date Time Temp Pulse Resp B/P (MAP) Pulse Ox O2 Delivery O2 Flow Rate FiO2 11/10/20 11:00 98.1 72 18 155/68 (97) 97 Nasal Cannula 98.1 11/10/20 08:00 2.0 Labs Laboratory Tests Test 11/08/20 22:40 11/09/20 03:40 11/10/20 06:10 White Blood Count 8.1 x10^3/uL (4.0-11.0) 6.0 x10^3/uL (4.0-11.0) Red Blood Count 3.17 x10^6/uL (3.50-5.40) 2.75 x10^6/uL (3.50-5.40) Hemoglobin 10.0 g/dL (12.0-15.5) 8.7 g/dL (12.0-15.5) Hematocrit 30.2 % (36.0-47.0) 26.1 % (36.0-47.0) Mean Corpuscular Volume 95 fL (79-100) 95 fL (79-100) Mean Corpuscular Hemoglobin 31 pg (25-35) 32 pg (25-35) Mean Corpuscular Hemoglobin Concent 33 g/dL (31-37) 33 g/dL (31-37) Red Cell Distribution Width 17.8 % (11.5-14.5) 17.2 % (11.5-14.5) Platelet Count 183 x10^3/uL (140-400) 150 x10^3/uL (140-400) Neutrophils (%) (Auto) 69 % (31-73) 66 % (31-73) Lymphocytes (%) (Auto) 17 % (24-48) 19 % (24-48) Monocytes (%) (Auto) 9 % (0-9) 10 % (0-9) Eosinophils (%) (Auto) 5 % (0-3) 5 % (0-3) Basophils (%) (Auto) 1 % (0-3) 1 % (0-3) Neutrophils # (Auto) 5.6 x10^3/uL (1.8-7.7) 4.0 x10^3/uL (1.8-7.7) Lymphocytes # (Auto) 1.4 x10^3/uL (1.0-4.8) 1.1 x10^3/uL (1.0-4.8) Monocytes # (Auto) 0.7 x10^3/uL (0.0-1.1) 0.6 x10^3/uL (0.0-1.1) Eosinophils # (Auto) 0.4 x10^3/uL (0.0-0.7) 0.3 x10^3/uL (0.0-0.7) Basophils # (Auto) 0.1 x10^3/uL (0.0-0.2) 0.0 x10^3/uL (0.0-0.2) Sodium Level 141 mmol/L (136-145) 139 mmol/L (136-145) Potassium Level 4.9 mmol/L (3.5-5.1) 3.9 mmol/L (3.5-5.1) Chloride Level 106 mmol/L (98-107) 104 mmol/L (98-107) Carbon Dioxide Level 23 mmol/L (21-32) 27 mmol/L (21-32) Anion Gap 12 (6-14) 8 (6-14) Blood Urea Nitrogen 30 mg/dL (7-20) 33 mg/dL (7-20) Creatinine 1.6 mg/dL (0.6-1.0) 1.8 mg/dL (0.6-1.0) Estimated GFR (Cockcroft-Gault) 32.2 28.2 BUN/Creatinine Ratio 19 (6-20) Glucose Level 114 mg/dL (70-99) 80 mg/dL (70-99) Lactic Acid Level 1.6 mmol/L (0.4-2.0) Calcium Level 8.7 mg/dL (8.5-10.1) 8.6 mg/dL (8.5-10.1) Phosphorus Level 4.4 mg/dL (2.6-4.7) Magnesium Level 2.3 mg/dL (1.8-2.4) Total Bilirubin 0.4 mg/dL (0.2-1.0) Aspartate Amino Transf (AST/SGOT) 51 U/L (15-37) Alanine Aminotransferase (ALT/SGPT) 53 U/L (14-59) Alkaline Phosphatase 69 U/L (46-116) Troponin I Quantitative < 0.017 ng/mL (0.000-0.055) < 0.017 ng/mL (0.000-0.055) YC-Vxf-K-Type Natriuretic Peptide 2297 pg/mL (0-124) Total Protein 6.9 g/dL (6.4-8.2) Albumin 3.2 g/dL (3.4-5.0) Albumin/Globulin Ratio 0.9 (1.0-1.7) Laboratory Tests Test 11/10/20 06:10 White Blood Count 6.0 x10^3/uL (4.0-11.0) Red Blood Count 2.75 x10^6/uL (3.50-5.40) Hemoglobin 8.7 g/dL (12.0-15.5) Hematocrit 26.1 % (36.0-47.0) Mean Corpuscular Volume 95 fL (79-100) Mean Corpuscular Hemoglobin 32 pg (25-35) Mean Corpuscular Hemoglobin Concent 33 g/dL (31-37) Red Cell Distribution Width 17.2 % (11.5-14.5) Platelet Count 150 x10^3/uL (140-400) Neutrophils (%) (Auto) 66 % (31-73) Lymphocytes (%) (Auto) 19 % (24-48) Monocytes (%) (Auto) 10 % (0-9) Eosinophils (%) (Auto) 5 % (0-3) Basophils (%) (Auto) 1 % (0-3) Neutrophils # (Auto) 4.0 x10^3/uL (1.8-7.7) Lymphocytes # (Auto) 1.1 x10^3/uL (1.0-4.8) Monocytes # (Auto) 0.6 x10^3/uL (0.0-1.1) Eosinophils # (Auto) 0.3 x10^3/uL (0.0-0.7) Basophils # (Auto) 0.0 x10^3/uL (0.0-0.2) Sodium Level 139 mmol/L (136-145) Potassium Level 3.9 mmol/L (3.5-5.1) Chloride Level 104 mmol/L (98-107) Carbon Dioxide Level 27 mmol/L (21-32) Anion Gap 8 (6-14) Blood Urea Nitrogen 33 mg/dL (7-20) Creatinine 1.8 mg/dL (0.6-1.0) Estimated GFR (Cockcroft-Gault) 28.2 Glucose Level 80 mg/dL (70-99) Calcium Level 8.6 mg/dL (8.5-10.1) Medications Active Scripts Medications Dose Route/Sig Max Daily Dose Days Date Category Levothyroxine Sodium 100 Mcg Tablet 1 Tab PO DAILY 11/05/20 Rx Ferrous Sulfate 300 Mg/5 Ml Liquid 300 Mg PO [id number] 11/04/20 Rx Furosemide 40 Mg Tablet 1 Tab PO PRN DAILY PRN 11/04/20 Rx Lisinopril 40 Mg Tablet 40 Mg PO DAILY 11/04/20 Rx Carvedilol (Carvedilol) 12.5 Mg Tablet 12.5 Mg PO BIDWMEALS 11/04/20 Rx Escitalopram Oxalate 10 Mg Tablet 0.5 Tab PO DAILY 10/14/20 Reported Aspirin Ec (Aspirin) 81 Mg Tablet. 81 Mg PO DAILY 10/14/20 Reported Impression . note dictated agree with current rx for acute pulmonary edema sec to uncontrolled htn thanks VIKRAM REBOLLAR MD Nov 10, 2020 14:44
[2020-11-10] MEDS ORDERED: FUROSEMIDE 40 MG/4 ML VIAL. IVP ONE (15:15)
[2020-11-10] MEDS ORDERED: POTASSIUM CHLORIDE 20 MEQ TABLET.ER. PO ONE (15:15)
[2020-11-10 15:45] VITALS: BP 163/76
[2020-11-10 19:00] VITALS: BP 118/76
[2020-11-10] MEDS: POLYVINYL ALCOHOL 1.4% OPHTH SOLUTION 15ML BOTTLE. OU PRN (19:33)
--- NOTE | 2020-11-10 21:47 | CONS ---
DATE OF CONSULTATION: 11/10/2020 ATTENDING PHYSICIAN: Matt Armando MD. CONSULTING PHYSICIAN: Alina Vasquez MD. REASON FOR CONSULTATION: The patient is seen in Pulmonary consultation at the request of Dr. Armando for acute hypoxemic respiratory failure. HISTORY OF PRESENT ILLNESS: The patient is a 65-year-old that presented to the Emergency Room with increasing shortness of breath over the last several days. She was found to be severely hypoxic, was initially placed on a nonrebreather. She was discharged home from the hospital approximately 3 days ago with pneumonia. She presented with increasing shortness of breath and lower extremity edema, blood pressure was markedly elevated. Chest x-ray reviewed, revealed bilateral pulmonary infiltrates compatible with CHF. The patient has been diuresed. She is currently down to 2 liters of oxygen supplementation. She has had COVID-19 vaccination. No COVID-19 exposure. She denies fever, chills or night sweats. No productive cough. She did have some wheezing. She has never smoked. PAST MEDICAL HISTORY: Anxiety, depression, history of DVT, hypertension, and hypothyroidism. PAST SURGICAL HISTORY: Previous uterine tumor. She had chemo in 03/2019. She has had previous hysterectomy and tubal ligation. SOCIAL HISTORY: She has never smoked. REVIEW OF SYSTEMS: CONSTITUTIONAL: No fever or chills. EYES: No changes in visual acuity. HENT: No nasal congestion or sore throat. PULMONARY: As indicated above. CARDIOVASCULAR: As indicated above. GASTROINTESTINAL: No nausea, vomiting, diarrhea. GENITOURINARY: No dysuria or frequency. MUSCULOSKELETAL: No localized muscle aches or joint pains. SKIN: No new skin rashes. NEUROLOGIC: No headaches, diplopia or blurred vision. ALLERGIES: LISTED TO FOLIC ACID, IODINE, MULTIVITAMIN. PHYSICAL EXAMINATION: GENERAL: The patient was able to complete full sentences, no respiratory distress. O2 saturation currently on 2 liters was 96%. HEENT: Eyes, the sclerae were nonicteric. NECK: Jugular venous distention was not elevated. No lymphadenopathy. CHEST: Full expansion. LUNGS: Slight crackles in the bases. No wheezes. CARDIOVASCULAR: Regular rate and rhythm with S1, S2, no S3. ABDOMEN: Soft, nontender. EXTREMITIES: No clubbing, cyanosis or edema. LABORATORY DATA: A chest x-ray was reviewed, bilateral pulmonary infiltrates. White count was normal. Electrolytes were noted. BUN and creatinine were noted to be elevated. IMPRESSION: 1. Acute hypoxemic respiratory failure secondary to acute diastolic heart failure. 2. Acute diastolic heart failure. 3. Uncontrolled hypertension. 4. Renal insufficiency. 5. Anxiety, depression. 6. Echocardiogram revealing normal LV function. 7. Hypothyroidism. PLAN: 1. Continue to diurese. 2. Discharge home when okay with Cardiology, I suspect in the next 24-48 hours. 3. Controlled hypertension. 4. 6-minute walk prior to discharge. 5. No indication for antibiotics. I do appreciate the privilege in sharing in the patient's care. YAJAIRA DR: Shae TID: [id number]
[2020-11-10 23:00] VITALS: BP 135/56
[2020-11-11 02:31] VITALS: BP 143/65
[2020-11-11] MEDS: LEVOTHYROXINE 100 MCG TABLET PO SCH (06:05)
[2020-11-11 07:00] VITALS: BP 137/64
--- NOTE | 2020-11-11 08:08 | PDOC ---
CARDIO Progress Notes Date and Time Date of Service 11/11/20 Time of Evaluation 1105 Subjective Subjective: No Chest Pain, No Palpitations, Other (breathing improved ) Vitals Vitals Vital Signs Date Time Temp Pulse Resp B/P (MAP) Pulse Ox O2 Delivery O2 Flow Rate FiO2 11/11/20 02:31 98.9 69 16 143/65 (91) 97 Nasal Cannula 98.9 11/10/20 19:15 2.0 Weight Weight [ ] Input and Output Intake and Output Intake and Output 11/11/20 07:00 Intake Total 1240 ml Output Total 2350 ml Balance -1110 ml Intake Oral 1240 ml Output Urine Total 2350 ml # Bowel Movements 1 Laboratory Labs Laboratory Tests Test 11/10/20 15:37 SARS-CoV-2 Antigen (Rapid) Negative (NEGATIVE) Physical Exam HEENT: Neck Supple W Full Motion Chest: Symmetric LUNGS: Other (fine bibasilar crackles ) Heart: RRR Abdomen: Soft N/T Extremities: Other (1-2+ bilateral LE edema ) Neurology: alert, oriented, follow commands Assessment Assessment 1. Acute respiratory failure in setting of acute CHF 2. Acute diastolic CHF; Echo 10/19 with preserved LV systolic function. Most probably secondary to uncontrolled HTN. s/p IV diuresis 3. HTN urgency; now controlled 4. CKD 5. Hypothyroidism: on replacement Recommendations Recheck labs Will give additional dose of IV Lasix today Continue current antiHTN therapy Plan outpatient ischemic evaluation Supportive care Justicifation of Admission Dx: Justifications for Admission: Justification of Admission Dx: N/A LI DANGELO APRN Nov 11, 2020 08:08
[2020-11-11] MEDS: ASPIRIN ENTERIC COATED 81 MG TABLET.DR. PO SCH (09:00)
--- NOTE | 2020-11-11 09:00 | PDOC ---
PROGRESS NOTES Date of Service: DATE: 11/11/20 TIME: 08:59 Chief Complaint Chief Complaint VTE Prophylaxis Ordered VTE Prophylaxis Devices: No VTE Pharmacological Prophylaxi: Yes Assessment/Plan Assessment/Plan impression Chest pain Dyspnea Generalized weakness Acute volume overload Acute respiratory failure in setting of CHF on cxr, Focal opacities bilaterally appears increased from prior could be from pulmonary edema or infiltrate. Acute diastolic CHF; Echo 10/19 with preserved LV systolic function. Most probably secondary to uncontrolled HTN HTN urgency Acute on chronic kidney disease, stage III, CR UP WITH DIURESIS Moderate protein malnutrition Acute anemia - required recent blood transfusion History of hypertension depression anxiety hypothyroidism History of uterine tumor status post hysterectomy and chemotherapy in 2018 plan admit CVC BED Consult cardiology trend troponin i careful diuresis PER CARDIOLOGY d/c norvasc or lower dose to 5 mg dvt prophylaxis NEPHROLOGY CONSULT 37 min pt exam, chart review, > 50% of time spent with exam, chart review, pt care coordination Justifications for Admission Justifications for Admission Other Justification ELDA LAKIA CRISOSTOMO MD Nov 09, 2020 08:33 History of Present Illness History of Present Illness Identification/Chief Complaint Chief Complaint SHORTNESS OF BREATH, CHEST PAIN seen with blue oxyacetylene torch operator phone History of Present Illness History of Present Illness Ms Chirinos is a 65-year-old female with past medical history of hypertension, depression, anxiety, DVT, uterine CA, and recently diagnosed CKD who presented to the ED with soa 65 year old female seen in ER for chest pain or shortness of breath. Patient was just discharged from the hospital for pneumonia 3 days ago. / baseline lower extremity edema. Baseline Cr unknown to the family, but has been elevated tween 1.5-1.7 since July 2020. had a creatinine between 1 and 1.1 as Nephrology has reviewed [facility] records and notes from prior Emphasized compliance with carvedilol as well as new medication lisinopril and as needed furosemide. Iron studies c/w ACD; no way to know if truly iron-deficient w/o bone marrow. needs lea-endoscopy; outpatient setting. Inadequate thyroid supplementation may contribute. Acute respiratory failure in setting of CHF /Acute diastolic CHF; Echo 10/19 with preserved LV systolic function. Most probably secondary to uncontrolled HTN //HTN urgency Past Medical History Past Medical History Past Medical History Past Medical History Past Medical History: Anxiety, Depression, DVT, Hypertension, Hypothyroid Additional Past Medical Histor: UTERINE TUMOR, LAST CHEMO MAR 2019 Past Surgical History: Hysterectomy, Tubal ligation, Other Smoking Status: Never Smoker Alcohol Use: None Drug Use: None Echo 10/14/2020: The left ventricle is normal size. The left ventricular systolic function is normal and the ejection fraction is within normal range. The Ejection Fraction is 60-65%. There is borderline concentric left ventricular hypertrophy. Doppler and Color Flow revealed trace aortic regurgitation. There is no significant aortic valvular stenosis. Doppler and Color Flow revealed no mitral valve regurgitation noted. Doppler and Color Flow revealed trace to mild tricuspid regurgitation with an estimated PAP of 39 mmHg. On discharge previously her BP was better controlled on amlodipine and carvedilol. As she was on chlorthalidone and transition to spironolactone but was admitted with hyperkalemia recommended to hold those diuretics and follow-up with nephrology with addition of furosemide as needed for weight gain. She did continue to take chlorthalidone at home, though, admitted for hyponatremia and shortness of breath, abdominal discomfort. 10/30: IV lasix given with improvement in swelling, shortness of breath and creatinine 10/31: BP improved. Transfused 1u PRBC 11/01: 24 urine protein 437 mg, started on lisinopril. Initial fecal occult negative. 11/02: BP better controlled. She is feeling little better. Despite instruction to discontinue chlorthalidone on previous hospitalization and she had restarted it because she was swollen. Using oxyacetylene torch operator it is clear that she and her h usband feel like this is partially due to the language barrier. Emphasized compliance with carvedilol as well as new medication lisinopril and as needed furosemide. 11/03: Systolic blood pressure 144 this morning. Creatinine 1.5. Her flank pain is improved. Has a little bit of abdominal cramping no chest pain or shortness of breath. Feels her swelling is stable she is very insistent that she be prescribed a diuretic. 11/04: Cr 1.7, Hb 8.2, still dropping despite iron supplementation. D/w Nephrology patient had large Hb drop since last hospital stay, needs GI eval. Abdominal pain worse today. FHX HTN Cardiovascular: HTN Pulmonary: No pertinent hx CENTRAL NERVOUS SYSTEM: Other Heme/Onc: Cancer, Other Psych: Anxiety, Depression Renal/: Chronic renal insuff Endocrine: Hypothyroidism Past Surgical History Past Surgical History: Tubal Ligation, Hysterectomy Family History Family History: Hypertension Social History Smoke: No ALCOHOL: none Drugs: None Current Medications Current Medications Current Medications Nitroglycerin (Nitrostat) 0.4 mg PRN Q5MIN PRN SL CHEST PAIN Last administered on 11/09/20at 02:04; Start 11/08/20 at 23:15 Furosemide (Lasix) 40 mg 1X ONCE PO ; Start 11/09/20 at 01:00; Stop 11/09/20 at 01:01; Status Cancel Ondansetron HCl (Zofran) 4 mg PRN Q8HRS PRN IV NAUSEA/VOMITING; Start 11/09/20 at 01:00; Stop 11/10/20 at 00:59 Fentanyl Citrate (Fentanyl 2ml Vial) 50 mcg PRN Q1HR PRN IV PAIN; Start 11/09/20 at 01:00; Stop 11/10/20 at 00:59 Acetaminophen (Tylenol) 650 mg PRN Q4HRS PRN PO FEVER > 100.3'F; Start 11/09/20 at 01:00; Stop 11/10/20 at 00:59 Nitroglycerin (Nitrostat) 0.4 mg PRN Q5MIN PRN SL CHEST PAIN; Start 11/09/20 at 01:00; Stop 11/10/20 at 00:59 Albuterol/ Ipratropium (Duoneb) 3 ml RTQID NEB Last administered on 11/09/20at 07:52; Start 11/09/20 at 08:00; Stop 11/10/20 at 07:59 Hydralazine HCl (Apresoline Inj) 5 mg PRN Q6HRS PRN IVP ELEVATED BP, SEE COMMENTS; Start 11/09/20 at 02:00 Furosemide (Lasix) 40 mg 1X ONCE IVP Last administered on 11/09/20at 02:19; Start 11/09/20 at 02:15; Stop 11/09/20 at 02:16; Status DC Active Scripts Active Levothyroxine Sodium 100 Mcg Tablet 1 Tab PO DAILY 30 Days Amlodipine Besylate 10 Mg Tablet 5 Mg PO DAILY 30 Days Ferrous Sulfate 300 Mg/5 Ml Liquid 300 Mg PO DAILYWBKFT 30 Days Furosemide 40 Mg Tablet 1 Tab PO PRN DAILY PRN 30 Days Lisinopril 40 Mg Tablet 40 Mg PO DAILY 30 Days Carvedilol (Carvedilol) 12.5 Mg Tablet 12.5 Mg PO BIDWMEALS 30 Days Reported Escitalopram Oxalate 10 Mg Tablet 0.5 Tab PO DAILY Aspirin Ec (Aspirin) 81 Mg Tablet.dr 81 Mg PO DAILY Allergies Allergies: Coded Allergies: iodine (Verified Allergy, Severe, 10/15/20) folic acid (Verified Allergy, Mild, 10/14/20) "COMPLEX B" vitamin B complex and C (Verified Allergy, Mild, 10/14/20) "COMPLEX B" ROS General: YES: Fatigue PSYCHOLOGICAL ROS: YES: Anxiety; No: Behavioral Disorder, Concentration difficultie, Decreased libido, Dep ression, Disorientation, Hallucinations, Hostility, Irritablity, Memory difficulties, Mood Swings, Obsessive thoughts, Physical abuse, Sexual abuse, Sleep disturbances, Suicidal ideation, Other Eyes: No Blurry vision, No Decreased vision, No Double vision, No Dry eyes, No Excessive tearing, No Eye Pain, No Itchy Eyes, No Loss of vision, No Photophobia, No Scotomata, No Uses contacts, No Uses glasses, No Other HEENT: No: Heacaches, Visual Changes, Hearing change, Nasal congestion, Nasal discharge, Oral lesions, Sinus pain, Sore Throat, Epistaxis, Sneezing, Snoring, Tinnitus, Vertigo, Vocal changes, Other ALLERGY AND IMMUNOLOGY: YES: Hives Hematological and Lymphatic: No: Bleeding Problems, Blood Clots, Blood Transfusions, Brusing, Night Sweats, Pallor, Swollen Lymph Nodes, Other ENDOCRINE: No: Breast Changes, Galactorrhea, Hair Pattern Changes, Hot Flashes, Malaise/lethargy, Mood Swings, Palpitations, Polydipsia/polyuria, Skin Changes, Temperature Intolerance, Unexpected Weight Changes, Other Breast: No New/Changing Breast Lumps, No Nipple changes, No Nipple discharge, No Other Respiratory: YES: Shortness of breath Cardiovascular: yes Chest Pain; No Palpitations, No Orthopnea, No Paroxysmal Noc. Dyspnea, No Edema, No Lt Headedness, No Other Gastrointestinal: No Nausea, No Vomiting, No Abdominal Pain, No Diarrhea, No Constipation, No Melena, No Hematochezia, No Other Genitourinary: No Dysuria, No Frequency, No Incontinence, No Hematuria, No Retention, No Discharge, No Urgency, No Pain, No Flank Pain, No Other, No , No , No , No , No , No , No Musculoskeletal: Yes Joint Stiffness; No Gait Disturbance, No Joint Pain, No Joint Swelling, No Muscle Pain, No Muscular Weakness, No Pain In:, No Swelling In:, No Other Neurological: No Behavorial Changes, No Bowel/Bladder ControlChng, No Confusion, No Dizziness, No Gait Disturbance, No Headaches, No Impaired Coord/balance, No Memory Loss, No Numbness/Tingling, No Seizures, No Speech Problems, No Tremors, No Visual Changes, No Weakness, No Other Skin: Yes Dry Skin; No Eczema, No Hair Changes, No Lumps, No Mole Changes, No Mottling, No Nail Changes, No Pruritus, No Rash, No Skin Lesion Changes, No Other, No Acne 7-14 CR UP TO 1.8 Chest pain Dyspnea Generalized weakness Acute volume overload Acute respiratory failure in setting of CHF on cxr, Focal opacities bilaterally appears increased from prior could be from pulmonary edema or infiltrate. Acute diastolic CHF; Echo 10/19 with preserved LV systolic function. Most probably secondary to uncontrolled HTN HTN urgency Acute on chronic kidney disease, stage III Moderate protein malnutrition Acute anemia - required recent blood transfusion History of hypertension depression anxiety hypothyroidism History of uterine tumor status post hysterectomy and chemotherapy in 2018 7-14 6 min walk CVC BED Consult cardiology trend troponin i careful diuresis d/c norvasc or lower dose to 5 mg dvt prophylaxis NEPHROLOGY CONSULTED D/W RN 27 min pt exam, chart review, > 50% of time spent with exam, chart review, pt care coordination Vitals Vitals Vital Signs Date Time Temp Pulse Resp B/P (MAP) Pulse Ox O2 Delivery O2 Flow Rate FiO2 11/11/20 07:00 98.2 71 16 137/64 (88) 98 Nasal Cannula 2.0 98.2 Physical Exam Physical Exam General: Alert, Oriented X3, Cooperative, No acute distress HEENT: PERRLA, EOMI, Mucous membr. moist/pink Lungs: Normal air movement, Other (few crackles) Heart: RRR Breasts: Not examined Abdomen: Normal bowel sounds, Soft Rectal Exam: not examined PELVIC: Examination not indicated Extremities: No cyanosis Neuro: Normal speech, Cranial nerves 3-12 NL Psych/Mental Status: Mental status NL, Mood NL General: Alert, Oriented X3, Cooperative, No acute distress Abdomen: Normal bowel sounds, Soft Extremities: No cyanosis Labs LABS Pulmonary Vein S1 Velocity 48.5cm/s D2 Velocity 50.1cm/s PVa duration 104msec LEFT VENTRICLE The left ventricle is normal size. There is borderline concentric left ventricular hypertrophy. The left ventricular systolic function is normal and the ejection fraction is within normal range. The Ejection Fraction is 60-65%. There is normal LV segmental wall motion. Transmitral Doppler flow pattern is Grade I-abnormal relaxation pattern. RIGHT VENTRICLE The right ventricle is normal size. There is normal right ventricular wall thickness. The right ventricular systolic function is normal. ATRIA The left atrium size is normal. The right atrium size is normal. The interatrial septum is intact with no evidence for an atrial septal defect or patent foramen ovale as noted on 2-D or Doppler imaging. AORTIC VALVE The aortic valve is normal in structure and function. Doppler and Color Flow revealed trace aortic regurgitation. There is no significant aortic valvular stenosis. Calculated aortic valve area is 2.48 cm2 with maximum pressure grad ient of 11 mmHg and mean pressure gradient of 5 mmHg. MITRAL VALVE The mitral valve is normal in structure and function. There is no evidence of mitral valve prolapse. There is no mitral valve stenosis. Doppler and Color Flow revealed no mitral valve regurgitation noted. TRICUSPID VALVE The tricuspid valve is normal in structure and function. Doppler and Color Flow revealed trace to mild tricuspid regurgitation with an estimated PAP of 39 mmHg. There is no tricuspid valve stenosis. PULMONIC VALVE The pulmonic valve is not well visualized. Doppler and Color Flow revealed trace pulmonic valvular regurgitation. GREAT VESSELS The aortic root is normal in size. The ascending aorta is normal in size. The IVC is normal in size and collapses >50% with inspiration. PERICARDIAL EFFUSION There is no evidence of significant pericardial effusion. Critical Notification Critical Value: No <Conclusion> The left ventricle is normal size. The left ventricular systolic function is normal and the ejection fraction is within normal range. The Ejection Fraction is 60-65%. There is borderline concentric left ventricular hypertrophy. Doppler and Color Flow revealed trace aortic regurgitation. There is no significant aortic valvular stenosis. Doppler and Color Flow revealed no mitral valve regurgitation noted. Doppler and Color Flow revealed trace to mild tricuspid regurgitation with an estimated PAP of 39 mmHg. Signed by : Breanne Salazar MD Electronically Approved : 10/14/2020 14:55:18 DICTATED and SIGNED BY: BREANNE SALAZAR MD DATE: 10/14/20 [id number] 0 Laboratory Tests Test 11/10/20 15:37 SARS-CoV-2 Antigen (Rapid) Negative (NEGATIVE) Comment Review of Relevant I have reviewed the following items rosie (where applicable) has been applied. Labs Laboratory Tests Test 11/10/20 06:10 11/10/20 15:37 White Blood Count 6.0 x10^3/uL (4.0-11.0) Red Blood Count 2.75 x10^6/uL (3.50-5.40) Hemoglobin 8.7 g/dL (12.0-15.5) Hematocrit 26.1 % (36.0-47.0) Mean Corpuscular Volume 95 fL (79-100) Mean Corpuscular Hemoglobin 32 pg (25-35) Mean Corpuscular Hemoglobin Concent 33 g/dL (31-37) Red Cell Distribution Width 17.2 % (11.5-14.5) Platelet Count 150 x10^3/uL (140-400) Neutrophils (%) (Auto) 66 % (31-73) Lymphocytes (%) (Auto) 19 % (24-48) Monocytes (%) (Auto) 10 % (0-9) Eosinophils (%) (Auto) 5 % (0-3) Basophils (%) (Auto) 1 % (0-3) Neutrophils # (Auto) 4.0 x10^3/uL (1.8-7.7) Lymphocytes # (Auto) 1.1 x10^3/uL (1.0-4.8) Monocytes # (Auto) 0.6 x10^3/uL (0.0-1.1) Eosinophils # (Auto) 0.3 x10^3/uL (0.0-0.7) Basophils # (Auto) 0.0 x10^3/uL (0.0-0.2) Sodium Level 139 mmol/L (136-145) Potassium Level 3.9 mmol/L (3.5-5.1) Chloride Level 104 mmol/L (98-107) Carbon Dioxide Level 27 mmol/L (21-32) Anion Gap 8 (6-14) Blood Urea Nitrogen 33 mg/dL (7-20) Creatinine 1.8 mg/dL (0.6-1.0) Estimated GFR (Cockcroft-Gault) 28.2 Glucose Level 80 mg/dL (70-99) Calcium Level 8.6 mg/dL (8.5-10.1) SARS-CoV-2 Antigen (Rapid) Negative (NEGATIVE) Laboratory Tests Test 11/10/20 15:37 SARS-CoV-2 Antigen (Rapid) Negative (NEGATIVE) Medications Current Medications Nitroglycerin (Nitrostat) 0.4 mg PRN Q5MIN PRN SL CHEST PAIN Last administered on 11/09/20at 02:04; Start 11/08/20 at 23:15 Furosemide (Lasix) 40 mg 1X ONCE PO ; Start 11/09/20 at 01:00; Stop 11/09/20 at 01:01; Status Cancel Ondansetron HCl (Zofran) 4 mg PRN Q8HRS PRN IV NAUSEA/VOMITING; Start 11/09/20 at 01:00; Stop 11/09/20 at 11:48; Status DC Fentanyl Citrate (Fentanyl 2ml Vial) 50 mcg PRN Q1HR PRN IV PAIN; Start 11/09/20 at 01:00; Stop 11/10/20 at 00:59; Status DC Acetaminophen (Tylenol) 650 mg PRN Q4HRS PRN PO FEVER > 100.3'F; Start 11/09/20 at 01:00; Stop 11/09/20 at 11:49; Status DC Nitroglycerin (Nitrostat) 0.4 mg PRN Q5MIN PRN SL CHEST PAIN; Start 11/09/20 at 01:00; Stop 11/10/20 at 00:59; Status DC Albuterol/ Ipratropium (Duoneb) 3 ml RTQID NEB Last administered on 11/10/20at 07:29; Start 11/09/20 at 08:00; Stop 11/10/20 at 07:59; Status DC Hydralazine HCl (Apresoline Inj) 5 mg PRN Q6HRS PRN IVP ELEVATED BP, SEE COMMENTS; Start 11/09/20 at 02:00; Stop 11/09/20 at 11:54; Status DC Furosemide (Lasix) 40 mg 1X ONCE IVP Last administered on 11/09/20at 02:19; Start 11/09/20 at 02:15; Stop 11/09/20 at 02:16; Status DC Amlodipine Besylate (Norvasc) 5 mg DAILY PO Last administered on 11/10/20at 09:26; Start 11/09/20 at 11:00 Aspirin (Ecotrin) 81 mg DAILY PO Last administered on 11/09/20at 11:06; Start 11/09/20 at 11:00 Carvedilol (Coreg) 12.5 mg BIDWMEALS PO Last administered on 11/10/20at 18:03; Start 11/09/20 at 12:00 Ferrous Sulfate (Iron Oral Solution) 300 mg DAILYWBKFT PO Last administered on 11/10/20at 09:25; Start 11/09/20 at 12:00 Furosemide (Lasix) 40 mg PRN DAILY PRN PO Weight gain 3# Last administered on 11/09/20at 12:37; Start 11/09/20 at 10:15 Levothyroxine Sodium (Synthroid) 100 mcg DAILY06 PO Last administered on 11/11/20at 06:05; Start 11/09/20 at 11:00 Lisinopril (Prinivil) 40 mg DAILY PO Last administered on 11/10/20 09:26; Start 11/09/20 at 11:00 Citalopram Hydrobromide (CeleXA) 10 mg DAILY PO Last administered on 11/10/20at 09:26; Start 11/09/20 at 11:00 Sodium Chloride (Normal Saline Flush) 3 ml QSHIFT PRN IV AFTER MEDS AND BLOOD DRAWS; Start 11/09/20 at 11:45 Ondansetron HCl (Zofran) 4 mg PRN Q4HRS PRN IV NAUSEA/VOMITING; Start 11/09/20 at 11:45 Acetaminophen (Tylenol) 650 mg PRN Q4HRS PRN PO TEMP OVER 100.4F OR MILD PAIN; Start 11/09/20 at 11:45 Sodium Monofluorophosphate (Fleet Adult) 133 ml PRN DAILY PRN [place] CONSTIPATION; Start 11/09/20 at 11:45 Docusate Sodium (Colace) 100 mg PRN BID PRN PO HARD STOOLS; Start 11/09/20 at 11:45 Albuterol Sulfate (Ventolin Neb Soln) 2.5 mg PRN Q4HRS PRN NEB SHORTNESS OF BREATH; Start 11/09/20 at 11:45; Stop 11/10/20 at 12:59; Status DC Guaifenesin (Robitussin) 200 mg PRN Q4HRS PRN PO COUGH; Start 11/09/20 at 11:45 Enoxaparin Sodium (Lovenox 40mg Syringe) 40 mg Q24H SQ Last administered on 11/09/20at 12:38; Start 11/09/20 at 13:00; Stop 11/10/20 at 13:04; Status DC Hydralazine HCl (Apresoline Inj) 10 mg PRN Q4HRS PRN IVP ELEVATED BP, SEE COMMENTS Last administered on 11/09/20at 12:42; Start 11/09/20 at 12:00 Furosemide (Lasix) 40 mg 1X ONCE IVP Last administered on 11/09/20at 12:51; Start 11/09/20 at 12:30; Stop 11/09/20 at 12:31; Status DC Albuterol Sulfate (Ventolin Neb Soln) 2.5 mg PRN Q4HRS PRN NEB SHORTNESS OF BREATH; Start 11/10/20 at 07:15 Enoxaparin Sodium (Lovenox 30mg Syringe) 30 mg Q24H SQ Last administered on 11/10/20at 14:07; Start 11/10/20 at 14:00 Furosemide (Lasix) 40 mg 1X ONCE IVP Last administered on 11/10/20at 15:31; Start 11/10/20 at 15:15; Stop 11/10/20 at 15:16; Status DC Potassium Chloride (Klor-Con) 20 meq 1X ONCE PO Last administered on 11/10/20at 15:32; Start 11/10/20 at 15:15; Stop 11/10/20 at 15:16; Status DC Glycerin/ Hypromellose/ Polyethylene (Artificial Tears) 1 drop PRN Q15MIN PRN OU DRY EYE Last administered on 11/10/20at 19:33; Start 11/10/20 at 19:15 Active Scripts Active Levothyroxine Sodium 100 Mcg Tablet 1 Tab PO DAILY 30 Days Ferrous Sulfate 300 Mg/5 Ml Liquid 300 Mg PO DAILYWBKFT 30 Days Furosemide 40 Mg Tablet 1 Tab PO PRN DAILY PRN 30 Days Lisinopril 40 Mg Tablet 40 Mg PO DAILY 30 Days Carvedilol (Carvedilol) 12.5 Mg Tablet 12.5 Mg PO BIDWMEALS 30 Days Reported Escitalopram Oxalate 10 Mg Tablet 0.5 Tab PO DAILY Aspirin Ec (Aspirin) 81 Mg Tablet.dr 81 Mg PO DAILY Vitals/I & O Vital Sign - Last 24 Hours 11/10/20 11/10/20 11/10/20 11/10/20 09:26 09:26 09:26 11:00 Temp 98.1 98.1 Pulse 70 70 70 72 Resp 18 B/P (MAP) 137/67 137/67 137/67 155/68 (97) Pulse Ox 97 O2 Delivery Nasal Cannula 11/10/20 11/10/20 11/10/20 11/10/20 15:45 18:03 19:00 19:15 Temp 98.1 98.8 98.1 98.8 Pulse 84 79 72 Resp 20 18 B/P (MAP) 163/76 (105) 118/76 (90) Pulse Ox 98 98 O2 Delivery Nasal Cannula Nasal Cannula Nasal Cannula O2 Flow Rate 2.0 11/10/20 11/11/20 11/11/20 23:00 02:31 07:00 Temp 99.0 98.9 98.2 99.0 98.9 98.2 Pulse 73 69 71 Resp 16 16 16 B/P (MAP) 135/56 (82) 143/65 (91) 137/64 (88) Pulse Ox 96 97 98 O2 Delivery Nasal Cannula Nasal Cannula Nasal Cannula O2 Flow Rate 2.0 Intake and Output 11/10/20 11/10/20 11/11/20 15:00 23:00 07:00 Intake Total 240 ml 500 ml 500 ml Output Total 950 ml 650 ml 750 ml Balance -710 ml -150 ml -250 ml Justicifation of Admission Dx: Justifications for Admission: Justification of Admission Dx: N/A LAKIA CRISOSTOMO MD Nov 11, 2020 09:00
[2020-11-11] MEDS: FERROUS SULFATE ORAL 300 MG/5 ML SOLUTION. PO SCH (09:40)
[2020-11-11] MEDS: CITALOPRAM 10 MG TABLET. PO SCH (09:40)
[2020-11-11] MEDS: CARVEDILOL 12.5 MG TABLET. PO SCH ×2 (09:41→17:56)
[2020-11-11] MEDS: LISINOPRIL 20 MG TABLET PO SCH (09:41)
--- NOTE | 2020-11-11 10:30 | PDOC ---
PULMONARY PROGRESS NOTES DATE: 11/11/20 TIME: 10:30 Subjective pt. is now on room air no increased SOA or Cough no overnight concerns Vitals Vital Signs Date Time Temp Pulse Resp B/P (MAP) Pulse Ox O2 Delivery O2 Flow Rate FiO2 11/11/20 09:41 71 137/64 11/11/20 08:00 Nasal Cannula 1.0 11/11/20 07:00 98.2 16 98 98.2 ROS: No Nausea, No Chest Pain, No Abdominal Pain, No Increase Cough General: Alert Lungs: Clear Cardiovascular: S1, S2 Neuro Exam: Alert Skin: Warm Labs Laboratory Tests Test 11/10/20 06:10 11/10/20 15:37 White Blood Count 6.0 x10^3/uL (4.0-11.0) Red Blood Count 2.75 x10^6/uL (3.50-5.40) Hemoglobin 8.7 g/dL (12.0-15.5) Hematocrit 26.1 % (36.0-47.0) Mean Corpuscular Volume 95 fL (79-100) Mean Corpuscular Hemoglobin 32 pg (25-35) Mean Corpuscular Hemoglobin Concent 33 g/dL (31-37) Red Cell Distribution Width 17.2 % (11.5-14.5) Platelet Count 150 x10^3/uL (140-400) Neutrophils (%) (Auto) 66 % (31-73) Lymphocytes (%) (Auto) 19 % (24-48) Monocytes (%) (Auto) 10 % (0-9) Eosinophils (%) (Auto) 5 % (0-3) Basophils (%) (Auto) 1 % (0-3) Neutrophils # (Auto) 4.0 x10^3/uL (1.8-7.7) Lymphocytes # (Auto) 1.1 x10^3/uL (1.0-4.8) Monocytes # (Auto) 0.6 x10^3/uL (0.0-1.1) Eosinophils # (Auto) 0.3 x10^3/uL (0.0-0.7) Basophils # (Auto) 0.0 x10^3/uL (0.0-0.2) Sodium Level 139 mmol/L (136-145) Potassium Level 3.9 mmol/L (3.5-5.1) Chloride Level 104 mmol/L (98-107) Carbon Dioxide Level 27 mmol/L (21-32) Anion Gap 8 (6-14) Blood Urea Nitrogen 33 mg/dL (7-20) Creatinine 1.8 mg/dL (0.6-1.0) Estimated GFR (Cockcroft-Gault) 28.2 Glucose Level 80 mg/dL (70-99) Calcium Level 8.6 mg/dL (8.5-10.1) SARS-CoV-2 Antigen (Rapid) Negative (NEGATIVE) Laboratory Tests Test 11/10/20 15:37 SARS-CoV-2 Antigen (Rapid) Negative (NEGATIVE) Medications Active Scripts Medications Dose Route/Sig Max Daily Dose Days Date Category Levothyroxine Sodium 100 Mcg Tablet 1 Tab PO DAILY 11/05/20 Rx Ferrous Sulfate 300 Mg/5 Ml Liquid 300 Mg PO DAILYWBKFT 11/04/20 Rx Furosemide 40 Mg Tablet 1 Tab PO PRN DAILY PRN 11/04/20 Rx Lisinopril 40 Mg Tablet 40 Mg PO DAILY 11/04/20 Rx Carvedilol (Carvedilol) 12.5 Mg Tablet 12.5 Mg PO BIDWMEALS 11/04/20 Rx Escitalopram Oxalate 10 Mg Tablet 0.5 Tab PO DAILY 10/14/20 Reported Aspirin Ec (Aspirin) 81 Mg Tablet.dr 81 Mg PO DAILY 10/14/20 Reported Impression . IMPRESSION: 1. Acute hypoxemic respiratory failure secondary to acute diastolic heart failure. 2. Acute diastolic heart failure. 3. Uncontrolled hypertension. 4. Renal insufficiency. 5. Anxiety, depression. 6. Echocardiogram revealing normal LV function. 7. Hypothyroidism. Plan . Updated 11/11/20 Respiratory status compensated, now on room air Follow Cardiology recs--Continue to diurese 6-minute walk prior to discharge CXR reviewed- improved Monitor renal function DVT/GI PPX D/W VIKRAM FATIMA MD Nov 11, 2020 10:30
--- NOTE | 2020-11-11 10:38 | RAD ---
EXAM: Chest, single view. HISTORY: Congestive heart failure. COMPARISON: 11/08/2020 FINDINGS: A frontal view of the chest is obtained. There has been slight interval decrease in diffuse lower lobe predominant interstitial infiltrate. There are stable small pleural effusions. There is s table enlargement of the cardiac silhouette. There is a generator overlying the left thorax. There is no pneumothorax. IMPRESSION: 1. Slight interval decrease in diffuse lower lobe predominant interstitial infiltrate. 2. Stable small pleural effusions and prominent cardiac silhouette. Electronically signed by: Anisha Baldwin MD (11/11/2020 10:36 AM) [id number]
[2020-11-11 11:00] VITALS: BP 163/66
[2020-11-11 11:30] LABS: CALCIUM 8.4 mg/dL (8.5-10.1); CREATININE 1.8 mg/dL (0.6-1.0); GFR 28.2; MAGNESIUM 2.2 mg/dL (1.8-2.4); POTASSIUM 4.1 mmol/L (3.5-5.1)
[2020-11-11] MEDS ORDERED: FUROSEMIDE 40 MG/4 ML VIAL. IVP ONE (13:30)
[2020-11-11] MEDS: ENOXAPARIN 30 MG/0.3 ML SYRINGE. SQ SCH (13:58)
[2020-11-11 14:44] VITALS: BP 167/79
--- NOTE | 2020-11-11 15:08 | NUR ---
SS following up with discharge planning. SS reviewed pt chart and discussed with pt RN. Six minute walk completed and pt does not require home oxygen. PT/OT recommended acute rehabilitation hospital. Pt Persian speaking only. SS was able to speak with pt's family via phone and discussed discharge planning and acute rehabilitation. Pt's family reported that they will not decide for pt and it is pt's decision. Family reported that they will speak with pt about options. Pt was current on services with [facility], ; fax [phone]. SS will continue to follow for discharge planning.
[2020-11-11 19:00] VITALS: BP 148/76
[2020-11-11] MEDS: POLYVINYL ALCOHOL 1.4% OPHTH SOLUTION 15ML BOTTLE. OU PRN (20:28)
[2020-11-11 22:40] VITALS: BP 150/68
[2020-11-12 02:51] VITALS: BP 146/73
[2020-11-12] MEDS: LEVOTHYROXINE 100 MCG TABLET PO SCH (06:15)
[2020-11-12 07:00] VITALS: BP 151/66
[2020-11-12 07:58] LABS: ALBUMIN 2.9 g/dL (3.4-5.0); CALCIUM 8.7 mg/dL (8.5-10.1); CREATININE 1.7 mg/dL (0.6-1.0); GFR 30.1; POTASSIUM 3.7 mmol/L (3.5-5.1)
[2020-11-12] MEDS: CITALOPRAM 10 MG TABLET. PO SCH (09:00)
--- NOTE | 2020-11-12 09:05 | PDOC ---
PULMONARY PROGRESS NOTES DATE: 11/12/20 TIME: 09:05 Subjective pt. is now on room air no increased SOA or Cough no overnight concerns Vitals Vital Signs Date Time Temp Pulse Resp B/P (MAP) Pulse Ox O2 Delivery O2 Flow Rate FiO2 11/12/20 07:00 97.8 100 151/66 (94) 93 Room Air 97.8 11/12/20 02:51 16 11/11/20 11:00 2.0 ROS: No Nausea, No Chest Pain, No Abdominal Pain, No Increase Cough General: Alert Lungs: Clear Cardiovascular: S1, S2 Neuro Exam: Alert Skin: Warm Labs Laboratory Tests Test 11/10/20 15:37 11/11/20 11:10 11/12/20 05:40 SARS-CoV-2 Antigen (Rapid) Negative (NEGATIVE) Sodium Level 142 mmol/L (136-145) 140 mmol/L (136-145) Potassium Level 4.1 mmol/L (3.5-5.1) 3.7 mmol/L (3.5-5.1) Chloride Level 106 mmol/L (98-107) 105 mmol/L (98-107) Carbon Dioxide Level 26 mmol/L (21-32) 28 mmol/L (21-32) Anion Gap 10 (6-14) 7 (6-14) Blood Urea Nitrogen 34 mg/dL (7-20) 37 mg/dL (7-20) Creatinine 1.8 mg/dL (0.6-1.0) 1.7 mg/dL (0.6-1.0) Estimated GFR (Cockcroft-Gault) 28.2 30.1 Glucose Level 116 mg/dL (70-99) 87 mg/dL (70-99) Calcium Level 8.4 mg/dL (8.5-10.1) 8.7 mg/dL (8.5-10.1) Magnesium Level 2.2 mg/dL (1.8-2.4) Phosphorus Level 4.0 mg/dL (2.6-4.7) Albumin 2.9 g/dL (3.4-5.0) Laboratory Tests Test 11/11/20 11:10 11/12/20 05:40 Sodium Level 142 mmol/L (136-145) 140 mmol/L (136-145) Potassium Level 4.1 mmol/L (3.5-5.1) 3.7 mmol/L (3.5-5.1) Chloride Level 106 mmol/L (98-107) 105 mmol/L (98-107) Carbon Dioxide Level 26 mmol/L (21-32) 28 mmol/L (21-32) Anion Gap 10 (6-14) 7 (6-14) Blood Urea Nitrogen 34 mg/dL (7-20) 37 mg/dL (7-20) Creatinine 1.8 mg/dL (0.6-1.0) 1.7 mg/dL (0.6-1.0) Estimated GFR (Cockcroft-Gault) 28.2 30.1 Glucose Level 116 mg/dL (70-99) 87 mg/dL (70-99) Calcium Level 8.4 mg/dL (8.5-10.1) 8.7 mg/dL (8.5-10.1) Magnesium Level 2.2 mg/dL (1.8-2.4) Phosphorus Level 4.0 mg/dL (2.6-4.7) Albumin 2.9 g/dL (3.4-5.0) Medications Active Scripts Medications Dose Route/Sig Max Daily Dose Days Date Category Levothyroxine Sodium 100 Mcg Tablet 1 Tab PO DAILY 11/05/20 Rx Ferrous Sulfate 300 Mg/5 Ml Liquid 300 Mg PO [id number] 11/04/20 Rx Furosemide 40 Mg Tablet 1 Tab PO PRN DAILY PRN 11/04/20 Rx Lisinopril 40 Mg Tablet 40 Mg PO DAILY 11/04/20 Rx Carvedilol (Carvedilol) 12.5 Mg Tablet 12.5 Mg PO BIDWMEALS 11/04/20 Rx Escitalopram Oxalate 10 Mg Tablet 0.5 Tab PO DAILY 10/14/20 Reported Aspirin Ec (Aspirin) 81 Mg Tablet.dr 81 Mg PO DAILY 10/14/20 Reported Impression . IMPRESSION: 1. Acute hypoxemic respiratory failure secondary to acute diastolic heart failure. 2. Acute diastolic heart failure. 3. Uncontrolled hypertension. 4. Renal insufficiency. 5. Anxiety, depression. 6. Echocardiogram revealing normal LV function. 7. Hypothyroidism. Plan . Updated 11/12/20 Respiratory status compensated Follow Cardiology recs--Continue to diurese, managing HTN 6-minute walk in am Follow nephrology recs --Monitor renal function DVT/GI PPX D/W RN Updated 11/11/20 Respiratory status compensated, now on room air Follow Cardiology recs--Continue to diurese 6-minute walk prior to discharge CXR reviewed- improved Monitor renal function DVT/GI PPX D/W VIKRAM FATIMA MD Nov 12, 2020 09:05
[2020-11-12] MEDS: CARVEDILOL 12.5 MG TABLET. PO SCH ×2 (09:48→17:24)
[2020-11-12] MEDS: FERROUS SULFATE ORAL 300 MG/5 ML SOLUTION. PO SCH (09:48)
[2020-11-12] MEDS: LISINOPRIL 20 MG TABLET PO SCH (09:49)
[2020-11-12] MEDS: ASPIRIN ENTERIC COATED 81 MG TABLET.DR. PO SCH (09:49)
[2020-11-12] MEDS ORDERED: FUROSEMIDE 40 MG/4 ML VIAL. IVP ONE (10:45)
--- NOTE | 2020-11-12 10:52 | PDOC ---
PROGRESS NOTES Date of Service: DATE: 11/12/20 TIME: 10:51 Chief Complaint Chief Complaint VTE Prophylaxis Ordered VTE Prophylaxis Devices: No VTE Pharmacological Prophylaxi: Yes Assessment/Plan Assessment/Plan impression Chest pain Dyspnea Generalized weakness Acute volume overload Acute respiratory failure in setting of CHF on cxr, Focal opacities bilaterally appears increased from prior could be from pulmonary edema or infiltrate. Acute diastolic CHF; Echo 10/19 with preserved LV systolic function. Most probably secondary to uncontrolled HTN HTN urgency Acute on chronic kidney disease, stage III, CR UP WITH DIURESIS Moderate protein malnutrition Acute anemia - required recent blood transfusion History of hypertension depression anxiety hypothyroidism History of uterine tumor status post hysterectomy and chemotherapy in 2018 plan admit CVC BED Consult cardiology trend troponin i careful diuresis PER CARDIOLOGY d/c norvasc or lower dose to 5 mg dvt prophylaxis NEPHROLOGY CONSULT 37 min pt exam, chart review, > 50% of time spent with exam, chart review, pt care coordination Justifications for Admission Justifications for Admission Other Justification ELDA LAKIA CRISOSTOMO MD Nov 09, 2020 08:33 History of Present Illness History of Present Illness Identification/Chief Complaint Chief Complaint SHORTNESS OF BREATH, CHEST PAIN seen with blue central sterile technician phone History of Present Illness History of Present Illness Ms Chirinos is a 65-year-old female with past medical history of hypertension, depression, anxiety, DVT, uterine CA, and recently diagnosed CKD who presented to the ED with soa 65 year old female seen in ER for chest pain or shortness of breath. Patient was just discharged from the hospital for pneumonia 3 days ago. / baseline lower extremity edema. Baseline Cr unknown to the family, but has been elevated tween 1.5-1.7 since July 2020. had a creatinine between 1 and 1.1 as Nephrology has reviewed [facility] records and notes from prior Emphasized compliance with carvedilol as well as new medication lisinopril and as needed furosemide. Iron studies c/w ACD; no way to know if truly iron-deficient w/o bone marrow. needs lea-endoscopy; outpatient setting. Inadequate thyroid supplementation may contribute. Acute respiratory failure in setting of CHF /Acute diastolic CHF; Echo 10/19 with preserved LV systolic function. Most probably secondary to uncontrolled HTN //HTN urgency Past Medical History Past Medical History Past Medical History Past Medical History Past Medical History: Anxiety, Depression, DVT, Hypertension, Hypothyroid Additional Past Medical Histor: UTERINE TUMOR, LAST CHEMO MAR 2019 Past Surgical History: Hysterectomy, Tubal ligation, Other Smoking Status: Never Smoker Alcohol Use: None Drug Use: None Echo 10/14/2020: The left ventricle is normal size. The left ventricular systolic function is normal and the ejection fraction is within normal range. The Ejection Fraction is 60-65%. There is borderline concentric left ventricular hypertrophy. Doppler and Color Flow revealed trace aortic regurgitation. There is no significant aortic valvular stenosis. Doppler and Color Flow revealed no mitral valve regurgitation noted. Doppler and Color Flow revealed trace to mild tricuspid regurgitation with an estimated PAP of 39 mmHg. On discharge previously her BP was better controlled on amlodipine and carvedilol. As she was on chlorthalidone and transition to spironolactone but was admitted with hyperkalemia recommended to hold those diuretics and follow-up with nephrology with addition of furosemide as needed for weight gain. She did continue to take chlorthalidone at home, though, admitted for hyponatremia and shortness of breath, abdominal discomfort. 10/30: IV lasix given with improvement in swelling, shortness of breath and creatinine 10/31: BP improved. Transfused 1u PRBC 11/01: 24 urine protein 437 mg, started on lisinopril. Initial fecal occult negative. 11/02: BP better controlled. She is feeling little better. Despite instruction to discontinue chlorthalidone on previous hospitalization and she had restarted it because she was swollen. Using central sterile technician it is clear that she and her h usband feel like this is partially due to the language barrier. Emphasized compliance with carvedilol as well as new medication lisinopril and as needed furosemide. 11/03: Systolic blood pressure 144 this morning. Creatinine 1.5. Her flank pain is improved. Has a little bit of abdominal cramping no chest pain or shortness of breath. Feels her swelling is stable she is very insistent that she be prescribed a diuretic. 11/04: Cr 1.7, Hb 8.2, still dropping despite iron supplementation. D/w Nephrology patient had large Hb drop since last hospital stay, needs GI eval. Abdominal pain worse today. FHX HTN Cardiovascular: HTN Pulmonary: No pertinent hx CENTRAL NERVOUS SYSTEM: Other Heme/Onc: Cancer, Other Psych: Anxiety, Depression Renal/: Chronic renal insuff Endocrine: Hypothyroidism Past Surgical History Past Surgical History: Tubal Ligation, Hysterectomy Family History Family History: Hypertension Social History Smoke: No ALCOHOL: none Drugs: None Current Medications Current Medications Current Medications Nitroglycerin (Nitrostat) 0.4 mg PRN Q5MIN PRN SL CHEST PAIN Last administered on 11/09/20at 02:04; Start 11/08/20 at 23:15 Furosemide (Lasix) 40 mg 1X ONCE PO ; Start 11/09/20 at 01:00; Stop 11/09/20 at 01:01; Status Cancel Ondansetron HCl (Zofran) 4 mg PRN Q8HRS PRN IV NAUSEA/VOMITING; Start 11/09/20 at 01:00; Stop 11/10/20 at 00:59 Fentanyl Citrate (Fentanyl 2ml Vial) 50 mcg PRN Q1HR PRN IV PAIN; Start 11/09/20 at 01:00; Stop 11/10/20 at 00:59 Acetaminophen (Tylenol) 650 mg PRN Q4HRS PRN PO FEVER > 100.3'F; Start 11/09/20 at 01:00; Stop 11/10/20 at 00:59 Nitroglycerin (Nitrostat) 0.4 mg PRN Q5MIN PRN SL CHEST PAIN; Start 11/09/20 at 01:00; Stop 11/10/20 at 00:59 Albuterol/ Ipratropium (Duoneb) 3 ml RTQID NEB Last administered on 11/09/20at 07:52; Start 11/09/20 at 08:00; Stop 11/10/20 at 07:59 Hydralazine HCl (Apresoline Inj) 5 mg PRN Q6HRS PRN IVP ELEVATED BP, SEE COMMENTS; Start 11/09/20 at 02:00 Furosemide (Lasix) 40 mg 1X ONCE IVP Last administered on 11/09/20at 02:19; Start 11/09/20 at 02:15; Stop 11/09/20 at 02:16; Status DC Active Scripts Active Levothyroxine Sodium 100 Mcg Tablet 1 Tab PO DAILY 30 Days Amlodipine Besylate 10 Mg Tablet 5 Mg PO DAILY 30 Days Ferrous Sulfate 300 Mg/5 Ml Liquid 300 Mg PO DAILYWBKFT 30 Days Furosemide 40 Mg Tablet 1 Tab PO PRN DAILY PRN 30 Days Lisinopril 40 Mg Tablet 40 Mg PO DAILY 30 Days Carvedilol (Carvedilol) 12.5 Mg Tablet 12.5 Mg PO BIDWMEALS 30 Days Reported Escitalopram Oxalate 10 Mg Tablet 0.5 Tab PO DAILY Aspirin Ec (Aspirin) 81 Mg Tablet.dr 81 Mg PO DAILY Allergies Allergies: Coded Allergies: iodine (Verified Allergy, Severe, 10/15/20) folic acid (Verified Allergy, Mild, 10/14/20) "COMPLEX B" vitamin B complex and C (Verified Allergy, Mild, 10/14/20) "COMPLEX B" ROS General: YES: Fatigue PSYCHOLOGICAL ROS: YES: Anxiety; No: Behavioral Disorder, Concentration difficultie, Decreased libido, Dep ression, Disorientation, Hallucinations, Hostility, Irritablity, Memory difficulties, Mood Swings, Obsessive thoughts, Physical abuse, Sexual abuse, Sleep disturbances, Suicidal ideation, Other Eyes: No Blurry vision, No Decreased vision, No Double vision, No Dry eyes, No Excessive tearing, No Eye Pain, No Itchy Eyes, No Loss of vision, No Photophobia, No Scotomata, No Uses contacts, No Uses glasses, No Other HEENT: No: Heacaches, Visual Changes, Hearing change, Nasal congestion, Nasal discharge, Oral lesions, Sinus pain, Sore Throat, Epistaxis, Sneezing, Snoring, Tinnitus, Vertigo, Vocal changes, Other ALLERGY AND IMMUNOLOGY: YES: Hives Hematological and Lymphatic: No: Bleeding Problems, Blood Clots, Blood Transfusions, Brusing, Night Sweats, Pallor, Swollen Lymph Nodes, Other ENDOCRINE: No: Breast Changes, Galactorrhea, Hair Pattern Changes, Hot Flashes, Malaise/lethargy, Mood Swings, Palpitations, Polydipsia/polyuria, Skin Changes, Temperature Intolerance, Unexpected Weight Changes, Other Breast: No New/Changing Breast Lumps, No Nipple changes, No Nipple discharge, No Other Respiratory: YES: Shortness of breath Cardiovascular: yes Chest Pain; No Palpitations, No Orthopnea, No Paroxysmal Noc. Dyspnea, No Edema, No Lt Headedness, No Other Gastrointestinal: No Nausea, No Vomiting, No Abdominal Pain, No Diarrhea, No Constipation, No Melena, No Hematochezia, No Other Genitourinary: No Dysuria, No Frequency, No Incontinence, No Hematuria, No Retention, No Discharge, No Urgency, No Pain, No Flank Pain, No Other, No , No , No , No , No , No , No Musculoskeletal: Yes Joint Stiffness; No Gait Disturbance, No Joint Pain, No Joint Swelling, No Muscle Pain, No Muscular Weakness, No Pain In:, No Swelling In:, No Other Neurological: No Behavorial Changes, No Bowel/Bladder ControlChng, No Confusion, No Dizziness, No Gait Disturbance, No Headaches, No Impaired Coord/balance, No Memory Loss, No Numbness/Tingling, No Seizures, No Speech Problems, No Tremors, No Visual Changes, No Weakness, No Other Skin: Yes Dry Skin; No Eczema, No Hair Changes, No Lumps, No Mole Changes, No Mottling, No Nail Changes, No Pruritus, No Rash, No Skin Lesion Changes, No Other, No Acne 7-15 CR UP TO 1.8 Chest pain Dyspnea Generalized weakness Acute volume overload Acute respiratory failure in setting of CHF on cxr, Focal opacities bilaterally appears increased from prior could be from pulmonary edema or infiltrate. Acute diastolic CHF; Echo 10/19 with preserved LV systolic function. Most probably secondary to uncontrolled HTN HTN urgency Acute on chronic kidney disease, stage III Moderate protein malnutrition Acute anemia - required recent blood transfusion History of hypertension depression anxiety hypothyroidism History of uterine tumor status post hysterectomy and chemotherapy in 11-11 6 min walk CVC BED Consult cardiology trend troponin i careful diuresis d/c norvasc or lower dose to 5 mg dvt prophylaxis NEPHROLOGY CONSULTED D/W station air traffic control specialist Recommendations * Acute Rehab facility Discharge Recommendation - DME * Rolling Walker needed * and ambulation safely 29 min pt exam, chart review, > 50% of time spent with exam, chart review, pt care coordination - CR UP TO 1.8 Chest pain Dyspnea Generalized weakness Acute volume overload Acute respiratory failure in setting of CHF on cxr, Focal opacities bilaterally appears increased from prior could be from pulmonary edema or infiltrate. Acute diastolic CHF; Echo 10/19 with preserved LV systolic function. Most probably secondary to uncontrolled HTN HTN urgency Acute on chronic kidney disease, stage III Moderate protein malnutrition Acute anemia - required recent blood transfusion History of hypertension depression anxiety hypothyroidism History of uterine tumor status post hysterectomy and chemotherapy in 2018 10- 6 min walk CVC BED Consult cardiology trend troponin i careful diuresis d/c norvasc or lower dose to 5 mg dvt prophylaxis NEPHROLOGY CONSULTED D/W RN 27 min pt exam, chart review, > 50% of time spent with exam, chart review, pt care coordination Vitals Vitals Vital Signs Date Time Temp Pulse Resp B/P (MAP) Pulse Ox O2 Delivery O2 Flow Rate FiO2 11/12/20 09:49 100 151/66 11/12/20 08:00 Room Air 11/12/20 07:00 97.8 93 97.8 11/12/20 02:51 16 11/11/20 11:00 2.0 Physical Exam Physical Exam General: Alert, Oriented X3, Cooperative, No acute distress HEENT: PERRLA, EOMI, Mucous membr. moist/pink Lungs: Normal air movement, Other (few crackles) Heart: RRR Breasts: Not examined Abdomen: Normal bowel sounds, Soft Rectal Exam: not examined PELVIC: Examination not indicated Extremities: No cyanosis Neuro: Normal speech, Cranial nerves 3-12 NL Psych/Mental Status: Mental status NL, Mood NL General: Alert, Oriented X3, Cooperative, No acute distress Lungs: Clear Abdomen: Normal bowel sounds, Soft Extremities: No cyanosis Labs LABS * none stated Rehab Potential to Achieve Goals * Good Learning Preferences * One-on-One Instruction * Demonstration Problem List (body system elements) * Impaired fnctnl mobility * Balance * Respiration/perfusion * Coordination * Knowledge-safe techniques Clinical Presentation * Evolving Evaluation Complexity Level * Moderate Complexity Pt/caregiver agrees with plan of care/goals * Yes Patient condition at conclusion of therapy * Pt in chair * Call light in reach * Phone in reach * PtIn no apparent distress * Pt denies further needs * Visitor with patient Communicated Patient Care With (Name, Title) * Jodi, RN; Marycarmen, from [facility] food service utility worker; Goal 1 - Bed Mobility Assistance Required * Independent Goal 2 - Transfers Assistance Required * Independent Goal 2 - Transfer Type * Sit to Stand Goal 3 - Ambulation Assistance Required * Independent Goal 3 - Ambulation Distance * 100' Goal 3 - Ambulation Device * Roller Walker Treatment Plan * Therapeutic Exercise * Bed Mobility Training * Transfer training * Gait Training Frequency of Treatment Expected * 5 visits/week Duration of Treatment Expected * 2 weeks Discharge Recommendations * Acute Rehab facility Discharge Recommendation - DME * Rolling Walker needed * and ambulation safely Laboratory Tests Test 11/11/20 11:10 11/12/20 05:40 Sodium Level 142 mmol/L (136-145) 140 mmol/L (136-145) Potassium Level 4.1 mmol/L (3.5-5.1) 3.7 mmol/L (3.5-5.1) Chloride Level 106 mmol/L (98-107) 105 mmol/L (98-107) Carbon Dioxide Level 26 mmol/L (21-32) 28 mmol/L (21-32) Anion Gap 10 (6-14) 7 (6-14) Blood Urea Nitrogen 34 mg/dL (7-20) 37 mg/dL (7-20) Creatinine 1.8 mg/dL (0.6-1.0) 1.7 mg/dL (0.6-1.0) Estimated GFR (Cockcroft-Gault) 28.2 30.1 Glucose Level 116 mg/dL (70-99) 87 mg/dL (70-99) Calcium Level 8.4 mg/dL (8.5-10.1) 8.7 mg/dL (8.5-10.1) Magnesium Level 2.2 mg/dL (1.8-2.4) Phosphorus Level 4.0 mg/dL (2.6-4.7) Albumin 2.9 g/dL (3.4-5.0) Comment Review of Relevant I have reviewed the following items rosie (where applicable) has been applied. Labs Laboratory Tests Test 11/10/20 15:37 11/11/20 11:10 11/12/20 05:40 SARS-CoV-2 Antigen (Rapid) Negative (NEGATIVE) Sodium Level 142 mmol/L (136-145) 140 mmol/L (136-145) Potassium Level 4.1 mmol/L (3.5-5.1) 3.7 mmol/L (3.5-5.1) Chloride Level 106 mmol/L (98-107) 105 mmol/L (98-107) Carbon Dioxide Level 26 mmol/L (21-32) 28 mmol/L (21-32) Anion Gap 10 (6-14) 7 (6-14) Blood Urea Nitrogen 34 mg/dL (7-20) 37 mg/dL (7-20) Creatinine 1.8 mg/dL (0.6-1.0) 1.7 mg/dL (0.6-1.0) Estimated GFR (Cockcroft-Gault) 28.2 30.1 Glucose Level 116 mg/dL (70-99) 87 mg/dL (70-99) Calcium Level 8.4 mg/dL (8.5-10.1) 8.7 mg/dL (8.5-10.1) Magnesium Level 2.2 mg/dL (1.8-2.4) Phosphorus Level 4.0 mg/dL (2.6-4.7) Albumin 2.9 g/dL (3.4-5.0) Laboratory Tests Test 11/11/20 11:10 11/12/20 05:40 Sodium Level 142 mmol/L (136-145) 140 mmol/L (136-145) Potassium Level 4.1 mmol/L (3.5-5.1) 3.7 mmol/L (3.5-5.1) Chloride Level 106 mmol/L (98-107) 105 mmol/L (98-107) Carbon Dioxide Level 26 mmol/L (21-32) 28 mmol/L (21-32) Anion Gap 10 (6-14) 7 (6-14) Blood Urea Nitrogen 34 mg/dL (7-20) 37 mg/dL (7-20) Creatinine 1.8 mg/dL (0.6-1.0) 1.7 mg/dL (0.6-1.0) Estimated GFR (Cockcroft-Gault) 28.2 30.1 Glucose Level 116 mg/dL (70-99) 87 mg/dL (70-99) Calcium Level 8.4 mg/dL (8.5-10.1) 8.7 mg/dL (8.5-10.1) Magnesium Level 2.2 mg/dL (1.8-2.4) Phosphorus Level 4.0 mg/dL (2.6-4.7) Albumin 2.9 g/dL (3.4-5.0) Medications Current Medications Nitroglycerin (Nitrostat) 0.4 mg PRN Q5MIN PRN SL CHEST PAIN Last administered on 11/09/20at 02:04; Start 11/08/20 at 23:15 Furosemide (Lasix) 40 mg 1X ONCE PO ; Start 11/09/20 at 01:00; Stop 11/09/20 at 01:01; Status Cancel Ondansetron HCl (Zofran) 4 mg PRN Q8HRS PRN IV NAUSEA/VOMITING; Start 11/09/20 at 01:00; Stop 11/09/20 at 11:48; Status DC Fentanyl Citrate (Fentanyl 2ml Vial) 50 mcg PRN Q1HR PRN IV PAIN; Start 11/09/20 at 01:00; Stop 11/10/20 at 00:59; Status DC Acetaminophen (Tylenol) 650 mg PRN Q4HRS PRN PO FEVER > 100.3'F; Start 11/09/20 at 01:00; Stop 11/09/20 at 11:49; Status DC Nitroglycerin (Nitrostat) 0.4 mg PRN Q5MIN PRN SL CHEST PAIN; Start 11/09/20 at 01:00; Stop 11/10/20 at 00:59; Status DC Albuterol/ Ipratropium (Duoneb) 3 ml RTQID NEB Last administered on 11/10/20at 07:29; Start 11/09/20 at 08:00; Stop 11/10/20 at 07:59; Status DC Hydralazine HCl (Apresoline Inj) 5 mg PRN Q6HRS PRN IVP ELEVATED BP, SEE COMMENTS; Start 11/09/20 at 02:00; Stop 11/09/20 at 11:54; Status DC Furosemide (Lasix) 40 mg 1X ONCE IVP Last administered on 11/09/20at 02:19; Start 11/09/20 at 02:15; Stop 11/09/20 at 02:16; Status DC Amlodipine Besylate (Norvasc) 5 mg DAILY PO Last administered on 11/12/20at 09:48; Start 11/09/20 at 11:00 Aspirin (Ecotrin) 81 mg DAILY PO Last administered on 11/12/20at 09:49; Start 11/09/20 at 11:00 Carvedilol (Coreg) 12.5 mg BIDWMEALS PO Last administered on 11/12/20at 09:48; Start 11/09/20 at 12:00 Ferrous Sulfate (Iron Oral Solution) 300 mg DAILYWBKFT PO Last administered on 11/12/20at 09:48; Start 11/09/20 at 12:00 Furosemide (Lasix) 40 mg PRN DAILY PRN PO Weight gain 3# Last administered on 11/09/20at 12:37; Start 11/09/20 at 10:15 Levothyroxine Sodium (Synthroid) 100 mcg DAILY06 PO Last administered on 11/12/20at 06:15; Start 11/09/20 at 11:00 Lisinopril (Prinivil) 40 mg DAILY PO Last administered on 11/12/20at 09:49; Start 11/09/20 at 11:00 Citalopram Hydrobromide (CeleXA) 10 mg DAILY PO Last administered on 11/12/20at 09:00; Start 11/09/20 at 11:00 Sodium Chloride (Normal Saline Flush) 3 ml QSHIFT PRN IV AFTER MEDS AND BLOOD DRAWS; Start 11/09/20 at 11:45 Ondansetron HCl (Zofran) 4 mg PRN Q4HRS PRN IV NAUSEA/VOMITING; Start 11/09/20 at 11:45 Acetaminophen (Tylenol) 650 mg PRN Q4HRS PRN PO TEMP OVER 100.4F OR MILD PAIN; Start 11/09/20 at 11:45 Sodium Monofluorophosphate (Fleet Adult) 133 ml PRN DAILY PRN [place] CONSTIPATION; Start 11/09/20 at 11:45 Docusate Sodium (Colace) 100 mg PRN BID PRN PO HARD STOOLS; Start 11/09/20 at 11:45 Albuterol Sulfate (Ventolin Neb Soln) 2.5 mg PRN Q4HRS PRN NEB SHORTNESS OF BREATH; Start 11/09/20 at 11:45; Stop 11/10/20 at 12:59; Status DC Guaifenesin (Robitussin) 200 mg PRN Q4HRS PRN PO COUGH; Start 11/09/20 at 11:45 Enoxaparin Sodium (Lovenox 40mg Syringe) 40 mg Q24H SQ Last administered on 11/09/20at 12:38; Start 11/09/20 at 13:00; Stop 11/10/20 at 13:04; Status DC Hydralazine HCl (Apresoline Inj) 10 mg PRN Q4HRS PRN IVP ELEVATED BP, SEE COMMENTS Last administered on 11/09/20at 12:42; Start 11/09/20 at 12:00 Furosemide (Lasix) 40 mg 1X ONCE IVP Last administered on 11/09/20at 12:51; Start 11/09/20 at 12:30; Stop 11/09/20 at 12:31; Status DC Albuterol Sulfate (Ventolin Neb Soln) 2.5 mg PRN Q4HRS PRN NEB SHORTNESS OF BREATH; Start 11/10/20 at 07:15 Enoxaparin Sodium (Lovenox 30mg Syringe) 30 mg Q24H SQ Last administered on 11/11/20at 13:58; Start 11/10/20 at 14:00 Furosemide (Lasix) 40 mg 1X ONCE IVP Last administered on 11/10/20at 15:31; Start 11/10/20 at 15:15; Stop 11/10/20 at 15:16; Status DC Potassium Chloride (Klor-Con) 20 meq 1X ONCE PO Last administered on 11/10/20at 15:32; Start 11/10/20 at 15:15; Stop 11/10/20 at 15:16; Status DC Glycerin/ Hypromellose/ Polyethylene (Artificial Tears) 1 drop PRN Q15MIN PRN OU DRY EYE Last administered on 11/11/20at 20:28; Start 11/10/20 at 19:15 Furosemide (Lasix) 40 mg 1X ONCE IVP Last administered on 11/11/20at 13:59; Start 11/11/20 at 13:30; Stop 11/11/20 at 13:31; Status DC Furosemide (Lasix) 40 mg 1X ONCE IVP ; Start 11/12/20 at 10:45; Stop 11/12/20 at 10:46; Status DC Furosemide (Lasix) 40 mg BID94 IVP ; Start 11/12/20 at 16:00 Active Scripts Active Levothyroxine Sodium 100 Mcg Tablet 1 Tab PO DAILY 30 Days Ferrous Sulfate 300 Mg/5 Ml Liquid 300 Mg PO DAILYWBKFT 30 Days Furosemide 40 Mg Tablet 1 Tab PO PRN DAILY PRN 30 Days Lisinopril 40 Mg Tablet 40 Mg PO DAILY 30 Days Carvedilol (Carvedilol) 12.5 Mg Tablet 12.5 Mg PO BIDWMEALS 30 Days Reported Escitalopram Oxalate 10 Mg Tablet 0.5 Tab PO DAILY Aspirin Ec (Aspirin) 81 Mg Tablet.dr 81 Mg PO DAILY Vitals/I & O Vital Sign - Last 24 Hours 11/11/20 11/11/20 11/11/20 11/11/20 11:00 14:44 17:56 19:00 Temp 98.1 98.1 97.9 98.1 98.1 97.9 Pulse 70 68 68 69 Resp 16 16 16 B/P (MAP) 163/66 (98) 167/79 (108) 167/79 148/76 (100) Pulse Ox 96 94 94 O2 Delivery Nasal Cannula Room Air Room Air O2 Flow Rate 2.0 11/11/20 11/11/20 11/12/20 11/12/20 20:00 22:40 02:51 07:00 Temp 98.2 98.1 97.8 98.2 98.1 97.8 Pulse 72 70 100 Resp 16 16 B/P (MAP) 150/68 (95) 146/73 (97) 151/66 (94) Pulse Ox 92 95 93 O2 Delivery Room Air Room Air Room Air Room Air 11/12/20 11/12/20 11/12/20 11/12/20 08:00 09:48 09:48 09:49 Pulse 100 100 100 B/P (MAP) 151/66 151/66 151/66 O2 Delivery Room Air Intake and Output 11/11/20 11/11/20 11/12/20 15:00 23:00 07:00 Intake Total 360 ml 380 ml 150 ml Output Total 100 ml 700 ml 700 ml Balance 260 ml -320 ml -550 ml Justicifation of Admission Dx: Justifications for Admission: Justification of Admission Dx: N/A LAKIA CRISOSTOMO MD Nov 12, 2020 10:52
[2020-11-12 11:00] VITALS: BP 162/72
--- NOTE | 2020-11-12 11:58 | PDOC ---
Renal-Progress Notes Subjective Notes Notes SOB History of Present Illness Hx of present illness STABLE Vitals Vitals Vital Signs Date Time Temp Pulse Resp B/P (MAP) Pulse Ox O2 Delivery O2 Flow Rate FiO2 11/12/20 11:00 98.3 74 16 162/72 (102) 93 Room Air 98.3 11/11/20 11:00 2.0 Weight Weight [ ] I.O. Intake and Output Intake and Output 11/12/20 07:00 Intake Total 890 ml Output Total 1500 ml Balance -610 ml Intake Oral 890 ml Output Urine Total 1500 ml # Voids 1 Labs Labs Laboratory Tests Test 11/12/20 05:40 Sodium Level 140 mmol/L (136-145) Potassium Level 3.7 mmol/L (3.5-5.1) Chloride Level 105 mmol/L (98-107) Carbon Dioxide Level 28 mmol/L (21-32) Anion Gap 7 (6-14) Blood Urea Nitrogen 37 mg/dL (7-20) Creatinine 1.7 mg/dL (0.6-1.0) Estimated GFR (Cockcroft-Gault) 30.1 Glucose Level 87 mg/dL (70-99) Calcium Level 8.7 mg/dL (8.5-10.1) Phosphorus Level 4.0 mg/dL (2.6-4.7) Albumin 2.9 g/dL (3.4-5.0) Physical Exam General Appearance: no apparent distress, febrile Skin: warm Heart: S1S2 Abdomen: soft, bowel sounds present Genitourinary: bladder flat Extremities: edema Neurology: alert, oriented Assessment Assessment IMP CKD STAGE 3B-CR STABLE AT 1.8 ACUTE ON CHRONIC DIASTOLIC CHF ACUTE HYPOXIC RESP FAILURE LABILE HTN DM II PLAN DIURESIS IV LASIX WILL FOLLOW MARIA A SUAREZ MD Nov 12, 2020 11:58
--- NOTE | 2020-11-12 12:14 | NUR ---
SS following up with discharge planning. SS reviewed pt chart and discussed with pt RN. Pt is currently on room air. Pt on IV Lasix. Cardiology, Nephrology, and Pulmonology following. PT/OT recommended acute rehabilitation. Senior Technical Trainer available in room. SS met with pt and family to discuss discharge planning. Pt agreeable to acute rehabilitation and requested referral to [facility], ; fax [phone]. Pt has had both COVID19 vaccinations. SS phoned and faxed referral as requested. SS will continue to follow for discharge planning.
--- NOTE | 2020-11-12 13:40 | PDOC ---
LI DANGELO HUMANITIES COORDINATOR 11/12/20 1339: CARDIO Progress Notes Date and Time Date of Service 11/12/20 Time of Evaluation 1330 Subjective Subjective: No Chest Pain, No Palpitations, Other (breathing improved, LE edema better, but persists ) Vitals Vitals Vital Signs Date Time Temp Pulse Resp B/P (MAP) Pulse Ox O2 Delivery O2 Flow Rate FiO2 11/12/20 11:00 98.3 74 16 162/72 (102) 93 Room Air 98.3 11/11/20 11:00 2.0 Weight Weight [ ] Stability Assessment Comments Patient expresses concerns of amlodipine with LE edema. Also would like to change lisinopril to something different as she feels she began feels short of breath after initiation of lisinopril last month. Was previously on enalapril Input and Output Intake and Output Intake and Output 11/12/20 07:00 Intake Total 890 ml Output Total 1500 ml Balance -610 ml Intake Oral 890 ml Output Urine Total 1500 ml # Voids 1 Laboratory Labs Laboratory Tests Test 11/12/20 05:40 Sodium Level 140 mmol/L (136-145) Potassium Level 3.7 mmol/L (3.5-5.1) Chloride Level 105 mmol/L (98-107) Carbon Dioxide Level 28 mmol/L (21-32) Anion Gap 7 (6-14) Blood Urea Nitrogen 37 mg/dL (7-20) Creatinine 1.7 mg/dL (0.6-1.0) Estimated GFR (Cockcroft-Gault) 30.1 Glucose Level 87 mg/dL (70-99) Calcium Level 8.7 mg/dL (8.5-10.1) Phosphorus Level 4.0 mg/dL (2.6-4.7) Albumin 2.9 g/dL (3.4-5.0) Physical Exam HEENT: Neck Supple W Full Motion Chest: Symmetric LUNGS: Other (CTA) Heart: RRR Abdomen: Soft N/T Extremities: Other (1-2+ bilateral LE edema ) Neurology: alert, oriented, follow commands Assessment Assessment 1. Acute respiratory failure in setting of acute CHF 2. Acute diastolic CHF; Echo 10/19 with preserved LV systolic function. Most probably secondary to uncontrolled HTN. s/p IV diuresis 3. HTN urgency; mildly elevated. Patient would like lisinopril converted back to enalapril that she was previously on and would like alternative to amlodipine due to LE edema 4. CKD; Cr stable. 5. Hypothyroidism: on replacement Recommendations Ongoing diuresis with monitoring or renal function Discontinue amlodipine Add hydralazine Discussed that patient will continue on lisinopril as we do not carry enalapril at hospital. Discharge home on enalapril 20mg daily Plan outpatient ischemic evaluation Supportive care Follow up in our office with Dr. Crabtree has been arranged Justicifation of Admission Dx: Justifications for Admission: Justification of Admission Dx: N/A BREANNE CRABTREE MD 11/13/20 1221: CARDIO Progress Notes Assessment Assessment Patient seen and evaluated on 11/12/2020 I agree with our nurse practitioners assessment and plan. 1. Acute respiratory failure in setting of acute CHF. Continued improvement. 2. Acute diastolic CHF; Echo 10/19 with preserved LV systolic function. Most probably secondary to uncontrolled HTN. s/p IV diuresis 3. HTN urgency; mildly elevated. Discontinuing amlodipine and adding hydralazine as above. Will need to continue lisinopril at this time but may change to enalapril 20 mg a day at discharge. Outpatient follow-up. 4. CKD; Cr stable. 5. Hypothyroidism: on replacement Recommendations Ongoing diuresis with monitoring or renal function Discontinue amlodipine Add hydralazine Discussed that patient will continue on lisinopril as we do not carry enalapril at hospital. Discharge home on enalapril 20mg daily Plan outpatient ischemic evaluation LI DANGELO APRN Nov 12, 2020 13:39 BREANNE CRABTREE MD Nov 13, 2020 12:21
[2020-11-12] MEDS: ENOXAPARIN 30 MG/0.3 ML SYRINGE. SQ SCH (14:44)
[2020-11-12 15:00] VITALS: BP 169/71
[2020-11-12] MEDS ORDERED: CARVEDILOL 12.5 MG TABLET. PO SCH (15:45)
[2020-11-12] MEDS: FUROSEMIDE 40 MG/4 ML VIAL. IVP SCH (17:23)
[2020-11-12 19:00] VITALS: BP 150/70
[2020-11-12] MEDS: hydrALAZINE 25 MG TABLET PO SCH (20:25)
[2020-11-12 23:00] VITALS: BP 110/49
[2020-11-13 02:53] VITALS: BP 127/58
[2020-11-13 05:05] LABS: CALCIUM 8.5 mg/dL (8.5-10.1); CREATININE 1.9 mg/dL (0.6-1.0); GFR 26.4; MAGNESIUM 2.2 mg/dL (1.8-2.4); POTASSIUM 3.4 mmol/L (3.5-5.1)
[2020-11-13] MEDS: LEVOTHYROXINE 100 MCG TABLET PO SCH (06:44)
[2020-11-13 07:00] VITALS: BP 131/59
--- NOTE | 2020-11-13 08:26 | PDOC ---
PROGRESS NOTES Date of Service: DATE: 11/13/20 TIME: 08:26 Chief Complaint Chief Complaint VTE Prophylaxis Ordered VTE Prophylaxis Devices: No VTE Pharmacological Prophylaxi: Yes Assessment/Plan Assessment/Plan impression Chest pain Dyspnea Generalized weakness Acute volume overload Acute respiratory failure in setting of CHF on cxr, Focal opacities bilaterally appears increased from prior could be from pulmonary edema or infiltrate. Acute diastolic CHF; Echo 10/19 with preserved LV systolic function. Most probably secondary to uncontrolled HTN HTN urgency Acute on chronic kidney disease, stage III, CR UP WITH DIURESIS Moderate protein malnutrition Acute anemia - required recent blood transfusion History of hypertension depression anxiety hypothyroidism History of uterine tumor status post hysterectomy and chemotherapy in 2018 plan admit [facility]VC BED Consult cardiology trend troponin i careful diuresis PER CARDIOLOGY d/c norvasc or lower dose to 5 mg dvt prophylaxis NEPHROLOGY CONSULT 37 min pt exam, chart review, > 50% of time spent with exam, chart review, pt care coordination Justifications for Admission Justifications for Admission Other Justification ELDA LAKIA CRISOSTOMO MD Nov 09, 2020 08:33 History of Present Illness History of Present Illness Identification/Chief Complaint Chief Complaint SHORTNESS OF BREATH, CHEST PAIN seen with [employer] resource teacher phone History of Present Illness History of Present Illness Ms Chirinos is a 65-year-old female with past medical history of hypertension, depression, anxiety, DVT, uterine CA, and recently diagnosed CKD who presented to the ED with soa 65 year old female seen in ER for chest pain or shortness of breath. Patient was just discharged from the hospital for pneumonia 3 days ago. / baseline lower extremity edema. Baseline Cr unknown to the family, but has been elevated tween 1.5-1.7 since July 2020. had a creatinine between 1 and 1.1 as Nephrology has reviewed [facility] records and notes from prior Emphasized compliance with carvedilol as well as new medication lisinopril and as needed furosemide. Iron studies c/w ACD; no way to know if truly iron-deficient w/o bone marrow. needs lea-endoscopy; outpatient setting. Inadequate thyroid supplementation may contribute. Acute respiratory failure in setting of CHF /Acute diastolic CHF; Echo 10/19 with preserved LV systolic function. Most probably secondary to uncontrolled HTN //HTN urgency Past Medical History Past Medical History Past Medical History Past Medical History Past Medical History: Anxiety, Depression, DVT, Hypertension, Hypothyroid Additional Past Medical Histor: UTERINE TUMOR, LAST CHEMO MAR 2019 Past Surgical History: Hysterectomy, Tubal ligation, Other Smoking Status: Never Smoker Alcohol Use: None Drug Use: None Echo 10/14/2020: The left ventricle is normal size. The left ventricular systolic function is normal and the ejection fraction is within normal range. The Ejection Fraction is 60-65%. There is borderline concentric left ventricular hypertrophy. Doppler and Color Flow revealed trace aortic regurgitation. There is no significant aortic valvular stenosis. Doppler and Color Flow revealed no mitral valve regurgitation noted. Doppler and Color Flow revealed trace to mild tricuspid regurgitation with an estimated PAP of 39 mmHg. On discharge previously her BP was better controlled on amlodipine and carvedilol. As she was on chlorthalidone and transition to spironolactone but was admitted with hyperkalemia recommended to hold those diuretics and follow-up with nephrology with addition of furosemide as needed for weight gain. She did continue to take chlorthalidone at home, though, admitted for hyponatremia and shortness of breath, abdominal discomfort. 10/30: IV lasix given with improvement in swelling, shortness of breath and creatinine 10/31: BP improved. Transfused 1u PRBC 11/01: 24 urine protein 437 mg, started on lisinopril. Initial fecal occult negative. 11/02: BP better controlled. She is feeling little better. Despite instruction to discontinue chlorthalidone on previous hospitalization and she had restarted it because she was swollen. Using middle school resource teacher it is clear that she and her h usband feel like this is partially due to the language barrier. Emphasized compliance with carvedilol as well as new medication lisinopril and as needed furosemide. 11/03: Systolic blood pressure 144 this morning. Creatinine 1.5. Her flank pain is improved. Has a little bit of abdominal cramping no chest pain or shortness of breath. Feels her swelling is stable she is very insistent that she be prescribed a diuretic. 11/04: Cr 1.7, Hb 8.2, still dropping despite iron supplementation. D/w Nephrology patient had large Hb drop since last hospital stay, needs GI eval. Abdominal pain worse today. FHX HTN Cardiovascular: HTN Pulmonary: No pertinent hx CENTRAL NERVOUS SYSTEM: Other Heme/Onc: Cancer, Other Psych: Anxiety, Depression Renal/: Chronic renal insuff Endocrine: Hypothyroidism Past Surgical History Past Surgical History: Tubal Ligation, Hysterectomy Family History Family History: Hypertension Social History Smoke: No ALCOHOL: none Drugs: None Current Medications Current Medications Current Medications Nitroglycerin (Nitrostat) 0.4 mg PRN Q5MIN PRN SL CHEST PAIN Last administered on 11/09/20at 02:04; Start 11/08/20 at 23:15 Furosemide (Lasix) 40 mg 1X ONCE PO ; Start 11/09/20 at 01:00; Stop 11/09/20 at 01:01; Status Cancel Ondansetron HCl (Zofran) 4 mg PRN Q8HRS PRN IV NAUSEA/VOMITING; Start 11/09/20 at 01:00; Stop 11/10/20 at 00:59 Fentanyl Citrate (Fentanyl 2ml Vial) 50 mcg PRN Q1HR PRN IV PAIN; Start 11/09/20 at 01:00; Stop 11/10/20 at 00:59 Acetaminophen (Tylenol) 650 mg PRN Q4HRS PRN PO FEVER > 100.3'F; Start 11/09/20 at 01:00; Stop 11/10/20 at 00:59 Nitroglycerin (Nitrostat) 0.4 mg PRN Q5MIN PRN SL CHEST PAIN; Start 11/09/20 at 01:00; Stop 11/10/20 at 00:59 Albuterol/ Ipratropium (Duoneb) 3 ml RTQID NEB Last administered on 11/09/20at 07:52; Start 11/09/20 at 08:00; Stop 11/10/20 at 07:59 Hydralazine HCl (Apresoline Inj) 5 mg PRN Q6HRS PRN IVP ELEVATED BP, SEE COMMENTS; Start 11/09/20 at 02:00 Furosemide (Lasix) 40 mg 1X ONCE IVP Last administered on 11/09/20at 02:19; Start 11/09/20 at 02:15; Stop 11/09/20 at 02:16; Status DC Active Scripts Active Levothyroxine Sodium 100 Mcg Tablet 1 Tab PO DAILY 30 Days Amlodipine Besylate 10 Mg Tablet 5 Mg PO DAILY 30 Days Ferrous Sulfate 300 Mg/5 Ml Liquid 300 Mg PO DAILYWBKFT 30 Days Furosemide 40 Mg Tablet 1 Tab PO PRN DAILY PRN 30 Days Lisinopril 40 Mg Tablet 40 Mg PO DAILY 30 Days Carvedilol (Carvedilol) 12.5 Mg Tablet 12.5 Mg PO BIDWMEALS 30 Days Reported Escitalopram Oxalate 10 Mg Tablet 0.5 Tab PO DAILY Aspirin Ec (Aspirin) 81 Mg Tablet.dr 81 Mg PO DAILY Allergies Allergies: Coded Allergies: iodine (Verified Allergy, Severe, 10/15/20) folic acid (Verified Allergy, Mild, 10/14/20) "COMPLEX B" vitamin B complex and C (Verified Allergy, Mild, 10/14/20) "COMPLEX B" ROS General: YES: Fatigue PSYCHOLOGICAL ROS: YES: Anxiety; No: Behavioral Disorder, Concentration difficultie, Decreased libido, Dep ression, Disorientation, Hallucinations, Hostility, Irritablity, Memory difficulties, Mood Swings, Obsessive thoughts, Physical abuse, Sexual abuse, Sleep disturbances, Suicidal ideation, Other Eyes: No Blurry vision, No Decreased vision, No Double vision, No Dry eyes, No Excessive tearing, No Eye Pain, No Itchy Eyes, No Loss of vision, No Photophobia, No Scotomata, No Uses contacts, No Uses glasses, No Other HEENT: No: Heacaches, Visual Changes, Hearing change, Nasal congestion, Nasal discharge, Oral lesions, Sinus pain, Sore Throat, Epistaxis, Sneezing, Snoring, Tinnitus, Vertigo, Vocal changes, Other ALLERGY AND IMMUNOLOGY: YES: Hives Hematological and Lymphatic: No: Bleeding Problems, Blood Clots, Blood Transfusions, Brusing, Night Sweats, Pallor, Swollen Lymph Nodes, Other ENDOCRINE: No: Breast Changes, Galactorrhea, Hair Pattern Changes, Hot Flashes, Malaise/lethargy, Mood Swings, Palpitations, Polydipsia/polyuria, Skin Changes, Temperature Intolerance, Unexpected Weight Changes, Other Breast: No New/Changing Breast Lumps, No Nipple changes, No Nipple discharge, No Other Respiratory: YES: Shortness of breath Cardiovascular: yes Chest Pain; No Palpitations, No Orthopnea, No Paroxysmal Noc. Dyspnea, No Edema, No Lt Headedness, No Other Gastrointestinal: No Nausea, No Vomiting, No Abdominal Pain, No Diarrhea, No Constipation, No Melena, No Hematochezia, No Other Genitourinary: No Dysuria, No Frequency, No Incontinence, No Hematuria, No Retention, No Discharge, No Urgency, No Pain, No Flank Pain, No Other, No , No , No , No , No , No , No Musculoskeletal: Yes Joint Stiffness; No Gait Disturbance, No Joint Pain, No Joint Swelling, No Muscle Pain, No Muscular Weakness, No Pain In:, No Swelling In:, No Other Neurological: No Behavorial Changes, No Bowel/Bladder ControlChng, No Confusion, No Dizziness, No Gait Disturbance, No Headaches, No Impaired Coord/balance, No Memory Loss, No Numbness/Tingling, No Seizures, No Speech Problems, No Tremors, No Visual Changes, No Weakness, No Other Skin: Yes Dry Skin; No Eczema, No Hair Changes, No Lumps, No Mole Changes, No Mottling, No Nail Changes, No Pruritus, No Rash, No Skin Lesion Changes, No Other, No Acne 7-16 CR UP TO 1.9 Chest pain Dyspnea Generalized weakness Acute volume overload Acute respiratory failure in setting of CHF on cxr, Focal opacities bilaterally appears increased from prior could be from pulmonary edema or infiltrate. Acute diastolic CHF; Echo 10/19 with preserved LV systolic function. Most probably secondary to uncontrolled HTN HTN urgency Acute on chronic kidney disease, stage III Moderate protein malnutrition Acute anemia - required recent blood transfusion History of hypertension depression anxiety hypothyroidism History of uterine tumor status post hysterectomy and chemotherapy in 2018 CVC BED Consult cardiology trend troponin i careful diuresis d/c norvasc or lower dose to 5 mg dvt prophylaxis NEPHROLOGY CONSULTED D/W motor vehicles inspector Recommendations * Acute Rehab facility Discharge Recommendation - DME * Rolling Walker needed * and ambulation safely 29 min pt exam, chart review, > 50% of time spent with exam, chart review, pt care coordination 7-15 CR UP TO 1.8 Chest pain Dyspnea Generalized weakness Acute volume overload Acute respiratory failure in setting of CHF on cxr, Focal opacities bilaterally appears increased from prior could be from pulmonary edema or infiltrate. Acute diastolic CHF; Echo 10/19 with preserved LV systolic function. Most probably secondary to uncontrolled HTN HTN urgency Acute on chronic kidney disease, stage III Moderate protein malnutrition Acute anemia - required recent blood transfusion History of hypertension depression anxiety hypothyroidism History of uterine tumor status post hysterectomy and chemotherapy in 2018 7-14 6 min walk CVC BED Consult cardiology trend troponin i careful diuresis d/c norvasc or lower dose to 5 mg dvt prophylaxis NEPHROLOGY CONSULTED D/W motor vehicles inspector Recommendations * Acute Rehab facility Discharge Recommendation - DME * Rolling Walker needed * and ambulation safely 29 min pt exam, chart review, > 50% of time spent with exam, chart review, pt care coordination 7-14 CR UP TO 1.8 Chest pain Dyspnea Generalized weakness Acute volume overload Acute respiratory failure in setting of CHF on cxr, Focal opacities bilaterally appears increased from prior could be from pulmonary edema or infiltrate. Acute diastolic CHF; Echo 10/19 with preserved LV systolic function. Most probably secondary to uncontrolled HTN HTN urgency Acute on chronic kidney disease, stage III Moderate protein malnutrition Acute anemia - required recent blood transfusion History of hypertension depression anxiety hypothyroidism History of uterine tumor status post hysterectomy and chemotherapy in 2018 10- 6 min walk CVC BED Consult cardiology trend troponin i careful diuresis d/c norvasc or lower dose to 5 mg dvt prophylaxis NEPHROLOGY CONSULTED D/W RN 27 min pt exam, chart review, > 50% of time spent with exam, chart review, pt care coordination Vitals Vitals Vital Signs Date Time Temp Pulse Resp B/P (MAP) Pulse Ox O2 Delivery O2 Flow Rate FiO2 11/13/20 07:00 98.5 77 16 131/59 (83) 96 Room Air 98.5 Physical Exam Physical Exam General: Alert, Oriented X3, Cooperative, No acute distress HEENT: PERRLA, EOMI, Mucous membr. moist/pink Lungs: Normal air movement, Other (few crackles) Heart: RRR Breasts: Not examined Abdomen: Normal bowel sounds, Soft Rectal Exam: not examined PELVIC: Examination not indicated Extremities: No cyanosis Neuro: Normal speech, Cranial nerves 3-12 NL Psych/Mental Status: Mental status NL, Mood NL General: Alert, Oriented X3, Cooperative, No acute distress Lungs: Clear Abdomen: Normal bowel sounds, Soft Extremities: No cyanosis Labs LABS Laboratory Tests Test 11/13/20 03:00 Sodium Level 143 mmol/L (136-145) Potassium Level 3.4 mmol/L (3.5-5.1) Chloride Level 107 mmol/L (98-107) Carbon Dioxide Level 26 mmol/L (21-32) Anion Gap 10 (6-14) Blood Urea Nitrogen 37 mg/dL (7-20) Creatinine 1.9 mg/dL (0.6-1.0) Estimated GFR (Cockcroft-Gault) 26.4 Glucose Level 79 mg/dL (70-99) Calcium Level 8.5 mg/dL (8.5-10.1) Magnesium Level 2.2 mg/dL (1.8-2.4) Comment Review of Relevant I have reviewed the following items rosie (where applicable) has been applied. Labs Laboratory Tests Test 11/11/20 11:10 11/12/20 05:40 11/13/20 03:00 Sodium Level 142 mmol/L (136-145) 140 mmol/L (136-145) 143 mmol/L (136-145) Potassium Level 4.1 mmol/L (3.5-5.1) 3.7 mmol/L (3.5-5.1) 3.4 mmol/L (3.5-5.1) Chloride Level 106 mmol/L (98-107) 105 mmol/L (98-107) 107 mmol/L (98-107) Carbon Dioxide Level 26 mmol/L (21-32) 28 mmol/L (21-32) 26 mmol/L (21-32) Anion Gap 10 (6-14) 7 (6-14) 10 (6-14) Blood Urea Nitrogen 34 mg/dL (7-20) 37 mg/dL (7-20) 37 mg/dL (7-20) Creatinine 1.8 mg/dL (0.6-1.0) 1.7 mg/dL (0.6-1.0) 1.9 mg/dL (0.6-1.0) Estimated GFR (Cockcroft-Gault) 28.2 30.1 26.4 Glucose Level 116 mg/dL (70-99) 87 mg/dL (70-99) 79 mg/dL (70-99) Calcium Level 8.4 mg/dL (8.5-10.1) 8.7 mg/dL (8.5-10.1) 8.5 mg/dL (8.5-10.1) Magnesium Level 2.2 mg/dL (1.8-2.4) 2.2 mg/dL (1.8-2.4) Phosphorus Level 4.0 mg/dL (2.6-4.7) Albumin 2.9 g/dL (3.4-5.0) Laboratory Tests Test 11/13/20 03:00 Sodium Level 143 mmol/L (136-145) Potassium Level 3.4 mmol/L (3.5-5.1) Chloride Level 107 mmol/L (98-107) Carbon Dioxide Level 26 mmol/L (21-32) Anion Gap 10 (6-14) Blood Urea Nitrogen 37 mg/dL (7-20) Creatinine 1.9 mg/dL (0.6-1.0) Estimated GFR (Cockcroft-Gault) 26.4 Glucose Level 79 mg/dL (70-99) Calcium Level 8.5 mg/dL (8.5-10.1) Magnesium Level 2.2 mg/dL (1.8-2.4) Medications Current Medications Nitroglycerin (Nitrostat) 0.4 mg PRN Q5MIN PRN SL CHEST PAIN Last administered on 11/09/20at 02:04; Start 11/08/20 at 23:15 Furosemide (Lasix) 40 mg 1X ONCE PO ; Start 11/09/20 at 01:00; Stop 11/09/20 at 01:01; Status Cancel Ondansetron HCl (Zofran) 4 mg PRN Q8HRS PRN IV NAUSEA/VOMITING; Start 11/09/20 at 01:00; Stop 11/09/20 at 11:48; Status DC Fentanyl Citrate (Fentanyl 2ml Vial) 50 mcg PRN Q1HR PRN IV PAIN; Start 11/09/20 at 01:00; Stop 11/10/20 at 00:59; Status DC Acetaminophen (Tylenol) 650 mg PRN Q4HRS PRN PO FEVER > 100.3'F; Start 11/09/20 at 01:00; Stop 11/09/20 at 11:49; Status DC Nitroglycerin (Nitrostat) 0.4 mg PRN Q5MIN PRN SL CHEST PAIN; Start 11/09/20 at 01:00; Stop 11/10/20 at 00:59; Status DC Albuterol/ Ipratropium (Duoneb) 3 ml RTQID NEB Last administered on 11/10/20at 07:29; Start 11/09/20 at 08:00; Stop 11/10/20 at 07:59; Status DC Hydralazine HCl (Apresoline Inj) 5 mg PRN Q6HRS PRN IVP ELEVATED BP, SEE COMMENTS; Start 11/09/20 at 02:00; Stop 11/09/20 at 11:54; Status DC Furosemide (Lasix) 40 mg 1X ONCE IVP Last administered on 11/09/20at 02:19; Start 11/09/20 at 02:15; Stop 11/09/20 at 02:16; Status DC Amlodipine Besylate (Norvasc) 5 mg DAILY PO Last administered on 11/12/20at 09:48; Start 11/09/20 at 11:00; Stop 11/12/20 at 15:50; Status DC Aspirin (Ecotrin) 81 mg DAILY PO Last administered on 11/12/20at 09:49; Start 11/09/20 at 11:00 Carvedilol (Coreg) 12.5 mg BIDWMEALS PO Last administered on 11/12/20at 09:48; Start 11/09/20 at 12:00; Stop 11/12/20 at 15:50; Status DC Ferrous Sulfate (Iron Oral Solution) 300 mg DAILYWBKFT PO Last administered on 11/12/20at 09:48; Start 11/09/20 at 12:00 Furosemide (Lasix) 40 mg PRN DAILY PRN PO Weight gain 3# Last administered on 11/09/20at 12:37; Start 11/09/20 at 10:15 Levothyroxine Sodium (Synthroid) 100 mcg DAILY06 PO Last administered on 11/13/20at 06:44; Start 11/09/20 at 11:00 Lisinopril (Prinivil) 40 mg DAILY PO Last administered on 11/12/20at 09:49; Start 11/09/20 at 11:00 Citalopram Hydrobromide (CeleXA) 10 mg DAILY PO Last administered on 11/12/20at 09:00; Start 11/09/20 at 11:00 Sodium Chloride (Normal Saline Flush) 3 ml QSHIFT PRN IV AFTER MEDS AND BLOOD DRAWS; Start 11/09/20 at 11:45 Ondansetron HCl (Zofran) 4 mg PRN Q4HRS PRN IV NAUSEA/VOMITING; Start 11/09/20 at 11:45 Acetaminophen (Tylenol) 650 mg PRN Q4HRS PRN PO TEMP OVER 100.4F OR MILD PAIN; Start 11/09/20 at 11:45 Sodium Monofluorophosphate (Fleet Adult) 133 ml PRN DAILY PRN ID CONSTIPATION; Start 11/09/20 at 11:45 Docusate Sodium (Colace) 100 mg PRN BID PRN PO HARD STOOLS; Start 11/09/20 at 11:45 Albuterol Sulfate (Ventolin Neb Soln) 2.5 mg PRN Q4HRS PRN NEB SHORTNESS OF BREATH; Start 11/09/20 at 11:45; Stop 11/10/20 at 12:59; Status DC Guaifenesin (Robitussin) 200 mg PRN Q4HRS PRN PO COUGH; Start 11/09/20 at 11:45 Enoxaparin Sodium (Lovenox 40mg Syringe) 40 mg Q24H SQ Last administered on 11/09/20at 12:38; Start 11/09/20 at 13:00; Stop 11/10/20 at 13:04; Status DC Hydralazine HCl (Apresoline Inj) 10 mg PRN Q4HRS PRN IVP ELEVATED BP, SEE COMMENTS Last administered on 11/09/20at 12:42; Start 11/09/20 at 12:00 Furosemide (Lasix) 40 mg 1X ONCE IVP Last administered on 11/09/20at 12:51; Start 11/09/20 at 12:30; Stop 11/09/20 at 12:31; Status DC Albuterol Sulfate (Ventolin Neb Soln) 2.5 mg PRN Q4HRS PRN NEB SHORTNESS OF BREATH; Start 11/10/20 at 07:15 Enoxaparin Sodium (Lovenox 30mg Syringe) 30 mg Q24H SQ Last administered on 11/12/20at 14:44; Start 11/10/20 at 14:00 Furosemide (Lasix) 40 mg 1X ONCE IVP Last administered on 11/10/20at 15:31; Start 11/10/20 at 15:15; Stop 11/10/20 at 15:16; Status DC Potassium Chloride (Klor-Con) 20 meq 1X ONCE PO Last administered on 11/10/20at 15:32; Start 11/10/20 at 15:15; Stop 11/10/20 at 15:16; Status DC Glycerin/ Hypromellose/ Polyethylene (Artificial Tears) 1 drop PRN Q15MIN PRN OU DRY EYE Last administered on 11/11/20at 20:28; Start 11/10/20 at 19:15 Furosemide (Lasix) 40 mg 1X ONCE IVP Last administered on 11/11/20at 13:59; Start 11/11/20 at 13:30; Stop 11/11/20 at 13:31; Status DC Furosemide (Lasix) 40 mg 1X ONCE IVP Last administered on 11/12/20at 10:45; Start 11/12/20 at 10:45; Stop 11/12/20 at 10:46; Status DC Furosemide (Lasix) 40 mg BID94 IVP Last administered on 11/12/20at 17:23; Start 11/12/20 at 16:00 Carvedilol (Coreg) 25 mg BIDWMEALS PO Last administered on 11/12/20at 17:24; Start 11/12/20 at 17:00 Carvedilol (Coreg) 12.5 mg 1X PO ; Start 11/12/20 at 15:45 Hydralazine HCl (Apresoline) 75 mg BID PO Last administered on 11/12/20at 20:25; Start 11/12/20 at 21:00 Active Scripts Active Levothyroxine Sodium 100 Mcg Tablet 1 Tab PO DAILY 30 Days Ferrous Sulfate 300 Mg/5 Ml Liquid 300 Mg PO DAILYWBKFT 30 Days Furosemide 40 Mg Tablet 1 Tab PO PRN DAILY PRN 30 Days Lisinopril 40 Mg Tablet 40 Mg PO DAILY 30 Days Carvedilol (Carvedilol) 12.5 Mg Tablet 12.5 Mg PO BIDWMEALS 30 Days Reported Escitalopram Oxalate 10 Mg Tablet 0.5 Tab PO DAILY Aspirin Ec (Aspirin) 81 Mg Tablet. 81 Mg PO DAILY Vitals/I & O Vital Sign - Last 24 Hours 11/12/20 11/12/20 11/12/20 11/12/20 09:48 09:48 09:49 11:00 Temp 98.3 98.3 Pulse 100 100 100 74 Resp 16 B/P (MAP) 151/66 151/66 151/66 162/72 (102) Pulse Ox 93 O2 Delivery Room Air 11/12/20 11/12/20 11/12/20 11/12/20 15:00 17:24 19:00 19:34 Temp 98.1 98.0 98.1 98.0 Pulse 66 66 67 Resp 16 18 B/P (MAP) 169/71 (103) 169/71 150/70 (96) Pulse Ox 97 95 O2 Delivery Room Air Room Air Room Air 11/12/20 11/12/20 11/13/20 11/13/20 20:25 23:00 02:53 07:00 Temp 98.1 98.2 98.5 98.1 98.2 98.5 Pulse 67 65 75 77 Resp 18 16 16 B/P (MAP) 150/70 110/49 (69) 127/58 (81) 131/59 (83) Pulse Ox 92 95 96 O2 Delivery Room Air Room Air Room Air Intake and Output 11/12/20 11/12/20 11/13/20 15:00 23:00 07:00 Intake Total 30 ml 300 ml Output Total 2300 ml 1300 ml Balance -2270 ml -1000 ml Justicifation of Admission Dx: Justifications for Admission: Justification of Admission Dx: N/A LAKIA CRISOSTOMO MD Nov 13, 2020 08:26
[2020-11-13] MEDS: ASPIRIN ENTERIC COATED 81 MG TABLET.DR. PO SCH (09:17)
[2020-11-13] MEDS: CARVEDILOL 12.5 MG TABLET. PO SCH ×2 (09:18→17:41)
[2020-11-13] MEDS: CITALOPRAM 10 MG TABLET. PO SCH (09:18)
[2020-11-13] MEDS: LISINOPRIL 20 MG TABLET PO SCH (09:19)
[2020-11-13] MEDS: hydrALAZINE 25 MG TABLET PO SCH ×2 (09:19→19:59)
[2020-11-13] MEDS: FERROUS SULFATE ORAL 300 MG/5 ML SOLUTION. PO SCH (09:19)
[2020-11-13] MEDS: FUROSEMIDE 40 MG/4 ML VIAL. IVP SCH ×2 (09:20→17:40)
--- NOTE | 2020-11-13 09:29 | PDOC ---
PULMONARY PROGRESS NOTES DATE: 11/13/20 TIME: 09:29 Subjective pt. is now on room air no increased SOA or Cough no overnight concerns Vitals Vital Signs Date Time Temp Pulse Resp B/P (MAP) Pulse Ox O2 Delivery O2 Flow Rate FiO2 11/13/20 09:19 77 131/59 11/13/20 07:00 98.5 16 96 Room Air 98.5 ROS: No Nausea, No Chest Pain, No Abdominal Pain, No Increase Cough General: Alert Lungs: Clear Cardiovascular: S1, S2 Neuro Exam: Alert Skin: Warm Labs Laboratory Tests Test 11/11/20 11:10 11/12/20 05:40 11/13/20 03:00 Sodium Level 142 mmol/L (136-145) 140 mmol/L (136-145) 143 mmol/L (136-145) Potassium Level 4.1 mmol/L (3.5-5.1) 3.7 mmol/L (3.5-5.1) 3.4 mmol/L (3.5-5.1) Chloride Level 106 mmol/L (98-107) 105 mmol/L (98-107) 107 mmol/L (98-107) Carbon Dioxide Level 26 mmol/L (21-32) 28 mmol/L (21-32) 26 mmol/L (21-32) Anion Gap 10 (6-14) 7 (6-14) 10 (6-14) Blood Urea Nitrogen 34 mg/dL (7-20) 37 mg/dL (7-20) 37 mg/dL (7-20) Creatinine 1.8 mg/dL (0.6-1.0) 1.7 mg/dL (0.6-1.0) 1.9 mg/dL (0.6-1.0) Estimated GFR (Cockcroft-Gault) 28.2 30.1 26.4 Glucose Level 116 mg/dL (70-99) 87 mg/dL (70-99) 79 mg/dL (70-99) Calcium Level 8.4 mg/dL (8.5-10.1) 8.7 mg/dL (8.5-10.1) 8.5 mg/dL (8.5-10.1) Magnesium Level 2.2 mg/dL (1.8-2.4) 2.2 mg/dL (1.8-2.4) Phosphorus Level 4.0 mg/dL (2.6-4.7) Albumin 2.9 g/dL (3.4-5.0) Laboratory Tests Test 11/13/20 03:00 Sodium Level 143 mmol/L (136-145) Potassium Level 3.4 mmol/L (3.5-5.1) Chloride Level 107 mmol/L (98-107) Carbon Dioxide Level 26 mmol/L (21-32) Anion Gap 10 (6-14) Blood Urea Nitrogen 37 mg/dL (7-20) Creatinine 1.9 mg/dL (0.6-1.0) Estimated GFR (Cockcroft-Gault) 26.4 Glucose Level 79 mg/dL (70-99) Calcium Level 8.5 mg/dL (8.5-10.1) Magnesium Level 2.2 mg/dL (1.8-2.4) Medications Active Scripts Medications Dose Route/Sig Max Daily Dose Days Date Category Levothyroxine Sodium 100 Mcg Tablet 1 Tab PO DAILY 11/05/20 Rx Ferrous Sulfate 300 Mg/5 Ml Liquid 300 Mg PO DAILYWBKFT 11/04/20 Rx Furosemide 40 Mg Tablet 1 Tab PO PRN DAILY PRN 11/04/20 Rx Lisinopril 40 Mg Tablet 40 Mg PO DAILY 11/04/20 Rx Carvedilol (Carvedilol) 12.5 Mg Tablet 12.5 Mg PO BIDWMEALS 11/04/20 Rx Escitalopram Oxalate 10 Mg Tablet 0.5 Tab PO DAILY 10/14/20 Reported Aspirin Ec (Aspirin) 81 Mg Tablet.dr 81 Mg PO DAILY 10/14/20 Reported Impression . IMPRESSION: 1. Acute hypoxemic respiratory failure secondary to acute diastolic heart failure. 2. Acute diastolic heart failure. 3. Uncontrolled hypertension. 4. Renal insufficiency. 5. Anxiety, depression. 6. Echocardiogram revealing normal LV function. 7. Hypothyroidism. Plan . Updated 11/12/20 Respiratory status compensated Follow Cardiology recs--Continue to diurese, managing HTN 6-minute walk in am Follow nephrology recs --Monitor renal function DVT/GI PPX D/W RN Updated 11/11/20 Respiratory status compensated, now on room air Follow Cardiology recs--Continue to diurese 6-minute walk prior to discharge CXR reviewed- improved Monitor renal function DVT/GI PPX D/W RN VIKRAM REBOLLAR MD Nov 13, 2020 09:29
--- NOTE | 2020-11-13 10:32 | PDOC ---
Renal-Progress Notes Subjective Notes Notes LESS SOB History of Present Illness Hx of present illness FEELING BETTER Vitals Vitals Vital Signs Date Time Temp Pulse Resp B/P (MAP) Pulse Ox O2 Delivery O2 Flow Rate FiO2 11/13/20 09:19 77 131/59 11/13/20 07:00 98.5 16 96 Room Air 98.5 Weight Weight [ ] I.O. Intake and Output Intake and Output 11/13/20 07:00 Intake Total 330 ml Output Total 3600 ml Balance -3270 ml Intake Oral 330 ml Output Urine Total 3600 ml Labs Labs Laboratory Tests Test 11/13/20 03:00 Sodium Level 143 mmol/L (136-145) Potassium Level 3.4 mmol/L (3.5-5.1) Chloride Level 107 mmol/L (98-107) Carbon Dioxide Level 26 mmol/L (21-32) Anion Gap 10 (6-14) Blood Urea Nitrogen 37 mg/dL (7-20) Creatinine 1.9 mg/dL (0.6-1.0) Estimated GFR (Cockcroft-Gault) 26.4 Glucose Level 79 mg/dL (70-99) Calcium Level 8.5 mg/dL (8.5-10.1) Magnesium Level 2.2 mg/dL (1.8-2.4) Review of Systems Constitutional: yes: alert, oriented Ears/Nose/Throat: Yes: no symptom reported Eyes: Yes: no symptom reported Cardiovascular: Yes edema Gastrointestional: Yes: no symptom reported Genitourinary: Yes: no symptom reported Musculoskeletal: Yes: no symptom reported Skin: Yes no symptom reported Psychiatric/Neurological: Yes: no symptom reported Endocrine: Yes: no symptom reported Physical Exam General Appearance: no apparent distress, febrile Skin: warm Heart: S1S2 Abdomen: soft, bowel sounds present Genitourinary: bladder flat Extremities: edema Neurology: alert, oriented, follow commands Assessment Assessment IMP CKD STAGE 3B-CR STABLE AT 1.8 ACUTE ON CHRONIC DIASTOLIC CHF ACUTE HYPOXIC RESP FAILURE HYPOKALEMIA LABILE HTN DM II PLAN DIURESIS IV LASIX REPLACE K WILL FOLLOW MARIA A SUAREZ MD Nov 13, 2020 10:32
[2020-11-13 10:55] VITALS: BP 138/59
[2020-11-13] MEDS ORDERED: POTASSIUM CHLORIDE 20 MEQ TABLET.ER. PO ONE ×2 (11:00→11:30)
--- NOTE | 2020-11-13 12:38 | NUR ---
SS following up with discharge planning. SS reviewed pt chart and discussed with pt RN. Pt is currently on room air. COVID19 negative. PT/OT recommended acute rehabilitation. Pt accepted at [facility], ; fax [phone], pending insurance authorization. SS phoned and faxed clinical updates to [facility]. SS will continue to follow for discharge planning.
[2020-11-13] MEDS: ENOXAPARIN 30 MG/0.3 ML SYRINGE. SQ SCH (13:41)
--- NOTE | 2020-11-13 14:36 | PDOC ---
PROGRESS NOTES Date of Service DATE: 11/13/20 TIME: 14:34 Subjective Subjective Patient seen and examined She is more comfortable today. Objective Objective Vital Signs Date Time Temp Pulse Resp B/P (MAP) Pulse Ox O2 Delivery O2 Flow Rate FiO2 11/13/20 10:55 98.7 71 16 138/59 (85) 96 Room Air 98.7 11/11/20 11:00 2.0 Intake and Output 11/13/20 07:00 Intake Total 330 ml Output Total 3600 ml Balance -3270 ml Intake Oral 330 ml Output Urine Total 3600 ml Physical Exam Abdomen: Normal bowel sounds Heart: Regular rate General: No acute distress Lungs: Other (Mildly decreased breath sounds) Assessment Assessment 1. Acute respiratory failure in setting of acute CHF. The patient continues to improve and is more alert today. 2. Acute diastolic CHF; Echo 10/19 with preserved LV systolic function. Most probably secondary to uncontrolled HTN. s/p IV diuresis 3. HTN urgency; mildly elevated. Discontinuing amlodipine and adding hydralazine as above. Would continue lisinopril at this time but may change to enalapril 20 mg a day at discharge. Outpatient follow-up. 4. CKD; followed by the renal service. 5. Hypothyroidism: on replacement Comment Review of Relevant I have reviewed the following items rosie (where applicable) has been applied. Labs Laboratory Tests Test 11/12/20 05:40 11/13/20 03:00 Sodium Level 140 mmol/L (136-145) 143 mmol/L (136-145) Potassium Level 3.7 mmol/L (3.5-5.1) 3.4 mmol/L (3.5-5.1) Chloride Level 105 mmol/L (98-107) 107 mmol/L (98-107) Carbon Dioxide Level 28 mmol/L (21-32) 26 mmol/L (21-32) Anion Gap 7 (6-14) 10 (6-14) Blood Urea Nitrogen 37 mg/dL (7-20) 37 mg/dL (7-20) Creatinine 1.7 mg/dL (0.6-1.0) 1.9 mg/dL (0.6-1.0) Estimated GFR (Cockcroft-Gault) 30.1 26.4 Glucose Level 87 mg/dL (70-99) 79 mg/dL (70-99) Calcium Level 8.7 mg/dL (8.5-10.1) 8.5 mg/dL (8.5-10.1) Phosphorus Level 4.0 mg/dL (2.6-4.7) Albumin 2.9 g/dL (3.4-5.0) Magnesium Level 2.2 mg/dL (1.8-2.4) Laboratory Tests Test 11/13/20 03:00 Sodium Level 143 mmol/L (136-145) Potassium Level 3.4 mmol/L (3.5-5.1) Chloride Level 107 mmol/L (98-107) Carbon Dioxide Level 26 mmol/L (21-32) Anion Gap 10 (6-14) Blood Urea Nitrogen 37 mg/dL (7-20) Creatinine 1.9 mg/dL (0.6-1.0) Estimated GFR (Cockcroft-Gault) 26.4 Glucose Level 79 mg/dL (70-99) Calcium Level 8.5 mg/dL (8.5-10.1) Magnesium Level 2.2 mg/dL (1.8-2.4) Medications Current Medications Nitroglycerin (Nitrostat) 0.4 mg PRN Q5MIN PRN SL CHEST PAIN Last administered on 11/09/20at 02:04; Start 11/08/20 at 23:15 Furosemide (Lasix) 40 mg 1X ONCE PO ; Start 11/09/20 at 01:00; Stop 11/09/20 at 01:01; Status Cancel Ondansetron HCl (Zofran) 4 mg PRN Q8HRS PRN IV NAUSEA/VOMITING; Start 11/09/20 at 01:00; Stop 11/09/20 at 11:48; Status DC Fentanyl Citrate (Fentanyl 2ml Vial) 50 mcg PRN Q1HR PRN IV PAIN; Start 11/09/20 at 01:00; Stop 11/10/20 at 00:59; Status DC Acetaminophen (Tylenol) 650 mg PRN Q4HRS PRN PO FEVER > 100.3'F; Start 11/09/20 at 01:00; Stop 11/09/20 at 11:49; Status DC Nitroglycerin (Nitrostat) 0.4 mg PRN Q5MIN PRN SL CHEST PAIN; Start 11/09/20 at 01:00; Stop 11/10/20 at 00:59; Status DC Albuterol/ Ipratropium (Duoneb) 3 ml RTQID NEB Last administered on 11/10/20at 07:29; Start 11/09/20 at 08:00; Stop 11/10/20 at 07:59; Status DC Hydralazine HCl (Apresoline Inj) 5 mg PRN Q6HRS PRN IVP ELEVATED BP, SEE COMMENTS; Start 11/09/20 at 02:00; Stop 11/09/20 at 11:54; Status DC Furosemide (Lasix) 40 mg 1X ONCE IVP Last administered on 11/09/20at 02:19; S tart 11/09/20 at 02:15; Stop 11/09/20 at 02:16; Status DC Amlodipine Besylate (Norvasc) 5 mg DAILY PO Last administered on 11/12/20at 09:48; Start 11/09/20 at 11:00; Stop 11/12/20 at 15:50; Status DC Aspirin (Ecotrin) 81 mg DAILY PO Last administered on 11/13/20at 09:17; Start 11/09/20 at 11:00 Carvedilol (Coreg) 12.5 mg BIDWMEALS PO Last administered on 11/12/20at 09:48; Start 11/09/20 at 12:00; Stop 11/12/20 at 15:50; Status DC Ferrous Sulfate (Iron Oral Solution) 300 mg DAILYWBKFT PO Last administered on 11/13/20at 09:19; Start 11/09/20 at 12:00 Furosemide (Lasix) 40 mg PRN DAILY PRN PO Weight gain 3# Last administered on 11/09/20at 12:37; Start 11/09/20 at 10:15 Levothyroxine Sodium (Synthroid) 100 mcg DAILY06 PO Last administered on 11/13/20at 06:44; Start 11/09/20 at 11:00 Lisinopril (Prinivil) 40 mg DAILY PO Last administered on 11/13/20at 09:19; Start 11/09/20 at 11:00 Citalopram Hydrobromide (CeleXA) 10 mg DAILY PO Last administered on 11/13/20at 09:18; Start 11/09/20 at 11:00 Sodium Chloride (Normal Saline Flush) 3 ml QSHIFT PRN IV AFTER MEDS AND BLOOD DRAWS; Start 11/09/20 at 11:45 Ondansetron HCl (Zofran) 4 mg PRN Q4HRS PRN IV NAUSEA/VOMITING; Start 11/09/20 at 11:45 Acetaminophen (Tylenol) 650 mg PRN Q4HRS PRN PO TEMP OVER 100.4F OR MILD PAIN; Start 11/09/20 at 11:45 Sodium Monofluorophosphate (Fleet Adult) 133 ml PRN DAILY PRN ME CONSTIPATION; Start 11/09/20 at 11:45 Docusate Sodium (Colace) 100 mg PRN BID PRN PO HARD STOOLS; Start 11/09/20 at 11:45 Albuterol Sulfate (Ventolin Neb Soln) 2.5 mg PRN Q4HRS PRN NEB SHORTNESS OF BREATH; Start 11/09/20 at 11:45; Stop 11/10/20 at 12:59; Status DC Guaifenesin (Robitussin) 200 mg PRN Q4HRS PRN PO COUGH; Start 11/09/20 at 11:45 Enoxaparin Sodium (Lovenox 40mg Syringe) 40 mg Q24H SQ Last administered on 11/09/20at 12:38; Start 11/09/20 at 13:00; Stop 11/10/20 at 13:04; Status DC Hydralazine HCl (Apresoline Inj) 10 mg PRN Q4HRS PRN IVP ELEVATED BP, SEE COMMENTS Last administered on 11/09/20at 12:42; Start 11/09/20 at 12:00 Furosemide (Lasix) 40 mg 1X ONCE IVP Last administered on 11/09/20at 12:51; Start 11/09/20 at 12:30; Stop 11/09/20 at 12:31; Status DC Albuterol Sulfate (Ventolin Neb Soln) 2.5 mg PRN Q4HRS PRN NEB SHORTNESS OF BREATH; Start 11/10/20 at 07:15 Enoxaparin Sodium (Lovenox 30mg Syringe) 30 mg Q24H SQ Last administered on 11/13/20at 13:41; Start 11/10/20 at 14:00 Furosemide (Lasix) 40 mg 1X ONCE IVP Last administered on 11/10/20at 15:31; Start 11/10/20 at 15:15; Stop 11/10/20 at 15:16; Status DC Potassium Chloride (Klor-Con) 20 meq 1X ONCE PO Last administered on 11/10/20at 15:32; Start 11/10/20 at 15:15; Stop 11/10/20 at 15:16; Status DC Glycerin/ Hypromellose/ Polyethylene (Artificial Tears) 1 drop PRN Q15MIN PRN OU DRY EYE Last administered on 11/11/20at 20:28; Start 11/10/20 at 19:15 Furosemide (Lasix) 40 mg 1X ONCE IVP Last administered on 11/11/20at 13:59; Start 11/11/20 at 13:30; Stop 11/11/20 at 13:31; Status DC Furosemide (Lasix) 40 mg 1X ONCE IVP Last administered on 11/12/20at 10:45; Start 11/12/20 at 10:45; Stop 11/12/20 at 10:46; Status DC Furosemide (Lasix) 40 mg BID94 IVP Last administered on 11/13/20at 09:20; Start 11/12/20 at 16:00 Carvedilol (Coreg) 25 mg BIDWMEALS PO Last administered on 11/13/20at 09:18; Start 11/12/20 at 17:00 Carvedilol (Coreg) 12.5 mg 1X PO ; Start 11/12/20 at 15:45 Hydralazine HCl (Apresoline) 75 mg BID PO Last administered on 11/13/20at 09:19; Start 11/12/20 at 21:00 Potassium Chloride (Klor-Con) 20 meq 1X ONCE PO ; Start 11/13/20 at 11:00; Stop 11/13/20 at 11:01; Status DC Potassium Chloride (Klor-Con) 40 meq 1X ONCE PO Last administered on 11/13/20at 13:41; Start 11/13/20 at 11:30; Stop 11/13/20 at 11:31; Status DC Potassium Chloride (Klor-Con) 20 meq DAILYWBKFT PO ; Start 11/14/20 at 08:00 Active Scripts Active Levothyroxine Sodium 100 Mcg Tablet 1 Tab PO DAILY 30 Days Ferrous Sulfate 300 Mg/5 Ml Liquid 300 Mg PO DAILYWBKFT 30 Days Furosemide 40 Mg Tablet 1 Tab PO PRN DAILY PRN 30 Days Lisinopril 40 Mg Tablet 40 Mg PO DAILY 30 Days Carvedilol (Carvedilol) 12.5 Mg Tablet 12.5 Mg PO BIDWMEALS 30 Days Reported Escitalopram Oxalate 10 Mg Tablet 0.5 Tab PO DAILY Aspirin Ec (Aspirin) 81 Mg Tablet.dr 81 Mg PO DAILY Vitals/I & O Vital Sign - Last 24 Hours 11/12/20 11/12/20 11/12/20 11/12/20 15:00 17:24 19:00 19:34 Temp 98.1 98.0 98.1 98.0 Pulse 66 66 67 Resp 16 18 B/P (MAP) 169/71 (103) 169/71 150/70 (96) Pulse Ox 97 95 O2 Delivery Room Air Room Air Room Air 11/12/20 11/12/20 11/13/20 11/13/20 20:25 23:00 02:53 07:00 Temp 98.1 98.2 98.5 98.1 98.2 98.5 Pulse 67 65 75 77 Resp 18 16 16 B/P (MAP) 150/70 110/49 (69) 127/58 (81) 131/59 (83) Pulse Ox 92 95 96 O2 Delivery Room Air Room Air Room Air 11/13/20 11/13/20 11/13/20 11/13/20 08:00 09:18 09:19 09:19 Pulse 77 77 77 B/P (MAP) 131/59 131/59 131/59 O2 Delivery Room Air 11/13/20 10:55 Temp 98.7 98.7 Pulse 71 Resp 16 B/P (MAP) 138/59 (85) Pulse Ox 96 O2 Delivery Room Air Intake and Output 11/12/20 11/12/20 11/13/20 15:00 23:00 07:00 Intake Total 30 ml 300 ml Output Total 2300 ml 1300 ml Balance -2270 ml -1000 ml Justifications for Admission Other Justification chf acute ELDA BREANNE CRABTREE MD Nov 13, 2020 14:36
[2020-11-13 15:00] VITALS: BP 149/58
[2020-11-13 19:15] VITALS: BP 141/61
[2020-11-13 23:30] VITALS: BP 130/60
[2020-11-14 03:30] VITALS: BP 136/61
[2020-11-14] MEDS: LEVOTHYROXINE 100 MCG TABLET PO SCH (06:51)
[2020-11-14 07:00] VITALS: BP 138/63
[2020-11-14 07:44] LABS: CALCIUM 8.7 mg/dL (8.5-10.1); CREATININE 2.1 mg/dL (0.6-1.0); GFR 23.6; MAGNESIUM 2.1 mg/dL (1.8-2.4); POTASSIUM 3.6 mmol/L (3.5-5.1)
[2020-11-14] MEDS: ASPIRIN ENTERIC COATED 81 MG TABLET.DR. PO SCH (08:15)
[2020-11-14] MEDS: CITALOPRAM 10 MG TABLET. PO SCH (08:15)
[2020-11-14] MEDS: POTASSIUM CHLORIDE 20 MEQ TABLET.ER. PO SCH (08:15)
[2020-11-14] MEDS: LISINOPRIL 20 MG TABLET PO SCH (08:15)
[2020-11-14] MEDS: CARVEDILOL 12.5 MG TABLET. PO SCH ×2 (08:16→17:02)
[2020-11-14] MEDS: FUROSEMIDE 40 MG/4 ML VIAL. IVP SCH ×2 (08:17→13:23)
[2020-11-14] MEDS: FERROUS SULFATE ORAL 300 MG/5 ML SOLUTION. PO SCH (08:17)
[2020-11-14] MEDS: hydrALAZINE 25 MG TABLET PO SCH ×2 (08:17→20:10)
--- NOTE | 2020-11-14 09:43 | PDOC ---
PROGRESS NOTES Date of Service: DATE: 11/14/20 TIME: 09:43 Chief Complaint Chief Complaint VTE Prophylaxis Ordered VTE Prophylaxis Devices: No VTE Pharmacological Prophylaxi: Yes Assessment/Plan Assessment/Plan impression Chest pain Dyspnea Generalized weakness Acute volume overload Acute respiratory failure in setting of CHF on cxr, Focal opacities bilaterally appears increased from prior could be from pulmonary edema or infiltrate. Acute diastolic CHF; Echo 10/19 with preserved LV systolic function. Most probably secondary to uncontrolled HTN HTN urgency Acute on chronic kidney disease, stage III, CR UP WITH DIURESIS Moderate protein malnutrition Acute anemia - required recent blood transfusion History of hypertension depression anxiety hypothyroidism History of uterine tumor status post hysterectomy and chemotherapy in 2018 plan admit [facility] BED Consult cardiology trend troponin i careful diuresis PER CARDIOLOGY d/c norvasc or lower dose to 5 mg dvt prophylaxis NEPHROLOGY CONSULT 37 min pt exam, chart review, > 50% of time spent with exam, chart review, pt care coordination Justifications for Admission Justifications for Admission Other Justification ELDA LAKIA CRISOSTOMO MD Nov 09, 2020 08:33 History of Present Illness History of Present Illness Identification/Chief Complaint Chief Complaint SHORTNESS OF BREATH, CHEST PAIN seen with blue public affairs director phone History of Present Illness History of Present Illness Ms Chirinos is a 65-year-old female with past medical history of hypertension, depression, anxiety, DVT, uterine CA, and recently diagnosed CKD who presented to the ED with soa 65 year old female seen in ER for chest pain or shortness of breath. Patient was just discharged from the hospital for pneumonia 3 days ago. / baseline lower extremity edema. Baseline Cr unknown to the family, but has been elevated tween 1.5-1.7 since July 2020. had a creatinine between 1 and 1.1 as Nephrology has reviewed [facility] records and notes from prior Emphasized compliance with carvedilol as well as new medication lisinopril and as needed furosemide. Iron studies c/w ACD; no way to know if truly iron-deficient w/o bone marrow. needs lea-endoscopy; outpatient setting. Inadequate thyroid supplementation may contribute. Acute respiratory failure in setting of CHF /Acute diastolic CHF; Echo 10/19 with preserved LV systolic function. Most probably secondary to uncontrolled HTN //HTN urgency Past Medical History Past Medical History Past Medical History Past Medical History Past Medical History: Anxiety, Depression, DVT, Hypertension, Hypothyroid Additional Past Medical Histor: UTERINE TUMOR, LAST CHEMO MAR 2019 Past Surgical History: Hysterectomy, Tubal ligation, Other Smoking Status: Never Smoker Alcohol Use: None Drug Use: None Echo 10/14/2020: The left ventricle is normal size. The left ventricular systolic function is normal and the ejection fraction is within normal range. The Ejection Fraction is 60-65%. There is borderline concentric left ventricular hypertrophy. Doppler and Color Flow revealed trace aortic regurgitation. There is no significant aortic valvular stenosis. Doppler and Color Flow revealed no mitral valve regurgitation noted. Doppler and Color Flow revealed trace to mild tricuspid regurgitation with an estimated PAP of 39 mmHg. On discharge previously her BP was better controlled on amlodipine and carvedilol. As she was on chlorthalidone and transition to spironolactone but was admitted with hyperkalemia recommended to hold those diuretics and follow-up with nephrology with addition of furosemide as needed for weight gain. She did continue to take chlorthalidone at home, though, admitted for hyponatremia and shortness of breath, abdominal discomfort. 10/30: IV lasix given with improvement in swelling, shortness of breath and creatinine 10/31: BP improved. Transfused 1u PRBC 11/01: 24 urine protein 437 mg, started on lisinopril. Initial fecal occult negative. 11/02: BP better controlled. She is feeling little better. Despite instruction to discontinue chlorthalidone on previous hospitalization and she had restarted it because she was swollen. Using public affairs director it is clear that she and her h usband feel like this is partially due to the language barrier. Emphasized compliance with carvedilol as well as new medication lisinopril and as needed furosemide. 11/03: Systolic blood pressure 144 this morning. Creatinine 1.5. Her flank pain is improved. Has a little bit of abdominal cramping no chest pain or shortness of breath. Feels her swelling is stable she is very insistent that she be prescribed a diuretic. 11/04: Cr 1.7, Hb 8.2, still dropping despite iron supplementation. D/w Nephrology patient had large Hb drop since last hospital stay, needs GI eval. Abdominal pain worse today. FHX HTN Cardiovascular: HTN Pulmonary: No pertinent hx CENTRAL NERVOUS SYSTEM: Other Heme/Onc: Cancer, Other Psych: Anxiety, Depression Renal/: Chronic renal insuff Endocrine: Hypothyroidism Past Surgical History Past Surgical History: Tubal Ligation, Hysterectomy Family History Family History: Hypertension Social History Smoke: No ALCOHOL: none Drugs: None Current Medications Current Medications Current Medications Nitroglycerin (Nitrostat) 0.4 mg PRN Q5MIN PRN SL CHEST PAIN Last administered on 11/09/20at 02:04; Start 11/08/20 at 23:15 Furosemide (Lasix) 40 mg 1X ONCE PO ; Start 11/09/20 at 01:00; Stop 11/09/20 at 01:01; Status Cancel Ondansetron HCl (Zofran) 4 mg PRN Q8HRS PRN IV NAUSEA/VOMITING; Start 11/09/20 at 01:00; Stop 11/10/20 at 00:59 Fentanyl Citrate (Fentanyl 2ml Vial) 50 mcg PRN Q1HR PRN IV PAIN; Start 11/09/20 at 01:00; Stop 11/10/20 at 00:59 Acetaminophen (Tylenol) 650 mg PRN Q4HRS PRN PO FEVER > 100.3'F; Start 11/09/20 at 01:00; Stop 11/10/20 at 00:59 Nitroglycerin (Nitrostat) 0.4 mg PRN Q5MIN PRN SL CHEST PAIN; Start 11/09/20 at 01:00; Stop 11/10/20 at 00:59 Albuterol/ Ipratropium (Duoneb) 3 ml RTQID NEB Last administered on 11/09/20at 07:52; Start 11/09/20 at 08:00; Stop 11/10/20 at 07:59 Hydralazine HCl (Apresoline Inj) 5 mg PRN Q6HRS PRN IVP ELEVATED BP, SEE COMMENTS; Start 11/09/20 at 02:00 Furosemide (Lasix) 40 mg 1X ONCE IVP Last administered on 11/09/20at 02:19; Start 11/09/20 at 02:15; Stop 11/09/20 at 02:16; Status DC Active Scripts Active Levothyroxine Sodium 100 Mcg Tablet 1 Tab PO DAILY 30 Days Amlodipine Besylate 10 Mg Tablet 5 Mg PO DAILY 30 Days Ferrous Sulfate 300 Mg/5 Ml Liquid 300 Mg PO DAILYWBKFT 30 Days Furosemide 40 Mg Tablet 1 Tab PO PRN DAILY PRN 30 Days Lisinopril 40 Mg Tablet 40 Mg PO DAILY 30 Days Carvedilol (Carvedilol) 12.5 Mg Tablet 12.5 Mg PO BIDWMEALS 30 Days Reported Escitalopram Oxalate 10 Mg Tablet 0.5 Tab PO DAILY Aspirin Ec (Aspirin) 81 Mg Tablet.dr 81 Mg PO DAILY Allergies Allergies: Coded Allergies: iodine (Verified Allergy, Severe, 10/15/20) folic acid (Verified Allergy, Mild, 10/14/20) "COMPLEX B" vitamin B complex and C (Verified Allergy, Mild, 10/14/20) "COMPLEX B" ROS General: YES: Fatigue PSYCHOLOGICAL ROS: YES: Anxiety; No: Behavioral Disorder, Concentration difficultie, Decreased libido, Dep ression, Disorientation, Hallucinations, Hostility, Irritablity, Memory difficulties, Mood Swings, Obsessive thoughts, Physical abuse, Sexual abuse, Sleep disturbances, Suicidal ideation, Other Eyes: No Blurry vision, No Decreased vision, No Double vision, No Dry eyes, No Excessive tearing, No Eye Pain, No Itchy Eyes, No Loss of vision, No Photophobia, No Scotomata, No Uses contacts, No Uses glasses, No Other HEENT: No: Heacaches, Visual Changes, Hearing change, Nasal congestion, Nasal discharge, Oral lesions, Sinus pain, Sore Throat, Epistaxis, Sneezing, Snoring, Tinnitus, Vertigo, Vocal changes, Other ALLERGY AND IMMUNOLOGY: YES: Hives Hematological and Lymphatic: No: Bleeding Problems, Blood Clots, Blood Transfusions, Brusing, Night Sweats, Pallor, Swollen Lymph Nodes, Other ENDOCRINE: No: Breast Changes, Galactorrhea, Hair Pattern Changes, Hot Flashes, Malaise/lethargy, Mood Swings, Palpitations, Polydipsia/polyuria, Skin Changes, Temperature Intolerance, Unexpected Weight Changes, Other Breast: No New/Changing Breast Lumps, No Nipple changes, No Nipple discharge, No Other Respiratory: YES: Shortness of breath Cardiovascular: yes Chest Pain; No Palpitations, No Orthopnea, No Paroxysmal Noc. Dyspnea, No Edema, No Lt Headedness, No Other Gastrointestinal: No Nausea, No Vomiting, No Abdominal Pain, No Diarrhea, No Constipation, No Melena, No Hematochezia, No Other Genitourinary: No Dysuria, No Frequency, No Incontinence, No Hematuria, No Retention, No Discharge, No Urgency, No Pain, No Flank Pain, No Other, No , No , No , No , No , No , No Musculoskeletal: Yes Joint Stiffness; No Gait Disturbance, No Joint Pain, No Joint Swelling, No Muscle Pain, No Muscular Weakness, No Pain In:, No Swelling In:, No Other Neurological: No Behavorial Changes, No Bowel/Bladder ControlChng, No Confusion, No Dizziness, No Gait Disturbance, No Headaches, No Impaired Coord/balance, No Memory Loss, No Numbness/Tingling, No Seizures, No Speech Problems, No Tremors, No Visual Changes, No Weakness, No Other Skin: Yes Dry Skin; No Eczema, No Hair Changes, No Lumps, No Mole Changes, No Mottling, No Nail Changes, No Pruritus, No Rash, No Skin Lesion Changes, No Other, No Acne CKD stage 3 B - stable renal function , Cr ranging 1.6-1.9 now 7-17 CR UP TO 2.1 Chest pain Dyspnea Generalized weakness Acute volume overload Acute respiratory failure in setting of CHF on cxr, Focal opacities bilaterally appears increased from prior could be from pulmonary edema or infiltrate. Acute diastolic CHF; Echo 10/19 with preserved LV systolic function. Most probably secondary to uncontrolled HTN HTN urgency Acute on chronic kidney disease, stage III Moderate protein malnutrition Acute anemia - required recent blood transfusion History of hypertension depression anxiety hypothyroidism History of uterine tumor status post hysterectomy and chemotherapy in 2018 [facility]VC BED Consult cardiology trend troponin i careful diuresis d/c norvasc or lower dose to 5 mg dvt prophylaxis NEPHROLOGY CONSULTED D/W floater operator Recommendations * Acute Rehab facility Discharge Recommendation - DME * Rolling Walker needed * and ambulation safely 27 min pt exam, chart review, > 50% of time spent with exam, chart review, pt care coordination 7-16 CR UP TO 1.9 Chest pain Dyspnea Generalized weakness Acute volume overload Acute respiratory failure in setting of CHF on cxr, Focal opacities bilaterally appears increased from prior could be from pulmonary edema or infiltrate. Acute diastolic CHF; Echo 10/19 with preserved LV systolic function. Most pro bably secondary to uncontrolled HTN HTN urgency Acute on chronic kidney disease, stage III Moderate protein malnutrition Acute anemia - required recent blood transfusion History of hypertension depression anxiety hypothyroidism History of uterine tumor status post hysterectomy and chemotherapy in 2018 CVC BED Consult cardiology trend troponin i careful diuresis d/c norvasc or lower dose to 5 mg dvt prophylaxis NEPHROLOGY CONSULTED D/W floater operator Recommendations * Acute Rehab facility Discharge Recommendation - DME * Rolling Walker needed * and ambulation safely 29 min pt exam, chart review, > 50% of time spent with exam, chart review, pt care coordination 11-12 CR UP TO 1.8 Chest pain Dyspnea Generalized weakness Acute volume overload Acute respiratory failure in setting of CHF on cxr, Focal opacities bilaterally appears increased from prior could be from pulmonary edema or infiltrate. Acute diastolic CHF; Echo 10/19 with preserved LV systolic function. Most probably secondary to uncontrolled HTN HTN urgency Acute on chronic kidney disease, stage III Moderate protein malnutrition Acute anemia - required recent blood transfusion History of hypertension depression anxiety hypothyroidism History of uterine tumor status post hysterectomy and chemotherapy in 11-11 6 min walk [facility] BED Consult cardiology trend troponin i careful diuresis d/c norvasc or lower dose to 5 mg dvt prophylaxis NEPHROLOGY CONSULTED D/W floater operator Recommendations * Acute Rehab facility Discharge Recommendation - DME * Rolling Walker needed * and ambulation safely 29 min pt exam, chart review, > 50% of time spent with exam, chart review, pt care coordination 11-11 CR UP TO 1.8 Chest pain Dyspnea Generalized weakness Acute volume overload Acute respiratory failure in setting of CHF on cxr, Focal opacities bilaterally appears increased from prior could be from pulmonary edema or infiltrate. Acute diastolic CHF; Echo 10/19 with preserved LV systolic function. Most probably secondary to uncontrolled HTN HTN urgency Acute on chronic kidney disease, stage III Moderate protein malnutrition Acute anemia - required recent blood transfusion History of hypertension depression anxiety hypothyroidism History of uterine tumor status post hysterectomy and chemotherapy in 11-11 6 min walk [facility] BED Consult cardiology trend troponin i careful diuresis d/c norvasc or lower dose to 5 mg dvt prophylaxis NEPHROLOGY CONSULTED D/W RN 27 min pt exam, chart review, > 50% of time spent with exam, chart review, pt care coordination Vitals Vitals Vital Signs Date Time Temp Pulse Resp B/P (MAP) Pulse Ox O2 Delivery O2 Flow Rate FiO2 11/14/20 08:17 81 136/61 11/14/20 07:44 Room Air 11/14/20 07:00 98.9 16 93 98.9 Physical Exam Physical Exam General: Alert, Oriented X3, Cooperative, No acute distress HEENT: PERRLA, EOMI, Mucous membr. moist/pink Lungs: Normal air movement, Other (few crackles) Heart: RRR Breasts: Not examined Abdomen: Normal bowel sounds, Soft Rectal Exam: not examined PELVIC: Examination not indicated Extremities: No cyanosis Neuro: Normal speech, Cranial nerves 3-12 NL Psych/Mental Status: Mental status NL, Mood NL General: Alert, Oriented X3, Cooperative, No acute distress Heart: Regular rate Lungs: Clear Abdomen: Normal bowel sounds Extremities: No cyanosis Labs LABS Laboratory Tests Test 11/14/20 06:35 Sodium Level 138 mmol/L (136-145) Potassium Level 3.6 mmol/L (3.5-5.1) Chloride Level 103 mmol/L (98-107) Carbon Dioxide Level 27 mmol/L (21-32) Anion Gap 8 (6-14) Blood Urea Nitrogen 43 mg/dL (7-20) Creatinine 2.1 mg/dL (0.6-1.0) Estimated GFR (Cockcroft-Gault) 23.6 Glucose Level 88 mg/dL (70-99) Calcium Level 8.7 mg/dL (8.5-10.1) Magnesium Level 2.1 mg/dL (1.8-2.4) Comment Review of Relevant I have reviewed the following items rosie (where applicable) has been applied. Labs Laboratory Tests Test 11/13/20 03:00 11/14/20 06:35 Sodium Level 143 mmol/L (136-145) 138 mmol/L (136-145) Potassium Level 3.4 mmol/L (3.5-5.1) 3.6 mmol/L (3.5-5.1) Chloride Level 107 mmol/L (98-107) 103 mmol/L (98-107) Carbon Dioxide Level 26 mmol/L (21-32) 27 mmol/L (21-32) Anion Gap 10 (6-14) 8 (6-14) Blood Urea Nitrogen 37 mg/dL (7-20) 43 mg/dL (7-20) Creatinine 1.9 mg/dL (0.6-1.0) 2.1 mg/dL (0.6-1.0) Estimated GFR (Cockcroft-Gault) 26.4 23.6 Glucose Level 79 mg/dL (70-99) 88 mg/dL (70-99) Calcium Level 8.5 mg/dL (8.5-10.1) 8.7 mg/dL (8.5-10.1) Magnesium Level 2.2 mg/dL (1.8-2.4) 2.1 mg/dL (1.8-2.4) Laboratory Tests Test 11/14/20 06:35 Sodium Level 138 mmol/L (136-145) Potassium Level 3.6 mmol/L (3.5-5.1) Chloride Level 103 mmol/L (98-107) Carbon Dioxide Level 27 mmol/L (21-32) Anion Gap 8 (6-14) Blood Urea Nitrogen 43 mg/dL (7-20) Creatinine 2.1 mg/dL (0.6-1.0) Estimated GFR (Cockcroft-Gault) 23.6 Glucose Level 88 mg/dL (70-99) Calcium Level 8.7 mg/dL (8.5-10.1) Magnesium Level 2.1 mg/dL (1.8-2.4) Medications Current Medications Nitroglycerin (Nitrostat) 0.4 mg PRN Q5MIN PRN SL CHEST PAIN Last administered on 11/09/20at 02:04; Start 11/08/20 at 23:15 Furosemide (Lasix) 40 mg 1X ONCE PO ; Start 11/09/20 at 01:00; Stop 11/09/20 at 01:01; Status Cancel Ondansetron HCl (Zofran) 4 mg PRN Q8HRS PRN IV NAUSEA/VOMITING; Start 11/09/20 at 01:00; Stop 11/09/20 at 11:48; Status DC Fentanyl Citrate (Fentanyl 2ml Vial) 50 mcg PRN Q1HR PRN IV PAIN; Start 11/09/20 at 01:00; Stop 11/10/20 at 00:59; Status DC Acetaminophen (Tylenol) 650 mg PRN Q4HRS PRN PO FEVER > 100.3'F; Start 11/09/20 at 01:00; Stop 11/09/20 at 11:49; Status DC Nitroglycerin (Nitrostat) 0.4 mg PRN Q5MIN PRN SL CHEST PAIN; Start 11/09/20 at 01:00; Stop 11/10/20 at 00:59; Status DC Albuterol/ Ipratropium (Duoneb) 3 ml RTQID NEB Last administered on 11/10/20at 07:29; Start 11/09/20 at 08:00; Stop 11/10/20 at 07:59; Status DC Hydralazine HCl (Apresoline Inj) 5 mg PRN Q6HRS PRN IVP ELEVATED BP, SEE COMMENTS; Start 11/09/20 at 02:00; Stop 11/09/20 at 11:54; Status DC Furosemide (Lasix) 40 mg 1X ONCE IVP Last administered on 11/09/20at 02:19; Start 11/09/20 at 02:15; Stop 11/09/20 at 02:16; Status DC Amlodipine Besylate (Norvasc) 5 mg DAILY PO Last administered on 11/12/20at 09:48; Start 11/09/20 at 11:00; Stop 11/12/20 at 15:50; Status DC Aspirin (Ecotrin) 81 mg DAILY PO Last administered on 11/14/20at 08:15; Start 11/09/20 at 11:00 Carvedilol (Coreg) 12.5 mg BIDWMEALS PO Last administered on 11/12/20at 09:48; Start 11/09/20 at 12:00; Stop 11/12/20 at 15:50; Status DC Ferrous Sulfate (Iron Oral Solution) 300 mg DAILYWBKFT PO Last administered on 11/14/20at 08:17; Start 11/09/20 at 12:00 Furosemide (Lasix) 40 mg PRN DAILY PRN PO Weight gain 3# Last administered on 11/09/20at 12:37; Start 11/09/20 at 10:15 Levothyroxine Sodium (Synthroid) 100 mcg DAILY06 PO Last administered on 11/14/20at 06:51; Start 11/09/20 at 11:00 Lisinopril (Prinivil) 40 mg DAILY PO Last administered on 11/14/20at 08:15; Start 11/09/20 at 11:00 Citalopram Hydrobromide (CeleXA) 10 mg DAILY PO Last administered on 11/14/20at 08:15; Start 11/09/20 at 11:00 Sodium Chloride (Normal Saline Flush) 3 ml QSHIFT PRN IV AFTER MEDS AND BLOOD DRAWS; Start 11/09/20 at 11:45 Ondansetron HCl (Zofran) 4 mg PRN Q4HRS PRN IV NAUSEA/VOMITING; Start 11/09/20 at 11:45 Acetaminophen (Tylenol) 650 mg PRN Q4HRS PRN PO TEMP OVER 100.4F OR MILD PAIN; Start 11/09/20 at 11:45 Sodium Monofluorophosphate (Fleet Adult) 133 ml PRN DAILY PRN MO CONSTIPATION; Start 11/09/20 at 11:45 Docusate Sodium (Colace) 100 mg PRN BID PRN PO HARD STOOLS; Start 11/09/20 at 11:45 Albuterol Sulfate (Ventolin Neb Soln) 2.5 mg PRN Q4HRS PRN NEB SHORTNESS OF BREATH; Start 11/09/20 at 11:45; Stop 11/10/20 at 12:59; Status DC Guaifenesin (Robitussin) 200 mg PRN Q4HRS PRN PO COUGH; Start 11/09/20 at 11:45 Enoxaparin Sodium (Lovenox 40mg Syringe) 40 mg Q24H SQ Last administered on 11/09/20at 12:38; Start 11/09/20 at 13:00; Stop 11/10/20 at 13:04; Status DC Hydralazine HCl (Apresoline Inj) 10 mg PRN Q4HRS PRN IVP ELEVATED BP, SEE COMMENTS Last administered on 11/09/20at 12:42; Start 11/09/20 at 12:00 Furosemide (Lasix) 40 mg 1X ONCE IVP Last administered on 11/09/20at 12:51; Start 11/09/20 at 12:30; Stop 11/09/20 at 12:31; Status DC Albuterol Sulfate (Ventolin Neb Soln) 2.5 mg PRN Q4HRS PRN NEB SHORTNESS OF BREATH; Start 11/10/20 at 07:15 Enoxaparin Sodium (Lovenox 30mg Syringe) 30 mg Q24H SQ Last administered on 11/13/20at 13:41; Start 11/10/20 at 14:00 Furosemide (Lasix) 40 mg 1X ONCE IVP Last administered on 11/10/20at 15:31; Start 11/10/20 at 15:15; Stop 11/10/20 at 15:16; Status DC Potassium Chloride (Klor-Con) 20 meq 1X ONCE PO Last administered on 11/10/20at 15:32; Start 11/10/20 at 15:15; Stop 11/10/20 at 15:16; Status DC Glycerin/ Hypromellose/ Polyethylene (Artificial Tears) 1 drop PRN Q15MIN PRN OU DRY EYE Last administered on 11/11/20at 20:28; Start 11/10/20 at 19:15 Furosemide (Lasix) 40 mg 1X ONCE IVP Last administered on 11/11/20at 13:59; Start 11/11/20 at 13:30; Stop 11/11/20 at 13:31; Status DC Furosemide (Lasix) 40 mg 1X ONCE IVP Last administered on 11/12/20at 10:45; Start 11/12/20 at 10:45; Stop 11/12/20 at 10:46; Status DC Furosemide (Lasix) 40 mg BID94 IVP Last administered on 11/14/20at 08:17; Start 11/12/20 at 16:00 Carvedilol (Coreg) 25 mg BIDWMEALS PO Last administered on 11/14/20at 08:16; Start 11/12/20 at 17:00 Carvedilol (Coreg) 12.5 mg 1X PO ; Start 11/12/20 at 15:45 Hydralazine HCl (Apresoline) 75 mg BID PO Last administered on 11/14/20at 08:17; Start 11/12/20 at 21:00 Potassium Chloride (Klor-Con) 20 meq 1X ONCE PO ; Start 11/13/20 at 11:00; Stop 11/13/20 at 11:01; Status DC Potassium Chloride (Klor-Con) 40 meq 1X ONCE PO Last administered on 11/13/20at 13:41; Start 11/13/20 at 11:30; Stop 11/13/20 at 11:31; Status DC Potassium Chloride (Klor-Con) 20 meq DAILYWBKFT PO Last administered on 11/14/20at 08:15; Start 11/14/20 at 08:00 Active Scripts Active Levothyroxine Sodium 100 Mcg Tablet 1 Tab PO DAILY 30 Days Ferrous Sulfate 300 Mg/5 Ml Liquid 300 Mg PO DAILYWBKFT 30 Days Furosemide 40 Mg Tablet 1 Tab PO PRN DAILY PRN 30 Days Lisinopril 40 Mg Tablet 40 Mg PO DAILY 30 Days Carvedilol (Carvedilol) 12.5 Mg Tablet 12.5 Mg PO BIDWMEALS 30 Days Reported Escitalopram Oxalate 10 Mg Tablet 0.5 Tab PO DAILY Aspirin Ec (Aspirin) 81 Mg Tablet.dr 81 Mg PO DAILY Vitals/I & O Vital Sign - Last 24 Hours 11/13/20 11/13/20 11/13/20 11/13/20 10:55 15:00 17:41 19:15 Temp 98.7 98.1 98.3 98.7 98.1 98.3 Pulse 71 72 72 71 Resp 16 18 24 B/P (MAP) 138/59 (85) 149/58 (88) 149/58 141/61 (87) Pulse Ox 96 98 96 O2 Delivery Room Air Room Air Room Air 11/13/20 11/13/20 11/13/20 11/14/20 19:30 19:59 23:30 03:30 Temp 99.0 99.5 99.0 99.5 Pulse 72 80 81 Resp 22 22 B/P (MAP) 149/58 130/60 (83) 136/61 (86) Pulse Ox 92 94 O2 Delivery Room Air Room Air Room Air 11/14/20 11/14/20 11/14/20 11/14/20 07:00 07:44 08:15 08:16 Temp 98.9 98.9 Pulse 77 81 81 Resp 16 B/P (MAP) 138/63 (88) 136/61 136/61 Pulse Ox 93 O2 Delivery Room Air Room Air 11/14/20 08:17 Pulse 81 B/P (MAP) 136/61 Intake and Output 11/13/20 11/13/20 11/14/20 15:00 23:00 07:00 Intake Total 600 ml 400 ml 300 ml Output Total 1400 ml 1300 ml Balance 600 ml -1000 ml -1000 ml Justicifation of Admission Dx: Justifications for Admission: Justification of Admission Dx: N/A LAKIA CRISOSTOMO MD Nov 14, 2020 09:43
[2020-11-14 11:00] VITALS: BP 126/54
--- NOTE | 2020-11-14 12:31 | PDOC ---
DATE OF SERVICE DATE: 11/14/20 TIME: 12:30 SUBJECTIVE ROS Stable, No new concerns voiced by Nursing OBJECTIVE Vital Signs Vital Signs Date Time Temp Pulse Resp B/P (MAP) Pulse Ox O2 Delivery O2 Flow Rate FiO2 11/14/20 11:00 98.4 69 16 126/54 (78) 96 Room Air 98.4 I & 0 Intake and Output 11/14/20 06:59 Intake Total 1300 ml Output Total 2700 ml Balance -1400 ml Intake Oral 1300 ml Output Urine Total 2700 ml PHYSICAL EXAM Physical Exam General NAD HEEN OM moist Neck Supple Lungs CTA CV S1S2 Abd Soft, NT, Ext No LE edmea. No cyanosis Neuro- Grossly Normal, No focal deficit Psych Hx of depression/Anxiety, currently mood stable No Maguire, no cva or SP tenderness DIAGNOSIS/ASSESSMENT Assessment & Plan ELDA- Worsening renal function 2/2 Overdiuresis . Recommend Holding Diuretics , Monitor daily standing weight , Supportive care, avoid nephrotoxins CKD stage 3 B - Cr ranging 1.6-1.8 now UA and Renal US unremarkable Low grade Proteinuria, Pr/Cr <500 mg . Reviewed records from [facility]- creat was normal /eGFR >60 . Noted elevated Cr since July 2020 Edema- history with intermittent Edema , recommend daily weight, BP log . Adjust diuretics accordingly HTN -Antihypertensives , card was consulted at [facility]. Had extensive park at [facility] by cardiology Anemia- Kand L mildly elevated, Ratio is normal, SPEP no m spike . Tsats low , GI was consulted f/u for outpatient endoscopy. DM II Ac on Chronic Diastolic CHF History of uterine tumor status post hysterectomy and chemotherapy in 2019 COMMENT/RELEVANT DATA Meds Current Medications Medications (Trade) Dose Ordered Sig/Allison Start Time Stop Time Status Last Admin Dose Admin Acetaminophen (Tylenol) 650 mg PRN Q4HRS PRN 11/09/20 11:45 Albuterol Sulfate (Ventolin Neb Soln) 2.5 mg PRN Q4HRS PRN 11/10/20 07:15 Albuterol/ Ipratropium (Duoneb) 3 ml RTQID 11/09/20 08:00 11/10/20 07:59 DC 11/10/20 07:29 3 ML Amlodipine Besylate (Norvasc) 5 mg DAILY 11/09/20 11:00 11/12/20 15:50 DC 11/12/20 09:48 5 MG Aspirin (Ecotrin) 81 mg DAILY 11/09/20 11:00 11/14/20 08:15 81 MG Carvedilol (Coreg) 12.5 mg 1X 11/12/20 15:45 11/14/20 11:24 DC Citalopram Hydrobromide (CeleXA) 10 mg DAILY 11/09/20 11:00 11/14/20 08:15 10 MG Docusate Sodium (Colace) 100 mg PRN BID PRN 11/09/20 11:45 Enoxaparin Sodium (Lovenox 30mg Syringe) 30 mg Q24H 11/10/20 14:00 11/13/20 13:41 30 MG Enoxaparin Sodium (Lovenox 40mg Syringe) 40 mg Q24H 11/09/20 13:00 11/10/20 13:04 DC 11/09/20 12:38 40 MG Fentanyl Citrate (Fentanyl 2ml Vial) 50 mcg PRN Q1HR PRN 11/09/20 01:00 11/10/20 00:59 DC Ferrous Sulfate (Iron Oral Solution) 300 mg [id number] 11/09/20 12:00 11/14/20 08:17 300 MG Furosemide (Lasix) 40 mg [id number] 11/12/20 16:00 11/14/20 08:17 40 MG Glycerin/ Hypromellose/ Polyethylene (Artificial Tears) 1 drop PRN Q15MIN PRN 11/10/20 19:15 11/11/20 20:28 1 DROP Guaifenesin (Robitussin) 200 mg PRN Q4HRS PRN 11/09/20 11:45 Hydralazine HCl (Apresoline Inj) 10 mg PRN Q4HRS PRN 11/09/20 12:00 11/09/20 12:42 10 MG Hydralazine HCl (Apresoline) 75 mg BID 11/12/20 21:00 11/14/20 08:17 75 MG Levothyroxine Sodium (Synthroid) 100 mcg [id number] 11/09/20 11:00 11/14/20 06:51 100 MCG Lisinopril (Prinivil) 40 mg DAILY 11/09/20 11:00 11/14/20 08:15 40 MG Nitroglycerin (Nitrostat) 0.4 mg PRN Q5MIN PRN 11/09/20 01:00 11/10/20 00:59 DC Ondansetron HCl (Zofran) 4 mg PRN Q4HRS PRN 11/09/20 11:45 Potassium Chloride (Klor-Con) 20 meq [id number] 11/14/20 08:00 11/14/20 08:15 20 MEQ Sodium Monofluorophosphate (Fleet Adult) 133 ml PRN DAILY PRN 11/09/20 11:45 Sodium Chloride (Normal Saline Flush) 3 ml QSHIFT PRN 11/09/20 11:45 Lab Laboratory Tests Test 11/14/20 06:35 Sodium Level 138 mmol/L (136-145) Potassium Level 3.6 mmol/L (3.5-5.1) Chloride Level 103 mmol/L (98-107) Carbon Dioxide Level 27 mmol/L (21-32) Anion Gap 8 (6-14) Blood Urea Nitrogen 43 mg/dL (7-20) Creatinine 2.1 mg/dL (0.6-1.0) Estimated GFR (Cockcroft-Gault) 23.6 Glucose Level 88 mg/dL (70-99) Calcium Level 8.7 mg/dL (8.5-10.1) Magnesium Level 2.1 mg/dL (1.8-2.4) Results All relevant outside records, renal labs, imaging studies, telemetry/EKG's were reviewed. Justicifation of Admission Dx: Justifications for Admission: Justification of Admission Dx: N/A ESTELLA BRADY MD Nov 14, 2020 12:31
[2020-11-14] MEDS: ENOXAPARIN 30 MG/0.3 ML SYRINGE. SQ SCH (13:38)
[2020-11-14 15:00] VITALS: BP 125/56
[2020-11-14 19:00] VITALS: BP 132/58
[2020-11-14 23:29] VITALS: BP 113/49
[2020-11-15 03:15] VITALS: BP 133/61
[2020-11-15] MEDS: LEVOTHYROXINE 100 MCG TABLET PO SCH (04:49)
[2020-11-15 07:00] VITALS: BP 121/57
[2020-11-15] MEDS: CARVEDILOL 12.5 MG TABLET. PO SCH ×2 (08:55→16:21)
[2020-11-15] MEDS: hydrALAZINE 25 MG TABLET PO SCH ×2 (08:55→22:36)
[2020-11-15] MEDS: ASPIRIN ENTERIC COATED 81 MG TABLET.DR. PO SCH (08:55)
[2020-11-15] MEDS: POTASSIUM CHLORIDE 20 MEQ TABLET.ER. PO SCH (08:55)
[2020-11-15] MEDS: LISINOPRIL 20 MG TABLET PO SCH (08:56)
[2020-11-15] MEDS: CITALOPRAM 10 MG TABLET. PO SCH (08:56)
[2020-11-15] MEDS: FERROUS SULFATE ORAL 300 MG/5 ML SOLUTION. PO SCH (08:56)
[2020-11-15] MEDS: FUROSEMIDE 40 MG/4 ML VIAL. IVP SCH ×2 (09:00→16:00)
[2020-11-15 10:23] LABS: BASO # 0.1 x10^3/uL (0.0-0.2); BASO % 1 % (0-3); EOS # 0.2 x10^3/uL (0.0-0.7); EOS % 5 % (0-3); HEMATOCRIT 27.9 % (36.0-47.0); HEMOGLOBIN 9.1 g/dL (12.0-15.5); LYMPH # 0.8 x10^3/uL (1.0-4.8); LYMPH % 18 % (24-48); MEAN CORPUSCULAR HEMOGLOBIN 31 pg (25-35); MEAN CORPUSCULAR HGB CONC 33 g/dL (31-37); MEAN CORPUSCULAR VOLUME 94 fL (79-100); MONO # 0.4 x10^3/uL (0.0-1.1); MONO % 10 % (0-9); NEUT # 2.9 x10^3/uL (1.8-7.7); NEUT % 66 % (31-73); PLATELET COUNT 138 x10^3/uL (140-400); RED BLOOD COUNT 2.96 x10^6/uL (3.50-5.40); RED CELL DISTRIBUTION WIDTH 16.1 % (11.5-14.5); WHITE BLOOD COUNT 4.4 x10^3/uL (4.0-11.0)
[2020-11-15 10:39] LABS: ALBUMIN 2.9 g/dL (3.4-5.0); ALBUMIN/GLOBULIN RATIO 0.8 (1.0-1.7); CALCIUM 8.8 mg/dL (8.5-10.1); CREATININE 2.1 mg/dL (0.6-1.0); GFR 23.6; POTASSIUM 3.7 mmol/L (3.5-5.1); TOTAL BILIRUBIN 0.4 mg/dL (0.2-1.0); TOTAL PROTEIN 6.5 g/dL (6.4-8.2)
--- NOTE | 2020-11-15 10:57 | PDOC ---
PROGRESS NOTES Date of Service: DATE: 11/15/20 TIME: 10:56 Chief Complaint Chief Complaint VTE Prophylaxis Ordered VTE Prophylaxis Devices: No VTE Pharmacological Prophylaxi: Yes Assessment/Plan Assessment/Plan impression Chest pain Dyspnea Generalized weakness Acute volume overload Acute respiratory failure in setting of CHF on cxr, Focal opacities bilaterally appears increased from prior could be from pulmonary edema or infiltrate. Acute diastolic CHF; Echo 10/19 with preserved LV systolic function. Most probably secondary to uncontrolled HTN HTN urgency Acute on chronic kidney disease, stage III, CR UP WITH DIURESIS Moderate protein malnutrition Acute anemia - required recent blood transfusion History of hypertension depression anxiety hypothyroidism History of uterine tumor status post hysterectomy and chemotherapy in 2018 plan admit [facility] BED Consult cardiology trend troponin i careful diuresis PER CARDIOLOGY d/c norvasc or lower dose to 5 mg dvt prophylaxis NEPHROLOGY CONSULT 37 min pt exam, chart review, > 50% of time spent with exam, chart review, pt care coordination Justifications for Admission Justifications for Admission Other Justification ELDA LAKIA CRISOSTOMO MD Nov 09, 2020 08:33 History of Present Illness History of Present Illness Identification/Chief Complaint Chief Complaint SHORTNESS OF BREATH, CHEST PAIN seen with blue employer relations representative phone History of Present Illness History of Present Illness Ms Chirinos is a 65-year-old female with past medical history of hypertension, depression, anxiety, DVT, uterine CA, and recently diagnosed CKD who presented to the ED with soa 65 year old female seen in ER for chest pain or shortness of breath. Patient was just discharged from the hospital for pneumonia 3 days ago. / baseline lower extremity edema. Baseline Cr unknown to the family, but has been elevated tween 1.5-1.7 since July 2020. had a creatinine between 1 and 1.1 as Nephrology has reviewed [facility] records and notes from prior Emphasized compliance with carvedilol as well as new medication lisinopril and as needed furosemide. Iron studies c/w ACD; no way to know if truly iron-deficient w/o bone marrow. needs lea-endoscopy; outpatient setting. Inadequate thyroid supplementation may contribute. Acute respiratory failure in setting of CHF /Acute diastolic CHF; Echo 10/19 with preserved LV systolic function. Most probably secondary to uncontrolled HTN //HTN urgency Past Medical History Past Medical History Past Medical History Past Medical History Past Medical History: Anxiety, Depression, DVT, Hypertension, Hypothyroid Additional Past Medical Histor: UTERINE TUMOR, LAST CHEMO MAR 2019 Past Surgical History: Hysterectomy, Tubal ligation, Other Smoking Status: Never Smoker Alcohol Use: None Drug Use: None Echo 10/14/2020: The left ventricle is normal size. The left ventricular systolic function is normal and the ejection fraction is within normal range. The Ejection Fraction is 60-65%. There is borderline concentric left ventricular hypertrophy. Doppler and Color Flow revealed trace aortic regurgitation. There is no significant aortic valvular stenosis. Doppler and Color Flow revealed no mitral valve regurgitation noted. Doppler and Color Flow revealed trace to mild tricuspid regurgitation with an estimated PAP of 39 mmHg. On discharge previously her BP was better controlled on amlodipine and carvedilol. As she was on chlorthalidone and transition to spironolactone but was admitted with hyperkalemia recommended to hold those diuretics and follow-up with nephrology with addition of furosemide as needed for weight gain. She did continue to take chlorthalidone at home, though, admitted for hyponatremia and shortness of breath, abdominal discomfort. 10/30: IV lasix given with improvement in swelling, shortness of breath and creatinine 10/31: BP improved. Transfused 1u PRBC 11/01: 24 urine protein 437 mg, started on lisinopril. Initial fecal occult negative. 11/02: BP better controlled. She is feeling little better. Despite instruction to discontinue chlorthalidone on previous hospitalization and she had restarted it because she was swollen. Using employer relations representative it is clear that she and her h usband feel like this is partially due to the language barrier. Emphasized compliance with carvedilol as well as new medication lisinopril and as needed furosemide. 11/03: Systolic blood pressure 144 this morning. Creatinine 1.5. Her flank pain is improved. Has a little bit of abdominal cramping no chest pain or shortness of breath. Feels her swelling is stable she is very insistent that she be prescribed a diuretic. 11/04: Cr 1.7, Hb 8.2, still dropping despite iron supplementation. D/w Nephrology patient had large Hb drop since last hospital stay, needs GI eval. Abdominal pain worse today. FHX HTN Cardiovascular: HTN Pulmonary: No pertinent hx CENTRAL NERVOUS SYSTEM: Other Heme/Onc: Cancer, Other Psych: Anxiety, Depression Renal/: Chronic renal insuff Endocrine: Hypothyroidism Past Surgical History Past Surgical History: Tubal Ligation, Hysterectomy Family History Family History: Hypertension Social History Smoke: No ALCOHOL: none Drugs: None Current Medications Current Medications Current Medications Nitroglycerin (Nitrostat) 0.4 mg PRN Q5MIN PRN SL CHEST PAIN Last administered on 11/09/20at 02:04; Start 11/08/20 at 23:15 Furosemide (Lasix) 40 mg 1X ONCE PO ; Start 11/09/20 at 01:00; Stop 11/09/20 at 01:01; Status Cancel Ondansetron HCl (Zofran) 4 mg PRN Q8HRS PRN IV NAUSEA/VOMITING; Start 11/09/20 at 01:00; Stop 11/10/20 at 00:59 Fentanyl Citrate (Fentanyl 2ml Vial) 50 mcg PRN Q1HR PRN IV PAIN; Start 11/09/20 at 01:00; Stop 11/10/20 at 00:59 Acetaminophen (Tylenol) 650 mg PRN Q4HRS PRN PO FEVER > 100.3'F; Start 11/09/20 at 01:00; Stop 11/10/20 at 00:59 Nitroglycerin (Nitrostat) 0.4 mg PRN Q5MIN PRN SL CHEST PAIN; Start 11/09/20 at 01:00; Stop 11/10/20 at 00:59 Albuterol/ Ipratropium (Duoneb) 3 ml RTQID NEB Last administered on 11/09/20at 07:52; Start 11/09/20 at 08:00; Stop 11/10/20 at 07:59 Hydralazine HCl (Apresoline Inj) 5 mg PRN Q6HRS PRN IVP ELEVATED BP, SEE COMMENTS; Start 11/09/20 at 02:00 Furosemide (Lasix) 40 mg 1X ONCE IVP Last administered on 11/09/20at 02:19; Start 11/09/20 at 02:15; Stop 11/09/20 at 02:16; Status DC Active Scripts Active Levothyroxine Sodium 100 Mcg Tablet 1 Tab PO DAILY 30 Days Amlodipine Besylate 10 Mg Tablet 5 Mg PO DAILY 30 Days Ferrous Sulfate 300 Mg/5 Ml Liquid 300 Mg PO DAILYWBKFT 30 Days Furosemide 40 Mg Tablet 1 Tab PO PRN DAILY PRN 30 Days Lisinopril 40 Mg Tablet 40 Mg PO DAILY 30 Days Carvedilol (Carvedilol) 12.5 Mg Tablet 12.5 Mg PO BIDWMEALS 30 Days Reported Escitalopram Oxalate 10 Mg Tablet 0.5 Tab PO DAILY Aspirin Ec (Aspirin) 81 Mg Tablet.dr 81 Mg PO DAILY Allergies Allergies: Coded Allergies: iodine (Verified Allergy, Severe, 10/15/20) folic acid (Verified Allergy, Mild, 10/14/20) "COMPLEX B" vitamin B complex and C (Verified Allergy, Mild, 10/14/20) "COMPLEX B" ROS General: YES: Fatigue PSYCHOLOGICAL ROS: YES: Anxiety; No: Behavioral Disorder, Concentration difficultie, Decreased libido, Dep ression, Disorientation, Hallucinations, Hostility, Irritablity, Memory difficulties, Mood Swings, Obsessive thoughts, Physical abuse, Sexual abuse, Sleep disturbances, Suicidal ideation, Other Eyes: No Blurry vision, No Decreased vision, No Double vision, No Dry eyes, No Excessive tearing, No Eye Pain, No Itchy Eyes, No Loss of vision, No Photophobia, No Scotomata, No Uses contacts, No Uses glasses, No Other HEENT: No: Heacaches, Visual Changes, Hearing change, Nasal congestion, Nasal discharge, Oral lesions, Sinus pain, Sore Throat, Epistaxis, Sneezing, Snoring, Tinnitus, Vertigo, Vocal changes, Other ALLERGY AND IMMUNOLOGY: YES: Hives Hematological and Lymphatic: No: Bleeding Problems, Blood Clots, Blood Transfusions, Brusing, Night Sweats, Pallor, Swollen Lymph Nodes, Other ENDOCRINE: No: Breast Changes, Galactorrhea, Hair Pattern Changes, Hot Flashes, Malaise/lethargy, Mood Swings, Palpitations, Polydipsia/polyuria, Skin Changes, Temperature Intolerance, Unexpected Weight Changes, Other Breast: No New/Changing Breast Lumps, No Nipple changes, No Nipple discharge, No Other Respiratory: YES: Shortness of breath Cardiovascular: yes Chest Pain; No Palpitations, No Orthopnea, No Paroxysmal Noc. Dyspnea, No Edema, No Lt Headedness, No Other Gastrointestinal: No Nausea, No Vomiting, No Abdominal Pain, No Diarrhea, No Constipation, No Melena, No Hematochezia, No Other Genitourinary: No Dysuria, No Frequency, No Incontinence, No Hematuria, No Retention, No Discharge, No Urgency, No Pain, No Flank Pain, No Other, No , No , No , No , No , No , No Musculoskeletal: Yes Joint Stiffness; No Gait Disturbance, No Joint Pain, No Joint Swelling, No Muscle Pain, No Muscular Weakness, No Pain In:, No Swelling In:, No Other Neurological: No Behavorial Changes, No Bowel/Bladder ControlChng, No Confusion, No Dizziness, No Gait Disturbance, No Headaches, No Impaired Coord/balance, No Memory Loss, No Numbness/Tingling, No Seizures, No Speech Problems, No Tremors, No Visual Changes, No Weakness, No Other Skin: Yes Dry Skin; No Eczema, No Hair Changes, No Lumps, No Mole Changes, No Mottling, No Nail Changes, No Pruritus, No Rash, No Skin Lesion Changes, No Other, No Acne CKD stage 3 B - stable renal function , Cr ranging 1.6-1.9 now 7-18 Acute diastolic CHF; Echo 10/19 with preserved LV systolic function. Most probably secondary to uncontrolled HTN. s/p IV diuresis HTN urgency; mildly elevated. Discontinue amlodipine and adding hydralazine / continue lisinopril at this time but may change to enalapril 20 mg a day on discharge CR UP TO 2.1 Chest pain Dyspnea Generalized weakness Acute volume overload Acute respiratory failure in setting of CHF on cxr, Focal opacities bilaterall y appears increased from prior could be from pulmonary edema or infiltrate. Acute diastolic CHF; Echo 10/19 with preserved LV systolic function. Most probably secondary to uncontrolled HTN HTN urgency Acute on chronic kidney disease, stage III Moderate protein malnutrition Acute anemia - required recent blood transfusion History of hypertension depression anxiety hypothyroidism History of uterine tumor status post hysterectomy and chemotherapy in 2019 [facility] BED Consult cardiology trend troponin i careful diuresis d/c norvasc or lower dose to 5 mg dvt prophylaxis NEPHROLOGY CONSULTED D/W veneer taping machine offbearer Recommendations * Acute Rehab facility Discharge Recommendation - DME * Rolling Walker needed * and ambulation safely 26 min pt exam, chart review, > 50% of time spent with exam, chart review, pt care coordination 7-17 CR UP TO 2.1 Chest pain Dyspnea Generalized weakness Acute volume overload Acute respiratory failure in setting of CHF on cxr, Focal opacities bilaterally appears increased from prior could be from pulmonary edema or infiltrate. Acute diastolic CHF; Echo 10/19 with preserved LV systolic function. Most probably secondary to uncontrolled HTN HTN urgency Acute on chronic kidney disease, stage III Moderate protein malnutrition Acute anemia - required recent blood transfusion History of hypertension depression anxiety hypothyroidism History of uterine tumor status post hysterectomy and chemotherapy in 2019 [facility] BED Consult cardiology trend troponin i careful diuresis d/c norvasc or lower dose to 5 mg dvt prophylaxis NEPHROLOGY CONSULTED D/W veneer taping machine offbearer Recommendations * Acute Rehab facility Discharge Recommendation - DME * Rolling Walker needed * and ambulation safely 27 min pt exam, chart review, > 50% of time spent with exam, chart review, pt care coordination 7-16 CR UP TO 1.9 Chest pain Dyspnea Generalized weakness Acute volume overload Acute respiratory failure in setting of CHF on cxr, Focal opacities bilaterally appears increased from prior could be from pulmonary edema or infiltrate. Acute diastolic CHF; Echo 10/19 with preserved LV systolic function. Most probably secondary to uncontrolled HTN HTN urgency Acute on chronic kidney disease, stage III Moderate protein malnutrition Acute anemia - required recent blood transfusion History of hypertension depression anxiety hypothyroidism History of uterine tumor status post hysterectomy and chemotherapy in 2019 [facility] BED Consult cardiology trend troponin i careful diuresis d/c norvasc or lower dose to 5 mg dvt prophylaxis NEPHROLOGY CONSULTED D/W veneer taping machine offbearer Recommendations * Acute Rehab facility Discharge Recommendation - DME * Rolling Walker needed * and ambulation safely 29 min pt exam, chart review, > 50% of time spent with exam, chart review, pt care coordination 7-15 CR UP TO 1.8 Chest pain Dyspnea Generalized weakness Acute volume overload Acute respiratory failure in setting of CHF on cxr, Focal opacities bilaterally appears increased from prior could be from pulmonary edema or infiltrate. Acute diastolic CHF; Echo 10/19 with preserved LV systolic function. Most probably secondary to uncontrolled HTN HTN urgency Acute on chronic kidney disease, stage III Moderate protein malnutrition Acute anemia - required recent blood transfusion History of hypertension depression anxiety hypothyroidism History of uterine tumor status post hysterectomy and chemotherapy in 2019 7-14 6 min walk [facility] BED Consult cardiology trend troponin i careful diuresis d/c norvasc or lower dose to 5 mg dvt prophylaxis NEPHROLOGY CONSULTED D/W veneer taping machine offbearer Recommendations * Acute Rehab facility Discharge Recommendation - DME * Rolling Walker needed * and ambulation safely 29 min pt exam, chart review, > 50% of time spent with exam, chart review, pt care coordination 7-14 CR UP TO 1.8 Chest pain Dyspnea Generalized weakness Acute volume overload Acute respiratory failure in setting of CHF on cxr, Focal opacities bilaterally appears increased from prior could be from pulmonary edema or infiltrate. Acute diastolic CHF; Echo 10/19 with preserved LV systolic function. Most probably secondary to uncontrolled HTN HTN urgency Acute on chronic kidney disease, stage III Moderate protein malnutrition Acute anemia - required recent blood transfusion History of hypertension depression anxiety hypothyroidism History of uterine tumor status post hysterectomy and chemotherapy in 2018 7-14 6 min walk [facility] BED Consult cardiology trend troponin i careful diuresis d/c norvasc or lower dose to 5 mg dvt prophylaxis NEPHROLOGY CONSULTED D/W RN 27 min pt exam, chart review, > 50% of time spent with exam, chart review, pt care coordination Vitals Vitals Vital Signs Date Time Temp Pulse Resp B/P (MAP) Pulse Ox O2 Delivery O2 Flow Rate FiO2 11/15/20 08:56 80 11/15/20 07:00 98.4 18 121/57 (78) 94 Room Air 98.4 Physical Exam Physical Exam General: Alert, Oriented X3, Cooperative, No acute distress HEENT: PERRLA, EOMI, Mucous membr. moist/pink Lungs: Normal air movement, Other (few crackles) Heart: RRR Breasts: Not examined Abdomen: Normal bowel sounds, Soft Rectal Exam: not examined PELVIC: Examination not indicated Extremities: No cyanosis Neuro: Normal speech, Cranial nerves 3-12 NL Psych/Mental Status: Mental status NL, Mood NL General: Alert, Oriented X3, Cooperative, No acute distress Heart: Regular rate Lungs: Clear Abdomen: Normal bowel sounds Extremities: No cyanosis Labs LABS Laboratory Tests Test 11/15/20 08:55 White Blood Count 4.4 x10^3/uL (4.0-11.0) Red Blood Count 2.96 x10^6/uL (3.50-5.40) Hemoglobin 9.1 g/dL (12.0-15.5) Hematocrit 27.9 % (36.0-47.0) Mean Corpuscular Volume 94 fL (79-100) Mean Corpuscular Hemoglobin 31 pg (25-35) Mean Corpuscular Hemoglobin Concent 33 g/dL (31-37) Red Cell Distribution Width 16.1 % (11.5-14.5) Platelet Count 138 x10^3/uL (140-400) Neutrophils (%) (Auto) 66 % (31-73) Lymphocytes (%) (Auto) 18 % (24-48) Monocytes (%) (Auto) 10 % (0-9) Eosinophils (%) (Auto) 5 % (0-3) Basophils (%) (Auto) 1 % (0-3) Neutrophils # (Auto) 2.9 x10^3/uL (1.8-7.7) Lymphocytes # (Auto) 0.8 x10^3/uL (1.0-4.8) Monocytes # (Auto) 0.4 x10^3/uL (0.0-1.1) Eosinophils # (Auto) 0.2 x10^3/uL (0.0-0.7) Basophils # (Auto) 0.1 x10^3/uL (0.0-0.2) Sodium Level 137 mmol/L (136-145) Potassium Level 3.7 mmol/L (3.5-5.1) Chloride Level 102 mmol/L (98-107) Carbon Dioxide Level 27 mmol/L (21-32) Anion Gap 8 (6-14) Blood Urea Nitrogen 44 mg/dL (7-20) Creatinine 2.1 mg/dL (0.6-1.0) Estimated GFR (Cockcroft-Gault) 23.6 BUN/Creatinine Ratio 21 (6-20) Glucose Level 100 mg/dL (70-99) Calcium Level 8.8 mg/dL (8.5-10.1) Total Bilirubin 0.4 mg/dL (0.2-1.0) Aspartate Amino Transf (AST/SGOT) 18 U/L (15-37) Alanine Aminotransferase (ALT/SGPT) 19 U/L (14-59) Alkaline Phosphatase 54 U/L (46-116) Total Protein 6.5 g/dL (6.4-8.2) Albumin 2.9 g/dL (3.4-5.0) Albumin/Globulin Ratio 0.8 (1.0-1.7) Comment Review of Relevant I have reviewed the following items rosie (where applicable) has been applied. Labs Laboratory Tests Test 11/14/20 06:35 11/15/20 08:55 Sodium Level 138 mmol/L (136-145) 137 mmol/L (136-145) Potassium Level 3.6 mmol/L (3.5-5.1) 3.7 mmol/L (3.5-5.1) Chloride Level 103 mmol/L (98-107) 102 mmol/L (98-107) Carbon Dioxide Level 27 mmol/L (21-32) 27 mmol/L (21-32) Anion Gap 8 (6-14) 8 (6-14) Blood Urea Nitrogen 43 mg/dL (7-20) 44 mg/dL (7-20) Creatinine 2.1 mg/dL (0.6-1.0) 2.1 mg/dL (0.6-1.0) Estimated GFR (Cockcroft-Gault) 23.6 23.6 Glucose Level 88 mg/dL (70-99) 100 mg/dL (70-99) Calcium Level 8.7 mg/dL (8.5-10.1) 8.8 mg/dL (8.5-10.1) Magnesium Level 2.1 mg/dL (1.8-2.4) White Blood Count 4.4 x10^3/uL (4.0-11.0) Red Blood Count 2.96 x10^6/uL (3.50-5.40) Hemoglobin 9.1 g/dL (12.0-15.5) Hematocrit 27.9 % (36.0-47.0) Mean Corpuscular Volume 94 fL (79-100) Mean Corpuscular Hemoglobin 31 pg (25-35) Mean Corpuscular Hemoglobin Concent 33 g/dL (31-37) Red Cell Distribution Width 16.1 % (11.5-14.5) Platelet Count 138 x10^3/uL (140-400) Neutrophils (%) (Auto) 66 % (31-73) Lymphocytes (%) (Auto) 18 % (24-48) Monocytes (%) (Auto) 10 % (0-9) Eosinophils (%) (Auto) 5 % (0-3) Basophils (%) (Auto) 1 % (0-3) Neutrophils # (Auto) 2.9 x10^3/uL (1.8-7.7) Lymphocytes # (Auto) 0.8 x10^3/uL (1.0-4.8) Monocytes # (Auto) 0.4 x10^3/uL (0.0-1.1) Eosinophils # (Auto) 0.2 x10^3/uL (0.0-0.7) Basophils # (Auto) 0.1 x10^3/uL (0.0-0.2) BUN/Creatinine Ratio 21 (6-20) Total Bilirubin 0.4 mg/dL (0.2-1.0) Aspartate Amino Transf (AST/SGOT) 18 U/L (15-37) Alanine Aminotransferase (ALT/SGPT) 19 U/L (14-59) Alkaline Phosphatase 54 U/L (46-116) Total Protein 6.5 g/dL (6.4-8.2) Albumin 2.9 g/dL (3.4-5.0) Albumin/Globulin Ratio 0.8 (1.0-1.7) Laboratory Tests Test 11/15/20 08:55 White Blood Count 4.4 x10^3/uL (4.0-11.0) Red Blood Count 2.96 x10^6/uL (3.50-5.40) Hemoglobin 9.1 g/dL (12.0-15.5) Hematocrit 27.9 % (36.0-47.0) Mean Corpuscular Volume 94 fL (79-100) Mean Corpuscular Hemoglobin 31 pg (25-35) Mean Corpuscular Hemoglobin Concent 33 g/dL (31-37) Red Cell Distribution Width 16.1 % (11.5-14.5) Platelet Count 138 x10^3/uL (140-400) Neutrophils (%) (Auto) 66 % (31-73) Lymphocytes (%) (Auto) 18 % (24-48) Monocytes (%) (Auto) 10 % (0-9) Eosinophils (%) (Auto) 5 % (0-3) Basophils (%) (Auto) 1 % (0-3) Neutrophils # (Auto) 2.9 x10^3/uL (1.8-7.7) Lymphocytes # (Auto) 0.8 x10^3/uL (1.0-4.8) Monocytes # (Auto) 0.4 x10^3/uL (0.0-1.1) Eosinophils # (Auto) 0.2 x10^3/uL (0.0-0.7) Basophils # (Auto) 0.1 x10^3/uL (0.0-0.2) Sodium Level 137 mmol/L (136-145) Potassium Level 3.7 mmol/L (3.5-5.1) Chloride Level 102 mmol/L (98-107) Carbon Dioxide Level 27 mmol/L (21-32) Anion Gap 8 (6-14) Blood Urea Nitrogen 44 mg/dL (7-20) Creatinine 2.1 mg/dL (0.6-1.0) Estimated GFR (Cockcroft-Gault) 23.6 BUN/Creatinine Ratio 21 (6-20) Glucose Level 100 mg/dL (70-99) Calcium Level 8.8 mg/dL (8.5-10.1) Total Bilirubin 0.4 mg/dL (0.2-1.0) Aspartate Amino Transf (AST/SGOT) 18 U/L (15-37) Alanine Aminotransferase (ALT/SGPT) 19 U/L (14-59) Alkaline Phosphatase 54 U/L (46-116) Total Protein 6.5 g/dL (6.4-8.2) Albumin 2.9 g/dL (3.4-5.0) Albumin/Globulin Ratio 0.8 (1.0-1.7) Medications Current Medications Nitroglycerin (Nitrostat) 0.4 mg PRN Q5MIN PRN SL CHEST PAIN Last administered on 11/09/20at 02:04; Start 11/08/20 at 23:15 Furosemide (Lasix) 40 mg 1X ONCE PO ; Start 11/09/20 at 01:00; Stop 11/09/20 at 01:01; Status Cancel Ondansetron HCl (Zofran) 4 mg PRN Q8HRS PRN IV NAUSEA/VOMITING; Start 11/09/20 at 01:00; Stop 11/09/20 at 11:48; Status DC Fentanyl Citrate (Fentanyl 2ml Vial) 50 mcg PRN Q1HR PRN IV PAIN; Start 11/09/20 at 01:00; Stop 11/10/20 at 00:59; Status DC Acetaminophen (Tylenol) 650 mg PRN Q4HRS PRN PO FEVER > 100.3'F; Start 11/09/20 at 01:00; Stop 11/09/20 at 11:49; Status DC Nitroglycerin (Nitrostat) 0.4 mg PRN Q5MIN PRN SL CHEST PAIN; Start 11/09/20 at 01:00; Stop 11/10/20 at 00:59; Status DC Albuterol/ Ipratropium (Duoneb) 3 ml RTQID NEB Last administered on 11/10/20at 07:29; Start 11/09/20 at 08:00; Stop 11/10/20 at 07:59; Status DC Hydralazine HCl (Apresoline Inj) 5 mg PRN Q6HRS PRN IVP ELEVATED BP, SEE COMMENTS; Start 11/09/20 at 02:00; Stop 11/09/20 at 11:54; Status DC Furosemide (Lasix) 40 mg 1X ONCE IVP Last administered on 11/09/20at 02:19; Start 11/09/20 at 02:15; Stop 11/09/20 at 02:16; Status DC Amlodipine Besylate (Norvasc) 5 mg DAILY PO Last administered on 11/12/20at 09:48; Start 11/09/20 at 11:00; Stop 11/12/20 at 15:50; Status DC Aspirin (Ecotrin) 81 mg DAILY PO Last administered on 11/15/20at 08:55; Start 11/09/20 at 11:00 Carvedilol (Coreg) 12.5 mg BIDWMEALS PO Last administered on 11/12/20at 09:48; Start 11/09/20 at 12:00; Stop 11/12/20 at 15:50; Status DC Ferrous Sulfate (Iron Oral Solution) 300 mg DAILYWBKFT PO Last administered on 11/15/20at 08:56; Start 11/09/20 at 12:00 Furosemide (Lasix) 40 mg PRN DAILY PRN PO Weight gain 3# Last administered on 11/09/20at 12:37; Start 11/09/20 at 10:15 Levothyroxine Sodium (Synthroid) 100 mcg DAILY06 PO Last administered on 11/15/20at 04:49; Start 11/09/20 at 11:00 Lisinopril (Prinivil) 40 mg DAILY PO Last administered on 11/15/20at 08:56; Start 11/09/20 at 11:00 Citalopram Hydrobromide (CeleXA) 10 mg DAILY PO Last administered on 11/15/20at 08:56; Start 11/09/20 at 11:00 Sodium Chloride (Normal Saline Flush) 3 ml QSHIFT PRN IV AFTER MEDS AND BLOOD DRAWS; Start 11/09/20 at 11:45 Ondansetron HCl (Zofran) 4 mg PRN Q4HRS PRN IV NAUSEA/VOMITING; Start 11/09/20 at 11:45 Acetaminophen (Tylenol) 650 mg PRN Q4HRS PRN PO TEMP OVER 100.4F OR MILD PAIN; Start 11/09/20 at 11:45 Sodium Monofluorophosphate (Fleet Adult) 133 ml PRN DAILY PRN MA CONSTIPATION; Start 11/09/20 at 11:45 Docusate Sodium (Colace) 100 mg PRN BID PRN PO HARD STOOLS; Start 11/09/20 at 11:45 Albuterol Sulfate (Ventolin Neb Soln) 2.5 mg PRN Q4HRS PRN NEB SHORTNESS OF BREATH; Start 11/09/20 at 11:45; Stop 11/10/20 at 12:59; Status DC Guaifenesin (Robitussin) 200 mg PRN Q4HRS PRN PO COUGH; Start 11/09/20 at 11:45 Enoxaparin Sodium (Lovenox 40mg Syringe) 40 mg Q24H SQ Last administered on 11/09/20at 12:38; Start 11/09/20 at 13:00; Stop 11/10/20 at 13:04; Status DC Hydralazine HCl (Apresoline Inj) 10 mg PRN Q4HRS PRN IVP ELEVATED BP, SEE COMMENTS Last administered on 11/09/20at 12:42; Start 11/09/20 at 12:00 Furosemide (Lasix) 40 mg 1X ONCE IVP Last administered on 11/09/20at 12:51; Start 11/09/20 at 12:30; Stop 11/09/20 at 12:31; Status DC Albuterol Sulfate (Ventolin Neb Soln) 2.5 mg PRN Q4HRS PRN NEB SHORTNESS OF BREATH; Start 11/10/20 at 07:15 Enoxaparin Sodium (Lovenox 30mg Syringe) 30 mg Q24H SQ Last administered on 11/14/20at 13:38; Start 11/10/20 at 14:00 Furosemide (Lasix) 40 mg 1X ONCE IVP Last administered on 11/10/20at 15:31; Start 11/10/20 at 15:15; Stop 11/10/20 at 15:16; Status DC Potassium Chloride (Klor-Con) 20 meq 1X ONCE PO Last administered on 11/10/20at 15:32; Start 11/10/20 at 15:15; Stop 11/10/20 at 15:16; Status DC Glycerin/ Hypromellose/ Polyethylene (Artificial Tears) 1 drop PRN Q15MIN PRN OU DRY EYE Last administered on 11/11/20at 20:28; Start 11/10/20 at 19:15 Furosemide (Lasix) 40 mg 1X ONCE IVP Last administered on 11/11/20at 13:59; Start 11/11/20 at 13:30; Stop 11/11/20 at 13:31; Status DC Furosemide (Lasix) 40 mg 1X ONCE IVP Last administered on 11/12/20at 10:45; Start 11/12/20 at 10:45; Stop 11/12/20 at 10:46; Status DC Furosemide (Lasix) 40 mg BID94 IVP Last administered on 11/14/20at 08:17; Start 11/12/20 at 16:00 Carvedilol (Coreg) 25 mg BIDWMEALS PO Last administered on 11/15/20at 08:55; Start 11/12/20 at 17:00 Carvedilol (Coreg) 12.5 mg 1X PO ; Start 11/12/20 at 15:45; Stop 11/14/20 at 11:24; Status DC Hydralazine HCl (Apresoline) 75 mg BID PO Last administered on 11/15/20at 08:55; Start 11/12/20 at 21:00 Potassium Chloride (Klor-Con) 20 meq 1X ONCE PO ; Start 11/13/20 at 11:00; Stop 11/13/20 at 11:01; Status DC Potassium Chloride (Klor-Con) 40 meq 1X ONCE PO Last administered on 11/13/20at 13:41; Start 11/13/20 at 11:30; Stop 11/13/20 at 11:31; Status DC Potassium Chloride (Klor-Con) 20 meq DAILYWBKFT PO Last administered on 11/15/20at 08:55; Start 11/14/20 at 08:00 Active Scripts Active Levothyroxine Sodium 100 Mcg Tablet 1 Tab PO DAILY 30 Days Ferrous Sulfate 300 Mg/5 Ml Liquid 300 Mg PO DAILYWBKFT 30 Days Furosemide 40 Mg Tablet 1 Tab PO PRN DAILY PRN 30 Days Lisinopril 40 Mg Tablet 40 Mg PO DAILY 30 Days Carvedilol (Carvedilol) 12.5 Mg Tablet 12.5 Mg PO BIDWMEALS 30 Days Reported Escitalopram Oxalate 10 Mg Tablet 0.5 Tab PO DAILY Aspirin Ec (Aspirin) 81 Mg Tablet. 81 Mg PO DAILY Vitals/I & O Vital Sign - Last 24 Hours 11/14/20 11/14/20 11/14/20 11/14/20 11:00 15:00 17:02 19:00 Temp 98.4 98.1 97.9 98.4 98.1 97.9 Pulse 69 73 73 70 Resp 16 16 20 B/P (MAP) 126/54 (78) 125/56 (79) 125/56 132/58 (82) Pulse Ox 96 94 95 O2 Delivery Room Air Room Air Room Air 11/14/20 11/14/20 11/14/20 11/15/20 19:40 20:10 23:29 03:15 Temp 98.4 98.5 98.4 98.5 Pulse 70 83 80 Resp 20 21 B/P (MAP) 132/58 113/49 (70) 133/61 (85) Pulse Ox 94 94 O2 Delivery Room Air Room Air Room Air 11/15/20 11/15/20 11/15/20 11/15/20 07:00 08:55 08:55 08:56 Temp 98.4 98.4 Pulse 76 80 80 80 Resp 18 B/P (MAP) 121/57 (78) Pulse Ox 94 O2 Delivery Room Air Intake and Output 11/14/20 11/14/20 11/15/20 15:00 23:00 07:00 Intake Total 250 ml 50 ml Output Total 300 ml 350 ml 100 ml Balance -300 ml -100 ml -50 ml Justicifation of Admission Dx: Justifications for Admission: Justification of Admission Dx: N/A LAKIA CRISOSTOMO MD Nov 15, 2020 10:57
[2020-11-15 11:00] VITALS: BP 138/62
--- NOTE | 2020-11-15 11:19 | PDOC ---
DATE OF SERVICE DATE: 11/15/20 TIME: 11:18 SUBJECTIVE ROS Stable, No new concerns voiced by Nursing OBJECTIVE Vital Signs Vital Signs Date Time Temp Pulse Resp B/P (MAP) Pulse Ox O2 Delivery O2 Flow Rate FiO2 11/15/20 08:56 80 11/15/20 07:00 98.4 18 121/57 (78) 94 Room Air 98.4 I & 0 Intake and Output 11/15/20 07:00 Intake Total 300 ml Output Total 750 ml Balance -450 ml Intake Oral 300 ml Output Urine Total 750 ml PHYSICAL EXAM Physical Exam General NAD HEEN OM moist Neck Supple Lungs CTA CV S1S2 Abd Soft, NT, Ext No LE edmea. No cyanosis Neuro- Grossly Normal, No focal deficit Psych Hx of depression/Anxiety, currently mood stable No Maguire, no cva or SP tenderness DIAGNOSIS/ASSESSMENT Assessment & Plan ELDA- 2/2 Overdiuresis , stable renal function Diuretics held , Monitor daily standing weight , Supportive care, avoid nephrotoxins CKD stage 3 B - Cr ranging 1.6-1.8 now UA and Renal US unremarkable Low grade Proteinuria, Pr/Cr <500 mg . Reviewed records from [facility]- creat was normal /eGFR >60 . Noted elevated Cr since July 2020 Edema- history with intermittent Edema , recommend daily weight, BP log . Adjust diuretics accordingly HTN -Antihypertensives , card was consulted at [facility]. Had extensive park at [facility] by cardiology Anemia- Kand L mildly elevated, Ratio is normal, SPEP no m spike . Tsats low , GI was consulted f/u for outpatient endoscopy. DM II Ac on Chronic Diastolic CHF History of uterine tumor status post hysterectomy and chemotherapy in 2019 COMMENT/RELEVANT DATA Meds Current Medications Medications (Trade) Dose Ordered Sig/Allison Start Time Stop Time Status Last Admin Dose Admin Acetaminophen (Tylenol) 650 mg PRN Q4HRS PRN 11/09/20 11:45 Albuterol Sulfate (Ventolin Neb Soln) 2.5 mg PRN Q4HRS PRN 11/10/20 07:15 Albuterol/ Ipratropium (Duoneb) 3 ml RTQID 11/09/20 08:00 11/10/20 07:59 DC 11/10/20 07:29 3 ML Amlodipine Besylate (Norvasc) 5 mg DAILY 11/09/20 11:00 11/12/20 15:50 DC 11/12/20 09:48 5 MG Aspirin (Ecotrin) 81 mg DAILY 11/09/20 11:00 11/15/20 08:55 81 MG Carvedilol (Coreg) 12.5 mg 1X 11/12/20 15:45 11/14/20 11:24 DC Citalopram Hydrobromide (CeleXA) 10 mg DAILY 11/09/20 11:00 11/15/20 08:56 10 MG Docusate Sodium (Colace) 100 mg PRN BID PRN 11/09/20 11:45 Enoxaparin Sodium (Lovenox 30mg Syringe) 30 mg Q24H 11/10/20 14:00 11/14/20 13:38 30 MG Enoxaparin Sodium (Lovenox 40mg Syringe) 40 mg Q24H 11/09/20 13:00 11/10/20 13:04 DC 11/09/20 12:38 40 MG Fentanyl Citrate (Fentanyl 2ml Vial) 50 mcg PRN Q1HR PRN 11/09/20 01:00 11/10/20 00:59 DC Ferrous Sulfate (Iron Oral Solution) 300 mg DAILYWBKFT 11/09/20 12:00 11/15/20 08:56 300 MG Furosemide (Lasix) 40 mg BID94 11/12/20 16:00 11/14/20 08:17 40 MG Glycerin/ Hypromellose/ Polyethylene (Artificial Tears) 1 drop PRN Q15MIN PRN 11/10/20 19:15 11/11/20 20:28 1 DROP Guaifenesin (Robitussin) 200 mg PRN Q4HRS PRN 11/09/20 11:45 Hydralazine HCl (Apresoline Inj) 10 mg PRN Q4HRS PRN 11/09/20 12:00 11/09/20 12:42 10 MG Hydralazine HCl (Apresoline) 75 mg BID 11/12/20 21:00 11/15/20 08:55 75 MG Levothyroxine Sodium (Synthroid) 100 mcg DAILY06 11/09/20 11:00 11/15/20 04:49 100 MCG Lisinopril (Prinivil) 40 mg DAILY 11/09/20 11:00 11/15/20 08:56 40 MG Nitroglycerin (Nitrostat) 0.4 mg PRN Q5MIN PRN 11/09/20 01:00 11/10/20 00:59 DC Ondansetron HCl (Zofran) 4 mg PRN Q4HRS PRN 11/09/20 11:45 Potassium Chloride (Klor-Con) 20 meq DAILYWBKFT 11/14/20 08:00 11/15/20 08:55 20 MEQ Sodium Monofluorophosphate (Fleet Adult) 133 ml PRN DAILY PRN 11/09/20 11:45 Sodium Chloride (Normal Saline Flush) 3 ml QSHIFT PRN 11/09/20 11:45 Lab Laboratory Tests Test 11/15/20 08:55 White Blood Count 4.4 x10^3/uL (4.0-11.0) Red Blood Count 2.96 x10^6/uL (3.50-5.40) Hemoglobin 9.1 g/dL (12.0-15.5) Hematocrit 27.9 % (36.0-47.0) Mean Corpuscular Volume 94 fL (79-100) Mean Corpuscular Hemoglobin 31 pg (25-35) Mean Corpuscular Hemoglobin Concent 33 g/dL (31-37) Red Cell Distribution Width 16.1 % (11.5-14.5) Platelet Count 138 x10^3/uL (140-400) Neutrophils (%) (Auto) 66 % (31-73) Lymphocytes (%) (Auto) 18 % (24-48) Monocytes (%) (Auto) 10 % (0-9) Eosinophils (%) (Auto) 5 % (0-3) Basophils (%) (Auto) 1 % (0-3) Neutrophils # (Auto) 2.9 x10^3/uL (1.8-7.7) Lymphocytes # (Auto) 0.8 x10^3/uL (1.0-4.8) Monocytes # (Auto) 0.4 x10^3/uL (0.0-1.1) Eosinophils # (Auto) 0.2 x10^3/uL (0.0-0.7) Basophils # (Auto) 0.1 x10^3/uL (0.0-0.2) Sodium Level 137 mmol/L (136-145) Potassium Level 3.7 mmol/L (3.5-5.1) Chloride Level 102 mmol/L (98-107) Carbon Dioxide Level 27 mmol/L (21-32) Anion Gap 8 (6-14) Blood Urea Nitrogen 44 mg/dL (7-20) Creatinine 2.1 mg/dL (0.6-1.0) Estimated GFR (Cockcroft-Gault) 23.6 BUN/Creatinine Ratio 21 (6-20) Glucose Level 100 mg/dL (70-99) Calcium Level 8.8 mg/dL (8.5-10.1) Total Bilirubin 0.4 mg/dL (0.2-1.0) Aspartate Amino Transf (AST/SGOT) 18 U/L (15-37) Alanine Aminotransferase (ALT/SGPT) 19 U/L (14-59) Alkaline Phosphatase 54 U/L (46-116) Total Protein 6.5 g/dL (6.4-8.2) Albumin 2.9 g/dL (3.4-5.0) Albumin/Globulin Ratio 0.8 (1.0-1.7) Results All relevant outside records, renal labs, imaging studies, telemetry/EKG's were reviewed. Justicifation of Admission Dx: Justifications for Admission: Justification of Admission Dx: N/A ESTELLA BRADY MD Nov 15, 2020 11:19
[2020-11-15 15:00] VITALS: BP 134/60
[2020-11-15] MEDS: ENOXAPARIN 30 MG/0.3 ML SYRINGE. SQ SCH (16:20)
[2020-11-15 19:25] VITALS: BP 133/64
[2020-11-15 23:00] VITALS: BP 132/64
[2020-11-16 03:00] VITALS: BP 128/62
[2020-11-16] MEDS: LEVOTHYROXINE 100 MCG TABLET PO SCH (06:30)
[2020-11-16 07:00] VITALS: BP 136/67
[2020-11-16 07:34] LABS: ALBUMIN 2.8 g/dL (3.4-5.0); CALCIUM 8.6 mg/dL (8.5-10.1); CREATININE 1.9 mg/dL (0.6-1.0); GFR 26.4; PHOSPHORUS 4.5 mg/dL (2.6-4.7); POTASSIUM 4.1 mmol/L (3.5-5.1)
[2020-11-16] MEDS ORDERED: FERROUS SULFATE 325 MG TABLET. PO SCH (09:00)
[2020-11-16] MEDS: FUROSEMIDE 40 MG/4 ML VIAL. IVP SCH ×2 (09:00→13:17)
[2020-11-16] MEDS: POTASSIUM CHLORIDE 20 MEQ TABLET.ER. PO SCH (09:10)
[2020-11-16] MEDS: LISINOPRIL 20 MG TABLET PO SCH (09:11)
[2020-11-16] MEDS: CITALOPRAM 10 MG TABLET. PO SCH (09:11)
[2020-11-16] MEDS: CARVEDILOL 12.5 MG TABLET. PO SCH (09:11)
[2020-11-16] MEDS: hydrALAZINE 25 MG TABLET PO SCH (09:12)
[2020-11-16] MEDS: ASPIRIN ENTERIC COATED 81 MG TABLET.DR. PO SCH (09:12)
--- NOTE | 2020-11-16 09:12 | PDOC ---
DATE OF SERVICE DATE: 11/16/20 TIME: 09:11 SUBJECTIVE ROS Stable, No new concerns voiced by Nursing OBJECTIVE Vital Signs Vital Signs Date Time Temp Pulse Resp B/P (MAP) Pulse Ox O2 Delivery O2 Flow Rate FiO2 11/16/20 07:00 99.1 74 16 136/67 (90) 95 Room Air 99.1 I & 0 Intake and Output 11/16/20 07:00 Intake Total 2010 ml Output Total 1250 ml Balance 760 ml Intake Oral 2010 ml Output Urine Total 1250 ml PHYSICAL EXAM Physical Exam General NAD HEEN OM moist Neck Supple Lungs CTA CV S1S2 Abd Soft, NT, Ext No LE edmea. No cyanosis Neuro- Grossly Normal, No focal deficit Psych Hx of depression/Anxiety, currently mood stable No Maguire, no cva or SP tenderness DIAGNOSIS/ASSESSMENT Assessment & Plan ELDA- 2/2 Overdiuresis , stable renal function Hold Diuretics ( didnt get over the weekend , got 1 dose this morning) Monitor daily standing weight , Supportive care, avoid nephrotoxins. recommend PO Laix 20-40 mg QD prn based on daily weight , BP @ home post dc . Reza RN CKD stage 3 B - Cr ranging 1.6-1.8 now UA and Renal US unremarkable Low grade Proteinuria, Pr/Cr <500 mg . Reviewed records from [facility]- creat was normal /eGFR >60 . Noted elevated Cr since July 2020 She was scheduled in our office last week but was at [facility] Edema- history with intermittent Edema , recommend daily weight, BP log . Adjust diuretics accordingly HTN -Antihypertensives , card was consulted at [facility]. Had extensive park at [facility] by cardiology Anemia- Kand L mildly elevated, Ratio is normal, SPEP no m spike . Tsats low , GI was consulted f/u for outpatient endoscopy. DM II Ac on Chronic Diastolic CHF History of uterine tumor status post hysterectomy and chemotherapy in 2019 COMMENT/RELEVANT DATA Meds Current Medications Medications (Trade) Dose Ordered Sig/Allison Start Time Stop Time Status Last Admin Dose Admin Acetaminophen (Tylenol) 650 mg PRN Q4HRS PRN 11/09/20 11:45 11/16/20 08:38 650 MG Albuterol Sulfate (Ventolin Neb Soln) 2.5 mg PRN Q4HRS PRN 11/10/20 07:15 Albuterol/ Ipratropium (Duoneb) 3 ml RTQID 11/09/20 08:00 11/10/20 07:59 DC 11/10/20 07:29 3 ML Amlodipine Besylate (Norvasc) 5 mg DAILY 11/09/20 11:00 11/12/20 15:50 DC 11/12/20 09:48 5 MG Aspirin (Ecotrin) 81 mg DAILY 11/09/20 11:00 11/15/20 08:55 81 MG Carvedilol (Coreg) 12.5 mg 1X 11/12/20 15:45 11/14/20 11:24 DC Citalopram Hydrobromide (CeleXA) 10 mg DAILY 11/09/20 11:00 11/15/20 08:56 10 MG Docusate Sodium (Colace) 100 mg PRN BID PRN 11/09/20 11:45 Enoxaparin Sodium (Lovenox 30mg Syringe) 30 mg Q24H 11/10/20 14:00 11/15/20 16:20 30 MG Enoxaparin Sodium (Lovenox 40mg Syringe) 40 mg Q24H 11/09/20 13:00 11/10/20 13:04 DC 11/09/20 12:38 40 MG Fentanyl Citrate (Fentanyl 2ml Vial) 50 mcg PRN Q1HR PRN 11/09/20 01:00 11/10/20 00:59 DC Ferrous Sulfate (Feosol) 325 mg DAILYWBKFT 11/16/20 09:00 Ferrous Sulfate (Iron Oral Solution) 300 mg DAILYWBKFT 11/09/20 12:00 11/16/20 08:36 DC 11/15/20 08:56 300 MG Furosemide (Lasix) 40 mg BID94 11/12/20 16:00 11/14/20 08:17 40 MG Glycerin/ Hypromellose/ Polyethylene (Artificial Tears) 1 drop PRN Q15MIN PRN 11/10/20 19:15 11/11/20 20:28 1 DROP Guaifenesin (Robitussin) 200 mg PRN Q4HRS PRN 11/09/20 11:45 Hydralazine HCl (Apresoline Inj) 10 mg PRN Q4HRS PRN 11/09/20 12:00 11/09/20 12:42 10 MG Hydralazine HCl (Apresoline) 75 mg BID 11/12/20 21:00 11/15/20 22:36 75 MG Levothyroxine Sodium (Synthroid) 100 mcg DAILY06 11/09/20 11:00 11/16/20 06:30 100 MCG Lisinopril (Prinivil) 40 mg DAILY 11/09/20 11:00 11/15/20 08:56 40 MG Nitroglycerin (Nitrostat) 0.4 mg PRN Q5MIN PRN 11/09/20 01:00 11/10/20 00:59 DC Ondansetron HCl (Zofran) 4 mg PRN Q4HRS PRN 11/09/20 11:45 Potassium Chloride (Klor-Con) 20 meq DAILYWBKFT 11/14/20 08:00 11/15/20 08:55 20 MEQ Sodium Monofluorophosphate (Fleet Adult) 133 ml PRN DAILY PRN 11/09/20 11:45 Sodium Chloride (Normal Saline Flush) 3 ml QSHIFT PRN 11/09/20 11:45 Lab Laboratory Tests Test 11/16/20 05:35 Sodium Level 136 mmol/L (136-145) Potassium Level 4.1 mmol/L (3.5-5.1) Chloride Level 102 mmol/L (98-107) Carbon Dioxide Level 27 mmol/L (21-32) Anion Gap 7 (6-14) Blood Urea Nitrogen 42 mg/dL (7-20) Creatinine 1.9 mg/dL (0.6-1.0) Estimated GFR (Cockcroft-Gault) 26.4 Glucose Level 89 mg/dL (70-99) Calcium Level 8.6 mg/dL (8.5-10.1) Phosphorus Level 4.5 mg/dL (2.6-4.7) Albumin 2.8 g/dL (3.4-5.0) Results All relevant outside records, renal labs, imaging studies, telemetry/EKG's were reviewed. Justicifation of Admission Dx: Justifications for Admission: Justification of Admission Dx: N/A ESTELLA BRADY MD Nov 16, 2020 09:11
[2020-11-16 11:00] VITALS: BP 142/66
--- NOTE | 2020-11-16 11:54 | PDOC ---
[employer] PROGRESS NOTE Date of Service DOS: DATE: 11/16/20 TIME: 11:50 Chief Complaint Chief Complaint VTE Prophylaxis Ordered VTE Prophylaxis Devices: No VTE Pharmacological Prophylaxi: Yes Assessment/Plan Assessment/Plan impression Chest pain Dyspnea Generalized weakness Acute volume overload Acute respiratory failure in setting of CHF on cxr, Focal opacities bilaterally appears increased from prior could be from pulmonary edema or infiltrate. Acute diastolic CHF; Echo 10/19 with preserved LV systolic function. Most probably secondary to uncontrolled HTN HTN urgency Acute on chronic kidney disease, stage III, CR UP WITH DIURESIS Moderate protein malnutrition Acute anemia - required recent blood transfusion History of hypertension depression anxiety hypothyroidism History of uterine tumor status post hysterectomy and chemotherapy in 2018 plan admit [facility] BED Consult cardiology trend troponin i careful diuresis PER CARDIOLOGY d/c norvasc or lower dose to 5 mg dvt prophylaxis NEPHROLOGY CONSULT 37 min pt exam, chart review, > 50% of time spent with exam, chart review, pt care coordination Justifications for Admission Justifications for Admission Other Justification ELDA LAKIA CRISOSTOMO MD Nov 09, 2020 08:33 History of Present Illness History of Present Illness Ms Chirinos is a 65-year-old female with past medical history of hypertension, depression, anxiety, DVT, uterine CA, and recently diagnosed CKD who presented to the ED with soa 65 year old female seen in ER for chest pain or shortness of breath. Patient was just discharged from the hospital for pneumonia 3 days ago. / baseline lower extremity edema. Baseline Cr unknown to the family, but has been elevated tween 1.5-1.7 since July 2020. had a creatinine between 1 and 1.1 as Nephrology has reviewed [facility] records and notes from prior Emphasized compliance with carvedilol as well as new medication lisinopril and as needed furosemide. Iron studies c/w ACD; no way to know if truly iron-deficient w/o bone marrow. needs lea-endoscopy; outpatient setting. Inadequate thyroid supplementation may contribute. Acute respiratory failure in setting of CHF /Acute diastolic CHF; Echo 10/19 with preserved LV systolic function. Most probably secondary to uncontrolled HTN //HTN urgency 11/16/2020: Patient seen and evaluated. Currently breathing on room air, resting comfortably. Denies any chest pain or shortness of breath. Had lengthy discussion with patient, , and patient's daughter about course of treatment, prognosis, steps to prevent worsening kidney function in the future. She is agreeable to skilled rehab, but unable to for this due to lack of insurance. She was discharged home with home health. 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 Greater than 30 minutes spent managing discharge of this patient. 7- Acute diastolic CHF; Echo 10/19 with preserved LV systolic function. Most probably secondary to uncontrolled HTN. s/p IV diuresis HTN urgency; mildly elevated. Discontinue amlodipine and adding hydralazine / continue lisinopril at this time but may change to enalapril 20 mg a day on discharge CR UP TO 2.1 Chest pain Dyspnea Generalized weakness Acute volume overload Acute respiratory failure in setting of CHF on cxr, Focal opacities bilaterally appears increased from prior could be from pulmonary edema or infiltrate. Acute diastolic CHF; Echo 10/19 with preserved LV systolic function. Most probably secondary to uncontrolled HTN HTN urgency Acute on chronic kidney disease, stage III Moderate protein malnutrition Acute anemia - required recent blood transfusion History of hypertension depression anxiety hypothyroidism History of uterine tumor status post hysterectomy and chemotherapy in 2019 CVC BED Consult cardiology trend troponin i careful diuresis d/c norvasc or lower dose to 5 mg dvt prophylaxis NEPHROLOGY CONSULTED D/W control valve mechanic Recommendations * Acute Rehab facility Discharge Recommendation - DME * Rolling Walker needed * and ambulation safely 26 min pt exam, chart review, > 50% of time spent with exam, chart review, pt care coordination 7- CR UP TO 2.1 Chest pain Dyspnea Generalized weakness Acute volume overload Acute respiratory failure in setting of CHF on cxr, Focal opacities bilaterally appears increased from prior could be from pulmonary edema or infiltrate. Acute diastolic CHF; Echo 10/19 with preserved LV systolic function. Most probably secondary to uncontrolled HTN HTN urgency Acute on chronic kidney disease, stage III Moderate protein malnutrition Acute anemia - required recent blood transfusion History of hypertension depression anxiety hypothyroidism History of uterine tumor status post hysterectomy and chemotherapy in 2019 CVC BED Consult cardiology trend troponin i careful diuresis d/c norvasc or lower dose to 5 mg dvt prophylaxis NEPHROLOGY CONSULTED D/W control valve mechanic Recommendations * Acute Rehab facility Discharge Recommendation - DME * Rolling Walker needed * and ambulation safely 27 min pt exam, chart review, > 50% of time spent with exam, chart review, pt care coordination 7-16 CR UP TO 1.9 Chest pain Dyspnea Generalized weakness Acute volume overload Acute respiratory failure in setting of CHF on cxr, Focal opacities bilaterall y appears increased from prior could be from pulmonary edema or infiltrate. Acute diastolic CHF; Echo 10/19 with preserved LV systolic function. Most probably secondary to uncontrolled HTN HTN urgency Acute on chronic kidney disease, stage III Moderate protein malnutrition Acute anemia - required recent blood transfusion History of hypertension depression anxiety hypothyroidism History of uterine tumor status post hysterectomy and chemotherapy in 2018 CVC BED Consult cardiology trend troponin i careful diuresis d/c norvasc or lower dose to 5 mg dvt prophylaxis NEPHROLOGY CONSULTED D/W control valve mechanic Recommendations * Acute Rehab facility Discharge Recommendation - DME * Rolling Walker needed * and ambulation safely 29 min pt exam, chart review, > 50% of time spent with exam, chart review, pt care coordination 7-15 CR UP TO 1.8 Chest pain Dyspnea Generalized weakness Acute volume overload Acute respiratory failure in setting of CHF on cxr, Focal opacities bilaterally appears increased from prior could be from pulmonary edema or infiltrate. Acute diastolic CHF; Echo 10/19 with preserved LV systolic function. Most probably secondary to uncontrolled HTN HTN urgency Acute on chronic kidney disease, stage III Moderate protein malnutrition Acute anemia - required recent blood transfusion History of hypertension depression anxiety hypothyroidism History of uterine tumor status post hysterectomy and chemotherapy in 2018 7-14 6 [address] CVC BED Consult cardiology trend troponin i careful diuresis d/c norvasc or lower dose to 5 mg dvt prophylaxis NEPHROLOGY CONSULTED D/W control valve mechanic Recommendations * Acute Rehab facility Discharge Recommendation - DME * Rolling Walker needed * and ambulation safely 29 min pt exam, chart review, > 50% of time spent with exam, chart review, pt care coordination 7-14 CR UP TO 1.8 Chest pain Dyspnea Generalized weakness Acute volume overload Acute respiratory failure in setting of CHF on cxr, Focal opacities bilaterally appears increased from prior could be from pulmonary edema or infiltrate. Acute diastolic CHF; Echo 10/19 with preserved LV systolic function. Most probably secondary to uncontrolled HTN HTN urgency Acute on chronic kidney disease, stage III Moderate protein malnutrition Acute anemia - required recent blood transfusion History of hypertension depression anxiety hypothyroidism History of uterine tumor status post hysterectomy and chemotherapy in 2018 7-14 6 min walk CVC BED Consult cardiology trend troponin i careful diuresis d/c norvasc or lower dose to 5 mg dvt prophylaxis NEPHROLOGY CONSULTED D/W RN 27 min pt exam, chart review, > 50% of time spent with exam, chart review, pt care coordination Vitals/I&O Vitals/I&O: Vital Signs Date Time Temp Pulse Resp B/P (MAP) Pulse Ox O2 Delivery O2 Flow Rate FiO2 11/16/20 11:00 98.5 70 16 142/66 (91) 96 Room Air 98.5 11/16/20 08:00 1.0 I & O 11/15/20 11/15/20 11/16/20 15:00 23:00 07:00 Intake Total 1010 ml 400 ml 600 ml Output Total 600 ml 650 ml Balance 410 ml -250 ml 600 ml Physical Exam Physical Exam: General: Alert, Oriented X3, Cooperative, No acute distress HEENT: PERRLA, EOMI, Mucous membr. moist/pink Lungs: Normal air movement, Other (few crackles) Heart: RRR Breasts: Not examined Abdomen: Normal bowel sounds, Soft Rectal Exam: not examined PELVIC: Examination not indicated Extremities: No cyanosis Neuro: Normal speech, Cranial nerves 3-12 NL Psych/Mental Status: Mental status NL, Mood NL General: Alert, Oriented X3, Cooperative, No acute distress Heart: Regular rate Lungs: Clear Abdomen: Normal bowel sounds Extremities: No cyanosis Labs Labs: Laboratory Tests Test 11/16/20 05:35 Sodium Level 136 mmol/L (136-145) Potassium Level 4.1 mmol/L (3.5-5.1) Chloride Level 102 mmol/L (98-107) Carbon Dioxide Level 27 mmol/L (21-32) Anion Gap 7 (6-14) Blood Urea Nitrogen 42 mg/dL (7-20) Creatinine 1.9 mg/dL (0.6-1.0) Estimated GFR (Cockcroft-Gault) 26.4 Glucose Level 89 mg/dL (70-99) Calcium Level 8.6 mg/dL (8.5-10.1) Phosphorus Level 4.5 mg/dL (2.6-4.7) Albumin 2.8 g/dL (3.4-5.0) Comment Review of Relevant I have reviewed the following items rosie (where applicable) has been applied. Medications: Current Medications Medications (Trade) Dose Ordered Sig/Allison Route PRN Reason Start Time Stop Time Status Last Admin Dose Admin Ferrous Sulfate (Feosol) 325 mg DAILYWBKFT PO 11/16/20 09:00 11/16/20 09:11 Justifications for Admission Other Justification chf acute ELDA RYAN VERA MD Nov 16, 2020 11:53
--- NOTE | 2020-11-16 12:28 | SNU/HH DC ---
DISCHARGE WITH HOME HEALTH DISCHARGE INFORMATION: Discharge Date: Nov 16, 2020 Condition on Discharge: Stable CODE STATUS: Code Status: Full HOME HEALTH: Face to Face: I certify this patient is under my care and that I, or a nurse practitioner or ashley [employer] membership assistant working with me, had a face to face encounter that meets the physician face to face encounter requirements with this patient on 11/16/2020. Medical Complications: CHF RN For Eval/Treatment: Yes Physical Therapy For: Evalulation/Treatment Occupational Therapy For: Evaluation/Treatment Pt Meets Homebound Status: Fatigue w/ amb., Limited distance walking POST DISCHARGE ORDERS: Activity Instructions for Disc: Resume previous activity, Activity as tolerated Weight Bearing Status after Di: As tolerated DIET AFTER DISCHARGE: Cardiac CHECKS AFTER DISCHARGE: Checks after discharge: Check blood press - daily, Weigh Yourself Daily TREATMENT/EQUIPMENT ORDERS: Adaptive Equipment Issued: Walker CERTIFICATION STATEMENT: Certification Statement: Certification Statement: Based on the above finding, I certify that this patient is confined to the home and needs intermittent senior living care, physical therapy and/or speech therapy, or continues to need occupational therapy.~ This patient is under my care, and I have initiated the establishment of the plan of care.~ This patient will be followed by myself or a community physician who will periodically review the plan of care. Home Meds Active Scripts Levothyroxine Sodium (LEVOTHYROXINE SODIUM) 100 Mcg Tablet, 1 TAB PO DAILY for Hypothyroidism for 30 Days, #30 TAB 2 Refills Prov:NAFISA SCHULZ MD 11/05/20 Ferrous Sulfate (FERROUS SULFATE) 300 Mg/5 Ml Liquid, 300 MG PO DAILYWBKFT for CATARINA for 30 Days, #30 LIQUID 0 Refills Prov:NAFISA SCHULZ MD 11/04/20 Furosemide (FUROSEMIDE) 40 Mg Tablet, 1 TAB PO PRN DAILY PRN for Weight gain 3# for 30 Days, #30 TAB 0 Refills Prov:NAFISA SCHULZ MD 11/04/20 Lisinopril (LISINOPRIL) 40 Mg Tablet, 40 MG PO DAILY for HTN for 30 Days, #30 TAB 2 Refills Prov:NAFISA SCHULZ MD 11/04/20 Carvedilol (CARVEDILOL ) 12.5 Mg Tablet, 12.5 MG PO BIDWMEALS for CARDIAC for 30 Days, #60 TAB 2 Refills Prov:NAFISA SCHULZ MD 11/04/20 Reported Medications Escitalopram Oxalate (ESCITALOPRAM OXALATE) 10 Mg Tablet, 0.5 TAB PO DAILY for anxiety, #30 TAB 3 Refills 10/14/20 Aspirin (ASPIRIN EC) 81 Mg Tablet.dr, 81 MG PO DAILY for THINNER OF BLOOD, TAB.SR 10/14/20 Discontinued Scripts Amlodipine Besylate (AMLODIPINE BESYLATE) 10 Mg Tablet, 5 MG PO DAILY for HTN for 30 Days, #15 TAB 5 Refills Prov:NAFISA SCHULZ MD 11/05/20 RYAN VERA MD Nov 16, 2020 12:28
[2020-11-16] MEDS ORDERED: FURO-68 PO (12:34)
[2020-11-16] MEDS ORDERED: LISI-130 PO ×2 (12:34→14:44)
[2020-11-16] MEDS ORDERED: HYDR-2868 PO (12:34)
--- NOTE | 2020-11-16 12:43 | PDOC3 ---
Discharge Summary Visit Information Date of Admission: Nov 09, 2020 Date of Discharge: Nov 16, 2020 Brief Hospital Course Allergies Allergies Coded Allergies Type Severity Reaction Last Updated Verified iodine Allergy Severe 10/15/20 Yes folic acid Allergy Mild 10/14/20 Yes vitamin B complex and C Allergy Mild 10/14/20 Yes Vital Signs Vital Signs Date Time Temp Pulse Resp B/P (MAP) Pulse Ox O2 Delivery O2 Flow Rate FiO2 11/16/20 11:00 98.5 70 16 142/66 (91) 96 Room Air 98.5 11/16/20 08:00 1.0 Lab Results Laboratory Tests Test 11/15/20 08:55 11/16/20 05:35 White Blood Count 4.4 x10^3/uL (4.0-11.0) Red Blood Count 2.96 x10^6/uL (3.50-5.40) Hemoglobin 9.1 g/dL (12.0-15.5) Hematocrit 27.9 % (36.0-47.0) Mean Corpuscular Volume 94 fL (79-100) Mean Corpuscular Hemoglobin 31 pg (25-35) Mean Corpuscular Hemoglobin Concent 33 g/dL (31-37) Red Cell Distribution Width 16.1 % (11.5-14.5) Platelet Count 138 x10^3/uL (140-400) Neutrophils (%) (Auto) 66 % (31-73) Lymphocytes (%) (Auto) 18 % (24-48) Monocytes (%) (Auto) 10 % (0-9) Eosinophils (%) (Auto) 5 % (0-3) Basophils (%) (Auto) 1 % (0-3) Neutrophils # (Auto) 2.9 x10^3/uL (1.8-7.7) Lymphocytes # (Auto) 0.8 x10^3/uL (1.0-4.8) Monocytes # (Auto) 0.4 x10^3/uL (0.0-1.1) Eosinophils # (Auto) 0.2 x10^3/uL (0.0-0.7) Basophils # (Auto) 0.1 x10^3/uL (0.0-0.2) Sodium Level 137 mmol/L (136-145) 136 mmol/L (136-145) Potassium Level 3.7 mmol/L (3.5-5.1) 4.1 mmol/L (3.5-5.1) Chloride Level 102 mmol/L (98-107) 102 mmol/L (98-107) Carbon Dioxide Level 27 mmol/L (21-32) 27 mmol/L (21-32) Anion Gap 8 (6-14) 7 (6-14) Blood Urea Nitrogen 44 mg/dL (7-20) 42 mg/dL (7-20) Creatinine 2.1 mg/dL (0.6-1.0) 1.9 mg/dL (0.6-1.0) Estimated GFR (Cockcroft-Gault) 23.6 26.4 BUN/Creatinine Ratio 21 (6-20) Glucose Level 100 mg/dL (70-99) 89 mg/dL (70-99) Calcium Level 8.8 mg/dL (8.5-10.1) 8.6 mg/dL (8.5-10.1) Total Bilirubin 0.4 mg/dL (0.2-1.0) Aspartate Amino Transf (AST/SGOT) 18 U/L (15-37) Alanine Aminotransferase (ALT/SGPT) 19 U/L (14-59) Alkaline Phosphatase 54 U/L (46-116) Total Protein 6.5 g/dL (6.4-8.2) Albumin 2.9 g/dL (3.4-5.0) 2.8 g/dL (3.4-5.0) Albumin/Globulin Ratio 0.8 (1.0-1.7) Phosphorus Level 4.5 mg/dL (2.6-4.7) Laboratory Tests Test 11/16/20 05:35 Sodium Level 136 mmol/L (136-145) Potassium Level 4.1 mmol/L (3.5-5.1) Chloride Level 102 mmol/L (98-107) Carbon Dioxide Level 27 mmol/L (21-32) Anion Gap 7 (6-14) Blood Urea Nitrogen 42 mg/dL (7-20) Creatinine 1.9 mg/dL (0.6-1.0) Estimated GFR (Cockcroft-Gault) 26.4 Glucose Level 89 mg/dL (70-99) Calcium Level 8.6 mg/dL (8.5-10.1) Phosphorus Level 4.5 mg/dL (2.6-4.7) Albumin 2.8 g/dL (3.4-5.0) Brief Hospital Course Ms. Morris is a 65 old female who presented with acute dyspnea, chest pain, hypertensive urgency, acute diastolic CHF, acute on chronic kidney disease stage III. Consultation placed to cardiology, pulmonology, nephrology. Patient was treated with diuresis, but this was intermittently held due to worsening kidney function. Echocardiogram from 10/19/20 with preserved LV systolic function. Troponin <0.017 x 2. She is agreeable to skilled rehab her insurance would not approve because of her level of functionality. She was discharged home with home health with close PCP and nephrology follow-up. Discharge Information Condition at Discharge: Stable Follow Up: Weeks Disposition/Orders: D/C to Home w/ HH Scheduled Aspirin (Aspirin Ec) 81 Mg Tablet.dr, 81 MG PO DAILY for THINNER OF BLOOD, (Reported) Entered as Reported by: Leonor Briseno on 10/14/20 0637 Last Action: Continued on 11/09/20 101 by LAKIA CRISOSTOMO MD Carvedilol (Carvedilol ) 12.5 Mg Tablet, 12.5 MG PO BIDWMEALS for CARDIAC for 30 Days, #60 Ref 2 Prescribed by: NAFISA SCHULZ MD on 11/04/20 0816 Last Action: Continued on 11/09/20 101 by LAKIA CRISOSTOMO MD Escitalopram Oxalate (Escitalopram Oxalate) 10 Mg Tablet, 0.5 TAB PO DAILY for anxiety, #30 Ref 3 (Reported) Entered as Reported by: BILLY BRISCOE on 10/14/20 1904 Last Action: Converted on 11/09/20 101 by LAKIA CRISOSTOMO MD Ferrous Sulfate (Ferrous Sulfate) 300 Mg/5 Ml Liquid, 300 MG PO DAILYWBKFT for CATARINA for 30 Days, #30 Ref 0 Prescribed by: NAFISA SCHULZ MD on 11/04/20 0817 Last Action: Continued on 11/09/20 101 by LAKIA CRISOSTOMO MD Furosemide (Lasix) 40 Mg Tablet, 40 MG PO DAILY for CHF for 30 Days, #30 Ref 1 Prescribed by: RYAN VERA MD on 11/16/20 1234 Hydralazine Hcl (Hydralazine Hcl) 25 Mg Tablet, 75 MG PO BID for HTN for 30 Days, #180 Ref 2 Prescribed by: RYAN VERA MD on 11/16/20 1234 Levothyroxine Sodium (Levothyroxine Sodium) 100 Mcg Tablet, 1 TAB PO DAILY for Hypothyroidism for 30 Days, #30 Ref 2 Prescribed by: NAFISA SCHULZ MD on 11/05/20 0825 Last Action: Continued on 11/09/20 1011 by LAKIA RCISOSTOMO MD Lisinopril (Lisinopril) 40 Mg Tablet, 40 MG PO DAILY for HTN for 30 Days, #30 Ref 2 Prescribed by: RYAN VERA MD on 11/16/20 1234 Scheduled PRN Furosemide (Furosemide) 40 Mg Tablet, 1 TAB PO PRN DAILY PRN for Weight gain 3# for 30 Days, #30 Ref 0 Prescribed by: NAFISA SCHULZ MD on 11/04/20 0816 Last Action: Continued on 11/09/20 1011 by LAKIA CRISOSTOMO MD Discontinued Medications Amlodipine Besylate (Amlodipine Besylate) 10 Mg Tablet, 5 MG PO DAILY for HTN for 30 Days, #15 Ref 5 Prescribed by: NAFISA SCHULZ MD on 11/05/20 0801 Last Action: Discontinued on 11/09/20 1135 by LAKIA CRISOSTOMO MD Justicifation of Admission Dx: Justifications for Admission: Justification of Admission Dx: N/A RYAN VERA MD Nov 16, 2020 12:43
--- NOTE | 2020-11-16 12:46 | NUR ---
SS following up with discharge planning. SS reviewed pt chart and discussed with pt RN. Pt is currently on room air. COVID19 negative. Insurance denied [facility], ; fax [phone]. Per Cardiology, pt has improved. SS discussed with pt and publicity person. Discharge orders received for home healthcare. Pt was on services with [facility], ; fax [phone]. SS phoned and faxed discharge orders and referral to [facility]. Pt's RN notified.
[2020-11-16] MEDS ORDERED: CARV25TA PO (14:46)
[2020-11-16 15:00] VITALS: BP 127/53
--- NOTE | 2020-11-16 15:35 | NUR ---
Discharged patient to home. Discharge instructions given to patient and family. Piv and heart monitor removed. escorted patient off unit per wheelchair into a private vehicle.
== END 2020-11-16 15:35 | disposition home health service (06) | DRG 291 ==
LOC: ER 22:26 → 2 NORTH 11-09 00:50 → INTOOBSV 11-09 00:50 → OBSVTOIN 11-09 00:51
PROVIDERS: ADMIT Internal Medicine; ATTEND Internal Medicine
DX: I13.0 Hypertensive heart and chronic kidney disease with heart failure and stage 1 through stage 4 chronic kidney disease, or unspecified chronic kidney disease (principal); J96.01 Acute respiratory failure with hypoxia; I50.33 Acute on chronic diastolic (congestive) heart failure; E44.0 Moderate protein-calorie malnutrition; I31.3 Pericardial effusion (noninflammatory); N17.9 Acute kidney failure, unspecified; D64.9 Anemia, unspecified; E03.9 Hypothyroidism, unspecified; E11.22 Type 2 diabetes mellitus with diabetic chronic kidney disease; E87.6 Hypokalemia; F32.9 Major depressive disorder, single episode, unspecified; F41.9 Anxiety disorder, unspecified; I16.0 Hypertensive urgency; K57.30 Diverticulosis of large intestine without perforation or abscess without bleeding; K80.20 Calculus of gallbladder without cholecystitis without obstruction; N18.32 Chronic kidney disease, stage 3b; Z79.82 Long term (current) use of aspirin; Z79.899 Other long term (current) drug therapy; Z82.49 Family history of ischemic heart disease and other diseases of the circulatory system; Z85.42 Personal history of malignant neoplasm of other parts of uterus; Z86.718 Personal history of other venous thrombosis and embolism; Z90.710 Acquired absence of both cervix and uterus; Z92.21 Personal history of antineoplastic chemotherapy; M19.90 Unspecified osteoarthritis, unspecified site; Z79.01 Long term (current) use of anticoagulants; Z98.51 Tubal ligation status; Z88.8 Allergy status to other drugs, medicaments and biological substances; Z20.822 Contact with and (suspected) exposure to COVID-19
CPT/HCPCS: 36415; 71045; 80048; 80053; 80069; 83605; 83735; 83880; 84100; 84484; 85025; 87426; 94618; 94640; 94760; 96374; G0379; J0360; J1650; J1940; 97110-GP; 97116-GP; 97535-GO; 99285-25; G0378